=== PATIENT | male | born 1950 | race Caucasian/White ===

== ENCOUNTER 2016-06-10 15:24 | Inpatient (IN) ==
[2016-06-10] MEDS ORDERED: methylPREDNISolone 125 MG/2 ML VIAL IV ONE (15:36)
[2016-06-10] MEDS ORDERED: Ipratropium/Albuterol Neb 3 ML IH ONE (15:36)
--- NOTE | 2016-06-10 15:41 | Emergency Department Note ---
Disposition Clinical Impression: CHF exacerbation, COPD exacerbation Disposition: Admitted As Inpatient Condition: Good [facility]: [facility]Primary Care Provider[facility] - Forms: ED Satisfaction Letter Time of Disposition: 16:52 SOB HPI - General Chief Complaint: ED Shortness of Breath/Dyspnea Stated Complaint: DUSTIN, congestion Time Seen by Provider: 06/10/16 15:33 Source: patient Mode of arrival: ambulatory Limitations: no limitations Nursing Notes Reviewed: Yes Vital Signs Reviewed: Yes - History of Present Illness This is a 65-year-old male who states he has been having increased shortness of breath since yesterday morning. Patient states he has had a cough. Patient does have COPD but does not wear oxygen at home. Patient is a current cigarette smoker. Patient also has a history of CHF with a pacemaker/ defibrillator in place. Patient denies any active chest pain. Patient is not running any fevers. Patient has hypoxic on initial evaluation. Patient denies any abdominal pain, vomiting, diarrhea, or urinary symptoms. Pt Subjective Complaint: shortness of breath, cough Onset (ago): day(s) (1) - Related Data Home Medications Medication Instructions Recorded Confirmed Allopurinol [Zyloprim] 300 mg PO DAILY 03/24/15 06/10/16 Aspirin Enteric Coated [Aspirin EC] 81 mg PO DAILY 03/24/15 06/10/16 Cholecalciferol (Vitamin D3) 1,000 unit PO DAILY 03/24/15 06/10/16 [Vitamin D3] Digoxin [Lanoxin] 0.125 mg PO DAILY 03/24/15 06/10/16 Docusate [Colace] 200 mg PO BID 03/24/15 06/10/16 Furosemide [Lasix] 60 mg PO BID 03/24/15 06/10/16 Ipratropium/Albuterol Neb [Duoneb] 3 ml IH Q8H PRN 03/24/15 06/10/16 Morphine Sulfate SR (12 HR) [MS 15 mg PO Q4H PRN 03/24/15 06/10/16 Contin] Omeprazole [PriLOSEC] 20 mg PO DAILY 03/24/15 06/10/16 Rosuvastatin [Crestor] 10 mg PO HS 03/24/15 06/10/16 Budesonide/Formoterol 160/4.5 2 puff IH BIDR 09/25/15 06/10/16 [Symbicort 160/4.5] Lisinopril [Zestril] 2.5 mg PO DAILY 09/25/15 06/10/16 Metolazone [Zaroxolyn] 2.5 mg PO DAILY PRN 09/25/15 06/10/16 Gabapentin [Neurontin] 600 mg PO TID 06/10/16 06/10/16 Warfarin [Coumadin] 5 mg PO 3XW MDD 06/10/16 06/10/16Monday,monday,monday Warfarin [Coumadin] 10 mg PO 4XW MDD ,th,sat,sun 06/10/16 06/10/16 Previous Rx's Medication Instructions Recorded Metoprolol XL (24 HR) Succ [Toprol 25 mg PO DAILY #30 tab.er.24h 08/31/15 Xl] Spironolactone [Aldactone] 25 mg PO BID #60 tablet 08/31/15 Allergies Allergy/AdvReac Type Severity Reaction Status Date / Time No Known Allergies Allergy Verified 06/10/16 15:29 All systems ED: reviewed and negative except as stated. Constitutional: Denies: fever, chills, weakness, weight change Eyes: Denies: eye pain, eye discharge, vision change ENT ED: Denies: ear pain, throat pain, dental pain, hearing loss, epistaxis, congestion, dysphagia Cardiovascular: Denies: chest pain, palpitations, dyspnea on exertion, edema, syncope Respiratory: Reports: cough, dyspnea, wheezes. Denies: hemoptysis, stridor Gastrointestinal: Denies: abdominal pain, nausea, vomiting, diarrhea, constipation, hematemesis, melena, hematochezia Genitourinary: Denies: urgency, dysuria, frequency, hematuria Musculoskeletal: Denies: back pain, neck pain, arthralgia, myalgia Integumentary: Denies: rash, abrasion, lesions Neurological: Denies: headache, weakness, numbness, paresthesias, confusion, abnormal gait, vertigo Psychiatric: Denies: anxiety, depression, suicidal thoughts, homicidal thoughts , auditory hallucinations, visual hallucinations Endocrine: Denies: fatigue Hematological/Lymphatic: Denies: easy bleeding, easy bruising Allergic/Immunologic: Denies: facial swelling, urticaria Past Medical History - Past Medical History Attestation: Yes The following information was validated with the patient. Source: patient Medical history: Reports: arthritis, atrial fibrillation, COPD, coronary artery disease, diabetes, hyperlipidemia, hypertension, myocardial infarction, other Surgical history: Reports: coronary bypass (CABG), other Psychiatric history: Reports: no psych history - Social History Smoking Status: Current every day smoker Smokeless Tobacco Status: No Alcohol use: Reports: none Drug use: Reports: none Physical Exam - General Limitations: no limitations General appearance: alert, in no apparent distress - Head Head exam: atraumatic, normocephalic, normal inspection - Eye Eye exam: Present: normal appearance, PERRL, EOMI - ENT ENT exam: normal exam, normal oropharynx, mucous membranes moist - Expanded ENT Exam External ear exam: Present: normal external inspection Mouth exam: Present: normal external inspection Teeth exam: Present: normal inspection Throat exam: Present: normal inspection - Neck Neck exam: Present: normal inspection, full ROM, trachea midline - Chest Chest inspection: Present: normal inspection, symmetric chest wall rise - Respiratory Respiratory exam: Present: wheezes, other (rhonchi) - Cardiovascular Cardiovascular exam: Present: tachycardia, irregular rhythm, normal heart sounds - Abdominal Exam Abdominal exam: Present: soft, Non-Tender. Absent: tenderness, distention, guarding, rebound, rigidity - Extremities Exam Extremities exam: Present: normal inspection, full ROM. Absent: tenderness, pedal edema - Expanded Upper Extremity Exam Shoulder exam: Present: normal inspection, full ROM Arm exam: Present: normal inspection, full ROM Elbow exam: Present: normal inspection, full ROM Forearm/Wrist exam: Present: normal inspection, full ROM Hand exam: Present: normal inspection, full ROM Vascular exam: Normal: capillary refill, radial pulse - Expanded Lower Extremity Exam Hip/Pelvis exam: Present: normal inspection, full ROM Upper leg exam: Present: normal inspection, full ROM Knee exam: Present: normal inspection, full ROM Lower leg exam: Present: normal inspection, full ROM Ankle exam: Present: normal inspection, full ROM Foot/toe exam: Present: normal inspection, full ROM Neurovascular/Tendon exam: Absent: motor deficit, sensory deficit, tendon deficit - Back Exam Back exam: Present: normal inspection, full ROM. Absent: tenderness - Neurological Exam Neurological exam: Present: alert, oriented X3 - Expanded Neurological Exam Patient oriented to: Present: person, place, time Coma Scale Eye Opening: Spontaneous Coma Scale Motor Response: Obeys Commands Coma Scale Verbal Response: Oriented Coma Scale Total: 15 - Psychiatric Psychiatric exam: Present: normal affect, normal mood - Skin Skin exam: Present: warm, dry, intact, normal color Course - Consultations Consultation #1: I spoke with Dr. Tete segundo to admit. Time: 18:20 Vital Signs Temperature 99.7 F H 06/10/16 15:35 Pulse Rate 93 06/10/16 15:35 Respiratory Rate 24 06/10/16 15:35 Blood Pressure 78/54 06/10/16 15:35 O2 Sat by Pulse Oximetry 96 06/10/16 15:35 Temperature 99.7 F H 06/10/16 15:35 Pulse Rate 106 06/10/16 17:04 Respiratory Rate 24 06/10/16 17:04 Blood Pressure 119/82 06/10/16 17:04 O2 Sat by Pulse Oximetry 97 06/10/16 17:04 Oxygen Delivery Oxygen Delivery Nasal Cannula Shortness of Breath/Dyspnea - Medical Records Medical records reviewed: Yes I reviewed the patient's medical records. - Lab Data Lab results reviewed: Yes I reviewed the patient's lab results. Result diagrams: 06/10/16 16:11 06/10/16 16:11 Lab Results 06/10/16 06/10/16 06/10/16 Range/Units 16:11 16:11 16:11 WBC 6.2 (4.3-11.1) K/mcL RBC 4.61 (4.19-5.50) M/mcL Hgb 12.4 L (12.9-16.9) g/dL Hct 39.2 (37.5-50.1) % MCV 85.0 (83.0-100.0) fL MCH 26.9 L (28.0-33.3) pg MCHC 31.6 (31.6-35.5) g/dL RDW 15.7 H (11.5-14.5) % Plt Count 128 L (140-400) K/mcL MPV 10.4 (9.4-12.4) fL Immature Gran % 0.3 (0-4) % Seg Neutrophils % 68.5 % Lymphocytes % 16.7 % Monocytes % 13.8 % Eosinophils % 0.2 % Basophils % 0.5 % Neutrophils # 4.3 (1.6-8.9) K/mcL Lymphocytes # 1.0 (0.6-4.6) K/mcL Monocytes # 0.9 (0.0-1.3) K/mcL Eosinophils # 0.0 (0.0-0.6) K/mcL Basophils # 0.0 (0.0-0.2) K/mcL PT 32.3 H (9.4-12.1) Seconds INR 2.9 APTT 38.9 H (26.0-36.0) Seconds D-Dimer 626 H (0-500) ng/mLFEU ABG pH (7.32-7.45) pH Units ABG pCO2 (35-45) mmHg ABG pO2 (85-104) mmHg ABG HCO3 (21-27) mEQ/L ABG Total CO2 (20-26) mEq/L ABG O2 Saturation (95-98) % ABG Base Excess (-2.0 to 3.0) mEq/L Blood Gas Modality Inspired O2 % Sodium 137 (136-145) mEq/L Potassium 4.4 (3.5-4.5) mEq/L Chloride 99 (98-109) mEq/L Carbon Dioxide 31 H (19-29) mEq/L BUN 23 (8-26) mg/dL Creatinine 1.07 (0.72-1.25) mg/dL Est GFR ( Amer) > 60 (> 60) Est GFR (Non-Af Amer) > 60 (> 60) BUN/Creatinine Ratio 21 (6-26) Glucose 94 (70-99) mg/dL Calculated Osmolality 287 (280-300) Calcium 8.8 (8.6-10.8) mg/dL Troponin I (0-0.03) ng/mL B-Natriuretic Peptide (0-100) pg/mL 06/10/16 06/10/16 06/10/16 Range/Units 16:11 16:11 16:12 WBC (4.3-11.1) K/mcL RBC (4.19-5.50) M/mcL Hgb (12.9-16.9) g/dL Hct (37.5-50.1) % MCV (83.0-100.0) fL MCH (28.0-33.3) pg MCHC (31.6-35.5) g/dL RDW (11.5-14.5) % Plt Count (140-400) K/mcL MPV (9.4-12.4) fL Immature Gran % (0-4) % Seg Neutrophils % % Lymphocytes % % Monocytes % % Eosinophils % % Basophils % % Neutrophils # (1.6-8.9) K/mcL Lymphocytes # (0.6-4.6) K/mcL Monocytes # (0.0-1.3) K/mcL Eosinophils # (0.0-0.6) K/mcL Basophils # (0.0-0.2) K/mcL PT (9.4-12.1) Seconds INR APTT (26.0-36.0) Seconds D-Dimer (0-500) ng/mLFEU ABG pH 7.33 (7.32-7.45) pH Units ABG pCO2 65 H (35-45) mmHg ABG pO2 99 (85-104) mmHg ABG HCO3 34.3 H (21-27) mEQ/L ABG Total CO2 36.3 H (20-26) mEq/L ABG O2 Saturation 97 (95-98) % ABG Base Excess 6.2 H (-2.0 to 3.0) mEq/L Blood Gas Modality [place] Inspired O2 40 % Sodium (136-145) mEq/L Potassium (3.5-4.5) mEq/L Chloride (98-109) mEq/L Carbon Dioxide (19-29) mEq/L BUN (8-26) mg/dL Creatinine (0.72-1.25) mg/dL Est GFR ( Amer) (> 60) Est GFR (Non-Af Amer) (> 60) BUN/Creatinine Ratio (6-26) Glucose (70-99) mg/dL Calculated Osmolality (280-300) Calcium (8.6-10.8) mg/dL Troponin I 0.05 H* (0-0.03) ng/mL B-Natriuretic Peptide 534 H (0-100) pg/mL - Radiology Data Radiology results reviewed: Yes I reviewed the patient's radiology results. - EKG Data EKG attestation: Yes I reviewed and interpreted this EKG. Rate: Reports: normal Rhythm: Reports: A.Fib Arp/QRS: Reports: left axis deviation, IVCD When compared to previous EKG there are: no significant changes Interpretation: Reports: nonspecific ST-T wave changes
[2016-06-10 16:29] LABS: Basophils % 0.5 %; Eosinophils % 0.2 %; Hematocrit 39.2 % (37.5-50.1); Hemoglobin 12.4 g/dL (12.9-16.9); Immature Granulocytes % 0.3 % (0-4); Lymphocytes % 16.7 %; Mean Corpuscular HGB Conc 31.6 g/dL (31.6-35.5); Mean Corpuscular Hemoglobin 26.9 pg (28.0-33.3); Mean Platelet Volume 10.4 fL (9.4-12.4); Monocytes # 0.9 K/mcL (0.0-1.3); Monocytes % 13.8 %; Neutrophils # 4.3 K/mcL (1.6-8.9); Platelet Count 128 K/mcL (140-400); Red Blood Count 4.61 M/mcL (4.19-5.50); Red Cell Distribution Width 15.7 % (11.5-14.5); Segmented Neutrophils % 68.5 %
[2016-06-10 16:29] LABS: ABG Base Excess 6.2 mEq/L (-2.0 to 3.0); ABG HCO3 34.3 mEQ/L (21-27); ABG Oxygen Saturation 97 % (95-98); ABG PCO2 65 mmHg (35-45); ABG PH 7.33 pH Units (7.32-7.45); ABG PO2 99 mmHg (85-104); ABG TCO2 36.3 mEq/L (20-26)
[2016-06-10 16:30] LABS: Blood Gas FiO2 40 %
[2016-06-10 16:36] LABS: INR 2.9; Prothrombin Time 32.3 Seconds (9.4-12.1)
[2016-06-10 16:39] LABS: Activated Partial Thrombo Time 38.9 Seconds (26.0-36.0)
[2016-06-10 16:43] LABS: BUN/Creatinine Ratio 21 (6-26); Blood Urea Nitrogen 23 mg/dL (8-26); Calcium 8.8 mg/dL (8.6-10.8); Carbon Dioxide 31 mEq/L (19-29); Chloride 99 mEq/L (98-109); Glucose 94 mg/dL (70-99); Osmolality,Calculated 287 (280-300); Potassium 4.4 mEq/L (3.5-4.5); Sodium 137 mEq/L (136-145); eGFR For African Americans > 60 (> 60); eGFR For Non-African Americans > 60 (> 60)
[2016-06-10] MEDS ORDERED: Aspirin 325 MG TABLET PO ONE (16:50)
[2016-06-10] MEDS ORDERED: Levofloxacin 750 MG/150 ML 750 MG/150 ML BAG IVPB ONE (16:50)
[2016-06-10] MEDS ORDERED: Furosemide 20 MG/2 ML VIAL IVP ONE ×2 (16:50→22:50)
--- NOTE | 2016-06-10 20:13 | Internal Med History&Physical ---
Date of Encounter: 06/10/16 Time of Encounter: 07:45 Assessment and Plan (1) COPD exacerbation Current visit: Yes Status: Acute Acute on chronic respiratory failure secondary to COPD exacerbation with hypoxia and hypercapnea. In the emergency department the patient was given 125 mg Solu-Medrol, 20 mg Lasix IV, and to neb treatment with some improvement of symptoms. Will continue to scheduled [id number] Solu-Medrol 40 mg Q8hr Continue Levaquin x-ray demonstrates cardiomegaly with mild increased interstitial markings a small pleural effusions which may represent congestive heart failure. ABG demonstrated carbon dioxide retention, will place the patient on a BiPAP continuous pulse ox cardiac monitoring titrate oxygenation between 89 to 92% (2) CHF exacerbation Current visit: Yes Status: Acute Patient reports for pound weight can last week and demonstrates pitting edema in the lower extremities. X-ray was consistent with acute exacerbation of CHF as well. Patient was given 20 mg IV Lasix in the emergency department. Additional 20mg given now. Continue with Lasix 40 mg IV BID Qualifiers: Congestive heart failure type: systolic Qualified Code(s): I50.23 - Acute on chronic systolic (congestive) heart failure (3) Elevated troponin Current visit: No Status: Acute Chronically elevated. Likely secondary to demand ischemia from COPD exacerbation and CHF. Will trend troponins. Initial troponin was 0.05 and repeat is 0.05 as well. (4) Atrial fibrillation Current visit: No Status: Chronic Chronic will rate control below 100bpm. Cardizem PRN. Hold Metoprolol as the patient is actively wheezing. Continue Warfarin. Qualifiers: Atrial fibrillation type: chronic Qualified Code(s): I48.2 - Chronic atrial fibrillation (5) Coronary artery disease Current visit: Yes Status: Acute Continue crestor. Qualifiers: Coronary Disease-Associated Artery/Lesion type: [place] artery Teller vs. transplanted heart: red [place] heart Associated angina: without angina Qualified Code(s): I25.10 - Atherosclerotic heart disease of red [place] coronary artery without angina pectoris (6) DM2 (diabetes mellitus, type 2) Current visit: No Status: Acute The patient was previously treated with Metformin, but reports after he lost a lot of weight he was no longer needing treatment. Most recent A1c in [facility] is 5.9. No treatment needed at this time. Repeat A1c in the morning. Continue to monitor. Qualifiers: Diabetes mellitus complication status: without complication Diabetes mellitus mcfp insulin use: without mcfp use Qualified Code(s): E11.9 - Type 2 diabetes mellitus without complications (7) Essential hypertension Current visit: Yes Status: Acute Patient is currently hypotensive. Will hold metoprolol at this time as the patient is wheezing. (8) Tobacco abuse Current visit: No Status: Acute Nicotine patches ordered. Smoking cessation provided. (9) DVT prophylaxis Current visit: Yes Status: Acute Patient is therapeutic on coumadin GI prophylaxis omeprazole. Patient is at high risk for respiratory failure and future cardiac events. Internal Medicine - H&P: HPI Chief complaint: dyspnea Admitted From: Emergency Dept Plans for Post Hospital Care: Home History of present illness: Mr. Rudd is a 65 year old male with PMH significant for CHF, COPD, arthritis, A. fib, CAD, DM, HLD, HTN, and three previous MIs who presented to the emergency department with dyspnea. The patient states that his symptoms started yesterday morning and have been getting progressively worse since. He additionally complains of cough is productive for a yellow brownish sputum. He reports having a 4 pound weight gain in the past week and some lower extremity swelling. The patient denies chest pain, fever, nausea and vomiting, diarrhea and any urinary symptoms. He did have one episode of dizziness on his way to the emergency department. The patient is non-oxygen dependent. He continues to smoke daily. Past Med Surg Social Fam HX - Past Medical History Medical history: arthritis, atrial fibrillation, COPD, coronary artery disease, diabetes, hyperlipidemia, hypertension, myocardial infarction (In 1992, 1994, and 2001), other Psychiatric history: no psych history - Past Surgical History Surgical History: cholecystectomy, coronary bypass (CABG) (two vessel in 2006), other (cardiac ablation x4) - Social History Smoking Status: Current every day smoker Smokeless Tobacco Status: No Alcohol use: none Drug use: none - Family History Mother Living Status: Cause of : Cardiac Disorder Hx Family Cardiac Disorders: Yes Father Living Status: Cause of : Cardiac Disorders Hx Family Cardiac Disorders: Yes Internal Medicine - H&P: Meds Allopurinol [Zyloprim] 300 mg PO DAILY 03/24/15 [History] Aspirin Enteric Coated [Aspirin EC] 81 mg PO DAILY 03/24/15 [History] Cholecalciferol (Vitamin D3) [Vitamin D3] 1,000 unit PO DAILY 03/24/15 [History] Digoxin [Lanoxin] 0.125 mg PO DAILY 03/24/15 [History] Docusate [Colace] 200 mg PO BID 03/24/15 [History] Furosemide [Lasix] 40 mg PO BID 03/24/15 [History] Ipratropium/Albuterol Neb [Duoneb] 3 ml IH Q8H PRN 03/24/15 [History] Morphine Sulfate SR (12 HR) [MS Contin] 15 mg PO Q4H PRN 03/24/15 [History] Omeprazole [PriLOSEC] 20 mg PO DAILY 03/24/15 [History] Rosuvastatin [Crestor] 10 mg PO HS 03/24/15 [History] Metoprolol XL (24 HR) Succ [Toprol Xl] 25 mg PO DAILY #30 tab.er.24h 08/31/15 [ Rx] Budesonide/Formoterol 160/4.5 [Symbicort 160/4.5] 2 puff IH BIDR 09/25/15 [ History] Lisinopril [Zestril] 2.5 mg PO DAILY 09/25/15 [History] Metolazone [Zaroxolyn] 2.5 mg PO DAILY PRN 09/25/15 [History] Docusate Sodium [Stool Softener] 200 mg PO QAM 06/10/16 [History] Docusate Sodium [Stool Softener] 200 mg PO QPM 06/10/16 [History] Gabapentin [Neurontin] 600 mg PO TID 06/10/16 [History] Spironolactone [Aldactone] 12.5 mg PO BID 06/10/16 [History] Warfarin [Coumadin] 5 mg PO 3XW MDD monday,monday,monday06/10/16 [History] Warfarin [Coumadin] 10 mg PO 4XW MDD ,,sat,sun 06/10/16 [History] Allergies No Known Allergies Allergy (Verified 06/10/16 15:29) All Systems PM: A 10-system review of systems was performed and is negative for pertinent findings except as documented above in the HPI. - Constitutional Constitutional: no chills, no fever(s), no night sweats - EENT Eyes: no change in vision, no discharge, no pain, no photophobia Ears: no ear discharge, no ear pain, no tinnitus Nose, mouth and throat: no dysphagia, no nasal discharge, no neck pain, no sore throat - Cardiovascular Cardiovascular ROS IM: dyspnea, lightheadedness, no chest pain, no diaphoresis, no palpitations, no syncope - Respiratory Respiratory: cough, dyspnea, dyspnea on exertion, excessive phlegm production, change in phlegm color, no wheezing - Gastrointestinal Gastrointestinal: no abdominal pain, no diarrhea, no hematemesis, no hematochezia, no melena, no nausea, no vomiting - Musculoskeletal Musculoskeletal ROS IM: no numbness, no tingling - Integumentary Integumentary IM: no rash, no unusual bruising - Neurological Neurological ROS: no confusion, no convulsions, no focal weakness, no numbness, no tingling, no tremor(s) - Hematologic/Lymphatic Hematologic/Lymphatic: no easy bruising - Constitutional Vitals: Temp Pulse Resp BP Pulse Ox 99.7 F H 106 20 116/74 97 06/10/16 15:35 06/10/16 17:04 06/10/16 18:40 06/10/16 18:40 06/10/16 17:04 General appearance: Present: A&O X 3 - Head Head exam: Present: atraumatic, normocephalic - Eye Eye exam: Present: PERRL, conjuntiva pink, sclera anicteric Pupils: Present: PERRL - Neck Neck exam general surgery: Present: supple, trachea midline. Absent: lymphadenopathy - Respiratory Respiratory exam: Present: prolonged expiratory phase, rhonchi, wheezes. Absent : accessory muscle use, rales - Cardiovascular Cardiovascular exam: Present: irregular rhythm (irregularly irregular), +S1, +S2 , tachycardia. Absent: diastolic murmur, gallop, rubs, systolic murmur - GI/Abdominal GI/Abdominal exam: Present: normal bowel sounds, soft, no peritoneal signs. Absent: distended, tenderness - Extremities Exam Extremities exam: Present: pedal edema (+3 pitting edema bilaterally), warm, radial pulses palpable and symetrical. Absent: calf tenderness, cyanotic - Neurological Exam Neurological exam: Present: CN II-XII intact, oriented X3, no focal deficits. Absent: pronater drift, facial droop, speech deficit - Skin Skin exam: Present: dry Additional comments: stasis dermatitis present bilaterally on lower extremities Internal Med - H&P Results - Labs CBC & Chem 7: 06/10/16 16:11 06/10/16 16:11 - Attending Attestation I examined this patient and my medical decision-making was reviewed with the DOORPERSON OR LUGGAGE PORTER/PA/Advanced Practice Nurse/Resident Physician. I agree with the documented findings, disposition and treatment plan as described except to the extent set forth below.
[2016-06-10] MEDS ORDERED: Ondansetron ODT 4 MG TAB.RAPDIS SL PRN (20:37)
[2016-06-10] MEDS ORDERED: Naloxone 0.4 MG/ML INJ IVP PRN (20:37)
[2016-06-10] MEDS ORDERED: Nicotine 14 MG PATCH.TD24 TD PRN (22:56)
[2016-06-10] MEDS ORDERED: dilTIAZem HCl 60 MG TABLET PO PRN (23:06)
[2016-06-10] MEDS: MethylPREDNISolone 40 MG/ML VIAL IVP SCH (23:50)
[2016-06-10] MEDS: Ipratropium/Albuterol Neb 3 ML IH SCH (23:53)
[2016-06-11 03:15] LABS: Hematocrit 39.2 % (37.5-50.1); Hemoglobin 12.4 g/dL (12.9-16.9); Mean Corpuscular HGB Conc 31.6 g/dL (31.6-35.5); Mean Corpuscular Hemoglobin 26.9 pg (28.0-33.3); Mean Platelet Volume 10.8 fL (9.4-12.4); Platelet Count 132 K/mcL (140-400); Red Blood Count 4.61 M/mcL (4.19-5.50); Red Cell Distribution Width 15.6 % (11.5-14.5)
[2016-06-11 03:26] LABS: INR 3.3; Prothrombin Time 37.1 Seconds (9.4-12.1)
[2016-06-11 03:29] LABS: Activated Partial Thrombo Time 40.2 Seconds (26.0-36.0); BUN/Creatinine Ratio 24 (6-26); Blood Urea Nitrogen 29 mg/dL (8-26); Calcium 8.9 mg/dL (8.6-10.8); Carbon Dioxide 28 mEq/L (19-29); Chloride 99 mEq/L (98-109); Glucose 157 mg/dL (70-99); Osmolality,Calculated 293 (280-300); Potassium 4.6 mEq/L (3.5-4.5); Sodium 137 mEq/L (136-145); eGFR For African Americans > 60 (> 60); eGFR For Non-African Americans > 60 (> 60)
[2016-06-11 03:38] LABS: Hemoglobin A1C 6.3 %
[2016-06-11] MEDS: Ipratropium/Albuterol Neb 3 ML IH SCH ×6 (04:06→23:50)
[2016-06-11] MEDS: *HR* Morphine 2 MG/ML SYRINGE IVP PRN ×4 (06:19→23:07)
[2016-06-11] MEDS ORDERED: *HR* Warfarin 5 MG TABLET PO SCH ×2 (09:00→18:00)
[2016-06-11] MEDS ORDERED: Nicotine 14 MG PATCH.TD24 TD SCH (09:00)
[2016-06-11] MEDS ORDERED: Metoprolol XL (24 HR) Succ 25 MG TAB.ER.24H PO SCH (09:00)
[2016-06-11] MEDS: *HR* Digoxin 0.125 MG TABLET PO SCH (09:34)
[2016-06-11] MEDS: Aspirin Enteric Coated 81 MG Tablet PO SCH (09:34)
[2016-06-11] MEDS: Gabapentin 300 MG CAPSULE PO SCH ×3 (09:34→19:57)
[2016-06-11] MEDS: MethylPREDNISolone 40 MG/ML VIAL IVP SCH ×3 (09:35→23:07)
[2016-06-11] MEDS: Furosemide 40 MG/4 ML VIAL IVP SCH ×2 (09:35→19:58)
--- NOTE | 2016-06-11 10:27 | Internal Med Progress Note ---
Date of Encounter: 06/11/16 Time of Encounter: 10:25 - Assessment and plan (1) Acute on chronic respiratory failure with hypoxia and hypercapnia Current Visit: No Status: Acute Assessment and plan: Acute on chronic hypoxic and hypercapnic respiratory failure secondary to combination of acute COPD exacerbation from acute bronchitis viral versus bacterial with possible acute systolic CHF exacerbation Switch Levaquin to Rocephin Continue Solu-Medrol IV and Lasix IV Strict I's and O's, daily weight Oxygen therapy and BiPAP when necessary (2) Acute exacerbation of chronic obstructive airways disease Current Visit: No Status: Acute (3) Acute on chronic systolic (congestive) heart failure Current Visit: No Status: Acute (4) DM2 (diabetes mellitus, type 2) Current Visit: No Status: Acute Assessment and plan: Continue insulin sliding scale Qualifiers: Diabetes mellitus complication status: without complication Diabetes mellitus bed bug exterminator insulin use: without jail use Qualified Code(s): E11.9 - Type 2 diabetes mellitus without complications (5) Atrial fibrillation Current Visit: No Status: Chronic Assessment and plan: Continue digoxin and restart metoprolol at 50 mg daily Hold warfarin due to supratherapeutic INR of 3.3 Qualifiers: Atrial fibrillation type: chronic Qualified Code(s): I48.2 - Chronic atrial fibrillation (6) Essential hypertension Current Visit: Yes Status: Acute Assessment and plan: High risk due to respiratory failure - Time Spent With Patient Greater than 35 minutes - Subjective Interval history: The patient's feeling less short of breath, denies any chest pain, no abdominal pain, has been bringing up clear phlegm. No dysuria or diarrhea. No fevers - Constitutional Vitals: Temp Pulse Resp BP Pulse Ox 97.4 F L 109 16 102/77 93 L 06/11/16 06:49 06/11/16 06:49 06/11/16 08:06 06/11/16 06:49 06/11/16 08:06 General appearance: Present: A&O X 3 - Head Head exam: Present: atraumatic, normocephalic - Eye Eye exam: Present: PERRL, conjuntiva pink, sclera anicteric Pupils: Present: PERRL - Neck Neck exam general surgery: Present: supple, trachea midline. Absent: lymphadenopathy - Respiratory Respiratory exam: Present: CTAB, rales, wheezes (Diffuse crackles and wheezing throughout both lung farrell). Absent: accessory muscle use, rhonchi - Cardiovascular Cardiovascular exam: Present: RRR, +S1, +S2. Absent: diastolic murmur, gallop, rubs, systolic murmur - GI/Abdominal GI/Abdominal exam: Present: normal bowel sounds, soft, no peritoneal signs. Absent: distended, tenderness - Extremities Exam Extremities exam: Present: warm, radial pulses palpable and symetrical. Absent : calf tenderness, cyanotic, pedal edema Additional comments: +2 pitting edema both lower extremities - Neurological Exam Neurological exam: Present: CN II-XII intact, oriented X3, no focal deficits. Absent: pronater drift, facial droop, speech deficit - Skin Skin exam: Present: dry, intact Internal Medicine: Result - Labs CBC & Chem 7: 06/11/16 02:58 06/11/16 02:58 Labs: Short CBC 06/11/16 Range/Units 02:58 WBC 3.6 L (4.3-11.1) K/mcL Hgb 12.4 L (12.9-16.9) g/dL Hct 39.2 (37.5-50.1) % Plt Count 132 L (140-400) K/mcL BMP 06/11/16 02:58 Sodium 137 Potassium 4.6 H Chloride 99 Carbon Dioxide 28 BUN 29 H Creatinine 1.19 Glucose 157 H Calcium 8.9 Cardiac Enzymes 06/10/16 06/11/16 06/11/16 Range/Units 21:54 02:58 08:43 Troponin I 0.05 H* 0.03 0.02 (0-0.03) ng/mL - ABG Interpretation ABG results: ABG ABG pH 7.33 pH Units (7.32-7.45) 06/10/16 16:12 ABG pCO2 65 mmHg (35-45) H 06/10/16 16:12 ABG pO2 99 mmHg (85-104) 06/10/16 16:12 ABG O2 Saturation 97 % (95-98) 06/10/16 16:12 PT/INR, D-dimer PT 37.1 Seconds (9.4-12.1) H 06/11/16 02:58 D-Dimer 626 ng/mLFEU (0-500) H 06/10/16 16:11 Consult Discharge Plan - Plan [facility]errals: [facility] [Primary Care Provider[facility] -
[2016-06-11] MEDS: Metoprolol XL (24 HR) Succ 50 MG TAB.ER.24H PO SCH (11:34)
[2016-06-11 13:13] LABS: Adenovirus Not Detected (Not Detect); Bordetella Pertussis Not Detected (Not Detect); Chlamydophila pneumoniae Not Detected (Not Detect); Coronavirus 229E Not Detected (Not Detect); Coronavirus HKU1 Not Detected (Not Detect); Coronavirus NL63 Not Detected (Not Detect); Coronavirus OC43 Not Detected (Not Detect); Human Metapneumovirus Not Detected (Not Detect); Human Rhinovirus/Enterovirus Not Detected (Not Detect); Influenza A Subtype 2009 H1 Not Detected (Not Detect); Influenza A Untypeable Not Detected (Not Detect); Influenza B Not Detected (Not Detect); Mycoplasma pneumoniae Not Detected (Not Detect); Parainfluenza Virus 1 Not Detected (Not Detect); Parainfluenza Virus 2 Not Detected (Not Detect); Parainfluenza Virus 3 ***DETECTED*** (Not Detect); Parainfluenza Virus 4 Not Detected (Not Detect); Respiratory Syncytial Virus Not Detected (Not Detect)
[2016-06-11] MEDS ORDERED: Levofloxacin 500 MG/100 ML 500 MG/100 ML BAG IVPB SCH (14:00)
[2016-06-12] MEDS: Ipratropium/Albuterol Neb 3 ML IH SCH ×6 (04:09→23:16)
[2016-06-12] MEDS: *HR* Morphine 2 MG/ML SYRINGE IVP PRN ×3 (05:04→19:37)
[2016-06-12 05:31] LABS: Hemoglobin 12.6 g/dL (12.9-16.9); Mean Corpuscular HGB Conc 32.3 g/dL (31.6-35.5); Mean Corpuscular Hemoglobin 27.5 pg (28.0-33.3); Mean Platelet Volume 11.4 fL (9.4-12.4); Platelet Count 149 K/mcL (140-400); Red Blood Count 4.59 M/mcL (4.19-5.50); Red Cell Distribution Width 15.5 % (11.5-14.5)
[2016-06-12 05:36] LABS: INR 3.2; Prothrombin Time 35.7 Seconds (9.4-12.1)
[2016-06-12 05:41] LABS: BUN/Creatinine Ratio 35 (6-26); Blood Urea Nitrogen 38 mg/dL (8-26); Calcium 9.1 mg/dL (8.6-10.8); Carbon Dioxide 28 mEq/L (19-29); Chloride 99 mEq/L (98-109); Glucose 162 mg/dL (70-99); Osmolality,Calculated 297 (280-300); Potassium 4.7 mEq/L (3.5-4.5); Sodium 137 mEq/L (136-145); eGFR For African Americans > 60 (> 60); eGFR For Non-African Americans > 60 (> 60)
[2016-06-12] MEDS: Gabapentin 300 MG CAPSULE PO SCH ×3 (09:24→19:36)
[2016-06-12] MEDS: *HR* Digoxin 0.125 MG TABLET PO SCH (09:25)
[2016-06-12] MEDS: Aspirin Enteric Coated 81 MG Tablet PO SCH (09:25)
[2016-06-12] MEDS: Metoprolol XL (24 HR) Succ 50 MG TAB.ER.24H PO SCH (09:25)
[2016-06-12] MEDS: Furosemide 40 MG/4 ML VIAL IVP SCH ×2 (09:25→19:36)
[2016-06-12] MEDS: MethylPREDNISolone 40 MG/ML VIAL IVP SCH ×3 (09:26→19:37)
--- NOTE | 2016-06-12 15:17 | Internal Med Progress Note ---
Date of Encounter: 06/12/16 Time of Encounter: 15:15 - Assessment and plan (1) Acute on chronic respiratory failure with hypoxia and hypercapnia Current Visit: No Status: Acute Assessment and plan: Acute on chronic hypoxic and hypercapnic respiratory failure secondary to a combination of acute COPD exacerbation from acute viral bronchitis due to Parainfluenza 3 with possible acute systolic CHF exacerbation Switched Levaquin to Rocephin day 2 Continue Solu-Medrol IV and Lasix IV Strict I's and O's, daily weight Oxygen therapy and BiPAP when necessary (2) Acute exacerbation of chronic obstructive airways disease Current Visit: No Status: Acute (3) Acute on chronic systolic (congestive) heart failure Current Visit: No Status: Acute (4) DM2 (diabetes mellitus, type 2) Current Visit: No Status: Acute Assessment and plan: Continue insulin sliding scale Qualifiers: Diabetes mellitus complication status: without complication Diabetes mellitus terminal clerk insulin use: without skilled nursing use Qualified Code(s): E11.9 - Type 2 diabetes mellitus without complications (5) Atrial fibrillation Current Visit: No Status: Chronic Assessment and plan: Continue digoxin and increse metoprolol form 50 to 100 mg daily Hold warfarin due to supratherapeutic INR of 3.3 Qualifiers: Atrial fibrillation type: chronic Qualified Code(s): I48.2 - Chronic atrial fibrillation (6) Essential hypertension Current Visit: Yes Status: Acute Assessment and plan: High risk due to respiratory failure - Time Spent With Patient Greater than 35 minutes - Subjective Interval history: says that he does not require oxygen at home The patient's feeling still short of breath, denies any chest pain, no abdominal pain, has been bringing up clear phlegm. No dysuria or diarrhea. No fevers - Constitutional Vitals: Temp Pulse Resp BP Pulse Ox 97.8 F 97 16 102/69 95 06/12/16 11:57 06/12/16 11:57 06/12/16 11:57 06/12/16 11:57 06/12/16 11:57 General appearance: Present: A&O X 3 - Head Head exam: Present: atraumatic, normocephalic - Eye Eye exam: Present: PERRL, conjuntiva pink, sclera anicteric Pupils: Present: PERRL - Neck Neck exam general surgery: Present: supple, trachea midline. Absent: lymphadenopathy - Respiratory Respiratory exam: Present: CTAB, rales (Diffuse crackles and wheezing throughout both lung farrell), wheezes. Absent: accessory muscle use, rhonchi - Cardiovascular Cardiovascular exam: Present: RRR, +S1, +S2. Absent: diastolic murmur, gallop, rubs, systolic murmur - GI/Abdominal GI/Abdominal exam: Present: normal bowel sounds, soft, no peritoneal signs. Absent: distended, tenderness - Extremities Exam Extremities exam: Present: warm, radial pulses palpable and symetrical. Absent : calf tenderness, cyanotic, pedal edema - Neurological Exam Neurological exam: Present: CN II-XII intact, oriented X3, no focal deficits. Absent: pronater drift, facial droop, speech deficit - Skin Skin exam: Present: dry, intact Internal Medicine: Result - Labs CBC & Chem 7: 06/12/16 04:52 06/12/16 04:52 Labs: Short CBC 06/12/16 Range/Units 04:52 WBC 11.5 H D (4.3-11.1) K/mcL Hgb 12.6 L (12.9-16.9) g/dL Hct 39.0 (37.5-50.1) % Plt Count 149 (140-400) K/mcL BMP 06/12/16 04:52 Sodium 137 Potassium 4.7 H Chloride 99 Carbon Dioxide 28 BUN 38 H Creatinine 1.10 Glucose 162 H Calcium 9.1 - ABG Interpretation ABG results: ABG ABG pH 7.33 pH Units (7.32-7.45) 06/10/16 16:12 ABG pCO2 65 mmHg (35-45) H 06/10/16 16:12 ABG pO2 99 mmHg (85-104) 06/10/16 16:12 ABG O2 Saturation 97 % (95-98) 06/10/16 16:12 PT/INR, D-dimer PT 35.7 Seconds (9.4-12.1) H 06/12/16 04:52 D-Dimer 626 ng/mLFEU (0-500) H 06/10/16 16:11 Consult Discharge Plan - Plan [facility]: [facility] [Primary Care Provider[facility] -
[2016-06-12] MEDS ORDERED: Metoprolol XL (24 HR) Succ 50 MG TAB.ER.24H PO ONE (16:41)
[2016-06-13] MEDS: *HR* Morphine 2 MG/ML SYRINGE IVP PRN ×5 (01:36→20:06)
[2016-06-13] MEDS: MethylPREDNISolone 40 MG/ML VIAL IVP SCH ×4 (04:08→20:15)
[2016-06-13] MEDS: Ipratropium/Albuterol Neb 3 ML IH SCH ×6 (04:23→23:30)
[2016-06-13 05:14] LABS: Hematocrit 38.4 % (37.5-50.1); Hemoglobin 12.2 g/dL (12.9-16.9); Mean Corpuscular HGB Conc 31.8 g/dL (31.6-35.5); Mean Corpuscular Hemoglobin 27.1 pg (28.0-33.3); Mean Corpuscular Volume 85.3 fL (83.0-100.0); Mean Platelet Volume 11.2 fL (9.4-12.4); Platelet Count 142 K/mcL (140-400); Red Cell Distribution Width 15.8 % (11.5-14.5)
[2016-06-13 05:18] LABS: INR 2.4; Prothrombin Time 26.9 Seconds (9.4-12.1)
[2016-06-13 05:25] LABS: BUN/Creatinine Ratio 49 (6-26); Blood Urea Nitrogen 45 mg/dL (8-26); Calcium 8.7 mg/dL (8.6-10.8); Carbon Dioxide 31 mEq/L (19-29); Chloride 98 mEq/L (98-109); Glucose 145 mg/dL (70-99); Osmolality,Calculated 296 (280-300); Potassium 4.7 mEq/L (3.5-4.5); Sodium 136 mEq/L (136-145); eGFR For African Americans > 60 (> 60); eGFR For Non-African Americans > 60 (> 60)
[2016-06-13] MEDS: Gabapentin 300 MG CAPSULE PO SCH ×3 (08:52→20:06)
[2016-06-13] MEDS: *HR* Digoxin 0.125 MG TABLET PO SCH (08:52)
[2016-06-13] MEDS: Metoprolol XL (24 HR) Succ 50 MG TAB.ER.24H PO SCH (08:53)
[2016-06-13] MEDS: Furosemide 40 MG/4 ML VIAL IVP SCH ×2 (08:54→20:06)
[2016-06-13] MEDS: Aspirin Enteric Coated 81 MG Tablet PO SCH (08:54)
--- NOTE | 2016-06-13 12:08 | Electrocardiograph Report ---
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
[2016-06-13] MEDS ORDERED: *HR* Metoprolol 5 MG/5 ML VIAL IVP ONE (16:16)
[2016-06-13] MEDS ORDERED: *HR* Metoprolol 5 MG/5 ML VIAL IVP PRN (16:18)
--- NOTE | 2016-06-13 16:21 | Internal Med Progress Note ---
Date of Encounter: 06/13/16 Time of Encounter: 16:18 - Assessment and plan (1) Acute on chronic respiratory failure with hypoxia and hypercapnia Current Visit: No Status: Acute Assessment and plan: Acute on chronic hypoxic and hypercapnic respiratory failure secondary to a combination of acute COPD exacerbation from acute viral bronchitis due to Parainfluenza 3 with possible acute systolic CHF exacerbation Switched Levaquin to Rocephin day 3 ( may discontinue abxs) Continue Solu-Medrol IV and Lasix IV Strict I's and O's, daily weight Oxygen therapy and BiPAP when necessary (2) Acute exacerbation of chronic obstructive airways disease Current Visit: No Status: Acute (3) Acute on chronic systolic (congestive) heart failure Current Visit: No Status: Acute Assessment and plan: Continue Lasix IV 40 mg twice a day Strict I's and O's and daily weight (4) DM2 (diabetes mellitus, type 2) Current Visit: No Status: Acute Assessment and plan: Continue insulin sliding scale Qualifiers: Diabetes mellitus complication status: without complication Diabetes mellitus intermodal dispatcher insulin use: without penitentiary use Qualified Code(s): E11.9 - Type 2 diabetes mellitus without complications (5) Atrial fibrillation Current Visit: No Status: Chronic Assessment and plan: Continue digoxin and increse metoprolol form 50 to 100 mg daily Resume warfarin per pharmacy, level was supratherapeutic INR 3.3 on 06/12/16 Qualifiers: Atrial fibrillation type: chronic Qualified Code(s): I48.2 - Chronic atrial fibrillation (6) Essential hypertension Current Visit: Yes Status: Acute Assessment and plan: High risk due to respiratory failure - Time Spent With Patient Greater than 35 minutes - Subjective Interval history: Does not require oxygen at home The patient's feeling very short of breath, denies any chest pain, no abdominal pain, has been bringing up clear phlegm. No dysuria or diarrhea. No fevers - Constitutional Vitals: Temp Pulse Resp BP Pulse Ox 98.1 F 116 15 118/75 69 L 06/13/16 15:00 06/13/16 15:00 06/13/16 16:02 06/13/16 15:00 06/13/16 16:02 General appearance: Present: A&O X 3 - Head Head exam: Present: atraumatic, normocephalic - Eye Eye exam: Present: PERRL, conjuntiva pink, sclera anicteric Pupils: Present: PERRL - Neck Neck exam general surgery: Present: supple, trachea midline. Absent: lymphadenopathy - Respiratory Respiratory exam: Present: CTAB, wheezes (Diffuse wheezing). Absent: accessory muscle use, rales, rhonchi - Cardiovascular Cardiovascular exam: Present: irregular rhythm, RRR, +S1, +S2, tachycardia. Absent: diastolic murmur, gallop, rubs, systolic murmur - GI/Abdominal GI/Abdominal exam: Present: normal bowel sounds, soft, no peritoneal signs. Absent: distended, tenderness - Extremities Exam Extremities exam: Present: warm, radial pulses palpable and symetrical. Absent : calf tenderness, cyanotic, pedal edema - Neurological Exam Neurological exam: Present: CN II-XII intact, oriented X3, no focal deficits. Absent: pronater drift, facial droop, speech deficit - Skin Skin exam: Present: dry, intact Internal Medicine: Result - Labs CBC & Chem 7: 06/13/16 04:48 06/13/16 04:48 Labs: Short CBC 06/13/16 Range/Units 04:48 WBC 11.0 (4.3-11.1) K/mcL Hgb 12.2 L (12.9-16.9) g/dL Hct 38.4 (37.5-50.1) % Plt Count 142 (140-400) K/mcL BMP 06/13/16 04:48 Sodium 136 Potassium 4.7 H Chloride 98 Carbon Dioxide 31 H BUN 45 H Creatinine 0.91 Glucose 145 H Calcium 8.7 - ABG Interpretation ABG results: ABG ABG pH 7.33 pH Units (7.32-7.45) 06/10/16 16:12 ABG pCO2 65 mmHg (35-45) H 06/10/16 16:12 ABG pO2 99 mmHg (85-104) 06/10/16 16:12 ABG O2 Saturation 97 % (95-98) 06/10/16 16:12 PT/INR, D-dimer PT 26.9 Seconds (9.4-12.1) H 06/13/16 04:48 D-Dimer 626 ng/mLFEU (0-500) H 06/10/16 16:11 Consult Discharge Plan - Plan [facility]errals: [facility] [Primary Care Provider] - 06/30/16 3:30 pm
[2016-06-13] MEDS ORDERED: Metoprolol XL (24 HR) Succ 50 MG TAB.ER.24H PO ONE (16:41)
[2016-06-13] MEDS ORDERED: Warfarin perPT PO PRN (18:00)
[2016-06-13] MEDS ORDERED: *HR* Warfarin 5 MG TABLET PO SCH (18:00)
[2016-06-13] MEDS ORDERED: *HR* Warfarin 5 MG TABLET PO ONE (19:30)
[2016-06-13] MEDS: Silvasorb 44.4 ML TUBE TP SCH (21:29)
[2016-06-14] MEDS: *HR* Morphine 2 MG/ML SYRINGE IVP PRN ×6 (00:18→22:12)
[2016-06-14] MEDS: MethylPREDNISolone 40 MG/ML VIAL IVP SCH ×4 (03:46→22:03)
[2016-06-14] MEDS: Ipratropium/Albuterol Neb 3 ML IH SCH ×6 (04:24→23:22)
[2016-06-14 06:15] LABS: Hematocrit 40.7 % (37.5-50.1); Hemoglobin 12.8 g/dL (12.9-16.9); Mean Corpuscular HGB Conc 31.4 g/dL (31.6-35.5); Mean Corpuscular Hemoglobin 27.1 pg (28.0-33.3); Mean Platelet Volume 11.4 fL (9.4-12.4); Platelet Count 151 K/mcL (140-400); Red Blood Count 4.73 M/mcL (4.19-5.50); Red Cell Distribution Width 15.4 % (11.5-14.5)
[2016-06-14 06:19] LABS: INR 1.9; Prothrombin Time 20.5 Seconds (9.4-12.1)
[2016-06-14 06:24] LABS: BUN/Creatinine Ratio 51 (6-26); Blood Urea Nitrogen 46 mg/dL (8-26); Calcium 8.8 mg/dL (8.6-10.8); Carbon Dioxide 35 mEq/L (19-29); Chloride 96 mEq/L (98-109); Glucose 138 mg/dL (70-99); Osmolality,Calculated 298 (280-300); Potassium 4.6 mEq/L (3.5-4.5); Sodium 137 mEq/L (136-145); eGFR For African Americans > 60 (> 60); eGFR For Non-African Americans > 60 (> 60)
[2016-06-14] MEDS: Aspirin Enteric Coated 81 MG Tablet PO SCH (08:51)
[2016-06-14] MEDS: Furosemide 40 MG/4 ML VIAL IVP SCH (08:51)
[2016-06-14] MEDS: Gabapentin 300 MG CAPSULE PO SCH ×3 (08:51→22:02)
[2016-06-14] MEDS: *HR* Digoxin 0.125 MG TABLET PO SCH (08:51)
[2016-06-14] MEDS: Metoprolol XL (24 HR) Succ 50 MG TAB.ER.24H PO SCH (08:52)
--- NOTE | 2016-06-14 14:57 | Internal Med Progress Note ---
Date of Encounter: 06/14/16 Time of Encounter: 14:49 - Assessment and plan (1) Parainfluenza infection Current Visit: Yes Status: Acute (2) CHF exacerbation Current Visit: Yes Status: Acute Qualifiers: Congestive heart failure type: systolic Qualified Code(s): I50.23 - Acute on chronic systolic (congestive) heart failure (3) COPD exacerbation Current Visit: Yes Status: Acute (4) Essential hypertension Current Visit: Yes Status: Acute (5) DM2 (diabetes mellitus, type 2) Current Visit: No Status: Acute Assessment and plan: continue steroids, nebs and iv abx for copd exacerbation. continue lasix, switch to oral. inr below goal, will double todays scheduled coumadin dose. BP improved, continue toprol XL and digoxin. Qualifiers: Diabetes mellitus complication status: without complication Diabetes mellitus group home insulin use: without glucose and syrup weigher use Qualified Code(s): E11.9 - Type 2 diabetes mellitus without complications - Constitutional Vitals: Temp Pulse Resp BP Pulse Ox 97.8 F 93 16 119/93 95 06/14/16 11:06 06/14/16 11:06 06/14/16 11:08 06/14/16 11:06 06/14/16 11:08 General appearance: Present: A&O X 3 - Head Head exam: Present: atraumatic, normocephalic - Eye Eye exam: Present: PERRL, conjuntiva pink, sclera anicteric Pupils: Present: PERRL - Neck Neck exam general surgery: Present: supple, trachea midline. Absent: lymphadenopathy - Respiratory Respiratory exam: Present: CTAB. Absent: accessory muscle use, rales, rhonchi, wheezes - Cardiovascular Cardiovascular exam: Present: irregular rhythm, RRR, +S1, +S2. Absent: diastolic murmur, gallop, rubs, systolic murmur - GI/Abdominal GI/Abdominal exam: Present: normal bowel sounds, soft, no peritoneal signs. Absent: distended, tenderness - Extremities Exam Extremities exam: Present: warm, radial pulses palpable and symetrical. Absent : calf tenderness, cyanotic, pedal edema - Neurological Exam Neurological exam: Present: CN II-XII intact, oriented X3, no focal deficits. Absent: pronater drift, facial droop, speech deficit - Skin Skin exam: Present: dry, intact Internal Medicine: Result - Labs CBC & Chem 7: 06/14/16 05:16 06/14/16 05:16 Labs: Short CBC 06/14/16 Range/Units 05:16 WBC 10.8 (4.3-11.1) K/mcL Hgb 12.8 L (12.9-16.9) g/dL Hct 40.7 (37.5-50.1) % Plt Count 151 (140-400) K/mcL BMP 06/14/16 05:16 Sodium 137 Potassium 4.6 H Chloride 96 L Carbon Dioxide 35 H BUN 46 H Creatinine 0.91 Glucose 138 H Calcium 8.8 - ABG Interpretation ABG results: ABG ABG pH 7.33 pH Units (7.32-7.45) 06/10/16 16:12 ABG pCO2 65 mmHg (35-45) H 06/10/16 16:12 ABG pO2 99 mmHg (85-104) 06/10/16 16:12 ABG O2 Saturation 97 % (95-98) 06/10/16 16:12 PT/INR, D-dimer PT 20.5 Seconds (9.4-12.1) H 06/14/16 05:16 D-Dimer 626 ng/mLFEU (0-500) H 06/10/16 16:11 Consult Discharge Plan - Plan [facility]: [facility] [Primary Care Provider] - 06/30/16 3:30 pm
[2016-06-14] MEDS: Silvasorb 44.4 ML TUBE TP SCH (15:16)
[2016-06-14] MEDS: Furosemide 40 MG TABLET PO SCH (16:55)
[2016-06-14] MEDS ORDERED: *HR* Warfarin 10 MG TABLET PO SCH (18:00)
[2016-06-15] MEDS: *HR* Morphine 2 MG/ML SYRINGE IVP PRN ×3 (02:24→11:11)
[2016-06-15] MEDS: Ipratropium/Albuterol Neb 3 ML IH SCH ×3 (03:50→11:47)
[2016-06-15 05:36] LABS: INR 1.9; Prothrombin Time 21.1 Seconds (9.4-12.1)
[2016-06-15] MEDS: MethylPREDNISolone 40 MG/ML VIAL IVP SCH ×2 (06:31→08:57)
[2016-06-15 08:35] VITALS: BP 120/76
[2016-06-15] MEDS: *HR* Digoxin 0.125 MG TABLET PO SCH (08:54)
[2016-06-15] MEDS: Furosemide 40 MG TABLET PO SCH (08:54)
[2016-06-15] MEDS: Metoprolol XL (24 HR) Succ 50 MG TAB.ER.24H PO SCH (08:55)
[2016-06-15] MEDS: Gabapentin 300 MG CAPSULE PO SCH (08:55)
[2016-06-15] MEDS: Aspirin Enteric Coated 81 MG Tablet PO SCH (08:56)
--- NOTE | 2016-06-15 12:31 | Discharge Summary ---
Date of Encounter: 06/15/16 Time of Encounter: 12:18 - Discharge Diagnosis (1) COPD exacerbation Priority: Primary Status: Acute (2) Parainfluenza infection Priority: Primary Status: Acute (3) CHF exacerbation Priority: Secondary Status: Acute Qualifiers: Congestive heart failure type: systolic Qualified Code(s): I50.23 - Acute on chronic systolic (congestive) heart failure (4) Essential hypertension Priority: Secondary Status: Acute (5) DM2 (diabetes mellitus, type 2) Priority: Secondary Status: Acute Qualifiers: Diabetes mellitus complication status: without complication Diabetes mellitus predatory animal exterminator insulin use: without predatory animal exterminator use Qualified Code(s): E11.9 - Type 2 diabetes mellitus without complications - Discharge Medications Prescriptions: Nicotine Patch [Nicoderm] 14 mg TD DAILY PRN #20 patch.td24 PRN Reason: tobacco withdrawal Home Medications: Allopurinol [Zyloprim] 300 mg PO DAILY 03/24/15 [History] Aspirin Enteric Coated [Aspirin EC] 81 mg PO DAILY 03/24/15 [History] Cholecalciferol (Vitamin D3) [Vitamin D3] 1,000 unit PO DAILY 03/24/15 [History] Digoxin [Lanoxin] 0.125 mg PO DAILY 03/24/15 [History] Docusate [Colace] 200 mg PO BID 03/24/15 [History] Furosemide [Lasix] 40 mg PO BID 03/24/15 [History] Morphine Sulfate SR (12 HR) [MS Contin] 15 mg PO Q4H PRN 03/24/15 [History] Omeprazole [PriLOSEC] 20 mg PO DAILY 03/24/15 [History] Rosuvastatin [Crestor] 10 mg PO HS 03/24/15 [History] Metoprolol XL (24 HR) Succ [Toprol Xl] 25 mg PO DAILY #30 tab.er.24h 08/31/15 [ Rx] Budesonide/Formoterol 160/4.5 [Symbicort 160/4.5] 2 puff IH BIDR 09/25/15 [ History] Lisinopril [Zestril] 2.5 mg PO DAILY 09/25/15 [History] Metolazone [Zaroxolyn] 2.5 mg PO DAILY PRN 09/25/15 [History] Docusate Sodium [Stool Softener] 200 mg PO QAM 06/10/16 [History] Docusate Sodium [Stool Softener] 200 mg PO QPM 06/10/16 [History] Gabapentin [Neurontin] 600 mg PO TID 06/10/16 [History] Spironolactone [Aldactone] 12.5 mg PO BID 06/10/16 [History] Warfarin [Coumadin] 5 mg PO 3XW MDD monday,monday,monday06/10/16 [History] Warfarin [Coumadin] 10 mg PO 4XW MDD ,,sat,sun 06/10/16 [History] Ipratropium/Albuterol Neb [Duoneb] 3 ml IH Q6HR #30 vial.neb 06/15/16 [Rx] Nicotine Patch [Nicoderm] 14 mg TD DAILY PRN #20 patch.td24 06/15/16 [Rx] PredniSONE 10 mg PO DAILY #30 tablet 06/15/16 [Rx] Allergies/Adverse Reactions: Allergies No Known Allergies Allergy (Verified 06/10/16 15:29) Date of admission: 06/11/16 12:29 Primary care physician: PCP JAJA - Patient Status Disposition: Home, Self-Care Condition: Good Overall status at discharge: patient is progressing back to baseline - Discharge Instructions Follow Up With: JAJA,PCP [Primary Care Provider] - 06/30/16 3:30 pm - Diet and Activity Activity: increase activity as tolerated Diet: advance to your usual diet Hospital course: Mr. Rudd is a 65 year old male who presented with shortness of breath and found to have parainfluenza and acute copd, pt was treated with steroid and nebs with improvement. He continues to be oxygen dependent and will need 2lpm of portable continuous oxygen. His INR is slightly below goal and he has been asked to take 7.5mg of coumadin today instead of the usual 5mg. Pt will be discharged to home in stable condition. - Time Spent with Patient Total time spent providing and/or coordinating discharge services: - Constitutional Vitals: Temp Pulse Resp BP Pulse Ox 98.2 F 105 20 120/76 92 L 06/15/16 08:26 06/15/16 08:26 06/15/16 11:47 06/15/16 08:26 06/15/16 11:47 General appearance: Present: A&O X 3, no acute distress - Head Head exam: Present: atraumatic, normocephalic - Eye Eye exam: Present: PERRL, conjuntiva pink, sclera anicteric Pupils: Present: PERRL - Neck Neck exam general surgery: Present: supple, trachea midline. Absent: lymphadenopathy - Respiratory Respiratory exam: Present: decreased breath sounds, rhonchi ( ). Absent: accessory muscle use, rales - Cardiovascular Cardiovascular exam: Present: RRR, +S1, +S2. Absent: diastolic murmur, gallop, rubs, systolic murmur - GI/Abdominal GI/Abdominal exam: Present: normal bowel sounds, soft, no peritoneal signs. Absent: distended, tenderness - Extremities Exam Extremities exam: Present: warm, radial pulses palpable and symetrical. Absent : calf tenderness, cyanotic, pedal edema - Neurological Exam Neurological exam: Present: CN II-XII intact, oriented X3, no focal deficits. Absent: pronater drift, facial droop, speech deficit - Skin Skin exam: Present: dry, intact
[2016-06-15] MEDS ORDERED: FLU VACC QS2016-17 36MOS UP/PF 0.5 ML SYRINGE IM ONE (13:16)
[2016-06-15] MEDS ORDERED: *HR* Warfarin 5 MG TABLET PO SCH ×2 (18:00)
== END 2016-06-15 13:20 | disposition home or self-care (01) | DRG 190 ==
LOC: 2NENU 15:24 → EMEROO 15:24 → SUATTDRO 18:25 → 2NENU 18:40 → SUATTDRO 06-11 12:29
PROVIDERS: ADMIT Internal Medicine; ATTEND Family Medicine

== ENCOUNTER 2016-10-14 23:00 | Observation (INO) ==
[2016-10-15] MEDS: Ipratropium/Albuterol Neb 3 ML IH PRN ×2 (02:33→07:37)
[2016-10-15] MEDS ORDERED: Naloxone 0.4 MG/ML INJ IVP PRN (03:06)
[2016-10-15] MEDS ORDERED: *HR* Morphine 2 MG/ML SYRINGE IVP PRN (03:06)
[2016-10-15] MEDS ORDERED: Acetaminophen 325 MG TABLET PO PRN (03:06)
[2016-10-15] MEDS ORDERED: *HR* OxyCODONE/APAP 5/325 TABLET PO PRN (03:10)
--- NOTE | 2016-10-15 03:18 | Internal Med History&Physical ---
Date of Encounter: 10/15/16 Time of Encounter: 02:30 Assessment and Plan (1) AICD discharge Current visit: Yes Status: Acute 1. Will cycle troponins, EKG's, place on telemetry. 2. Will order ECHO to compare LVEF compared to old ECHO. 3. Consult cardiology. (2) Near syncope Current visit: Yes Status: Acute 1. Likely due to dysrhythmia (atrial Fib). 2. Monitor on telemetry. 3. Interrogate pacer per cardiology. 4. If not rhythm-induced, consider further work-up. However, suspect rhythm induced. (3) CAD (coronary artery disease) Current visit: Yes Status: Chronic 1. Continue home meds as appropriate. 2. Cycle troponins. 3. Smoking cessation well advised. Qualifiers: Coronary Disease-Associated Artery/Lesion type: [place] artery [place] vs. transplanted heart: [place] heart Associated angina: without angina Qualified Code(s): I25.10 - Atherosclerotic heart disease of [place] coronary artery without angina pectoris (4) DVT prophylaxis Current visit: Yes Status: Acute 1. On Coumadin. 2. Follow daily PT/INR. Internal Medicine - H&P: HPI Chief complaint: AICD discharge; near syncope Admitted From: Hospital to Hospital Transfer Plans for Post Hospital Care: Home History of present illness: Mr. Rudd is a 66 year old male who presents in transfer to [place] from [facility] ER in [place], [place]. He presented there after his defibrillator fired. He was in the grocery store with his when he noticed sudden onset of lightheadedness, dizziness, and near syncope. Because of the symptoms, he pushed his cart away and purposely slumped to the floor for fear of actual passing out. He did not pass out, however. As he was becoming lightheaded and dizzy and on the verge of syncope, his AICD discharged and shocked him. He states he felt it, and he remembers the whole event. Shortly thereafter, he felt better and the dizziness resolved. He was taken to [facility] ER where he was seen and evaluated. He was transferred to [place] for cardiology consultation and pacer interrogation. Presently, he feels well and has no complaints or concerns at this time. In particular, he denies any chest pain, palpitations, shortness of breath, nausea, or vomiting. Past Med Surg Social Fam HX - Past Medical History Attestation: Yes The following information was validated with the patient. Source: patient, old records reviewed Medical history: arthritis, atrial fibrillation, cardiomyopathy (ischemic), COPD , coronary artery disease, diabetes, hyperlipidemia, hypertension, myocardial infarction, venous stasis, other Psychiatric history: no psych history - Past Surgical History Surgical History: cataract, cholecystectomy, coronary bypass (CABG), pacemaker/ AICD - Social History Smoking Status: Current every day smoker Smokeless Tobacco Status: No Alcohol use: none Drug use: none Current living situation: Home, With Family Activity Level: Independent ambulation Recent Out of Country Travel Within the Last 8 Weeks: No - Family History Mother Living Status: Hx Family Cardiac Disorders: Yes Father Living Status: Hx Family Cardiac Disorders: Yes Internal Medicine - H&P: Meds Allopurinol [Zyloprim] 300 mg PO DAILY 03/24/15 [History] Aspirin Enteric Coated [Aspirin EC] 81 mg PO DAILY 03/24/15 [History] Cholecalciferol (Vitamin D3) [Vitamin D3] 1,000 unit PO DAILY 03/24/15 [History] Digoxin [Lanoxin] 0.125 mg PO DAILY 03/24/15 [History] Docusate [Colace] 200 mg PO BID 03/24/15 [History] Furosemide [Lasix] 40 mg PO BID 03/24/15 [History] Morphine Sulfate SR (12 HR) [MS Contin] 15 mg PO TID 03/24/15 [History] Omeprazole [PriLOSEC] 20 mg PO DAILY 03/24/15 [History] Rosuvastatin [Crestor] 10 mg PO HS 03/24/15 [History] Budesonide/Formoterol 160/4.5 [Symbicort 160/4.5] 2 puff IH BIDR 09/25/15 [ History] Spironolactone [Aldactone] 12.5 mg PO BID 06/10/16 [History] Warfarin [Coumadin] 5 mg PO MOWEFR 06/10/16 [History] Warfarin [Coumadin] 10 mg PO SUTUTHSA 06/10/16 [History] Ipratropium/Albuterol Neb [Duoneb] 3 ml IH BID PRN 10/05/16 [History] Metoprolol XL (24 HR) Succ [Toprol Xl] 100 mg PO DAILY 10/05/16 [History] OxyCODONE/APAP 5/325 [Percocet 5/325 MG] 1 each PO Q6HR PRN #30 tablet 10/05/16 [Rx] Potassium Chloride [K-Tab ER] 10 meq PO DAILY 10/05/16 [History] Allergies No Known Allergies Allergy (Verified 10/10/16 12:45) - Constitutional Constitutional: no chills, no fever(s) - EENT Eyes: no blurry vision, no change in vision Nose, mouth and throat: no nasal congestion, no sinus pressure, no sore throat - Cardiovascular Cardiovascular ROS IM: diaphoresis, lightheadedness, palpitations, other (+ near syncope), no chest pain, no dyspnea, no dyspnea on exertion - Respiratory Respiratory: no cough, no dyspnea, no hemoptysis, no dyspnea on exertion, no wheezing - Gastrointestinal Gastrointestinal: no abdominal pain, no heartburn, no hematemesis, no hematochezia, no melena, no nausea, no vomiting - Genitourinary Genitourinary ROS male: no dysuria, no flank pain - Musculoskeletal Musculoskeletal ROS IM: no arthralgias, no back pain - Integumentary Integumentary IM: no rash, no jaundice - Neurological Neurological ROS: dizziness, no focal weakness, no frequent falls, no headache(s ), no vertigo - Psychiatric Psychiatric: no anxiety, no depression - Endocrine Endocrine IM: no polydipsia, no polyuria - Hematologic/Lymphatic Hematologic/Lymphatic: easy bruising - Allergic/Immunologic Allergic/Immunologic: no wheezing, no GI upset with certain foods - Constitutional Vitals: Temp Pulse Resp BP Pulse Ox 97.6 F 70 17 94/50 91 10/15/16 03:12 10/15/16 03:12 10/15/16 03:12 10/15/16 03:12 10/15/16 03:12 General appearance: Present: cooperative, A&O X 3, pleasant, no acute distress, answers questions appropriately - Head Head exam: Present: atraumatic, normal inspection - Expanded Head Exam Head exam expanded: Absent: abrasion, contusion, general tenderness - Eye Eye exam: Present: EOMI, normal appearance, PERRL. Absent: scleral icterus Pupils: Present: normal accommodation - ENT ENT exam: Present: mucous membranes dry, normal exam - Neck Neck exam general surgery: Present: full ROM, supple. Absent: lymphadenopathy, tenderness, thyromegaly - Respiratory Respiratory exam: Present: prolonged expiratory phase, rhonchi. Absent: accessory muscle use, chest wall tenderness, rales, respiratory distress, wheezes - Cardiovascular Cardiovascular exam: Present: irregular rhythm, +S1, +S2, systolic murmur ( grade 1). Absent: diastolic murmur - GI/Abdominal GI/Abdominal exam: Present: normal bowel sounds, soft. Absent: hepatomegaly, mass, splenomegaly, tenderness - Extremities Exam Extremities exam: Present: full ROM, normal capillary refill, warm. Absent: calf tenderness, pedal edema, tenderness - Back Exam Back exam: Present: normal inspection. Absent: CVA tenderness (L), CVA tenderness (R) - Neurological Exam Neurological exam: Present: alert, oriented X3, no focal deficits - Psychiatric Psychiatric exam: Present: normal affect, normal mood - Skin Skin exam: Present: dry, warm. Absent: rash Internal Med - H&P Results - EKG Data -: EKG Interpreted by Myself - EKG Data EKG comments: 10/15/16 03:26 Ventricular paced rhythm - VTE Reasons for not Prescribing Prophylaxis: Not indicated-Anticoagulated or INR therapeutic
[2016-10-15 03:24] LABS: INR 2.2; Prothrombin Time 24.1 Seconds (9.4-12.1)
[2016-10-15 03:32] LABS: Basophils # 0.1 K/mcL (0.0-0.2); Basophils % 0.6 %; Eosinophils # 0.1 K/mcL (0.0-0.6); Eosinophils % 1.2 %; Hematocrit 41.4 % (37.5-50.1); Hemoglobin 13.8 g/dL (12.9-16.9); Immature Granulocytes % 1.2 % (0-4); Lymphocytes # 2.9 K/mcL (0.6-4.6); Lymphocytes % 28.6 %; Mean Corpuscular HGB Conc 33.3 g/dL (31.6-35.5); Mean Corpuscular Hemoglobin 29.1 pg (28.0-33.3); Mean Corpuscular Volume 87.3 fL (83.0-100.0); Mean Platelet Volume 10.9 fL (9.4-12.4); Monocytes # 0.9 K/mcL (0.0-1.3); Platelet Count 185 K/mcL (140-400); Red Blood Count 4.74 M/mcL (4.19-5.50); Red Cell Distribution Width 15.8 % (11.5-14.5); Segmented Neutrophils % 59.4 %
[2016-10-15 03:39] LABS: BUN/Creatinine Ratio 30 (6-26); Blood Urea Nitrogen 35 mg/dL (8-26); Carbon Dioxide 30 mEq/L (19-29); Chloride 99 mEq/L (98-109); Glucose 115 mg/dL (70-99); Magnesium 2.1 mg/dL (1.6-2.6); Osmolality,Calculated 297 (280-300); Potassium 3.9 mEq/L (3.5-4.5); Sodium 139 mEq/L (136-145); eGFR For African Americans > 60 (> 60); eGFR For Non-African Americans > 60 (> 60)
[2016-10-15 03:47] LABS: Digoxin 0.4 ng/mL (0.8-2.0)
[2016-10-15] MEDS ORDERED: Perflutren Lipid Microsphere 1.3 ML in 0.9 % Sodium Chloride 8.7 ML IVP ONE (08:13)
[2016-10-15] MEDS ORDERED: Perflutren Lipid Microsphere 2 ML VIAL ONE (08:15)
[2016-10-15] MEDS: *HR* Morphine Sulfate SR (12 HR) 15 MG TABLET.ER PO SCH ×2 (08:58→15:21)
[2016-10-15] MEDS ORDERED: Nicotine 21 MG PATCH.TD24 TD SCH (09:00)
[2016-10-15] MEDS ORDERED: Aspirin Enteric Coated 81 MG Tablet PO SCH (09:00)
[2016-10-15] MEDS ORDERED: Metoprolol XL (24 HR) Succ 50 MG TAB.ER.24H PO SCH (09:00)
[2016-10-15] MEDS ORDERED: *HR* Digoxin 0.125 MG TABLET PO SCH (09:00)
[2016-10-15] MEDS ORDERED: Furosemide 40 MG TABLET PO SCH (09:00)
[2016-10-15] MEDS ORDERED: Spironolactone 25 MG TABLET PO SCH (09:00)
[2016-10-15] MEDS ORDERED: Cholecalciferol (D-3) 1,000 UNIT TABLET PO SCH (09:00)
[2016-10-15] MEDS ORDERED: Budesonide/Formoterol 160/4.5 MDI IH SCH (10:00)
--- NOTE | 2016-10-15 10:44 | Event Note ---
Date of Encounter: 10/15/16 Time of Encounter: 10:41 stephen seen at the bedside, admitted for near syncope 2/2 AICD firing yesterday. seen at the bedside, denies any chest pain or sob. denies any other complaints reports that his AICD was interrogated in september. there is mild elevation in trop to 0.04, patient is asymptomatic will follow cardio recommendations, continue the tele monitoring.
--- NOTE | 2016-10-15 13:36 | ECHO - Doppler Report ---
Echo with Imaging Enhancement Agent Name: Junaid Rudd Date of Study: 10/15/2016 Date: 1950 Ht: 71.0 in Medical Record#: [id number] Age: 66 Wt: 213.0 lb Gender: Male BSA: 2.17 Order #: [id number] Location: [facility] Room #: 2A31 Reading Physician: Jalen Garcia DO, FACC, LINDEN General Dentist: Maritza Vera RVT, [facility] Ordering Physician: Zana Singh MD Primary Physician: None Indications: ischemic cardiomyopathy, ICD discharge Impressions: LVEF 35%. Normal LV chamber size. Mild asymmetric septal hypertrophy. Global and segmental left ventricular systolic dysfunction. Indeterminate diastolic function. Atypical septal motion consistent with paced rhythm/postoperative septum. Mildly dilated right ventricle with near normal sytolic function. Severely dilated left atrium. Mild aortic regurgitation. Mild mitral regurgitation. No evidence of pulmonary hypertension. Left Ventricular Wall Motion: Rest Echo Findings The apex, apical inferior, apical anterior, mid anterior, basal anterior, mid inferior septal, basal inferior septal, apical lateral, mid anterior lateral, basal anterior lateral and basal anterior septal everett were hypokinetic. The mid inferior, basal inferior, apical septal, mid anterior septal, mid inferior lateral and basal inferior lateral everett were akinetic. Findings: Study Quality * Technically sub-optimal due to poor echocardiographic windows. ECG Findings * Paced rhythm. Left Ventricle * LVEF 35%. * Normal LV chamber size. * Mild asymmetric septal hypertrophy. * Global and segmental left ventricular systolic dysfunction. * Indeterminate diastolic function. * Atypical septal motion consistent with paced rhythm/postoperative septum. Right Ventricle * Mildly dilated right ventricle with near normal sytolic function. Left Atrium * Severely dilated left atrium. Right Atrium * Moderately dilated right atrium. Interatrial Septum * Interatrial septum not well evaluated. Aortic Valve * Trileaflet aortic valve. * Mildly calcified aortic valve leaflets. * Mild aortic regurgitation. * No aortic stenosis. Mitral Valve * Mildly thickened mitral valve leaflets. * Mild mitral regurgitation. * No mitral stenosis. Tricuspid Valve * Normal tricuspid valve structure and function. * Trace tricuspid regurgitation. * No evidence of pulmonary hypertension. Pulmonic Valve * Normal pulmonic valve structure and function. * Trace pulmonic regurgitation. Aorta * Normally sized aortic root. Pericardium * The pericardium appears normal. IVC * Normal IVC dimensions and inspiratory collapse. Device lead * A device lead was visualized in the right atrium and right ventricle. Pulmonary Artery * Normal visualized portions of the main pulmonary artery. History Hypertension Diabetes Hypercholesteremia Family History of CAD History of CAD/PTCA Myocardial Infarction Coronary Artery Bypass Graft Congestive Heart Failure Pacer/ICD Implant 08-30-2015 a Previous Echo was performed. Contrast: Definity 1.3 ml in 8.7 ml of saline 3 ml. Measurements: BP: 94/ 50 2D Normal Values RVIDd: 4.10 cm <2.7 cm IVSd: 1.50 cm 0.6 - 1.0 cm LVIDd: 5.40 cm 3.7 - 5.6 cm LVPWd: 1.40 cm 0.6 - 1.1 cm LVIDs: 3.70 cm 1.5 - 3.6 cm AO: 3.30 cm < 4.0 cm LA: 6.70 cm 2.0 - 4.0cm %FS: 31.50 cm >25 % LA volume: 92 Mitral Valve Dec Time:197.00 msec Peak E:1.10 m/sec Peak A:.66 m/sec E/A Ratio:1.7 Peak E' Lat Moisés:10.2 cm/s Peak E' Med Moisés:8.68 cm/s E/E' Lat Ratio:10.8 E/E' Med Ratio:12.7 Aortic Valve AI pressure Half-time: 489.00 msec Tricuspid Valve TV Regurg Peak Grad: 28.00mmHg TV Regurg Peak Moisés: 2.63m/sec Updated by Jalen Garcia DO, FACLarry, CAIO CHEATHAM on 10/15/2016 1:30:18 PM electronically signed on 10/15/2016 1:30:39 PM with status of Final Wall Motion Arriola: 1=Normal, 2=Hypokinesis, 3=Akinesis, 4=Dyskinesis, 5=Aneurysmal, 6=Hyperkinetic, X=Not Visualized (Blank)=Missing
[2016-10-15 14:51] VITALS: BP 118/75
--- NOTE | 2016-10-15 16:25 | Cardiology Consult Note ---
Date of Encounter: 10/15/16 Time of Encounter: 15:15 Assessment and Plan (1) ICD (implantable cardioverter-defibrillator) in place Current Visit: Yes Status: Acute Hx of BiV-ICD. Presented to the ED after ICD shock on 10/14/16 PM. Completed device interrogation today--patient received ATP and x1 appropriate shock for VT. Recently started on digoxin a few months ago to improve rate control; given pro- arrhythmic effects, will stop today. Continue home CV medications including betablocker. Keep K>4.0, Mag >2.0. No further testing from Cardiology standpoint; will sign-off. Recommend close outpatient follow-up with [facility], as scheduled. (2) Atrial fibrillation Current Visit: Yes Status: Chronic Hx of afib on Coumadin therapy. Persistent afib noted per device report since March 2016. Continue betablocker for rate control, avg HR overnight=74. Qualifiers: Atrial fibrillation type: chronic Qualified Code(s): I48.2 - Chronic atrial fibrillation (3) CAD (coronary artery disease) Current Visit: Yes Status: Chronic Hx of CABG. Recent negative stress test in October 2015. Troponin 0.03, 0.04, 0.03. Patient denies chest pain or discomfort. Continue asa, statin, and betablocker. Qualifiers: Coronary Disease-Associated Artery/Lesion type: [place] artery [place] vs. transplanted heart: [place] heart Associated angina: without angina Qualified Code(s): I25.10 - Atherosclerotic heart disease of [place] coronary artery without angina pectoris (4) CHF (congestive heart failure) Current Visit: Yes Status: Acute Hx of systolic dysfunction s/p BiV-ICD. EF 35% per TTE with global and segmental LV systolic dysfunction, mild dilated RV with near normal function, severely dilated LA, mild AR/MR. Previous, 40%, mild reduction likely secondary to AICD shock. Euvolemic upon exam--continue home medications including betablocker and aldactone. Consider addition of ACEi in the outpatient setting. Qualifiers: Congestive heart failure type: systolic Congestive heart failure chronicity : chronic Qualified Code(s): I50.22 - Chronic systolic (congestive) heart failure Discussion w patient/family: The assessment and plan as outlined above was discussed with the patient and/or family members who expressed understanding and agreement. All questions were answered. Thank you for involving us in the care of your patient. Please call with any questions. The patient will be discussed and reviewed with Dr. June Marina; changes to be made accordingly. 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 Rudd is a 66 year old male with PMH significant for persistent atrial fibrillation (coumadin), HTN, HLD, CAD s/p CABG, and systolic CHF s/p BiV-ICD who presented to the ED after reported ICD shock yesterday evening. He reports he was standing in line at the grocery store when he suddenly became dizzy and lightheaded and then was shocked by his defibrillator. EMS was called and took patient [facility] ED--he was transferred to [facility] for further evaluation. He denies any recent medication changes; states he was in his normal state of health up until yesterday. Recent hernia surgery x10 days ago. He denies chest pain/discomfort, shortness of breath, leg edema, or syncopal episodes prior to event yesterday. Past Med Surg Social Fam HX - Past Medical History Attestation: Yes The following information was validated with the patient. Source: patient Medical history: arthritis, atrial fibrillation, cardiomyopathy (ischemic), COPD , coronary artery disease, diabetes, hyperlipidemia, hypertension, myocardial infarction, venous stasis Psychiatric history: no psych history - Past Surgical History Surgical History: cataract, cholecystectomy, coronary bypass (CABG), pacemaker/ AICD - Social History Smoking Status: Current every day smoker Smokeless Tobacco Status: No Alcohol use: none Drug use: none - Family History Mother Living Status: Hx Family Cardiac Disorders: Yes Father Living Status: Hx Family Cardiac Disorders: Yes Medications and Allergies Allopurinol [Zyloprim] 300 mg PO DAILY 03/24/15 [History] Aspirin Enteric Coated [Aspirin EC] 81 mg PO DAILY 03/24/15 [History] Cholecalciferol (Vitamin D3) [Vitamin D3] 1,000 unit PO DAILY 03/24/15 [History] Digoxin [Lanoxin] 0.125 mg PO DAILY 03/24/15 [History] Docusate [Colace] 200 mg PO BID 03/24/15 [History] Furosemide [Lasix] 40 mg PO BID 03/24/15 [History] Morphine Sulfate SR (12 HR) [MS Contin] 30 mg PO BID 03/24/15 [History] Omeprazole [PriLOSEC] 20 mg PO DAILY 03/24/15 [History] Rosuvastatin [Crestor] 10 mg PO HS 03/24/15 [History] Budesonide/Formoterol 160/4.5 [Symbicort 160/4.5] 2 puff IH BIDR 09/25/15 [ History] Spironolactone [Aldactone] 12.5 mg PO BID 06/10/16 [History] Warfarin [Coumadin] 5 mg PO MOWEFR 06/10/16 [History] Warfarin [Coumadin] 10 mg PO SUTUTHSA 06/10/16 [History] Ipratropium/Albuterol Neb [Duoneb] 3 ml IH BID PRN 10/05/16 [History] Metoprolol XL (24 HR) Succ [Toprol Xl] 100 mg PO DAILY 10/05/16 [History] OxyCODONE/APAP 5/325 [Percocet 5/325 MG] 1 each PO Q6HR PRN #30 tablet 10/05/16 [Rx] Potassium Chloride [K-Tab ER] 10 meq PO DAILY 10/05/16 [History] Morphine Sulfate [Arymo ER] 15 mg PO HS 10/15/16 [History] Allergies No Known Allergies Allergy (Verified 10/10/16 12:45) All Systems Review: A 10-system review of systems was performed and is negative for pertinent findings except as documented above in the HPI. - Cardiovascular Cardiovascular: as per HPI Physical Examination Vital Signs, Last 4 Hours Temp Pulse Resp BP Pulse Ox 10/15/16 14:50 98.0 F 73 16 118/75 95 General: Conversant, No Apparent Distress HEENT: Atraumatic, Normocephaly Cardiac: Other (irregularly irregular) Lungs: Normal Breath Sounds Neuro: Alert and responsive Abdomen: Soft Skin: No rashes noted on visualized skin Musculoskeletal: No Chest Wall Tenderness Extremities: No Edema, Normal Pulses Results 10/15/16 02:27 10/15/16 02:27 Lab Results 10/15/16 10/15/16 10/15/16 02:27 02:27 02:27 WBC 10.1 Hgb 13.8 Hct 41.4 Plt Count 185 INR Sodium 139 Potassium 3.9 Chloride 99 Carbon Dioxide 30 H BUN 35 H Creatinine 1.15 Glucose 115 H Calcium 9.0 Magnesium 2.1 Troponin I 0.03 10/15/16 10/15/16 10/15/16 03:15 07:31 13:36 WBC Hgb Hct Plt Count INR 2.2 Sodium Potassium Chloride Carbon Dioxide BUN Creatinine Glucose Calcium Magnesium Troponin I 0.04 H* 0.03 Active Medications Acetaminophen (Tylenol) 650 mg PO Q6HR PRN PRN Reason: Mild Pain (1-3) Stop: 04/16/17 03:07 Albuterol/Ipratropium (Duoneb) 3 ml IH [id number] PRN; Protocol PRN Reason: Shortness Of Breath/Wheezing Stop: 04/16/17 01:35 Last Admin: 10/15/16 07:37 Dose: 3 ml Allopurinol (Zyloprim) 300 mg PO DAILY [facility] Stop: 04/16/17 09:01 Last Admin: 10/15/16 08:58 Dose: 300 mg Aspirin (Aspirin Ec) 81 mg PO DAILY [facility] Stop: 04/16/17 09:01 Last Admin: 10/15/16 08:58 Dose: 81 mg Budesonide/Formoterol Fumarate (Symbicort) 2 puff IH BIDRESP [facility] PRN Reason: Protocol Stop: 04/16/17 10:01 Last Admin: 10/15/16 07:36 Dose: 2 puff Docusate Sodium (Colace) 100 mg PO BID PRN PRN Reason: Constipation Stop: 04/16/17 03:07 Docusate Sodium (Colace) 200 mg PO BID [facility] PRN Reason: Protocol Stop: 04/16/17 09:01 Last Admin: 10/15/16 08:58 Dose: 200 mg Furosemide (Lasix) 40 mg PO BID [facility] Stop: 04/16/17 09:01 Last Admin: 10/15/16 09:00 Dose: 40 mg Metoprolol Succinate (Toprol Xl) 100 mg PO DAILY [facility] Stop: 04/16/17 09:01 Last Admin: 10/15/16 09:00 Dose: 100 mg Morphine Sulfate (Morphine Sulfate) 2 mg IVP Q4HR PRN PRN Reason: Severe Pain (7-10) Stop: 04/16/17 03:07 Morphine Sulfate (Ms Contin) 15 mg PO TID [facility] Stop: 04/16/17 09:01 Last Admin: 10/15/16 15:21 Dose: 15 mg Naloxone HCl (Narcan) 0.4 mg IVP Q2MIN PRN PRN Reason: Opioid Reversal Stop: 04/16/17 03:07 Nicotine (Nicoderm) 21 mg TD DAILY [facility] PRN Reason: Protocol Stop: 04/16/17 09:01 Last Admin: 10/15/16 09:01 Dose: 21 mg Omeprazole (Prilosec) 20 mg PO DAILY [facility] PRN Reason: Protocol Stop: 04/16/17 09:01 Last Admin: 10/15/16 09:00 Dose: 20 mg Oxycodone/Acetaminophen (Percocet 5/325) 1 each PO Q6HR PRN PRN Reason: Pain (4-6) Stop: 04/16/17 03:11 Potassium Chloride (Potassium Chloride) 10 meq PO DAILY [facility] Stop: 04/16/17 09:01 Last Admin: 10/15/16 09:00 Dose: 10 meq Simvastatin (Zocor) 40 mg PO HS [facility] Stop: 04/16/17 21:01 Spironolactone (Aldactone) 12.5 mg PO BID [facility] Stop: 04/16/17 09:01 Last Admin: 10/15/16 08:59 Dose: 12.5 mg Vitamin D (Vitamin D) 1,000 unit PO DAILY [facility] Stop: 04/16/17 09:01 Last Admin: 10/15/16 08:59 Dose: 1,000 unit Warfarin Sodium (Coumadin) 5 mg PO MOWEFR [facility] Stop: 04/18/17 18:01 Warfarin Sodium (Coumadin) 10 mg PO SUTUTHSA [facility] Stop: 04/16/17 18:01 - Imaging and Cardiology Stress Test: report reviewed Echo: report reviewed - EKG Interpretation EKG results cardiology: personally reviewed Consult Discharge Plan - Plan Referrals: NO,PCP [Primary Care Provider] - Ted Marina MD [Partnered Physician] - 10/28/16 11:00 am
--- NOTE | 2016-10-15 17:24 | Discharge Summary ---
Date of Encounter: 10/16/16 Time of Encounter: 17:22 - Discharge Diagnosis (1) COPD (chronic obstructive pulmonary disease) with acute bronchitis Priority: Secondary Status: Acute (2) AICD discharge Priority: Primary Status: Acute (3) CAD (coronary artery disease) Priority: Secondary Status: Chronic Qualifiers: Coronary Disease-Associated Artery/Lesion type: [place] artery [place] vs. transplanted heart: [place] heart Associated angina: without angina Qualified Code(s): I25.10 - Atherosclerotic heart disease of [place] coronary artery without angina pectoris - Discharge Medications Home Medications: Allopurinol [Zyloprim] 300 mg PO DAILY 03/24/15 [History] Aspirin Enteric Coated [Aspirin EC] 81 mg PO DAILY 03/24/15 [History] Cholecalciferol (Vitamin D3) [Vitamin D3] 1,000 unit PO DAILY 03/24/15 [History] Docusate [Colace] 200 mg PO BID 03/24/15 [History] Furosemide [Lasix] 40 mg PO BID 03/24/15 [History] Morphine Sulfate SR (12 HR) [MS Contin] 30 mg PO BID 03/24/15 [History] Omeprazole [PriLOSEC] 20 mg PO DAILY 03/24/15 [History] Rosuvastatin [Crestor] 10 mg PO HS 03/24/15 [History] Budesonide/Formoterol 160/4.5 [Symbicort 160/4.5] 2 puff IH BIDR 09/25/15 [ History] Spironolactone [Aldactone] 12.5 mg PO BID 06/10/16 [History] Warfarin [Coumadin] 5 mg PO MOWEFR 06/10/16 [History] Warfarin [Coumadin] 10 mg PO SUTUTHSA 06/10/16 [History] Ipratropium/Albuterol Neb [Duoneb] 3 ml IH BID PRN 10/05/16 [History] Metoprolol XL (24 HR) Succ [Toprol Xl] 100 mg PO DAILY 10/05/16 [History] OxyCODONE/APAP 5/325 [Percocet 5/325 MG] 1 each PO Q6HR PRN #30 tablet 10/05/16 [Rx] Potassium Chloride [K-Tab ER] 10 meq PO DAILY 10/05/16 [History] Morphine Sulfate [Arymo ER] 15 mg PO HS 10/15/16 [History] Allergies/Adverse Reactions: Allergies No Known Allergies Allergy (Verified 10/10/16 12:45) Procedures/tests Complete & Pending: Procedures Performed prior 72 hours Category Date Time Status ECG 12 lead ECG [ECG] AM 0600 Y 10/15/16 06:00 Ordered EV echocardiogram w enhance Routine Y 10/15/16 03:06 Completed Date of admission: 10/15/16 00:35 Primary care physician: PCP NO Consults: 10/15/16 01:36 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 [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] Routine Reason for SW Consult: discharge planning, is [facility] 10/15/16 03:09 Consult to Physician [CONS] Routine Consulting Provider: Ted Marina Reason for Consult: AICD discharge; atrial fibrillaiton Call Completed: No Discharging clinician: Hakeem Martinez Anticipated date of discharge: 10/15/16 - Patient Status Disposition: Home, Self-Care Condition: Fair Functional capacity at discharge: independent ambulation Overall status at discharge: patient is back to baseline - Discharge Instructions Follow Up With: Ted Marina MD [Partnered Physician] - 10/28/16 11:00 am NO,PCP [Primary Care Provider] - (Please call your PCP on Monday morning to make a follow up appointment in 5-7 days) - Diet and Activity Activity: resume usual activities as tolerated Diet: advance to your usual diet Interval History: Mr. Rudd is a 66 year old male with PMH significant for persistent atrial fibrillation (coumadin), HTN, HLD, CAD s/p CABG, and systolic CHF s/p BiV-ICD who presented to the ED after reported ICD shock yesterday evening. He reports he was standing in line at the grocery store when he suddenly became dizzy and lightheaded and then was shocked by his defibrillator. EMS was called and took patient to [facility] ED--he was transferred to [facility] for further evaluation. He denies any recent medication changes; states he was in his normal state of health up until yesterday. Recent hernia surgery x10 days ago. He denies chest pain/discomfort, shortness of breath, leg edema, or syncopal episodes prior to event yesterday. HE was admitted and cardiology was consulted, Completed device interrogation today--patient received ATP and x1 appropriate shock for VT. Recently started on digoxin a few months ago to improve rate control; given pro- arrhythmic effects, was stopped by cardio today. will Continue home CV medications including betablocker. patient is being dc in stable condition today. Hospital course: Mr. Rudd is a 66 year old male Time spent discussing smoking cessation with patient: more than 10 minutes - Time Spent with Patient Total time spent providing and/or coordinating discharge services: Greater than 30 minutes - Constitutional Vitals: Temp Pulse Resp BP Pulse Ox 98.0 F 73 16 118/75 95 10/15/16 14:50 10/15/16 14:50 10/15/16 14:50 10/15/16 14:50 10/15/16 14:50 General appearance: Present: cooperative, A&O X 3, pleasant, no acute distress, answers questions appropriately Exam: General: Conversant, No Apparent Distress HEENT: Atraumatic, Normocephaly Cardiac: Other (irregularly irregular) Lungs: Normal Breath Sounds Neuro: Alert and responsive Abdomen: Soft Skin: No rashes noted on visualized skin Musculoskeletal: No Chest Wall Tenderness Extremities: No Edema, Normal Pulses - VTE Reasons for not Prescribing Prophylaxis: Not indicated-Anticoagulated or INR therapeutic
[2016-10-15] MEDS ORDERED: *HR* Warfarin 5 MG TABLET PO SCH (18:00)
[2016-10-15] MEDS ORDERED: *HR* Morphine Immed Rel 30 MG TABLET PO SCH (21:00)
[2016-10-16] MEDS ORDERED: *HR* Morphine Sulfate SR (12 HR) 30 MG TABLET.ER PO SCH (09:00)
[2016-10-17] MEDS ORDERED: *HR* Warfarin 5 MG TABLET PO SCH (18:00)
== END 2016-10-15 17:50 | disposition home or self-care (01) ==
LOC: 2ANU
PROVIDERS: ADMIT Pediatrics; ATTEND Internal Medicine

== ENCOUNTER 2017-10-24 11:09 | Inpatient (IN) ==
[2017-10-24 11:54] LABS: Basophils # 0.1 K/mcL (0.0-0.2); Basophils % 0.8 %; Eosinophils # 0.1 K/mcL (0.0-0.6); Eosinophils % 2.2 %; Hematocrit 33.8 % (37.5-50.1); Hemoglobin 10.7 g/dL (12.9-16.9); Immature Granulocytes % 0.5 % (0-4); Lymphocytes # 1.1 K/mcL (0.6-4.6); Lymphocytes % 17.7 %; Mean Corpuscular HGB Conc 31.7 g/dL (31.6-35.5); Mean Corpuscular Hemoglobin 27.4 pg (28.0-33.3); Mean Corpuscular Volume 86.7 fL (83.0-100.0); Mean Platelet Volume 10.4 fL (9.4-12.4); Monocytes # 0.5 K/mcL (0.0-1.3); Monocytes % 8.1 %; Neutrophils # 4.4 K/mcL (1.6-8.9); Nucleated Red Blood Cells 0.5 /100 WBC (0); Platelet Count 173 K/mcL (140-400); Red Cell Distribution Width 15.9 % (11.5-14.5); Segmented Neutrophils % 70.7 %
[2017-10-24 12:12] LABS: Troponin I 0.04 ng/mL (< 0.04)
[2017-10-24] MEDS ORDERED: Furosemide 40 MG/4 ML VIAL IVP ONE (12:14)
--- NOTE | 2017-10-24 12:17 | Emergency Department Note ---
Disposition Clinical Impression: Acute exacerbation of CHF (congestive heart failure) Qualifiers: Heart failure type: unspecified Qualified Code(s): I50.9 - Heart failure, unspecified Disposition: Admitted As Inpatient Condition: Fair [facility] Care Provider[facility] - Time of Disposition: 12:18 SOB HPI - General Chief Complaint: ED Shortness of Breath/Dyspnea Stated Complaint: sob Time Seen by Provider: 10/24/17 11:14 Source: patient, family Mode of arrival: ambulatory Limitations: no limitations Nursing Notes Reviewed: Yes Vital Signs Reviewed: Yes - History of Present Illness 67-year-old male presents emergency Department with concerns of increased shortness of breath. Patient has a history of congestive heart failure and has noticed increased swelling in his bilateral lower extremities. He is unable walk more than 20 feet without becoming short of breath. Patient states that this is a significant decline in his exertional capability. Patient denied chest pain. He does report mild associated lightheadedness with his shortness of breath. Patient has required admission to the hospital for his congestive heart failure past. Denies recent trauma. No changes in his diet and denies missing any of his medication. - Related Data Home Medications Medication Instructions Recorded Confirmed Allopurinol [Zyloprim] 300 mg PO DAILY 03/24/15 09/04/17 Aspirin Enteric Coated [Aspirin EC] 81 mg PO DAILY 03/24/15 09/04/17 Cholecalciferol (Vitamin D3) 1,000 unit PO DAILY 03/24/15 09/04/17 [Vitamin D3] Omeprazole [PriLOSEC] 20 mg PO DAILY 03/24/15 09/04/17 Rosuvastatin [Crestor] 10 mg PO HS 03/24/15 09/04/17 Budesonide/Formoterol 160/4.5 2 puff IH BIDR 09/25/15 09/04/17 [Symbicort 160/4.5] Warfarin [Coumadin] 5 mg PO SUMOTUWETHFR 06/10/16 09/04/17 Warfarin [Coumadin] 10 mg PO SA 06/10/16 09/04/17 Ipratropium/Albuterol Neb [Duoneb] 3 ml IH BID PRN 10/05/16 09/04/17 Metoprolol XL (24 HR) Succ [Toprol 150 mg PO DAILY 10/05/16 09/04/17 Xl] Morphine Sulfate [Arymo ER] 15 mg PO HS 10/15/16 09/04/17 Furosemide [Lasix] 40 mg PO BID 03/30/17 09/04/17 Morphine Sulfate [Arymo ER] 30 mg PO BID 09/02/17 09/04/17 Previous Rx's Medication Instructions Recorded Azithromycin [Zithromax] 500 mg PO Q24H #2 tablet 09/05/17 predniSONE [PredniSONE] 40 mg PO DAILY #4 tablet 09/05/17 Allergies Allergy/AdvReac Type Severity Reaction Status Date / Time No Known Allergies Allergy Verified 10/10/16 12:45 All systems ED: reviewed and negative except as stated. Review of Systems: As Per HPI Past Medical History - Past Medical History Attestation: Yes The following information was validated with the patient. Source: patient Medical history: Reports: arthritis, atrial fibrillation, cardiomyopathy, COPD, coronary artery disease, diabetes, hyperlipidemia, hypertension, myocardial infarction, venous stasis Surgical history: Reports: cataract, cholecystectomy, coronary bypass (CABG), pacemaker/AICD Psychiatric history: Reports: no psych history - Social History Smoking Status: Current some day smoker Smokeless Tobacco Status: No Alcohol use: Reports: none Drug use: Reports: none Physical Exam General: Alert and in no acute distress Skin: Warm, dry, intact Head: Normocephalic and atraumatic Neck: Supple, trachea midline and no tenderness Cardiovascular: RRR, no murmur, normal perfusion Respiratory: Rales in the bilateral posterior lung farrell in the inferior lung farrell. Musculoskeletal: Normal strength, no tenderness, +1 pitting edema bilateral lower extremities. GI: Soft, nontender, nondistended. Bowel sounds present Neuro: A&O to person, place, time and situation. No focal deficits noted on exam Psychiatric: cooperative and appropriate mood and affect. - General General appearance: alert Course Vital Signs Temperature 97.6 F 10/24/17 11:11 Pulse Rate 88 10/24/17 11:11 Respiratory Rate 24 10/24/17 11:11 Blood Pressure 113/71 10/24/17 11:11 O2 Sat by Pulse Oximetry 89 10/24/17 11:11 Temperature 97.6 F 10/24/17 11:16 Pulse Rate 82 10/24/17 11:49 Respiratory Rate 24 10/24/17 11:16 Blood Pressure 131/87 10/24/17 11:49 O2 Sat by Pulse Oximetry 97 10/24/17 11:49 Oxygen Delivery Oxygen Delivery Nasal Cannula Shortness of Breath/Dyspnea - Medical Records Medical records reviewed: Yes I reviewed the patient's medical records. - Lab Data Lab results reviewed: Yes I reviewed the patient's lab results. Result diagrams: 10/24/17 11:34 Lab Results 10/24/17 10/24/17 10/24/17 Range/Units 11:34 11:34 11:34 WBC 6.3 (4.3-11.1) K/mcL RBC 3.90 L (4.19-5.50) M/mcL Hgb 10.7 L (12.9-16.9) g/dL Hct 33.8 L (37.5-50.1) % MCV 86.7 (83.0-100.0) fL MCH 27.4 L (28.0-33.3) pg MCHC 31.7 (31.6-35.5) g/dL RDW 15.9 H (11.5-14.5) % Plt Count 173 (140-400) K/mcL MPV 10.4 (9.4-12.4) fL Immature Gran % 0.5 (0-4) % Seg Neutrophils % 70.7 % Lymphocytes % 17.7 % Monocytes % 8.1 % Eosinophils % 2.2 % Basophils % 0.8 % Neutrophils # 4.4 (1.6-8.9) K/mcL Lymphocytes # 1.1 (0.6-4.6) K/mcL Monocytes # 0.5 (0.0-1.3) K/mcL Eosinophils # 0.1 (0.0-0.6) K/mcL Basophils # 0.1 (0.0-0.2) K/mcL Nucleated RBCs/100 WBC 0.5 H (0) /100 WBC Lactic Acid 0.7 (0.5-2.2) mmol/L Troponin I 0.04 H* (< 0.04) ng/mL B-Natriuretic Peptide (Less than 100) pg/mL 10/24/17 Range/Units 11:34 WBC (4.3-11.1) K/mcL RBC (4.19-5.50) M/mcL Hgb (12.9-16.9) g/dL Hct (37.5-50.1) % MCV (83.0-100.0) fL MCH (28.0-33.3) pg MCHC (31.6-35.5) g/dL RDW (11.5-14.5) % Plt Count (140-400) K/mcL MPV (9.4-12.4) fL Immature Gran % (0-4) % Seg Neutrophils % % Lymphocytes % % Monocytes % % Eosinophils % % Basophils % % Neutrophils # (1.6-8.9) K/mcL Lymphocytes # (0.6-4.6) K/mcL Monocytes # (0.0-1.3) K/mcL Eosinophils # (0.0-0.6) K/mcL Basophils # (0.0-0.2) K/mcL Nucleated RBCs/100 WBC (0) /100 WBC Lactic Acid (0.5-2.2) mmol/L Troponin I (< 0.04) ng/mL B-Natriuretic Peptide 680 H (Less than 100) pg/mL - Radiology Data Radiology results reviewed: Yes I reviewed the patient's radiology results. - EKG Data EKG attestation: Yes I reviewed and interpreted this EKG. EKG results narrative: V paced rhythm at a rate of 84 without evidence of STEMI.
[2017-10-24 14:29] LABS: BUN/Creatinine Ratio 23 (6-26); Blood Urea Nitrogen 28 mg/dL (8-23); Calcium 8.7 mg/dL (8.6-10.3); Carbon Dioxide 29 mEq/L (23-29); Chloride 101 mEq/L (98-107); Glucose 127 mg/dL (70-105); Osmolality,Calculated 293 (280-300); Potassium 4.2 mEq/L (3.5-5.1); Sodium 138 mEq/L (136-145); eGFR For African Americans > 60 (> 60); eGFR For Non-African Americans > 60 (> 60)
--- NOTE | 2017-10-24 15:56 | Internal Med History&Physical ---
Date of Encounter: 10/24/17 Time of Encounter: 06:00 Internal Medicine - H&P: HPI Chief complaint: SOB History of present illness: Mr. Rudd is a 67 year old male presents was significant past medical history of congestive heart failure, who presented with increased shortness of breath associated was progressive worsening of lower extremity edema as well as dyspnea on exertion. the patient admitted to being compliant with fluid restriction or low sodium intake. Patient denied chest pain. EKG with no significant ST-T wave elevations, cardiac enzymes first set was in normal limit , the patient was admitted for further evaluation of congestive heart failure exacerbation. Past Med Surg Social Fam HX - Past Medical History Medical history: arthritis, atrial fibrillation, cardiomyopathy, COPD, coronary artery disease, diabetes, hyperlipidemia, hypertension, myocardial infarction, venous stasis Psychiatric history: no psych history - Past Surgical History Surgical History: cataract, cholecystectomy, coronary bypass (CABG), pacemaker/ AICD - Social History Smoking Status: Current some day smoker Smokeless Tobacco Status: No Alcohol use: none Drug use: none - Family History Mother Living Status: Hx Family Cardiac Disorders: Yes Father Living Status: Hx Family Cardiac Disorders: Yes Internal Medicine - H&P: Meds Allopurinol [Zyloprim] 300 mg PO DAILY 03/24/15 [History] Aspirin Enteric Coated [Aspirin EC] 81 mg PO DAILY 03/24/15 [History] Cholecalciferol (Vitamin D3) [Vitamin D3] 1,000 unit PO DAILY 03/24/15 [History] Omeprazole [PriLOSEC] 20 mg PO DAILY 03/24/15 [History] Rosuvastatin [Crestor] 10 mg PO HS 03/24/15 [History] Budesonide/Formoterol 160/4.5 [Symbicort 160/4.5] 2 puff IH BIDR 09/25/15 [ History] Warfarin [Coumadin] 5 mg PO SUMOTUWETHFR 06/10/16 [History] Ipratropium/Albuterol Neb [Duoneb] 3 ml IH BID PRN 10/05/16 [History] Metoprolol XL (24 HR) Succ [Toprol Xl] 150 mg PO DAILY 10/05/16 [History] Morphine Sulfate [Arymo ER] 15 mg PO HS 10/15/16 [History] Furosemide [Lasix] 40 mg PO BID 03/30/17 [History] Morphine Sulfate [Arymo ER] 30 mg PO BID 09/02/17 [History] 3 Allergy/AdvReac Type Severity Reaction Status Date / Time No Known Allergies Allergy Verified 10/24/17 15:33 All Systems PM: A 10-system review of systems was performed and is negative for pertinent findings except as documented above in the HPI. - Constitutional Constitutional: fatigue, weight gain, no chills, no fever(s), no night sweats - Cardiovascular Cardiovascular ROS IM: dyspnea, dyspnea on exertion, edema, paroxysmal nocturnal dyspnea, no chest pain, no diaphoresis, no lightheadedness, no palpitations, no syncope - Respiratory Respiratory: no cough, no dyspnea, no wheezing, no excessive phlegm production - Gastrointestinal Gastrointestinal: no abdominal pain, no diarrhea, no hematemesis, no hematochezia, no melena, no nausea, no vomiting - Neurological Neurological ROS: no confusion, no convulsions, no focal weakness, no numbness, no tingling, no tremor(s) - Constitutional Vitals: Temp Pulse Resp BP Pulse Ox 97.6 F 80 18 134/78 98 10/24/17 11:16 10/24/17 13:56 10/24/17 13:56 10/24/17 13:56 10/24/17 13:56 General appearance: Present: A&O X 3 - Head Head exam: Present: atraumatic, normocephalic - Respiratory Respiratory exam: Present: rales. Absent: accessory muscle use, rhonchi, wheezes - Cardiovascular Cardiovascular exam: Present: gallop, RRR, +S1, +S2, +S3, +S4. Absent: diastolic murmur, rubs, systolic murmur - GI/Abdominal GI/Abdominal exam: Present: normal bowel sounds, soft, no peritoneal signs. Absent: distended, tenderness - Extremities Exam Extremities exam: Present: warm, radial pulses palpable and symmetrical. Absent : calf tenderness, cyanotic, pedal edema Internal Med - H&P Results - Labs CBC & Chem 7: 10/27/17 03:36 10/27/17 03:36 - Assessment and plan (1) CHF exacerbation Status: Acute Assessment and plan: ASSESSMENT: - SOB associated with progressive worsening of lower extremity edema and dyspnea on exertion due to *CHF exacerbation due to Noncompliance fluid restriction and low sodium diet PLAN: - CPP x 1 more, 8 hr after the 1st one - EKG in AM - ASA - O2 to keep SpO2 > 92% - Lasix 40 mg IV BID - Aerosols UD q 4 hr - UA - 2D Echo - CBCD, BMP in AM - Fasting lipids - Tylenol 650 mg PO q 4-6 hr PRN pain - Home meds - Heparin 5000 U SQ BID Qualifiers: Heart failure type: unspecified Qualified Code(s): I50.9 - Heart failure, unspecified (2) Coronary artery disease Status: Chronic Assessment and plan: the patient denies any chest pain, will continue current home medication Qualifiers: Coronary Disease-Associated Artery/Lesion type: [place] artery [place] vs. transplanted heart: [place] heart Associated angina: without angina Qualified Code(s): I25.10 - Atherosclerotic heart disease of [place] coronary artery without angina pectoris (3) ICD (implantable cardioverter-defibrillator) in place Status: Chronic (4) COPD (chronic obstructive pulmonary disease) Status: Chronic Assessment and plan: we will continue home medications Qualifiers: COPD type: unspecified COPD Qualified Code(s): J44.9 - Chronic obstructive pulmonary disease, unspecified (5) DM2 (diabetes mellitus, type 2) Status: Chronic Assessment and plan: we will continue home medication and start the patient on insulin sliding scale with moderate coverage Qualifiers: Diabetes mellitus shelter insulin use: unspecified shelter insulin use status Diabetes mellitus complication status: with unspecified complications Qualified Code(s): E11.8 - Type 2 diabetes mellitus with unspecified complications (6) Essential hypertension Status: Chronic (7) DVT prophylaxis Status: Acute Assessment and plan: blood pressure is reasonably controlled we'll continue home medication was holding parameters (8) Anemia Status: Acute Qualifiers: Anemia type: unspecified type Qualified Code(s): D64.9 - Anemia, unspecified (9) DVT prophylaxis Status: Deleted Assessment and plan: the patient on chronic anticoagulation with warfarin - Time Spent With Patient Total time spent is greater than 50% in coordination of care (as documented) at patient's floor/unit and/or counseling patient:
[2017-10-24] MEDS ORDERED: Naloxone 0.4 MG/ML INJ IVP PRN (17:15)
[2017-10-24] MEDS ORDERED: *HR* Warfarin 5 MG TABLET PO SCH (18:00)
[2017-10-24] MEDS ORDERED: *HR* Heparin 5,000 UNIT/ML VIAL SQ SCH (18:00)
[2017-10-24] MEDS: Furosemide 40 MG/4 ML VIAL IVP SCH (19:42)
[2017-10-24] MEDS: *HR* Morphine Sulfate SR (12 HR) 15 MG TABLET.ER PO SCH (20:33)
[2017-10-24 21:40] LABS: Bilirubin,Urine Negative (Negative); Blood,Urine Negative (Negative); Clarity,Urine Clear (Clear); Color,Urine Yellow (Yellow); Glucose,Urine (UA) Normal (Normal); Ketones,Urine Negative (Negative); Leukocyte Esterase,Urine Negative (Negative); Nitrite,Urine Negative (Negative); Protein,Urine Negative (Neg-Trace); Specific Gravity,Urine 1.014 (1.010-1.025); Urobilinogen,Urine Normal (Normal)
[2017-10-24] MEDS ORDERED: Ipratropium/Albuterol Neb 3 ML IH SCH (22:00)
[2017-10-24] MEDS: Budesonide/Formoterol 160/4.5 MDI IH SCH (22:12)
[2017-10-24] MEDS: Ipratropium/Albuterol Neb 3 ML IH SCH (22:12)
[2017-10-25] MEDS: Ipratropium/Albuterol Neb 3 ML IH SCH ×4 (03:53→22:08)
[2017-10-25 05:28] LABS: Basophils % 0.5 %; Eosinophils # 0.2 K/mcL (0.0-0.6); Eosinophils % 3.1 %; Hematocrit 35.4 % (37.5-50.1); Hemoglobin 10.6 g/dL (12.9-16.9); Immature Granulocytes % 0.2 % (0-4); Lymphocytes # 1.3 K/mcL (0.6-4.6); Lymphocytes % 24.2 %; Mean Corpuscular HGB Conc 29.9 g/dL (31.6-35.5); Mean Corpuscular Volume 86.8 fL (83.0-100.0); Mean Platelet Volume 10.8 fL (9.4-12.4); Monocytes # 0.6 K/mcL (0.0-1.3); Monocytes % 10.3 %; Neutrophils # 3.4 K/mcL (1.6-8.9); Platelet Count 177 K/mcL (140-400); Red Blood Count 4.08 M/mcL (4.19-5.50); Red Cell Distribution Width 15.8 % (11.5-14.5); Segmented Neutrophils % 61.7 %
[2017-10-25 05:31] LABS: INR 3.4; Prothrombin Time 37.9 Seconds (9.4-12.1)
[2017-10-25 05:34] LABS: Activated Partial Thrombo Time 38.7 Seconds (26.0-36.0)
[2017-10-25 05:44] LABS: Alanine Aminotransferase 10 Units/L (7-52); Albumin 3.3 g/dL (3.5-5.7); Albumin/Globulin Ratio 0.9 (1.1-2.2); Alkaline Phosphatase 121 Units/L (34-104); Aspartate Amino Transferase 17 Units/L (13-39); BUN/Creatinine Ratio 25 (6-26); Bilirubin,Total 0.8 mg/dL (0.3-1.0); Blood Urea Nitrogen 25 mg/dL (8-23); Calcium 8.8 mg/dL (8.6-10.3); Carbon Dioxide 35 mEq/L (23-29); Chloride 100 mEq/L (98-107); Chol/HDL Ratio 3.9 (0-4.9); Cholesterol 67 mg/dL (< 200); Globulin 3.7 g/dL (2.4-3.5); Glucose 79 mg/dL (70-105); HDL Cholesterol 17 mg/dL (40-59); LDL Cholesterol,Calculated 40 mg/dL (0-99); Magnesium 1.9 mg/dL (1.6-2.6); Osmolality,Calculated 291 (280-300); Phosphorous 3.6 mg/dL (2.7-4.5); Potassium 4.3 mEq/L (3.5-5.1); Sodium 139 mEq/L (136-145); Triglycerides 51 mg/dL (< 150); eGFR For African Americans > 60 (> 60); eGFR For Non-African Americans > 60 (> 60)
[2017-10-25] MEDS: *HR* Morphine Sulfate SR (12 HR) 30 MG TABLET.ER PO SCH ×2 (06:19→16:27)
--- NOTE | 2017-10-25 07:17 | Electrocardiograph Report ---
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
[2017-10-25] MEDS: Aspirin Enteric Coated 81 MG Tablet PO SCH (09:34)
[2017-10-25] MEDS: Metoprolol XL (24 HR) Succ 50 MG TAB.ER.24H PO SCH (09:34)
[2017-10-25] MEDS: Cholecalciferol (D-3) 1,000 UNIT TABLET PO SCH (09:34)
[2017-10-25] MEDS: Furosemide 40 MG/4 ML VIAL IVP SCH ×2 (09:35→16:26)
[2017-10-25] MEDS: Budesonide/Formoterol 160/4.5 MDI IH SCH ×2 (11:32→22:08)
--- NOTE | 2017-10-25 11:37 | Cardiology Consult Note ---
Date of Encounter: 10/25/17 Time of Encounter: 11:31 Assessment and Plan (1) CHF exacerbation Current Visit: Yes Status: Acute Acute on chronic systolic CHF exacerbation. Known EF 35%, ICD in place, ICMP with hx CABG. Presented with worsening dyspnea and LE edema over the past week due to excess fluid intake. Reports constipation and increase PO fluids with Miralax. CXR with pulmonary vascular congestion and trace right effusion. BNP 680. Agree with IV diuresis--IV Lasix 40mg BID. Reports symptoms have already started improving. Recommend strict I/Os, Na and fluid restriction, daily weights. CHF teaching discussed. Recommend minimum of another 24 hours of IV diuresis and transition to PO Lasix prior to d/c. Anticipate sign off once seen and evaluated by Dr. Ellington. Qualifiers: Heart failure type: systolic Qualified Code(s): I50.23 - Acute on chronic systolic (congestive) heart failure (2) Coronary artery disease Current Visit: Yes Status: Chronic Hx of CABG in 2008. Denies chest pain. Continue ASA, Statin, BB. Qualifiers: Coronary Disease-Associated Artery/Lesion type: [place] artery [place] vs. transplanted heart: [place] heart Associated angina: without angina Qualified Code(s): I25.10 - Atherosclerotic heart disease of [place] coronary artery without angina pectoris (3) ICD (implantable cardioverter-defibrillator) in place Current Visit: Yes Status: Chronic BiV ICD in place for ICMP, EF 35%. Device check yesterday normal functioning device with no events. (4) Atrial fibrillation Current Visit: No Status: Chronic Hx of A-Fib, s/p AV node ablation, paced with BiV ICD. Continue BB. Anticoagulated on Coumadin. INR 3.4 today, supratherapeutic. Denies active bleeding. Follows with [place] coumadin clinic as outpt. Pharmacy to dose while inpt. Qualifiers: Atrial fibrillation type: unspecified Qualified Code(s): I48.91 - Unspecified atrial fibrillation (5) Elevated troponin Current Visit: No Status: Acute Initial troponin borderline, 0.04 then negative x 3. In setting of CHF exacerbation, do not suspect ACS. Pt denies chest pain. Discussion w patient/family: The assessment and plan as outlined above was discussed with the patient and/or family members who expressed understanding and agreement. All questions were answered. Thank you for involving us in the care of your patient. Please call with any questions. I will discuss all the above with Dr. Ellington and make changes as necessary. History of Present Illness Consult date: 10/25/17 Requesting physician: Marcia Bautista Consult reason: CHF Chief complaint: Dyspnea, LE edema History of present illness: Mr. Rudd is a 67 year old male with PMH significant for atrial fibrillation s/ p AV node ablation (coumadin), HTN, HLD, CAD s/p CABG, and systolic CHF s/p BiV- ICD with known EF 35%. He presented to ED with complaints of worsening dyspnea and LE edema over the past week. He states he has been constipated recently and started increasing his PO fluid intake and taking Miralax. BNP 680, CXR with pulmonary vascular congestion and trace right effusion. He is on IV Lasix 40 BID and reports he already notices improvement in his dyspnea and LE edema. He denies chest pain. Prior CV testing: TTE 10/15/16: LVEF 35%. Normal LV chamber size. Mild asymmetric septal hypertrophy. Global and segmental left ventricular systolic dysfunction. Indeterminate diastolic function. Atypical septal motion consistent with paced rhythm/postoperative septum. Mildly dilated right ventricle with near normal sytolic function. Severely dilated left atrium. Mild aortic regurgitation. Mild mitral regurgitation. No evidence of pulmonary hypertension. Stress test 09/04/15: Perfusion imaging negative for ischemia. Gated EF 33%. Visual TID. TID ration 1.29. Past Med Surg Social Fam HX - Past Medical History Medical history: arthritis, atrial fibrillation, cardiomyopathy, COPD, coronary artery disease, diabetes, hyperlipidemia, hypertension, myocardial infarction, venous stasis Psychiatric history: no psych history - Past Surgical History Surgical History: cataract, cholecystectomy, coronary bypass (CABG), pacemaker/ AICD - Social History Smoking Status: Current some day smoker Smokeless Tobacco Status: No Alcohol use: none Drug use: none - Family History Mother Living Status: Hx Family Cardiac Disorders: Yes Hx Family Endocrine Disorder: Yes (DM) Father Living Status: Hx Family Cardiac Disorders: Yes Medications and Allergies Allopurinol [Zyloprim] 300 mg PO DAILY 03/24/15 [History] Aspirin Enteric Coated [Aspirin EC] 81 mg PO DAILY 03/24/15 [History] Cholecalciferol (Vitamin D3) [Vitamin D3] 1,000 unit PO DAILY 03/24/15 [History] Omeprazole [PriLOSEC] 20 mg PO DAILY 03/24/15 [History] Rosuvastatin [Crestor] 10 mg PO HS 03/24/15 [History] Budesonide/Formoterol 160/4.5 [Symbicort 160/4.5] 2 puff IH BIDR 09/25/15 [ History] Warfarin [Coumadin] 5 mg PO SUMOTUWETHFR 06/10/16 [History] Warfarin [Coumadin] 10 mg PO SA 06/10/16 [History] Ipratropium/Albuterol Neb [Duoneb] 3 ml IH BID PRN 10/05/16 [History] Metoprolol XL (24 HR) Succ [Toprol Xl] 150 mg PO DAILY 10/05/16 [History] Morphine Sulfate [Arymo ER] 15 mg PO HS 10/15/16 [History] Furosemide [Lasix] 40 mg PO BID 03/30/17 [History] Morphine Sulfate [Arymo ER] 30 mg PO BID 09/02/17 [History] 3 Allergy/AdvReac Type Severity Reaction Status Date / Time No Known Allergies Allergy Verified 10/24/17 15:33 All Systems Review: The remainder of the systems were reviewed and are negative - Cardiovascular Cardiovascular: as per HPI, dyspnea at rest, dyspnea on exertion, leg edema - Respiratory Respiratory: dyspnea Physical Examination Vital Signs, Last 4 Hours Temp Pulse Resp BP Pulse Ox 10/25/17 10:18 97.9 F 80 18 122/77 94 Vital Signs Temp Pulse Resp BP Pulse Ox 10/25/17 11:34 18 94 10/25/17 10:18 97.9 F 80 18 122/77 94 10/25/17 06:52 97.5 F L 60 18 93/55 97 10/25/17 05:02 98.2 F 76 18 100/58 96 10/25/17 03:53 18 92 10/24/17 22:12 18 99 10/24/17 19:55 97.4 F L 82 17 134/78 98 10/24/17 16:08 97.8 F 81 19 144/76 95 10/24/17 13:56 80 18 134/78 98 10/24/17 12:45 85 20 129/72 95 10/24/17 11:49 82 131/87 97 Intake and Output 05/10/25/17 10/25/17 23:59 07:59 15:59 Intake Total 480 / 480 0 / 0 900 / 900 Output Total 800 / 800 350 / 350 200 / 200 Balance -320 / -320 -350 / -350 700 / 700 Intake: Oral 480 / 480 0 / 0 900 / 900 Output: Urine 800 / 800 350 / 350 200 / 200 Other: Meal Dinner Breakfast Percent of Meal Consumed 100% 100% Weight 116.294 kg Blood Glucose* 150 88 171 General: Conversant, No Apparent Distress HEENT: Atraumatic, Normocephaly, Mucus Membranes Moist Neck: No JVD, Normal carotid pulses Cardiac: Reg Rate and Rhythm, Normal S1 and S2, No Murmur Lungs: Other (diminished) Neuro: Alert and responsive, No focal deficits noted Abdomen: Soft, Non-Tender Skin: No rashes noted on visualized skin Musculoskeletal: No Chest Wall Tenderness Extremities: Other (2+ BLE edema) Results 10/25/17 04:04 10/25/17 04:04 Lab Results 10/24/17 10/24/17 10/25/17 17:31 23:08 04:04 WBC 5.5 Hgb 10.6 L Hct 35.4 L Plt Count 177 INR APTT Sodium Potassium Chloride Carbon Dioxide BUN Creatinine Glucose Calcium Magnesium Total Bilirubin AST ALT Alkaline Phosphatase Troponin I 0.03 0.03 B-Natriuretic Peptide 10/25/17 10/25/17 10/25/17 04:04 04:04 04:04 WBC Hgb Hct Plt Count INR 3.4 APTT 38.7 H Sodium 139 Potassium 4.3 Chloride 100 Carbon Dioxide 35 H BUN 25 H Creatinine 1.02 Glucose 79 Calcium 8.8 Magnesium 1.9 Total Bilirubin 0.8 AST 17 ALT 10 Alkaline Phosphatase 121 H Troponin I B-Natriuretic Peptide 502 H 10/25/17 04:04 WBC Hgb Hct Plt Count INR APTT Sodium Potassium Chloride Carbon Dioxide BUN Creatinine Glucose Calcium Magnesium Total Bilirubin AST ALT Alkaline Phosphatase Troponin I 0.03 B-Natriuretic Peptide Short CBC 10/25/17 10/24/17 Range/Units 04:04 11:34 WBC 5.5 6.3 (4.3-11.1) K/mcL Hgb 10.6 L 10.7 L (12.9-16.9) g/dL Hct 35.4 L 33.8 L (37.5-50.1) % Plt Count 177 173 (140-400) K/mcL Neutrophils # 3.4 4.4 (1.6-8.9) K/mcL BMP 10/25/17 10/24/17 Range/Units 04:04 11:34 Sodium 139 138 (136-145) mEq/L Potassium 4.3 4.2 (3.5-5.1) mEq/L Chloride 100 101 (98-107) mEq/L Carbon Dioxide 35 H 29 (23-29) mEq/L BUN 25 H 28 H (8-23) mg/dL Creatinine 1.02 1.20 (0.70-1.30) mg/dL Glucose 79 127 H (70-105) mg/dL Calcium 8.8 8.7 (8.6-10.3) mg/dL Cardiac Enzymes 10/25/17 10/24/17 10/24/17 Range/Units 04:04 23:08 17:31 Troponin I 0.03 0.03 0.03 (< 0.04) ng/mL 10/24/17 Range/Units 11:34 Troponin I 0.04 H* (< 0.04) ng/mL Liver Function 10/25/17 Range/Units 04:04 Total Bilirubin 0.8 (0.3-1.0) mg/dL AST 17 (13-39) Units/L ALT 10 (7-52) Units/L Alkaline Phosphatase 121 H (34-104) Units/L Albumin 3.3 L (3.5-5.7) g/dL Urine 10/24/17 Range/Units 21:30 Urine Color Yellow (Yellow) Urine Clarity Clear (Clear) Urine pH 6.0 (5.0-8.0) pH Units Ur Specific [place] 1.014 (1.010-1.025) Urine Protein Negative (Neg-Trace) mg/dL Urine Glucose (UA) Normal (Normal) mg/dL Impressions Chest X-Ray 10/24/17 11:16 IMPRESSION: Cardiomegaly with pulmonary vascular congestion and trace right effusion, stable from prior exam. D/ / Giancarlo Delacruz MD / Giancarlo Delacruz MD Interpreting Provider: Giancarlo Delacruz MD Active Medications Albuterol/Ipratropium (Duoneb) 3 ml IH [id number] [facility] Stop: 04/25/18 22:01 Last Admin: 10/25/17 11:32 Dose: 3 ml Allopurinol (Zyloprim) 300 mg PO DAILY [facility] Stop: 04/26/18 09:01 Last Admin: 10/25/17 09:34 Dose: 300 mg Aspirin (Aspirin Ec) 81 mg PO DAILY [facility] Stop: 04/26/18 09:01 Last Admin: 10/25/17 09:34 Dose: 81 mg Budesonide/Formoterol Fumarate (Symbicort) 2 puff IH BIDR [facility] PRN Reason: Protocol Stop: 04/25/18 22:01 Last Admin: 10/25/17 11:32 Dose: 2 puff Furosemide (Lasix) 40 mg IVP BIDDIURETIC [facility] Stop: 04/25/18 18:31 Last Admin: 10/25/17 09:35 Dose: 40 mg Metoprolol Succinate (Toprol Xl) 150 mg PO DAILY [facility] Stop: 04/26/18 09:01 Last Admin: 10/25/17 09:34 Dose: 150 mg Morphine Sulfate (Ms Contin) 30 mg PO 0700,1600 [facility] Stop: 04/26/18 07:01 Last Admin: 10/25/17 06:19 Dose: 30 mg Morphine Sulfate (Ms Contin) 15 mg PO HS [facility] Stop: 04/25/18 21:01 Last Admin: 10/24/17 20:33 Dose: 15 mg Naloxone HCl (Narcan) 0.4 mg IVP Q2MIN PRN PRN Reason: SEE COMMENTS Stop: 04/25/18 17:16 Omeprazole (Prilosec) 20 mg PO 0630 [facility] PRN Reason: Protocol Stop: 04/26/18 06:31 Last Admin: 10/25/17 06:19 Dose: 20 mg Polyethylene Glycol (Miralax) 17 gm PO BID [facility] Stop: 04/25/18 21:01 Last Admin: 10/25/17 09:35 Dose: 17 gm Rosuvastatin Calcium (Crestor) 10 mg PO HS [facility] Stop: 04/25/18 21:01 Last Admin: 10/24/17 20:33 Dose: 10 mg Vitamin D (Vitamin D) 1,000 unit PO DAILY [facility] Stop: 04/26/18 09:01 Last Admin: 10/25/17 09:34 Dose: 1,000 unit Warfarin Sodium (Coumadin Perpt) 1 each PO DAILY@1800 PRN PRN Reason: SEE COMMENTS Stop: 04/26/18 18:01 - Imaging and Cardiology Stress Test: report reviewed Echo: report reviewed - EKG Interpretation EKG results cardiology: personally reviewed (paced) Consult Discharge Plan - Plan Referrals: [facility] [Outside]
[2017-10-25] MEDS ORDERED: Sennosides/Docusate Sodium TABLET PO PRN (11:58)
[2017-10-25] MEDS ORDERED: Sennosides/Docusate Sodium TABLET PO ONE (11:59)
[2017-10-25] MEDS ORDERED: Milk and Molasses Enema 200 ML RC ONE (12:34)
[2017-10-25] MEDS ORDERED: Warfarin perPT PO PRN (18:00)
--- NOTE | 2017-10-25 20:34 | Electrocardiograph Report ---
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
[2017-10-25] MEDS: *HR* Morphine Sulfate SR (12 HR) 15 MG TABLET.ER PO SCH (23:19)
[2017-10-26] MEDS: Ipratropium/Albuterol Neb 3 ML IH SCH ×4 (03:19→22:29)
[2017-10-26 07:57] LABS: Basophils % 0.5 %; Eosinophils # 0.2 K/mcL (0.0-0.6); Hematocrit 32.5 % (37.5-50.1); Hemoglobin 10.3 g/dL (12.9-16.9); Immature Granulocytes % 0.3 % (0-4); Lymphocytes # 1.3 K/mcL (0.6-4.6); Mean Corpuscular HGB Conc 31.7 g/dL (31.6-35.5); Mean Corpuscular Hemoglobin 27.5 pg (28.0-33.3); Mean Corpuscular Volume 86.9 fL (83.0-100.0); Mean Platelet Volume 10.7 fL (9.4-12.4); Monocytes # 0.7 K/mcL (0.0-1.3); Monocytes % 10.7 %; Neutrophils # 3.9 K/mcL (1.6-8.9); Platelet Count 154 K/mcL (140-400); Red Blood Count 3.74 M/mcL (4.19-5.50); Red Cell Distribution Width 15.7 % (11.5-14.5); Segmented Neutrophils % 64.5 %
[2017-10-26 07:59] LABS: INR 3.2; Prothrombin Time 35.5 Seconds (9.4-12.1)
[2017-10-26] MEDS: *HR* Morphine Sulfate SR (12 HR) 30 MG TABLET.ER PO SCH ×2 (08:14→21:42)
[2017-10-26] MEDS: Furosemide 40 MG/4 ML VIAL IVP SCH ×2 (08:14→21:54)
[2017-10-26 10:02] LABS: BUN/Creatinine Ratio 25 (6-26); Blood Urea Nitrogen 28 mg/dL (8-23); Calcium 8.7 mg/dL (8.6-10.3); Carbon Dioxide 35 mEq/L (23-29); Chloride 99 mEq/L (98-107); Glucose 122 mg/dL (70-105); Osmolality,Calculated 295 (280-300); Potassium 4.1 mEq/L (3.5-5.1); Sodium 139 mEq/L (136-145); eGFR For African Americans > 60 (> 60); eGFR For Non-African Americans > 60 (> 60)
[2017-10-26] MEDS: Budesonide/Formoterol 160/4.5 MDI IH SCH ×2 (10:11→22:29)
[2017-10-26] MEDS: Miconazole 2% ointment 114 GM TUBE TP PRN (11:11)
[2017-10-26] MEDS: Cholecalciferol (D-3) 1,000 UNIT TABLET PO SCH (11:11)
[2017-10-26] MEDS: Metoprolol XL (24 HR) Succ 50 MG TAB.ER.24H PO SCH (11:11)
[2017-10-26] MEDS: Aspirin Enteric Coated 81 MG Tablet PO SCH (11:11)
--- NOTE | 2017-10-26 17:24 | Internal Med Progress Note ---
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 Qualifiers: Heart failure type: unspecified Qualified Code(s): I50.9 - Heart failure, unspecified (4) Coronary artery disease Status: Chronic Assessment and plan: Denies CP, continue home medications. Qualifiers: Coronary Disease-Associated Artery/Lesion type: [place] artery [place] vs. transplanted heart: [place] heart Associated angina: without angina Qualified Code(s): I25.10 - Atherosclerotic heart disease of [place] coronary artery without angina pectoris (5) Essential hypertension Status: Chronic Assessment and plan: Continue home medications. (6) DVT prophylaxis Status: Acute Assessment and plan: blood pressure is reasonably controlled we'll continue home medication was holding parameters (7) DVT prophylaxis Status: Deleted (8) ICD (implantable cardioverter-defibrillator) in place Status: Chronic (9) Anemia Status: Acute Qualifiers: Anemia type: unspecified type Qualified Code(s): D64.9 - Anemia, unspecified - Time Spent With Patient Total time spent is greater than 50% in coordination of care (as documented) at patient's floor/unit and/or counseling patient: - Subjective Interval history: NO complaints, no acute events, Feels SOB much better. - Constitutional Vitals: Temp Pulse Resp BP Pulse Ox 98.0 F 84 16 115/72 95 10/26/17 15:16 10/26/17 15:16 10/26/17 15:28 10/26/17 15:16 10/26/17 15:28 General appearance: Present: A&O X 3 Exam: CVS: RRR Lungs: Wheezing, decreased breath sounds Ext: no edema Internal Medicine: Result - Labs CBC & Chem 7: 10/27/17 03:36 10/27/17 03:36 Labs: Short CBC 10/26/17 Range/Units 06:51 WBC 6.1 (4.3-11.1) K/mcL Hgb 10.3 L (12.9-16.9) g/dL Hct 32.5 L (37.5-50.1) % Plt Count 154 (140-400) K/mcL Neutrophils # 3.9 (1.6-8.9) K/mcL BMP 10/26/17 06:51 Sodium 139 Potassium 4.1 Chloride 99 Carbon Dioxide 35 H BUN 28 H Creatinine 1.14 Glucose 122 H Calcium 8.7 - ABG Interpretation ABG results: PT/INR, D-dimer PT 35.5 Seconds (9.4-12.1) H 10/26/17 06:51 - VTE Documentation of Mechanical Device: Graduated compression elastic hosiery Consult Discharge Plan - Plan Instructions: Heart Failure (DC) Referrals: [facility] [Outside] - 10/31/17 10:15 am (Follow up with the discharge team at the [place])
--- NOTE | 2017-10-26 17:25 | Internal Med Progress Note ---
Date of Encounter: 10/26/17 Time of Encounter: 17:25 - Assessment and plan (1) CHF exacerbation Current Visit: Yes Status: Acute Assessment and plan: Continue IV Lasix 40 mg BID Strict I/Os, currently 1.8 L and Rales still significant on exam no acute respiratory distress If continues to improve, possibly home tomorrow. Qualifiers: Heart failure type: unspecified Qualified Code(s): I50.9 - Heart failure, unspecified (2) COPD (chronic obstructive pulmonary disease) Current Visit: No Status: Chronic Assessment and plan: Continue home medications Qualifiers: COPD type: unspecified COPD Qualified Code(s): J44.9 - Chronic obstructive pulmonary disease, unspecified (3) DM2 (diabetes mellitus, type 2) Current Visit: No Status: Chronic Assessment and plan: ISS and diabetic diet Qualifiers: Diabetes mellitus care home insulin use: unspecified care home insulin use status Diabetes mellitus complication status: with unspecified complications Qualified Code(s): E11.8 - Type 2 diabetes mellitus with unspecified complications (4) Coronary artery disease Current Visit: Yes Status: Chronic Assessment and plan: Denies CP, continue home medications. Qualifiers: Coronary Disease-Associated Artery/Lesion type: [place] artery [place] vs. transplanted heart: [place] heart Associated angina: without angina Qualified Code(s): I25.10 - Atherosclerotic heart disease of [place] coronary artery without angina pectoris (5) Essential hypertension Current Visit: No Status: Chronic Assessment and plan: Continue home medications. (6) DVT prophylaxis Current Visit: No Status: Acute Assessment and plan: blood pressure is reasonably controlled we'll continue home medication was holding parameters (7) ICD (implantable cardioverter-defibrillator) in place Current Visit: Yes Status: Chronic (8) Anemia Current Visit: Yes Status: Acute Qualifiers: Anemia type: unspecified type Qualified Code(s): D64.9 - Anemia, unspecified - Time Spent With Patient Total time spent is greater than 50% in coordination of care (as documented) at patient's floor/unit and/or counseling patient: - Subjective Interval history: No complaints, denies chest pain SOB improving. - Constitutional Vitals: Temp Pulse Resp BP Pulse Ox 98.0 F 84 16 115/72 95 10/26/17 15:16 10/26/17 15:16 10/26/17 15:28 10/26/17 15:16 10/26/17 15:28 General appearance: Present: A&O X 3 - Head Head exam: Present: atraumatic, normocephalic - Eye Eye exam: Present: PERRL, conjuntiva pink, sclera anicteric Pupils: Present: PERRL - Neck Neck exam general surgery: Present: supple, trachea midline. Absent: lymphadenopathy - Respiratory Respiratory exam: Present: CTAB, rales. Absent: accessory muscle use, rhonchi, wheezes - Cardiovascular Cardiovascular exam: Present: RRR, +S1, +S2. Absent: diastolic murmur, gallop, rubs, systolic murmur - GI/Abdominal GI/Abdominal exam: Present: normal bowel sounds, soft, no peritoneal signs. Absent: distended, tenderness - Extremities Exam Extremities exam: Present: pedal edema, warm, radial pulses palpable and symmetrical. Absent: calf tenderness, cyanotic - Neurological Exam Neurological exam: Present: CN II-XII intact, oriented X3, no focal deficits. Absent: pronater drift, facial droop, speech deficit - Skin Skin exam: Present: dry, intact Internal Medicine: Result - Labs CBC & Chem 7: 10/26/17 06:51 10/26/17 06:51 Labs: Short CBC 10/26/17 Range/Units 06:51 WBC 6.1 (4.3-11.1) K/mcL Hgb 10.3 L (12.9-16.9) g/dL Hct 32.5 L (37.5-50.1) % Plt Count 154 (140-400) K/mcL Neutrophils # 3.9 (1.6-8.9) K/mcL BMP 10/26/17 06:51 Sodium 139 Potassium 4.1 Chloride 99 Carbon Dioxide 35 H BUN 28 H Creatinine 1.14 Glucose 122 H Calcium 8.7 - ABG Interpretation ABG results: PT/INR, D-dimer PT 35.5 Seconds (9.4-12.1) H 10/26/17 06:51 - VTE Documentation of Mechanical Device: Graduated compression elastic hosiery Consult Discharge Plan - Plan Referrals: [facility] [Outside] - 11/06/17 9:15 am
[2017-10-26] MEDS: *HR* Morphine Sulfate SR (12 HR) 15 MG TABLET.ER PO SCH (21:54)
[2017-10-27] MEDS: Ipratropium/Albuterol Neb 3 ML IH SCH ×2 (04:15→10:35)
[2017-10-27 05:02] LABS: Basophils % 0.5 %; Eosinophils # 0.1 K/mcL (0.0-0.6); Eosinophils % 2.2 %; Hematocrit 31.7 % (37.5-50.1); Immature Granulocytes % 0.3 % (0-4); Lymphocytes # 1.2 K/mcL (0.6-4.6); Lymphocytes % 20.7 %; Mean Corpuscular HGB Conc 31.5 g/dL (31.6-35.5); Mean Corpuscular Hemoglobin 27.3 pg (28.0-33.3); Mean Corpuscular Volume 86.6 fL (83.0-100.0); Mean Platelet Volume 10.9 fL (9.4-12.4); Monocytes # 0.6 K/mcL (0.0-1.3); Monocytes % 9.6 %; Platelet Count 153 K/mcL (140-400); Red Blood Count 3.66 M/mcL (4.19-5.50); Red Cell Distribution Width 15.8 % (11.5-14.5); Segmented Neutrophils % 66.7 %
[2017-10-27 05:10] LABS: INR 2.3; Prothrombin Time 25.7 Seconds (9.4-12.1)
[2017-10-27 05:24] LABS: BUN/Creatinine Ratio 33 (6-26); Blood Urea Nitrogen 34 mg/dL (8-23); Calcium 8.8 mg/dL (8.6-10.3); Carbon Dioxide 35 mEq/L (23-29); Chloride 99 mEq/L (98-107); Glucose 116 mg/dL (70-105); Osmolality,Calculated 297 (280-300); Sodium 139 mEq/L (136-145); eGFR For African Americans > 60 (> 60); eGFR For Non-African Americans > 60 (> 60)
[2017-10-27] MEDS: Furosemide 40 MG/4 ML VIAL IVP SCH (08:24)
[2017-10-27] MEDS: Metoprolol XL (24 HR) Succ 50 MG TAB.ER.24H PO SCH (08:24)
[2017-10-27] MEDS: Cholecalciferol (D-3) 1,000 UNIT TABLET PO SCH (08:24)
[2017-10-27] MEDS: Aspirin Enteric Coated 81 MG Tablet PO SCH (08:24)
[2017-10-27] MEDS: *HR* Morphine Sulfate SR (12 HR) 30 MG TABLET.ER PO SCH (08:24)
[2017-10-27] MEDS: Miconazole 2% ointment 114 GM TUBE TP PRN (10:23)
[2017-10-27] MEDS: Budesonide/Formoterol 160/4.5 MDI IH SCH (10:35)
--- NOTE | 2017-10-27 11:15 | Discharge Summary ---
- NOTES TO OUTPATIENT PROVIDER Notes to Outpatient Provider: Follow-up arranged for 10/31. We had long discussion on improtance of keeping this appointment. He agrees to follow-up. Orders not resulted at time of discharge: Pending orders 10/28/17 04:00 BMP [Basic Metabolic Panel] AM 0400 Complete Blood Count [HEME] AM 0400 PT/INR [Prothrombin Time INR] [COAG] AM 0400 10/29/17 04:00 BMP [Basic Metabolic Panel] AM 0400 Complete Blood Count [HEME] AM 0400 PT/INR [Prothrombin Time INR] [COAG] AM 0400 10/30/17 04:00 PT/INR [Prothrombin Time INR] [COAG] AM 0400 Date of Encounter: 10/27/17 Time of Encounter: 11:13 - Discharge Diagnosis (1) CHF exacerbation Priority: Secondary Status: Acute Assessment and Plan: Continue IV Lasix 40 mg BID Strict I/Os, currently 1.8 L and Rales still significant on exam no acute respiratory distress If continues to improve, possibly home tomorrow. 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 transplanted heart: [place] heart Associated angina: without angina Qualified Code(s): I25.10 - Atherosclerotic heart disease of [place] coronary artery without angina pectoris (5) Essential hypertension Priority: Secondary Status: Chronic (6) DVT prophylaxis Priority: Secondary Status: Acute (7) ICD (implantable cardioverter-defibrillator) in place Priority: Secondary Status: Chronic (8) Anemia Priority: Secondary Status: Acute Qualifiers: Anemia type: unspecified type Qualified Code(s): D64.9 - Anemia, unspecified Hospital course: Mr. Rudd is a 67 year old male presents was significant past medical history of congestive heart failure, who presented with increased shortness of breath associated was progressive worsening of lower extremity edema as well as dyspnea on exertion. the patient admitted to being compliant with fluid restriction or low sodium intake. Patient denied chest pain. EKG with no significant ST-T wave elevations, cardiac enzymes first set was in normal limit , the patient was admitted for further evaluation of congestive heart failure exacerbation. He was started on IV Lasix and given strict I/Os. Cardiology was consulted as patient heart failure severe with EF 35%. They agreed to continue IV diuresis. Patient had O2 weaned to his baseline and stated he feels great. Edema was at baseline as well. He was discharged home in stable condition and he has a follow-up scheduled for him at the OR on 10/31. - Time Spent with Patient Total time spent providing and/or coordinating discharge services: - Discharge Medications Home Medications: Allopurinol [Zyloprim] 300 mg PO DAILY 03/24/15 [History] Aspirin Enteric Coated [Aspirin EC] 81 mg PO DAILY 03/24/15 [History] Cholecalciferol (Vitamin D3) [Vitamin D3] 1,000 unit PO DAILY 03/24/15 [History] Omeprazole [PriLOSEC] 20 mg PO DAILY 03/24/15 [History] Rosuvastatin [Crestor] 10 mg PO HS 03/24/15 [History] Budesonide/Formoterol 160/4.5 [Symbicort 160/4.5] 2 puff IH BIDR 09/25/15 [ History] Warfarin [Coumadin] 5 mg PO SUMOTUWETHFR 06/10/16 [History] Ipratropium/Albuterol Neb [Duoneb] 3 ml IH BID PRN 10/05/16 [History] Metoprolol XL (24 HR) Succ [Toprol Xl] 150 mg PO DAILY 10/05/16 [History] Morphine Sulfate [Arymo ER] 15 mg PO HS 10/15/16 [History] Furosemide [Lasix] 40 mg PO BID 03/30/17 [History] Morphine Sulfate [Arymo ER] 30 mg PO BID 09/02/17 [History] Allergies/Adverse Reactions: 3 Allergy/AdvReac Type Severity Reaction Status Date / Time No Known Allergies Allergy Verified 10/24/17 15:33 Date of admission: 10/24/17 17:15 [facility] care physician: [facility] Consults: 10/25/17 08:22 Consult to Nurse Navigator [CONS] Stat Comment: CHF education Discharging clinician: Uyen Mattson - Constitutional Vitals: Temp Pulse Resp BP Pulse Ox 98.3 F 83 17 133/74 92 10/27/17 10:32 10/27/17 10:32 10/27/17 10:37 10/27/17 10:32 10/27/17 10:37 General appearance: Present: A&O X 3 - Head Head exam: Present: atraumatic, normocephalic - Eye Eye exam: Present: PERRL, conjuntiva pink, sclera anicteric Pupils: Present: PERRL - Neck Neck exam general surgery: Present: supple, trachea midline. Absent: lymphadenopathy - Respiratory Respiratory exam: Present: CTAB. Absent: accessory muscle use, rales, rhonchi, wheezes - Cardiovascular Cardiovascular exam: Present: RRR, +S1, +S2. Absent: diastolic murmur, gallop, rubs, systolic murmur - GI/Abdominal GI/Abdominal exam: Present: normal bowel sounds, soft, no peritoneal signs. Absent: distended, tenderness - Extremities Exam Extremities exam: Present: pedal edema (significantly improved. Patient states this is better than baseline at home.), warm, radial pulses palpable and symmetrical. Absent: calf tenderness, cyanotic - Neurological Exam Neurological exam: Present: CN II-XII intact, oriented X3, no focal deficits. Absent: pronater drift, facial droop, speech deficit - Skin Skin exam: Present: dry, intact - Patient Status Disposition: Home, Self-Care Condition: Fair Functional capacity at discharge: independent ambulation Overall status at discharge: patient is back to baseline - Discharge Instructions Follow Up With: [facility] [Outside] - 11/06/17 9:15 am - Diet and Activity Activity: increase activity as tolerated Diet: low fat, low cholesterol, low salt diet - VTE Documentation of Mechanical Device: Graduated compression elastic hosiery
[2017-10-27 11:49] VITALS: BP 136/86
[2017-10-27] MEDS ORDERED: *HR* Warfarin 5 MG TABLET PO ONE (18:00)
[2017-10-28] MEDS ORDERED: *HR* Warfarin 5 MG TABLET PO SCH (18:00)
== END 2017-10-27 13:15 | disposition home or self-care (01) | DRG 293 ==
LOC: 3ANU 11:09 → EMEROO 11:09 → 3ANU 15:27
PROVIDERS: ADMIT Internal Medicine Nephrology; ATTEND Internal Medicine Nephrology

== ENCOUNTER 2018-02-13 18:01 | Inpatient (IN) ==
[2018-02-13] MEDS ORDERED: Aspirin 81 MG TAB.CHEW PO ONE (18:54)
[2018-02-13] MEDS ORDERED: Furosemide 40 MG/4 ML VIAL IVP ONE (18:55)
--- NOTE | 2018-02-13 18:58 | Emergency Department Note ---
Disposition Clinical Impression: Elevated troponin Congestive heart failure Qualifiers: Heart failure type: unspecified Heart failure chronicity: unspecified Qualified Code(s): I50.9 - Heart failure, unspecified Disposition: Admitted As Inpatient Condition: Fair [facility]errals: [facility] [Primary Care Provider[facility] - Forms: ED Satisfaction Letter Time of Disposition: 20:00 General Adult HPI - General Chief complaint: ED Urogenital-Male Stated complaint: Testicular swelling Time Seen by Provider: 02/13/18 18:23 Source: patient Mode of arrival: ambulatory Limitations: no limitations Nursing Notes Reviewed: Yes Vital Signs Reviewed: Yes - History of Present Illness HPI Narrative: 67-year-old male with history of COPD, CHF, A. fib status post AICD, on Coumadin presents for evaluation of "testicular swelling". Patient states he has had increasing fluid retention over the past 36 hours. Patient does note increasing oxygen requirement during that time. Baseline is 1 L but has been having to use 2 L of nasal cannula. Patient denies any fevers or cough. Patient has any chest pain. Patient states that he does feel short of breath. Patient's also had progressive worsening weight gain. Patient notes baseline lower extremity edema. Patient states he takes Lasix 40 mg twice a day. Has been slightly increasing the dose of Lasix at home. Patient's scrotum notes to be swollen. No history of trauma or tenderness. No dysuria or hematuria. Pain Scale: 0 - Related Data Home Medications Medication Instructions Recorded Confirmed Allopurinol [Zyloprim] 300 mg PO DAILY 03/24/15 02/09/18 Aspirin Enteric Coated [Aspirin EC] 81 mg PO DAILY 03/24/15 02/09/18 Cholecalciferol (Vitamin D3) 1,000 unit PO DAILY 03/24/15 02/09/18 [Vitamin D3] Omeprazole [PriLOSEC] 20 mg PO DAILY 03/24/15 02/09/18 Rosuvastatin [Crestor] 10 mg PO HS 03/24/15 02/09/18 Budesonide/Formoterol 160/4.5 2 puff IH BIDR 09/25/15 02/09/18 [Symbicort 160/4.5] Warfarin [Coumadin] 5 mg PO SUMOTUWETHFR 06/10/16 02/09/18 Ipratropium/Albuterol Neb [Duoneb] 3 ml IH BID PRN 10/05/16 02/09/18 Metoprolol XL (24 HR) Succ [Toprol 150 mg PO DAILY 10/05/16 10/24/17 Xl] Morphine Sulfate [Arymo ER] 15 mg PO HS 10/15/16 02/09/18 Furosemide [Lasix] 40 mg PO BID 03/30/17 02/09/18 Morphine Sulfate [Arymo ER] 30 mg PO BID 09/02/17 02/09/18 Allergies Allergy/AdvReac Type Severity Reaction Status Date / Time No Known Allergies Allergy Verified 02/13/18 18:10 All systems ED: reviewed and negative except as stated. Constitutional: Denies: fever Cardiovascular: Denies: chest pain Respiratory: Reports: dyspnea. Denies: cough, sputum production Gastrointestinal: Denies: abdominal pain, nausea, vomiting Past Medical History - Past Medical History Source: patient Medical history: Reports: arthritis, atrial fibrillation, cardiomyopathy, COPD, coronary artery disease, diabetes, hyperlipidemia, hypertension, myocardial infarction, venous stasis Surgical history: Reports: cataract, cholecystectomy, coronary bypass (CABG), pacemaker/AICD Psychiatric history: Reports: no psych history - Social History Smoking Status: Former smoker Smokeless Tobacco Status: No Alcohol use: Reports: none Drug use: Reports: none Physical Exam - General Limitations: no limitations General appearance: alert, in no apparent distress, obese - Head Head exam: atraumatic, normocephalic, normal inspection - Eye Eye exam: Present: normal appearance - ENT ENT exam: normal exam - Neck Neck exam: Present: normal inspection - Chest Chest inspection: Present: normal inspection, symmetric chest wall rise - Respiratory Respiratory exam: Present: other (Right basilar rails.). Absent: respiratory distress - Cardiovascular Cardiovascular exam: Present: regular rate, normal rhythm, systolic murmur ( Left sternal border systolic) - Abdominal Exam Abdominal exam: Present: soft, Non-Tender, distention - Male exam: Present: scrotal swelling. Absent: testicular tenderness - Extremities Exam Extremities exam: Present: other (Patient's bilateral lower extremities are wrapped in Joni bandages to help with the swelling. Patient does have 2+ bilateral pitting edema.) - Back Exam Back exam: Present: normal inspection - Neurological Exam Neurological exam: Present: alert, CN II-XII intact - Skin Skin exam: Present: warm, dry, intact, normal color Course Course Narrative: Patient seen and examined. Patient signs symptoms are concerning for CHF exacerbation. On exam the patient appears fluid overload. Increased nausea department. Patient will get a cardiopulmonary evaluation with EKG, chest x- ray troponin as well as a BNP. Patient will be given a dose of Lasix here in the ED. Disposition admission. - Reevaluation(s) Reevaluation #1: Patient seen and examined. Patient is responding to the diuretics. Plan of care discussed with the patient family at bedside. Patient will be admitted for continued diuresis and cardiopulmonary monitoring. Time: 20:02 Vital Signs Temperature 97.8 F 02/13/18 18:08 Pulse Rate 83 02/13/18 18:08 Respiratory Rate 16 02/13/18 18:08 Blood Pressure 114/66 02/13/18 18:08 O2 Sat by Pulse Oximetry 97 02/13/18 18:08 Temperature 97.8 F 02/13/18 18:56 Pulse Rate 81 02/13/18 20:06 Respiratory Rate 16 02/13/18 20:06 Blood Pressure 131/78 02/13/18 20:06 O2 Sat by Pulse Oximetry 95 02/13/18 20:06 Oxygen Delivery Oxygen Delivery Nasal Cannula Medical Decision Making - [facility] Narrative Medical decision making narrative: Patient presented for concerns of testicular swelling. During the course the patient's ED evaluation is noted the patient does appear fluid overloaded. Swelling likely secondary to volume overload. Patient also has been having increasing dyspnea with increasing oxygen requirement. Patient's ED evaluation included a chest x-ray shows cardiomegaly with pulmonary congestion. Elevated BNP. Elevated troponin in the setting of congestive heart failure. Patient was given aspirin. Patient denies any chest pain. Patient was given 40 Lasix. Patient's records reviewed show that he does have a echo obtained last year which had EF of 35%. Patient's currently being bridged to Coumadin with Lovenox as he did have a recent colonoscopy. - Medical Records Medical records reviewed: Yes I reviewed the patient's medical records. 2017 Impressions: LVEF 35%. Normal LV chamber size. Mild asymmetric septal hypertrophy. Global and segmental left ventricular systolic dysfunction. Indeterminate diastolic function. Atypical septal motion consistent with paced rhythm/postoperative septum. Mildly dilated right ventricle with near normal sytolic function. Severely dilated left atrium. Mild aortic regurgitation. Mild mitral regurgitation. No evidence of pulmonary hypertension. - Lab Data Lab results reviewed: Yes I reviewed the patient's lab results. Result diagrams: 02/13/18 19:05 02/13/18 19:05 Lab Results 02/13/18 02/13/18 02/13/18 Range/Units 18:55 18:55 19:05 WBC 5.9 (4.3-11.1) K/mcL RBC 4.41 (4.19-5.50) M/mcL Hgb 11.6 L (12.9-16.9) g/dL Hct 38.6 (37.5-50.1) % MCV 87.5 (83.0-100.0) fL MCH 26.3 L (28.0-33.3) pg MCHC 30.1 L (31.6-35.5) g/dL RDW 20.6 H (11.5-14.5) % Plt Count 147 (140-400) K/mcL MPV 10.3 (9.4-12.4) fL Immature Gran % 0.2 (0-4) % Seg Neutrophils % 70.1 % Lymphocytes % 17.2 % Monocytes % 9.9 % Eosinophils % 1.9 % Basophils % 0.7 % Neutrophils # 4.2 (1.6-8.9) K/mcL Lymphocytes # 1.0 (0.6-4.6) K/mcL Monocytes # 0.6 (0.0-1.3) K/mcL Eosinophils # 0.1 (0.0-0.6) K/mcL Basophils # 0.0 (0.0-0.2) K/mcL PT 16.6 H (9.4-12.1) Seconds INR 1.5 APTT 47.1 H (26.0-36.0) Seconds Sodium (136-145) mEq/L Potassium (3.5-5.1) mEq/L Chloride (98-107) mEq/L Carbon Dioxide (23-29) mEq/L BUN (8-23) mg/dL Creatinine (0.70-1.30) mg/dL Est GFR ( Amer) (> 60) Est GFR (Non-Af Amer) (> 60) BUN/Creatinine Ratio (6-26) Glucose (70-105) mg/dL Calculated Osmolality (280-300) Calcium (8.6-10.3) mg/dL Troponin I (< 0.04) ng/mL B-Natriuretic Peptide 1079 H (Less than 100) pg/mL 02/13/18 Range/Units 19:05 WBC (4.3-11.1) K/mcL RBC (4.19-5.50) M/mcL Hgb (12.9-16.9) g/dL Hct (37.5-50.1) % MCV (83.0-100.0) fL MCH (28.0-33.3) pg MCHC (31.6-35.5) g/dL RDW (11.5-14.5) % Plt Count (140-400) K/mcL MPV (9.4-12.4) fL Immature Gran % (0-4) % Seg Neutrophils % % Lymphocytes % % Monocytes % % Eosinophils % % Basophils % % Neutrophils # (1.6-8.9) K/mcL Lymphocytes # (0.6-4.6) K/mcL Monocytes # (0.0-1.3) K/mcL Eosinophils # (0.0-0.6) K/mcL Basophils # (0.0-0.2) K/mcL PT (9.4-12.1) Seconds INR APTT (26.0-36.0) Seconds Sodium 141 (136-145) mEq/L Potassium 3.8 (3.5-5.1) mEq/L Chloride 103 (98-107) mEq/L Carbon Dioxide 32 H (23-29) mEq/L BUN 22 (8-23) mg/dL Creatinine 1.16 (0.70-1.30) mg/dL Est GFR ( Amer) > 60 (> 60) Est GFR (Non-Af Amer) > 60 (> 60) BUN/Creatinine Ratio 19 (6-26) Glucose 126 H (70-105) mg/dL Calculated Osmolality 297 (280-300) Calcium 8.9 (8.6-10.3) mg/dL Troponin I 0.07 H* (< 0.04) ng/mL B-Natriuretic Peptide (Less than 100) pg/mL - Radiology Data Radiology results reviewed: Yes I reviewed the patient's radiology results. Chest X-Ray 02/13/18 18:55 IMPRESSION: Findings likely represent cardiomegaly and mild pulmonary edema. D/ / Bobo Carlton MD / Bobo Carlton MD Interpreting Provider: Bobo Carlton MD - EKG Data EKG #1 EKG attestation: Yes I reviewed and interpreted this EKG. EKG results narrative: Ventricular paced rhythm at a rate of 82. Left axis deviation. No signs of Sgarbossa criteria. No acute changes. S.B.A.Roscoe - Reggie.Graham Situation: Demographics Background: Presenting Complaint Assessment: Vital Signs, Course and respsone to treatment, Patient/Family Expectation Recommendation: Barrier(s) to disposition, Recommendation based on pending studies, treatments, or consults S.B.ARafael Report Given to: Dr. Arcenio Spring Repor Time: 20:34
[2018-02-13 19:29] LABS: Basophils % 0.7 %; Eosinophils # 0.1 K/mcL (0.0-0.6); Eosinophils % 1.9 %; Hematocrit 38.6 % (37.5-50.1); Hemoglobin 11.6 g/dL (12.9-16.9); Immature Granulocytes % 0.2 % (0-4); Lymphocytes % 17.2 %; Mean Corpuscular HGB Conc 30.1 g/dL (31.6-35.5); Mean Corpuscular Hemoglobin 26.3 pg (28.0-33.3); Mean Corpuscular Volume 87.5 fL (83.0-100.0); Mean Platelet Volume 10.3 fL (9.4-12.4); Monocytes # 0.6 K/mcL (0.0-1.3); Monocytes % 9.9 %; Neutrophils # 4.2 K/mcL (1.6-8.9); Platelet Count 147 K/mcL (140-400); Red Blood Count 4.41 M/mcL (4.19-5.50); Red Cell Distribution Width 20.6 % (11.5-14.5); Segmented Neutrophils % 70.1 %
[2018-02-13 19:34] LABS: INR 1.5; Prothrombin Time 16.6 Seconds (9.4-12.1)
[2018-02-13 19:37] LABS: Activated Partial Thrombo Time 47.1 Seconds (26.0-36.0)
[2018-02-13 19:50] LABS: BUN/Creatinine Ratio 19 (6-26); Blood Urea Nitrogen 22 mg/dL (8-23); Calcium 8.9 mg/dL (8.6-10.3); Carbon Dioxide 32 mEq/L (23-29); Chloride 103 mEq/L (98-107); Glucose 126 mg/dL (70-105); Osmolality,Calculated 297 (280-300); Potassium 3.8 mEq/L (3.5-5.1); Sodium 141 mEq/L (136-145); eGFR For Non-African Americans > 60 (> 60)
[2018-02-13 19:54] LABS: Troponin I 0.07 ng/mL (< 0.04)
[2018-02-13] MEDS ORDERED: Nitroglycerin 0.4 MG TAB.SUBL SL ONE (20:05)
--- NOTE | 2018-02-13 20:09 | Emergency Department Note ---
Disposition Clinical Impression: Elevated troponin Congestive heart failure Qualifiers: Heart failure type: unspecified Heart failure chronicity: unspecified Qualified Code(s): I50.9 - Heart failure, unspecified Disposition: Admitted As Inpatient Condition: Fair [facility]: [facility] [Primary Care Provider[facility] - Forms: ED Satisfaction Letter General Adult HPI - General Chief complaint: ED Urogenital-Male Stated complaint: Testicular swelling Time Seen by Provider: 02/13/18 18:23 Source: patient Mode of arrival: ambulatory Limitations: no limitations - History of Present Illness Pain Scale: 0 - Related Data Home Medications Medication Instructions Recorded Confirmed Allopurinol [Zyloprim] 300 mg PO DAILY 03/24/15 02/09/18 Aspirin Enteric Coated [Aspirin EC] 81 mg PO DAILY 03/24/15 02/09/18 Cholecalciferol (Vitamin D3) 1,000 unit PO DAILY 03/24/15 02/09/18 [Vitamin D3] Omeprazole [PriLOSEC] 20 mg PO DAILY 03/24/15 02/09/18 Rosuvastatin [Crestor] 10 mg PO HS 03/24/15 02/09/18 Budesonide/Formoterol 160/4.5 2 puff IH BIDR 09/25/15 02/09/18 [Symbicort 160/4.5] Warfarin [Coumadin] 5 mg PO SUMOTUWETHFR 06/10/16 02/09/18 Ipratropium/Albuterol Neb [Duoneb] 3 ml IH BID PRN 10/05/16 02/09/18 Metoprolol XL (24 HR) Succ [Toprol 150 mg PO DAILY 10/05/16 10/24/17 Xl] Morphine Sulfate [Arymo ER] 15 mg PO HS 10/15/16 02/09/18 Furosemide [Lasix] 40 mg PO BID 03/30/17 02/09/18 Morphine Sulfate [Arymo ER] 30 mg PO BID 09/02/17 02/09/18 Allergies Allergy/AdvReac Type Severity Reaction Status Date / Time No Known Allergies Allergy Verified 02/13/18 18:10 Constitutional: Denies: fever Cardiovascular: Denies: chest pain Respiratory: Reports: dyspnea. Denies: cough, sputum production Gastrointestinal: Denies: abdominal pain, nausea, vomiting Past Medical History - Past Medical History Medical history: Reports: arthritis, atrial fibrillation, cardiomyopathy, COPD, coronary artery disease, diabetes, hyperlipidemia, hypertension, myocardial infarction, venous stasis Surgical history: Reports: cataract, cholecystectomy, coronary bypass (CABG), pacemaker/AICD Psychiatric history: Reports: no psych history - Social History Smoking Status: Former smoker Smokeless Tobacco Status: No Alcohol use: Reports: none Drug use: Reports: none Physical Exam - General Limitations: no limitations General appearance: alert, in no apparent distress, obese Course Vital Signs Temperature 97.8 F 02/13/18 18:08 Pulse Rate 83 02/13/18 18:08 Respiratory Rate 16 02/13/18 18:08 Blood Pressure 114/66 02/13/18 18:08 O2 Sat by Pulse Oximetry 97 02/13/18 18:08 Temperature 97.8 F 02/13/18 18:56 Pulse Rate 83 02/13/18 18:56 Respiratory Rate 16 02/13/18 18:56 Blood Pressure 114/66 02/13/18 18:56 O2 Sat by Pulse Oximetry 97 02/13/18 19:15 Oxygen Delivery Oxygen Delivery Nasal Cannula Medical Decision Making - Lab Data Result diagrams: 02/13/18 19:05 02/13/18 19:05 Lab Results 02/13/18 02/13/18 02/13/18 Range/Units 18:55 18:55 19:05 WBC 5.9 (4.3-11.1) K/mcL RBC 4.41 (4.19-5.50) M/mcL Hgb 11.6 L (12.9-16.9) g/dL Hct 38.6 (37.5-50.1) % MCV 87.5 (83.0-100.0) fL MCH 26.3 L (28.0-33.3) pg MCHC 30.1 L (31.6-35.5) g/dL RDW 20.6 H (11.5-14.5) % Plt Count 147 (140-400) K/mcL MPV 10.3 (9.4-12.4) fL Immature Gran % 0.2 (0-4) % Seg Neutrophils % 70.1 % Lymphocytes % 17.2 % Monocytes % 9.9 % Eosinophils % 1.9 % Basophils % 0.7 % Neutrophils # 4.2 (1.6-8.9) K/mcL Lymphocytes # 1.0 (0.6-4.6) K/mcL Monocytes # 0.6 (0.0-1.3) K/mcL Eosinophils # 0.1 (0.0-0.6) K/mcL Basophils # 0.0 (0.0-0.2) K/mcL PT 16.6 H (9.4-12.1) Seconds INR 1.5 APTT 47.1 H (26.0-36.0) Seconds Sodium (136-145) mEq/L Potassium (3.5-5.1) mEq/L Chloride (98-107) mEq/L Carbon Dioxide (23-29) mEq/L BUN (8-23) mg/dL Creatinine (0.70-1.30) mg/dL Est GFR ( Amer) (> 60) Est GFR (Non-Af Amer) (> 60) BUN/Creatinine Ratio (6-26) Glucose (70-105) mg/dL Calculated Osmolality (280-300) Calcium (8.6-10.3) mg/dL Troponin I (< 0.04) ng/mL B-Natriuretic Peptide 1079 H (Less than 100) pg/mL 02/13/18 Range/Units 19:05 WBC (4.3-11.1) K/mcL RBC (4.19-5.50) M/mcL Hgb (12.9-16.9) g/dL Hct (37.5-50.1) % MCV (83.0-100.0) fL MCH (28.0-33.3) pg MCHC (31.6-35.5) g/dL RDW (11.5-14.5) % Plt Count (140-400) K/mcL MPV (9.4-12.4) fL Immature Gran % (0-4) % Seg Neutrophils % % Lymphocytes % % Monocytes % % Eosinophils % % Basophils % % Neutrophils # (1.6-8.9) K/mcL Lymphocytes # (0.6-4.6) K/mcL Monocytes # (0.0-1.3) K/mcL Eosinophils # (0.0-0.6) K/mcL Basophils # (0.0-0.2) K/mcL PT (9.4-12.1) Seconds INR APTT (26.0-36.0) Seconds Sodium 141 (136-145) mEq/L Potassium 3.8 (3.5-5.1) mEq/L Chloride 103 (98-107) mEq/L Carbon Dioxide 32 H (23-29) mEq/L BUN 22 (8-23) mg/dL Creatinine 1.16 (0.70-1.30) mg/dL Est GFR ( Amer) > 60 (> 60) Est GFR (Non-Af Amer) > 60 (> 60) BUN/Creatinine Ratio 19 (6-26) Glucose 126 H (70-105) mg/dL Calculated Osmolality 297 (280-300) Calcium 8.9 (8.6-10.3) mg/dL Troponin I 0.07 H* (< 0.04) ng/mL B-Natriuretic Peptide (Less than 100) pg/mL Attestation Statement - Attestation Attestation: I examined this patient and my medical decision-making was reviewed with the Resident Physician. I agree with the documented findings, disposition and treatment plan as described except to the extent set forth below. 67 year old male presents to the ED with complaints of testicular swelling and a history of CHF and it appears that he has mild pulmonary edema on an elevated BNP with elevated troponin. We will admit for CHF excerbation, lasix and nitro SL
--- NOTE | 2018-02-13 23:00 | Internal Med History&Physical ---
Date of Encounter: 02/13/18 Time of Encounter: 22:00 Internal Medicine - H&P: HPI Chief complaint: swelling Admitted From: Home Plans for Post Hospital Care: Home History of present illness: Junaid Rudd is a 67 year old man with a history of COPD, heart failure s/p AICD, A.fib on warfarin who presented to the ER with the complaint of testicular swelling, stating that he has noticed increased fluid buildup over the last 36 hours with weight gain. He has increased his dose of furosemide at home because of this. He also reported increasing oxygen requiring, baseline on 1L and now on 2L per nasal cannula. He denied any chest pain. In the ER there was concern for CHF exacerbation and was given 1 dose of 40mg furosemide IVP, AA 324mg and sublingual NTG. CXR reviewed independently by me shows AICD leads and peripheral pulmonary vascular congestion. BNP was 1079. Troponin mildly elevated at 0.07. Past Med Surg Social Fam HX - Past Medical History Medical history: arthritis, atrial fibrillation, cardiomyopathy, COPD, coronary artery disease, diabetes, hyperlipidemia, hypertension, myocardial infarction, venous stasis Additional medical history: AFIB, OBESITY, DDD, OA, GOUT, FX ANKLE, CAD, SLEEP APNEA Psychiatric history: no psych history - Past Surgical History Surgical History: cataract, cholecystectomy, coronary bypass (CABG), pacemaker/ AICD Additional surgical history: CARDIAC ABLATIONS, HEART CATH, LOOP RECORDER IMPLANT, pacer - Social History Smoking Status: Former smoker Smokeless Tobacco Status: No Alcohol use: none Drug use: none - Family History Mother Living Status: Hx Family Cardiac Disorders: Yes Hx Family Endocrine Disorder: Yes (DM) Father Living Status: Hx Family Cardiac Disorders: Yes Internal Medicine - H&P: Meds Aspirin Enteric Coated [Aspirin EC] 81 mg PO DAILY 03/24/15 [History] Budesonide/Formoterol 160/4.5 [Symbicort 160/4.5] 2 puff IH BID 09/25/15 [ History] Warfarin [Coumadin] 5 mg PO SUMOWETHSA 06/10/16 [History] Ipratropium/Albuterol Neb [Duoneb] 3 ml IH 0700,1400,2300 PRN 10/05/16 [History] Morphine Sulfate [Arymo ER] 15 mg PO HS 10/15/16 [History] Furosemide [Lasix] 40 mg PO BID 03/30/17 [History] Morphine Sulfate [Arymo ER] 30 mg PO BID 09/02/17 [History] Allopurinol [Zyloprim 300 MG] 300 mg PO HS 02/13/18 [History] Bipap HS 02/13/18 [History] Cholecalciferol (D-3) [Vitamin D] 1,000 unit PO DAILY 02/13/18 [History] Ferrous Sulfate [Iron] 325 mg PO DAILY 02/13/18 [History] Metoprolol Succinate [Toprol Xl] 150 mg PO DAILY 02/13/18 [History] Omeprazole [PriLOSEC] 20 mg PO DAILY 02/13/18 [History] Oxygen 1 - 2 l IH DAILY 02/13/18 [History] Rosuvastatin [Crestor] 10 mg PO HS 02/13/18 [History] Sennosides/Docusate Sodium [Colace 2-in-1 Tablet] 2 tab PO BID 02/13/18 [History ] Warfarin Sodium [Warfarin Sodium] 10 mg PO TUFR 02/13/18 [History] 3 Allergy/AdvReac Type Severity Reaction Status Date / Time No Known Allergies Allergy Verified 02/13/18 18:10 All Systems PM: A 10-system review of systems was performed and is negative for pertinent findings except as documented above in the HPI. - Constitutional Vitals: Temp Pulse Resp BP Pulse Ox 97.8 F 81 20 139/86 95 02/13/18 18:56 02/13/18 20:06 02/13/18 22:31 02/13/18 22:31 02/13/18 20:06 Exam: Vitals: Reviewed General: Obese, NAD Skin: Multiple bruises on forearms HEENT: Moist mucous membranes. No conjunctivae pallor. Neck: No lymphadenopathy. (+) JVD. Chest: Reduced thoracic expansion.Diminished breath sounds in both lung bases. Heart: Normal S1 & S2; rhythmic. systolic murmur III/ present at apex. Abdomen: distended with wall edema present. non-tender to palpation. Extremities: 3+ pitting edema bilaterally. Neurological: Awake, alert and oriented to person, place and time. No focal deficits. Psych: Affect appropriate. Internal Med - H&P Results - Labs CBC & Chem 7: 02/13/18 19:05 02/13/18 19:05 - Assessment and plan (1) CHF (congestive heart failure) Current Visit: Yes Status: Acute Assessment and plan: The patient has physical exam findings and a clinical history consistent with a fluid overload state secondary to congestive heart failure. BNP >1000. No signs of acute ischemic disease as the etiology for acute worsening. Troponin elevation likely secondary to demand and myocardial strain. Will place on IVP 40mg furosemide BID Resume metoprolol succinate daily. Unclear why he is not on ACEI; will start lisinopril 5mg daily. Strict I/O monitoring. 1L fluid restriction. Telemetry monitoring. Check TTE. Qualifiers: Heart failure type: systolic Heart failure chronicity: acute on chronic Qualified Code(s): I50.23 - Acute on chronic systolic (congestive) heart failure (2) Elevated troponin Current Visit: Yes Status: Acute Assessment and plan: No signs of acute ischemic disease. Likely due to myocardial strain and demand. Will recheck again in the morning to assess level but no intervention needed for now. (3) LOVE on CPAP Current Visit: Yes Status: Chronic Assessment and plan: Will continue CPAP/Bipap as needed. (4) Atrial fibrillation Current Visit: Yes Status: Chronic Assessment and plan: Rate controlled. On warfarin however currently subtherapeutic as it was held for a colonoscopy and has been receiving bridging LMWH last administered today. Will place on warfarin to be dosed per pharmacy and daily INR. Qualifiers: Atrial fibrillation type: chronic Qualified Code(s): I48.2 - Chronic atrial fibrillation (5) CAD (coronary artery disease) Current Visit: Yes Status: Chronic Assessment and plan: Stable. Continue high dose statin and ASA. Qualifiers: Coronary Disease-Associated Artery/Lesion type: bypass graft [place] vs. transplanted heart: [place] heart Associated angina: without angina Qualified Code(s): I25.810 - Atherosclerosis of coronary artery bypass graft(s) without angina pectoris (6) COPD (chronic obstructive pulmonary disease) Current Visit: Yes Status: Chronic Assessment and plan: No signs of acute exacerbation. Will continue LABA/ICS and GEE prn. Qualifiers: COPD type: unspecified COPD Qualified Code(s): J44.9 - Chronic obstructive pulmonary disease, unspecified (7) DM2 (diabetes mellitus, type 2) Current Visit: Yes Status: Chronic Assessment and plan: Will place on accuchecks and insulin sliding scale. 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 - Time Spent With Patient Total time spent is greater than 50% in coordination of care (as documented) at patient's floor/unit and/or counseling patient: Greater than 35 minutes
[2018-02-13] MEDS ORDERED: Dextrose Gel 15 GM/37.5 ML TUBE PO PRN ×2 (23:05)
[2018-02-14] MEDS ORDERED: *HR* Morphine Sulfate SR (12 HR) 15 MG TABLET.ER PO SCH (00:15)
[2018-02-14] MEDS ORDERED: *HR* Warfarin 5 MG TABLET PO ONE (00:30)
[2018-02-14 03:56] LABS: Basophils # 0.1 K/mcL (0.0-0.2); Eosinophils # 0.1 K/mcL (0.0-0.6); Eosinophils % 1.5 %; Hematocrit 39.7 % (37.5-50.1); Immature Granulocytes % 0.2 % (0-4); Lymphocytes # 1.3 K/mcL (0.6-4.6); Lymphocytes % 21.3 %; Mean Corpuscular HGB Conc 30.2 g/dL (31.6-35.5); Mean Corpuscular Hemoglobin 26.8 pg (28.0-33.3); Mean Corpuscular Volume 88.6 fL (83.0-100.0); Mean Platelet Volume 10.5 fL (9.4-12.4); Monocytes # 0.7 K/mcL (0.0-1.3); Monocytes % 11.9 %; Neutrophils # 3.8 K/mcL (1.6-8.9); Platelet Count 149 K/mcL (140-400); Red Blood Count 4.48 M/mcL (4.19-5.50); Red Cell Distribution Width 20.7 % (11.5-14.5); Segmented Neutrophils % 64.1 %
[2018-02-14 04:04] LABS: INR 1.4; Prothrombin Time 15.9 Seconds (9.4-12.1)
[2018-02-14 04:22] LABS: BUN/Creatinine Ratio 18 (6-26); Blood Urea Nitrogen 21 mg/dL (8-23); Calcium 8.8 mg/dL (8.6-10.3); Carbon Dioxide 30 mEq/L (23-29); Chloride 105 mEq/L (98-107); Glucose 107 mg/dL (70-105); Osmolality,Calculated 297 (280-300); Potassium 3.8 mEq/L (3.5-5.1); Sodium 142 mEq/L (136-145); eGFR For Non-African Americans > 60 (> 60)
[2018-02-14 04:39] LABS: Troponin I 0.04 ng/mL (< 0.04)
[2018-02-14] MEDS: Ipratropium/Albuterol Neb 3 ML IH PRN ×3 (06:45→21:47)
[2018-02-14] MEDS: Warfarin perPT PO SCH (07:12)
[2018-02-14] MEDS ORDERED: Perflutren Lipid Microsphere 1.3 ML in 0.9 % Sodium Chloride 8.7 ML IVP ONE (08:46)
[2018-02-14] MEDS ORDERED: Perflutren Lipid Microsphere 2 ML VIAL ONE (08:51)
[2018-02-14] MEDS: Cholecalciferol (D-3) 1,000 UNIT TABLET PO SCH (10:11)
[2018-02-14] MEDS: Sennosides/Docusate Sodium TABLET PO SCH ×2 (10:11→21:32)
[2018-02-14] MEDS: Metoprolol XL (24 HR) Succ 50 MG TAB.ER.24H PO SCH (10:11)
[2018-02-14] MEDS: Furosemide 40 MG/4 ML VIAL IVP SCH ×2 (10:11→17:02)
[2018-02-14] MEDS: Aspirin Enteric Coated 81 MG Tablet PO SCH (10:11)
[2018-02-14] MEDS ORDERED: *HR* Morphine Sulfate SR (12 HR) 30 MG TABLET.ER PO SCH (10:30)
[2018-02-14] MEDS: Budesonide/Formoterol 160/4.5 1 PUFF INH IH SCH ×2 (10:51→19:35)
[2018-02-14] MEDS: Insulin LISPRO 300 UNITS/3 ML VIAL SQ SCH ×3 (11:19→16:48)
[2018-02-14] MEDS: *HR* Morphine Sulfate SR (12 HR) 15 MG TABLET.ER PO SCH ×2 (11:38→17:02)
--- NOTE | 2018-02-14 13:21 | Internal Med Progress Note ---
Hospitalist Progress Note - Encounter Date of Encounter: 02/14/18 Time of Encounter: 09:00 - Subjective Interval History: Patient feels shortness of breath has improved. Still has scrotum swelling and bilateral leg swelling, which is less. Denies chest pain. - Exam Vitals: Temp Pulse Resp BP Pulse Ox 97.8 F 84 20 129/70 94 02/14/18 11:47 02/14/18 11:47 02/14/18 11:47 02/14/18 11:47 02/14/18 11:47 Exam: Patient is awake alert, oriented 3, in no acute distress HEENT: AC/NT, PERRL Neck: Supple, no JVD Lungs: CTA B/L Heart: S1S2, RRR Abd: Soft, NT Ext: Scrotal edema, b/l leg edema Neuro: No focal deficit. - Assessment and Plan (1) COPD (chronic obstructive pulmonary disease) Current Visit: Yes Status: Chronic Assessment and Plan: No signs of acute exacerbation. Will continue LABA/ICS and GEE prn. (2) Atrial fibrillation Current Visit: Yes Status: Chronic Assessment and Plan: Rate controlled. On warfarin however currently subtherapeutic as it was held for a colonoscopy and has been receiving bridging LMWH last administered today. Will place on warfarin to be dosed per pharmacy and daily INR. Cont lovenox bridging before therapeutic INR. (3) DM2 (diabetes mellitus, type 2) Current Visit: Yes Status: Chronic Assessment and Plan: Will place on accuchecks and insulin sliding scale. (4) Elevated troponin Current Visit: Yes Status: Acute Assessment and Plan: No signs of acute ischemic disease. Likely due to myocardial strain and demand. Adynamic troponin. Pt denies CP. (5) LOVE on CPAP Current Visit: Yes Status: Chronic Assessment and Plan: Will continue CPAP/Bipap as needed. (6) Essential hypertension Current Visit: Yes Status: Chronic Assessment and Plan: Well controlled. (7) CAD (coronary artery disease) Current Visit: Yes Status: Chronic Assessment and Plan: Stable. Continue high dose statin and ASA and BB. (8) CHF (congestive heart failure) Current Visit: Yes Status: Acute Assessment and Plan: Pt has signs of CHF exacerbation. Known systolic CHF with last echo one year ago shows LVEF 35%. - Cont cardiac monitoring - Lasix 40mg iv BID - Strict I/O - Fluid restriction diet - Weigh daily - Cont BB and ACEI - Repeat echo shows LVEF 35%. DVT Prophylaxis: On coumadin and lovenox - Time Spent with Patient Total time spent is greater than 50% in coordination of care (as documented) at patient's floor/unit and/or counseling patient: 30 min 25 - 35 minutes Plan of Care Discussed with: patient Internal Medicine: Result - Labs CBC & Chem 7: 02/14/18 03:42 02/14/18 03:42 - ABG Interpretation ABG results: PT/INR, D-dimer PT 15.9 Seconds (9.4-12.1) H 02/14/18 03:42 - Impressions Impressions Echocardiogram 02/14/18 22:44 Impressions: LVEF 35%. Mild concentric left ventricular hypertrophy. Segmental left ventricular systolic dysfunction. Indeterminate diastolic function. Atypical septal motion consistent with paced rhythm/postoperative status. Mildly dilated and hypokinetic right ventricle. Mild aortic regurgitation. Mild mitral regurgitation. Mild-moderate tricuspid regurgitation. No pulmonary hypertension. Moderate pulmonic regurgitation. A device lead was visualized in the right atrium and right ventricle. Left Ventricular Wall Motion: Rest Echo Findings The apex, mid inferior, basal inferior, apical septal, mid anterior septal, mid inferior lateral and basal inferior lateral [place] were akinetic. All other wall segments showed normal motion. Findings: Study Quality * Technically adequate exam. ECG Findings * Paced rhythm. Left Ventricle * LVEF 35%. * Mild concentric left ventricular hypertrophy. * Segmental left ventricular systolic dysfunction. * Indeterminate diastolic function. * Atypical septal motion consistent with paced rhythm/postoperative status. Right Ventricle * Mildly dilated and hypokinetic right ventricle. Left Atrium * Severely dilated left atrium. Right Atrium * Severely dilated right atrium. Aortic Valve * Trileaflet aortic valve. * Mildly sclerotic aortic valve leaflets. * Mild aortic regurgitation. * No aortic stenosis. Mitral Valve * Mildly thickened mitral valve leaflets. * Mild mitral annular calcification * Mild mitral regurgitation. * No mitral stenosis. Tricuspid Valve * Normal tricuspid valve structure. * Mild-moderate tricuspid regurgitation. * No pulmonary hypertension. Pulmonic Valve * Normal pulmonic valve structure. * Moderate pulmonic regurgitation. Aorta * Normally sized aortic root. Pericardium * The pericardium appears normal. IVC * The IVC is dilated. * > 50% respiratory change Pulmonary Artery * Normal visualized portions of the main pulmonary artery. Device lead * A device lead was visualized in the right atrium and right ventricle. Consult Discharge Plan - Plan [facility]errals: [facility] [Primary Care Provider] - (1) COPD (chronic obstructive pulmonary disease) Qualifiers: COPD type: unspecified COPD Qualified Code(s): J44.9 - Chronic obstructive pulmonary disease, unspecified (2) Atrial fibrillation Qualifiers: Atrial fibrillation type: chronic Qualified Code(s): I48.2 - Chronic atrial fibrillation (3) DM2 (diabetes mellitus, type 2) Qualifiers: Diabetes mellitus bed bug exterminator insulin use: unspecified bed bug exterminator insulin use status Diabetes mellitus complication status: without complication Qualified Code(s): E11.9 - Type 2 diabetes mellitus without complications (7) CAD (coronary artery disease) Qualifiers: Coronary Disease-Associated Artery/Lesion type: bypass graft [place] vs. transplanted heart: [place] heart Associated angina: without angina Qualified Code(s): I25.810 - Atherosclerosis of coronary artery bypass graft(s) without angina pectoris (8) CHF (congestive heart failure) Qualifiers: Heart failure type: systolic Heart failure chronicity: acute on chronic Qualified Code(s): I50.23 - Acute on chronic systolic (congestive) heart failure
[2018-02-14] MEDS: *HR* Enoxaparin 150 MG/ML SYRINGE SQ SCH (17:01)
--- NOTE | 2018-02-14 17:49 | Electrocardiograph Report ---
[place] [id number] Test Date: 2018-02-13 Pat Name: Junaid Rudd Department: [id number] Room: [facility] Gender: M [employer]: : 1950 Requested By: Amrit Campbell Order Number: [id number] Reading MD: Jalen Garcia Measurements Intervals [place] Rate: 82 P: 0 MI: 162 QRS: 176 QRSD: 155 T: -6 QT: 458 QTc: 535 Interpretive Statements Ventricular-paced complexes Electronically Signed On 02-14-2018 17:47:47 EDT by Jalen Garcia
[2018-02-14] MEDS ORDERED: *HR* Warfarin 10 MG TABLET PO SCH (18:00)
[2018-02-14] MEDS ORDERED: *HR* Warfarin 10 MG TABLET PO ONE (18:00)
[2018-02-14] MEDS ORDERED: *HR* Enoxaparin 150 MG/ML SYRINGE SQ SCH (18:00)
[2018-02-14] MEDS ORDERED: Insulin LISPRO 300 UNITS/3 ML VIAL SQ SCH (21:00)
[2018-02-15 04:29] LABS: Basophils % 0.5 %; Eosinophils # 0.1 K/mcL (0.0-0.6); Eosinophils % 1.8 %; Hematocrit 34.7 % (37.5-50.1); Hemoglobin 10.5 g/dL (12.9-16.9); Immature Granulocytes % 0.2 % (0-4); Lymphocytes # 1.1 K/mcL (0.6-4.6); Lymphocytes % 20.7 %; Mean Corpuscular HGB Conc 30.3 g/dL (31.6-35.5); Mean Corpuscular Hemoglobin 26.4 pg (28.0-33.3); Mean Corpuscular Volume 87.2 fL (83.0-100.0); Mean Platelet Volume 11.2 fL (9.4-12.4); Monocytes # 0.6 K/mcL (0.0-1.3); Monocytes % 10.7 %; Neutrophils # 3.6 K/mcL (1.6-8.9); Platelet Count 155 K/mcL (140-400); Red Blood Count 3.98 M/mcL (4.19-5.50); Red Cell Distribution Width 20.6 % (11.5-14.5); Segmented Neutrophils % 66.1 %
[2018-02-15 04:34] LABS: Prothrombin Time 22.8 Seconds (9.4-12.1)
[2018-02-15 04:47] LABS: BUN/Creatinine Ratio 19 (6-26); Blood Urea Nitrogen 20 mg/dL (8-23); Calcium 8.8 mg/dL (8.6-10.3); Carbon Dioxide 35 mEq/L (23-29); Chloride 103 mEq/L (98-107); Glucose 117 mg/dL (70-105); Osmolality,Calculated 298 (280-300); Potassium 3.8 mEq/L (3.5-5.1); Sodium 142 mEq/L (136-145); eGFR For Non-African Americans > 60 (> 60)
[2018-02-15] MEDS: Warfarin perPT PO SCH ×2 (05:55→17:51)
[2018-02-15] MEDS: *HR* Enoxaparin 150 MG/ML SYRINGE SQ SCH (06:00)
[2018-02-15] MEDS: *HR* Morphine Sulfate SR (12 HR) 15 MG TABLET.ER PO SCH ×2 (06:39→17:10)
[2018-02-15] MEDS: Budesonide/Formoterol 160/4.5 1 PUFF INH IH SCH ×2 (07:43→22:41)
[2018-02-15] MEDS: Ipratropium/Albuterol Neb 3 ML IH PRN ×2 (07:43→16:13)
[2018-02-15] MEDS: Metoprolol XL (24 HR) Succ 50 MG TAB.ER.24H PO SCH (09:37)
[2018-02-15] MEDS: Cholecalciferol (D-3) 1,000 UNIT TABLET PO SCH (09:38)
[2018-02-15] MEDS: Aspirin Enteric Coated 81 MG Tablet PO SCH (09:38)
[2018-02-15] MEDS: Furosemide 40 MG/4 ML VIAL IVP SCH ×2 (09:39→17:10)
[2018-02-15] MEDS: Sennosides/Docusate Sodium TABLET PO SCH ×2 (09:39→21:38)
[2018-02-15] MEDS: Insulin LISPRO 300 UNITS/3 ML VIAL SQ SCH (09:48)
--- NOTE | 2018-02-15 12:41 | Internal Med Progress Note ---
Hospitalist Progress Note - Encounter Date of Encounter: 02/15/18 Time of Encounter: 09:00 - Subjective Interval History: Patient feels better, less swelling, denies SOB. - Exam Vitals: Temp Pulse Resp BP Pulse Ox 97.9 F 82 18 142/81 96 02/15/18 11:01 02/15/18 11:01 02/15/18 11:01 02/15/18 11:01 02/15/18 11:01 Exam: Patient is awake alert, oriented 3, in no acute distress HEENT: AC/NT, PERRL Neck: Supple, no JVD Lungs: CTA B/L Heart: S1S2, RRR Abd: Soft, NT Ext: Scrotal edema, mild b/l leg edema Neuro: No focal deficit. - Assessment and Plan (1) COPD (chronic obstructive pulmonary disease) Current Visit: Yes Status: Chronic Assessment and Plan: No signs of acute exacerbation. Will continue LABA/ICS and GEE prn. (2) Atrial fibrillation Current Visit: Yes Status: Chronic Assessment and Plan: Rate controlled. On warfarin. INR 2.0 today. Lovenox bridging discontinued. (3) DM2 (diabetes mellitus, type 2) Current Visit: Yes Status: Chronic Assessment and Plan: Will cont DM diet. Pt is on diet control only at home. (4) Elevated troponin Current Visit: Yes Status: Acute Assessment and Plan: No signs of acute ischemic disease. Likely due to myocardial strain and demand. Adynamic troponin. Pt denies CP. (5) LOVE on CPAP Current Visit: Yes Status: Chronic Assessment and Plan: Will continue CPAP/Bipap as needed. (6) Essential hypertension Current Visit: Yes Status: Chronic Assessment and Plan: Well controlled. (7) CAD (coronary artery disease) Current Visit: Yes Status: Chronic Assessment and Plan: Stable. Continue high dose statin and ASA and BB. (8) CHF (congestive heart failure) Current Visit: Yes Status: Acute Assessment and Plan: Pt has signs of CHF exacerbation. Known systolic CHF with last echo one year ago shows LVEF 35%. - Cont cardiac monitoring - Lasix 40mg iv BID - Strict I/O - Fluid restriction diet - Weigh daily - Cont BB and ACEI, BP tolerate well on newly added lisinopril. - Repeat echo shows LVEF 35%. DVT Prophylaxis: On coumadin - Time Spent with Patient Total time spent is greater than 50% in coordination of care (as documented) at patient's floor/unit and/or counseling patient: 30 min 25 - 35 minutes Plan of Care Discussed with: patient Internal Medicine: Result - Labs CBC & Chem 7: 02/15/18 04:00 02/15/18 04:00 Labs: Short CBC 02/15/18 Range/Units 04:00 WBC 5.5 (4.3-11.1) K/mcL Hgb 10.5 L D (12.9-16.9) g/dL Hct 34.7 L (37.5-50.1) % Plt Count 155 (140-400) K/mcL Neutrophils # 3.6 (1.6-8.9) K/mcL BMP 02/15/18 04:00 Sodium 142 Potassium 3.8 Chloride 103 Carbon Dioxide 35 H BUN 20 Creatinine 1.04 Glucose 117 H Calcium 8.8 - ABG Interpretation ABG results: PT/INR, D-dimer PT 22.8 Seconds (9.4-12.1) H 02/15/18 04:00 Consult Discharge Plan - Plan [facility]errals: [facility] [Primary Care Provider] - (1) COPD (chronic obstructive pulmonary disease) Qualifiers: COPD type: unspecified COPD Qualified Code(s): J44.9 - Chronic obstructive pulmonary disease, unspecified (2) Atrial fibrillation Qualifiers: Atrial fibrillation type: chronic Qualified Code(s): I48.2 - Chronic atrial fibrillation (3) DM2 (diabetes mellitus, type 2) Qualifiers: Diabetes mellitus assisted insulin use: unspecified remote computer terminal operator insulin use status Diabetes mellitus complication status: without complication Qualified Code(s): E11.9 - Type 2 diabetes mellitus without complications (7) CAD (coronary artery disease) Qualifiers: Coronary Disease-Associated Artery/Lesion type: bypass graft [place] vs. transplanted heart: [place] heart Associated angina: without angina Qualified Code(s): I25.810 - Atherosclerosis of coronary artery bypass graft(s) without angina pectoris (8) CHF (congestive heart failure) Qualifiers: Heart failure type: systolic Heart failure chronicity: acute on chronic Qualified Code(s): I50.23 - Acute on chronic systolic (congestive) heart failure
[2018-02-15] MEDS ORDERED: *HR* Warfarin 5 MG TABLET PO ONE (18:00)
[2018-02-16 04:07] LABS: Basophils % 0.6 %; Eosinophils # 0.1 K/mcL (0.0-0.6); Eosinophils % 1.7 %; Hematocrit 33.5 % (37.5-50.1); Hemoglobin 10.1 g/dL (12.9-16.9); Immature Granulocytes % 0.2 % (0-4); Lymphocytes % 18.4 %; Mean Corpuscular HGB Conc 30.1 g/dL (31.6-35.5); Mean Corpuscular Volume 86.1 fL (83.0-100.0); Mean Platelet Volume 11.3 fL (9.4-12.4); Monocytes # 0.7 K/mcL (0.0-1.3); Monocytes % 12.8 %; Neutrophils # 3.6 K/mcL (1.6-8.9); Platelet Count 149 K/mcL (140-400); Red Blood Count 3.89 M/mcL (4.19-5.50); Segmented Neutrophils % 66.3 %
[2018-02-16 04:26] LABS: INR 2.4; Prothrombin Time 27.3 Seconds (9.4-12.1)
[2018-02-16 04:27] LABS: BUN/Creatinine Ratio 24 (6-26); Blood Urea Nitrogen 22 mg/dL (8-23); Calcium 8.5 mg/dL (8.6-10.3); Carbon Dioxide 34 mEq/L (23-29); Chloride 104 mEq/L (98-107); Glucose 110 mg/dL (70-105); Osmolality,Calculated 300 (280-300); Potassium 3.7 mEq/L (3.5-5.1); Sodium 143 mEq/L (136-145); eGFR For Non-African Americans > 60 (> 60)
[2018-02-16] MEDS: Metoprolol XL (24 HR) Succ 50 MG TAB.ER.24H PO SCH (08:14)
[2018-02-16] MEDS: Sennosides/Docusate Sodium TABLET PO SCH ×2 (08:15→20:01)
[2018-02-16] MEDS: *HR* Morphine Sulfate SR (12 HR) 15 MG TABLET.ER PO SCH ×2 (08:15→16:55)
[2018-02-16] MEDS: Cholecalciferol (D-3) 1,000 UNIT TABLET PO SCH (08:15)
[2018-02-16] MEDS: Aspirin Enteric Coated 81 MG Tablet PO SCH (08:15)
[2018-02-16] MEDS: Furosemide 40 MG/4 ML VIAL IVP SCH ×2 (08:15→16:55)
[2018-02-16] MEDS: Budesonide/Formoterol 160/4.5 1 PUFF INH IH SCH ×2 (09:52→20:20)
--- NOTE | 2018-02-16 12:02 | Internal Med Progress Note ---
Hospitalist Progress Note - Encounter Date of Encounter: 02/16/18 Time of Encounter: 09:00 - Subjective Interval History: Patient feels better, less swelling, denies SOB. Still need oxygen. - Exam Vitals: Temp Pulse Resp BP Pulse Ox 97.6 F 80 20 110/74 92 02/16/18 11:21 02/16/18 11:21 02/16/18 11:21 02/16/18 11:21 02/16/18 11:21 Exam: Patient is awake alert, oriented 3, in no acute distress HEENT: AC/NT, PERRL Neck: Supple, no JVD Lungs: CTA B/L Heart: S1S2, RRR Abd: Soft, NT Ext: Scrotal edema, mild b/l leg edema Neuro: No focal deficit. - Assessment and Plan (1) COPD (chronic obstructive pulmonary disease) Current Visit: Yes Status: Chronic Assessment and Plan: No signs of acute exacerbation. Will continue LABA/ICS and GEE prn. (2) Atrial fibrillation Current Visit: Yes Status: Chronic Assessment and Plan: Rate controlled. On warfarin. INR 2.4 today. Dosing by pharmacy. (3) DM2 (diabetes mellitus, type 2) Current Visit: Yes Status: Chronic Assessment and Plan: Will cont DM diet. Pt is on diet control only at home. (4) Elevated troponin Current Visit: Yes Status: Acute Assessment and Plan: No signs of acute ischemic disease. Likely due to myocardial strain and demand. Adynamic troponin. Pt denies CP. (5) LOVE on CPAP Current Visit: Yes Status: Chronic Assessment and Plan: Will continue CPAP/Bipap as needed. (6) Essential hypertension Current Visit: Yes Status: Chronic Assessment and Plan: Well controlled. (7) CAD (coronary artery disease) Current Visit: Yes Status: Chronic Assessment and Plan: Stable. Continue high dose statin and ASA and BB. (8) CHF (congestive heart failure) Current Visit: Yes Status: Acute Assessment and Plan: Pt has signs of CHF exacerbation. Known systolic CHF with last echo one year ago shows LVEF 35%. - Cont cardiac monitoring - Lasix 40mg iv BID - Strict I/O - Fluid restriction diet - Weigh daily - Cont BB and ACEI, BP tolerate well on newly added lisinopril. - Repeat echo shows LVEF 35%. - So far fluid balance is negative 4 Ls DVT Prophylaxis: On coumadin - Time Spent with Patient Total time spent is greater than 50% in coordination of care (as documented) at patient's floor/unit and/or counseling patient: 30 min 25 - 35 minutes Plan of Care Discussed with: patient Internal Medicine: Result - Labs CBC & Chem 7: 02/16/18 03:20 02/16/18 03:20 Labs: Short CBC 02/16/18 Range/Units 03:20 WBC 5.4 (4.3-11.1) K/mcL Hgb 10.1 L (12.9-16.9) g/dL Hct 33.5 L (37.5-50.1) % Plt Count 149 (140-400) K/mcL Neutrophils # 3.6 (1.6-8.9) K/mcL BMP 02/16/18 03:20 Sodium 143 Potassium 3.7 Chloride 104 Carbon Dioxide 34 H BUN 22 Creatinine 0.93 Glucose 110 H Calcium 8.5 L - ABG Interpretation ABG results: PT/INR, D-dimer PT 27.3 Seconds (9.4-12.1) H 02/16/18 03:20 Consult Discharge Plan - Plan [facility]: [facility] [[facility] Care Provider[facility] - 02/23/18 9:45 am (1) COPD (chronic obstructive pulmonary disease) Qualifiers: COPD type: unspecified COPD Qualified Code(s): J44.9 - Chronic obstructive pulmonary disease, unspecified (2) Atrial fibrillation Qualifiers: Atrial fibrillation type: chronic Qualified Code(s): I48.2 - Chronic atrial fibrillation (3) DM2 (diabetes mellitus, type 2) Qualifiers: Diabetes mellitus intermediate insulin use: unspecified intermediate insulin use status Diabetes mellitus complication status: without complication Qualified Code(s): E11.9 - Type 2 diabetes mellitus without complications (7) CAD (coronary artery disease) Qualifiers: Coronary Disease-Associated Artery/Lesion type: bypass graft [place] vs. transplanted heart: [place] heart Associated angina: without angina Qualified Code(s): I25.810 - Atherosclerosis of coronary artery bypass graft(s) without angina pectoris (8) CHF (congestive heart failure) Qualifiers: Heart failure type: systolic Heart failure chronicity: acute on chronic Qualified Code(s): I50.23 - Acute on chronic systolic (congestive) heart failure
[2018-02-16] MEDS ORDERED: *HR* Warfarin 7.5 MG TABLET PO ONE (18:00)
[2018-02-16] MEDS: Warfarin perPT PO SCH (18:32)
[2018-02-16] MEDS: Ipratropium/Albuterol Neb 3 ML IH PRN (20:22)
[2018-02-17 04:30] LABS: INR 2.5; Prothrombin Time 28.2 Seconds (9.4-12.1)
[2018-02-17] MEDS: *HR* Morphine Sulfate SR (12 HR) 15 MG TABLET.ER PO SCH ×2 (06:54→18:00)
[2018-02-17] MEDS: Aspirin Enteric Coated 81 MG Tablet PO SCH (07:52)
[2018-02-17] MEDS: Sennosides/Docusate Sodium TABLET PO SCH ×2 (07:52→20:33)
[2018-02-17] MEDS: Metoprolol XL (24 HR) Succ 50 MG TAB.ER.24H PO SCH (07:52)
[2018-02-17] MEDS: Furosemide 40 MG/4 ML VIAL IVP SCH ×2 (07:52→18:00)
[2018-02-17] MEDS: Cholecalciferol (D-3) 1,000 UNIT TABLET PO SCH (07:52)
[2018-02-17] MEDS: Ipratropium/Albuterol Neb 3 ML IH PRN ×2 (08:25→19:42)
[2018-02-17] MEDS: Budesonide/Formoterol 160/4.5 1 PUFF INH IH SCH ×2 (08:25→19:42)
--- NOTE | 2018-02-17 09:49 | Internal Med Progress Note ---
Hospitalist Progress Note - Encounter Date of Encounter: 02/17/18 Time of Encounter: 08:00 - Subjective Interval History: Patient feels better, less swelling on legs and scrotum, mild SOB on exertion. - Exam Vitals: Temp Pulse Resp BP Pulse Ox 97.8 F 92 20 145/79 93 02/17/18 08:00 02/17/18 08:00 02/17/18 08:31 02/17/18 08:00 02/17/18 08:31 Exam: Patient is awake alert, oriented 3, in no acute distress HEENT: AC/NT, PERRL Neck: Supple, no JVD Lungs: CTA B/L Heart: S1S2, RRR Abd: Soft, NT Ext: Scrotal edema improved, mild b/l leg edema Neuro: No focal deficit. - Assessment and Plan (1) COPD (chronic obstructive pulmonary disease) Current Visit: Yes Status: Chronic Assessment and Plan: No signs of acute exacerbation. Will continue LABA/ICS and GEE prn. Cont O2 (2) Atrial fibrillation Current Visit: Yes Status: Chronic Assessment and Plan: Rate controlled. On warfarin. INR 2.5 today. Dosing by pharmacy. (3) DM2 (diabetes mellitus, type 2) Current Visit: Yes Status: Chronic Assessment and Plan: Will cont DM diet. Pt is on diet control only at home. (4) Elevated troponin Current Visit: Yes Status: Acute Assessment and Plan: No signs of acute ischemic disease. Likely due to myocardial strain and demand. Adynamic troponin. Pt denies CP. (5) LOVE on CPAP Current Visit: Yes Status: Chronic Assessment and Plan: Will continue CPAP/Bipap as needed. (6) Essential hypertension Current Visit: Yes Status: Chronic Assessment and Plan: Well controlled. (7) CAD (coronary artery disease) Current Visit: Yes Status: Chronic Assessment and Plan: Stable. Continue high dose statin and ASA and BB. (8) CHF (congestive heart failure) Current Visit: Yes Status: Acute Assessment and Plan: Pt has signs of CHF exacerbation. Known systolic CHF with last echo one year ago shows LVEF 35%. - Cont cardiac monitoring - Lasix 40mg iv BID - Strict I/O - Fluid restriction diet - Weigh daily - Cont BB and ACEI, BP tolerate well on newly added lisinopril. - Repeat echo shows LVEF 35%. - So far fluid balance is negative 4.7 Ls DVT Prophylaxis: On coumadin - Time Spent with Patient Total time spent is greater than 50% in coordination of care (as documented) at patient's floor/unit and/or counseling patient: 25 - 35 minutes Plan of Care Discussed with: patient Internal Medicine: Result - Labs CBC & Chem 7: 02/16/18 03:20 02/16/18 03:20 - ABG Interpretation ABG results: PT/INR, D-dimer PT 28.2 Seconds (9.4-12.1) H 02/17/18 03:39 Consult Discharge Plan - Plan Referrals: [facility],PCP [Primary Care Provider] - 02/23/18 9:45 am (1) COPD (chronic obstructive pulmonary disease) Qualifiers: COPD type: unspecified COPD Qualified Code(s): J44.9 - Chronic obstructive pulmonary disease, unspecified (2) Atrial fibrillation Qualifiers: Atrial fibrillation type: chronic Qualified Code(s): I48.2 - Chronic atrial fibrillation (3) DM2 (diabetes mellitus, type 2) Qualifiers: Diabetes mellitus 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 transplanted heart: [place] heart Associated angina: without angina Qualified Code(s): I25.810 - Atherosclerosis of coronary artery bypass graft(s) without angina pectoris (8) CHF (congestive heart failure) Qualifiers: Heart failure type: systolic Heart failure chronicity: acute on chronic Qualified Code(s): I50.23 - Acute on chronic systolic (congestive) heart failure
[2018-02-17] MEDS ORDERED: *HR* Warfarin 5 MG TABLET PO ONE (18:00)
[2018-02-17] MEDS: Warfarin perPT PO SCH (18:01)
[2018-02-17] MEDS ORDERED: *HR* Morphine Immed Rel 30 MG TABLET PO SCH (21:15)
[2018-02-18 03:53] LABS: INR 2.7; Prothrombin Time 30.7 Seconds (9.4-12.1)
[2018-02-18 04:11] LABS: BUN/Creatinine Ratio 32 (6-26); Blood Urea Nitrogen 26 mg/dL (8-23); Calcium 8.6 mg/dL (8.6-10.3); Carbon Dioxide 31 mEq/L (23-29); Chloride 103 mEq/L (98-107); Glucose 93 mg/dL (70-105); Osmolality,Calculated 300 (280-300); Potassium 3.9 mEq/L (3.5-5.1); Sodium 143 mEq/L (136-145); eGFR For Non-African Americans > 60 (> 60)
[2018-02-18] MEDS: Ipratropium/Albuterol Neb 3 ML IH PRN (05:33)
[2018-02-18] MEDS ORDERED: *HR* Morphine Sulfate SR (12 HR) 15 MG TABLET.ER PO SCH ×2 (06:00→07:00)
[2018-02-18 07:48] VITALS: BP 105/60
[2018-02-18] MEDS: Budesonide/Formoterol 160/4.5 1 PUFF INH IH SCH (07:52)
[2018-02-18] MEDS: Cholecalciferol (D-3) 1,000 UNIT TABLET PO SCH (08:10)
[2018-02-18] MEDS: Metoprolol XL (24 HR) Succ 50 MG TAB.ER.24H PO SCH (08:10)
[2018-02-18] MEDS: Furosemide 40 MG/4 ML VIAL IVP SCH (08:10)
[2018-02-18] MEDS: Aspirin Enteric Coated 81 MG Tablet PO SCH (08:10)
[2018-02-18] MEDS: Sennosides/Docusate Sodium TABLET PO SCH (08:11)
--- NOTE | 2018-02-18 09:17 | Discharge Summary ---
- NOTES TO OUTPATIENT PROVIDER Notes to Outpatient Provider: 1. Add lisinopril 5 mg po daily for systolic CHF. Pt said he took lisinopril previously but stopped b/o hyperkalemia. Pt takes lisinopril in hospital for 5 days and potassium level kept 3.7-3.9. However he is on iv lasix here. Please f/u potassium level as outpatient. 2. Will in crease po lasix to 60mg bid, plz f/u fluid status and vitals and adjust if necessary. Orders not resulted at time of discharge: Pending orders 02/19/18 04:00 PT/INR [Prothrombin Time INR] [COAG] AM 0400 Date of Encounter: 02/18/18 Time of Encounter: 08:00 - Discharge Diagnosis (1) COPD (chronic obstructive pulmonary disease) Priority: Secondary Status: Chronic Qualifiers: COPD type: unspecified COPD Qualified Code(s): J44.9 - Chronic obstructive pulmonary disease, unspecified (2) Atrial fibrillation Priority: Secondary Status: Chronic Qualifiers: Atrial fibrillation type: chronic Qualified Code(s): I48.2 - Chronic atrial fibrillation (3) DM2 (diabetes mellitus, type 2) Priority: Secondary Status: Chronic Qualifiers: Diabetes mellitus 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 transplanted heart: [place] heart Associated angina: without angina Qualified Code(s): I25.810 - Atherosclerosis of coronary artery bypass graft(s) without angina pectoris (8) CHF (congestive heart failure) Priority: Primary Status: Acute Qualifiers: Heart failure type: systolic Heart failure chronicity: acute on chronic Qualified Code(s): I50.23 - Acute on chronic systolic (congestive) heart failure Hospital course: Mr. Rudd is a 67 year old male present to ER for shortness of breath and increased scrotum swelling. Patient has history of systolic CHF with EF of 35% S/P AICD. Patient was treated with IV Lasix, fluid restriction. After treatment, his symptoms has improved. Fluid balance is -5 L. Scrotum swelling has significantly decreased. Will switch patient to by mouth Lasix but increase to 60 mg by mouth twice a day and discharge patient home. Follow-up with PCP in one week. I saw and examined the patient today. Still mild shortness of breath but it is his baseline. Patient has COPD and is on home oxygen. Vitals are stable. Still mild leg swelling. Scrotum swelling significantly decreased to normal level. Patient was educated to strict fluid restriction and follow-up with PCP in one week. Discharge discussed with: patient - Time Spent with Patient Total time spent providing and/or coordinating discharge services: 25 minutes Less than 30 minutes - Discharge Medications Prescriptions: Furosemide [Lasix] 60 mg PO BID #60 tablet Lisinopril [Zestril] 5 mg PO DAILY 30 Days #30 tablet Home Medications: Aspirin Enteric Coated [Aspirin EC] 81 mg PO DAILY 03/24/15 [History] Budesonide/Formoterol 160/4.5 [Symbicort 160/4.5] 2 puff IH BID 09/25/15 [ History] Warfarin [Coumadin] 5 mg PO SUMOWETHSA 06/10/16 [History] Ipratropium/Albuterol Neb [Duoneb] 3 ml IH 0700,1400,2300 PRN 10/05/16 [History] Morphine Sulfate [Arymo ER] 15 mg PO HS 10/15/16 [History] Morphine Sulfate [Arymo ER] 30 mg PO BID 09/02/17 [History] Allopurinol [Zyloprim 300 MG] 300 mg PO HS 02/13/18 [History] Bipap HS 02/13/18 [History] Cholecalciferol (D-3) [Vitamin D] 1,000 unit PO DAILY 02/13/18 [History] Ferrous Sulfate [Iron] 325 mg PO DAILY 02/13/18 [History] Metoprolol Succinate [Toprol Xl] 150 mg PO DAILY 02/13/18 [History] Omeprazole [PriLOSEC] 20 mg PO DAILY 02/13/18 [History] Oxygen 1 - 2 l IH DAILY 02/13/18 [History] Rosuvastatin [Crestor] 10 mg PO HS 02/13/18 [History] Sennosides/Docusate Sodium [Colace 2-in-1 Tablet] 2 tab PO BID 02/13/18 [History ] Warfarin Sodium 10 mg PO TUFR 02/13/18 [History] Furosemide [Lasix] 60 mg PO BID #60 tablet 02/18/18 [Rx] Lisinopril [Zestril] 5 mg PO DAILY 30 Days #30 tablet 02/18/18 [Rx] Allergies/Adverse Reactions: 3 Allergy/AdvReac Type Severity Reaction Status Date / Time No Known Allergies Allergy Verified 02/13/18 18:10 Date of admission: 02/14/18 09:24 [facility] care [facility] Discharging clinician: Aurelio Carbajal Anticipated date of discharge: 02/18/18 - Constitutional Vitals: Temp Pulse Resp BP Pulse Ox 97.9 F 79 18 105/60 94 02/18/18 07:46 02/18/18 07:46 02/18/18 07:52 02/18/18 07:46 02/18/18 07:52 General appearance: Present: A&O X 3, no acute distress, answers questions appropriately Exam: In NAD - Head Head exam: Present: atraumatic, normocephalic - Eye Eye exam: Present: PERRL, conjuntiva pink, sclera anicteric Pupils: Present: PERRL - Neck Neck exam general surgery: Present: supple, trachea midline. Absent: lymphadenopathy - Respiratory Respiratory exam: Present: CTAB. Absent: accessory muscle use, rales, rhonchi, wheezes - Cardiovascular Cardiovascular exam: Present: RRR, +S1, +S2. Absent: diastolic murmur, gallop, rubs, systolic murmur - GI/Abdominal GI/Abdominal exam: Present: normal bowel sounds, soft, no peritoneal signs. Absent: distended, tenderness - Extremities Exam Extremities exam: Present: pedal edema (Mild pedal edema bilaterally), warm, radial pulses palpable and symmetrical. Absent: calf tenderness, cyanotic - Neurological Exam Neurological exam: Present: CN II-XII intact, oriented X3, no focal deficits. Absent: pronater drift, facial droop, speech deficit - Skin Skin exam: Present: dry, intact - Patient Status Disposition: Home, Self-Care Condition: Fair Functional capacity at discharge: uses cane/walker Overall status at discharge: patient is back to baseline - Discharge Instructions Follow Up With: JAJA,PCP [Primary Care Provider] - 02/23/18 9:45 am - Diet and Activity Activity: increase activity as tolerated Diet: diabetic diet, low fat, low cholesterol, low salt diet, other (Fluid restriction 1.5 L per day)
== END 2018-02-18 12:00 | disposition home or self-care (01) | DRG 293 ==
LOC: 2NENU 18:01 → EMEROOARM 18:01 → 2NENU 23:01
PROVIDERS: ADMIT Family Medicine; ATTEND Family Medicine

== ENCOUNTER 2018-05-03 10:42 | Inpatient (IN) ==
--- NOTE | 2018-05-03 10:55 | Emergency Department Note ---
Disposition Clinical Impression: Ascites, CHF exacerbation, SOB (shortness of breath), Anemia Disposition: Admitted As Inpatient Condition: Fair General Adult HPI - General Chief complaint: ED Shortness of Breath/Dyspnea Stated complaint: SOB/Lower abd. edema Time Seen by Provider: 05/03/18 10:48 - Related Data Home Medications Medication Instructions Recorded Confirmed RX: Budesonide/Formoterol 160/4.5 2 puff IH BID 09/25/15 05/03/18 [Symbicort 160/4.5] RX: Warfarin [Coumadin] 5 mg PO SUMOWETHSA 06/10/16 05/03/18 RX: Ipratropium/Albuterol Neb 3 ml IH Q6H PRN 10/05/16 05/03/18 [Duoneb] RX: Morphine Sulfate [Arymo ER] 15 mg PO HS 10/15/16 05/03/18 RX: Morphine Sulfate [Arymo ER] 30 mg PO BID 09/02/17 05/03/18 RX: Allopurinol [Zyloprim 300 MG] 300 mg PO HS 02/13/18 05/03/18 RX: Ferrous Sulfate [Iron] 325 mg PO DAILY 02/13/18 05/03/18 RX: Metoprolol Succinate [Toprol 150 mg PO DAILY 02/13/18 05/03/18 Xl] RX: Omeprazole [PriLOSEC] 20 mg PO DAILY 02/13/18 05/03/18 RX: Oxygen 1 - 2 l IH DAILY 02/13/18 05/03/18 RX: Rosuvastatin [Crestor] 10 mg PO HS 02/13/18 05/03/18 RX: Sennosides/Docusate Sodium 1 tab PO BID 02/13/18 05/03/18 [Colace 2-in-1 Tablet] RX: Warfarin Sodium 2.5 mg PO TUFR 02/13/18 05/03/18 Cyanocobalamin (Vitamin B-12) 100 mcg PO QID 05/03/18 05/03/18 [Vitamin B-12] Multivitamin [One Daily Essential] 1 tab PO DAILY 05/03/18 05/03/18 Propylene Glycol/Peg 400 [Kro 10 ml BOTH EYES QID 05/03/18 05/03/18 Lubricating Rlf 0.3-0.4%] RX: Polyethylene Glycol 3350 17 g PO DAILY PRN 05/03/18 05/03/18 [MiraLax bowel prep] Roflumilast [Daliresp] 500 mg PO DAILY 05/03/18 05/03/18 Previous Rx's Medication Instructions Recorded RX: Furosemide [Lasix] 60 mg PO BID #60 tablet 02/18/18 Allergies Allergy/AdvReac Type Severity Reaction Status Date / Time No Known Allergies Allergy Verified 02/13/18 18:10 Past Medical History - Past Medical History Medical history: Reports: arthritis, atrial fibrillation, cardiomyopathy, COPD, coronary artery disease, diabetes, hyperlipidemia, hypertension, myocardial infarction, venous stasis Surgical history: Reports: cataract, cholecystectomy, coronary bypass (CABG), pacemaker/AICD Psychiatric history: Reports: no psych history - Social History Smoking Status: Former smoker Smokeless Tobacco Status: No Alcohol use: Reports: none Drug use: Reports: none Course Vital Signs Temperature 97.5 F L 05/03/18 10:44 Pulse Rate 85 05/03/18 10:44 Respiratory Rate 24 05/03/18 10:44 Blood Pressure 127/71 05/03/18 10:44 O2 Sat by Pulse Oximetry 89 05/03/18 10:44 Temperature 98.6 F 05/04/18 12:25 Pulse Rate 81 05/04/18 12:25 Respiratory Rate 12 05/04/18 12:25 Blood Pressure 144/80 05/04/18 12:25 O2 Sat by Pulse Oximetry 98 05/04/18 12:25 Oxygen Delivery Oxygen Delivery Nasal Cannula Medical Decision Making - Lab Data Result diagrams: 05/04/18 04:17 05/04/18 04:17 Lab Results 05/03/18 05/03/18 05/03/18 Range/Units 11:29 11:29 11:29 WBC 6.3 (4.3-11.1) K/mcL RBC 3.46 L (4.19-5.50) M/mcL Hgb 8.4 L (12.9-16.9) g/dL Hct 28.2 L (37.5-50.1) % MCV 81.5 L (83.0-100.0) fL MCH 24.3 L (28.0-33.3) pg MCHC 29.8 L (31.6-35.5) g/dL RDW 18.1 H (11.5-14.5) % Plt Count 206 (140-400) K/mcL MPV 9.8 (9.4-12.4) fL Immature Gran % 0.3 (0-4) % Seg Neutrophils % 74.7 % Lymphocytes % 12.6 % Monocytes % 10.4 % Eosinophils % 1.4 % Basophils % 0.6 % Neutrophils # 4.7 (1.6-8.9) K/mcL Lymphocytes # 0.8 (0.6-4.6) K/mcL Monocytes # 0.7 (0.0-1.3) K/mcL Eosinophils # 0.1 (0.0-0.6) K/mcL Basophils # 0.0 (0.0-0.2) K/mcL PT (9.4-12.1) Seconds INR APTT (26.0-36.0) Seconds Sodium 140 (136-145) mEq/L Potassium 3.8 (3.5-5.1) mEq/L Chloride 102 (98-107) mEq/L Carbon Dioxide 31 H (23-29) mEq/L BUN 19 (8-23) mg/dL Creatinine 0.97 (0.70-1.30) mg/dL Est GFR ( Amer) > 60 (> 60) Est GFR (Non-Af Amer) > 60 (> 60) BUN/Creatinine Ratio 20 (6-26) Glucose 113 H (70-105) mg/dL POC Glucose (70-99) mg/dL Calculated Osmolality 293 (280-300) Calcium 8.7 (8.6-10.3) mg/dL Total Bilirubin 1.0 (0.3-1.0) mg/dL AST 21 (13-39) Units/L ALT 9 (7-52) Units/L Alkaline Phosphatase 175 H (34-104) Units/L Troponin I 0.03 (< 0.04) ng/mL B-Natriuretic Peptide 763 H (Less than 100) pg/mL Serum Total Protein 7.4 (6.4-8.9) g/dL Albumin 3.3 L (3.5-5.7) g/dL Globulin 4.1 H (2.4-3.5) g/dL Albumin/Globulin Ratio 0.8 L (1.1-2.2) Lipase 3 L (11-82) Units/L Urine Color (Yellow) Urine Clarity (Clear) Urine pH (5.0-8.0) pH Units Ur Specific Staley (1.010-1.025) Urine Protein (Neg-Trace) mg/dL Urine Glucose (UA) (Normal) mg/dL Urine Ketones (Negative) mg/dL Urine Blood (Negative) Urine Nitrite (Negative) Urine Bilirubin (Negative) Urine Urobilinogen (Normal) mg/dL Ur Leukocyte Esterase (Negative) Ur Culture Indicated? (NO) 05/03/18 05/03/18 05/03/18 Range/Units 11: 11:46 16:05 WBC (4.3-11.1) K/mcL RBC (4.19-5.50) M/mcL Hgb (12.9-16.9) g/dL Hct (37.5-50.1) % MCV (83.0-100.0) fL MCH (28.0-33.3) pg MCHC (31.6-35.5) g/dL RDW (11.5-14.5) % Plt Count (140-400) K/mcL MPV (9.4-12.4) fL Immature Gran % (0-4) % Seg Neutrophils % % Lymphocytes % % Monocytes % % Eosinophils % % Basophils % % Neutrophils # (1.6-8.9) K/mcL Lymphocytes # (0.6-4.6) K/mcL Monocytes # (0.0-1.3) K/mcL Eosinophils # (0.0-0.6) K/mcL Basophils # (0.0-0.2) K/mcL PT 37.9 H (9.4-12.1) Seconds INR 3.4 APTT 43.9 H (26.0-36.0) Seconds Sodium (136-145) mEq/L Potassium (3.5-5.1) mEq/L Chloride (98-107) mEq/L Carbon Dioxide (23-29) mEq/L BUN (8-23) mg/dL Creatinine (0.70-1.30) mg/dL Est GFR ( Amer) (> 60) Est GFR (Non-Af Amer) (> 60) BUN/Creatinine Ratio (6-26) Glucose (70-105) mg/dL POC Glucose 88 (70-99) mg/dL Calculated Osmolality (280-300) Calcium (8.6-10.3) mg/dL Total Bilirubin (0.3-1.0) mg/dL AST (13-39) Units/L ALT (7-52) Units/L Alkaline Phosphatase (34-104) Units/L Troponin I (< 0.04) ng/mL B-Natriuretic Peptide (Less than 100) pg/mL Serum Total Protein (6.4-8.9) g/dL Albumin (3.5-5.7) g/dL Globulin (2.4-3.5) g/dL Albumin/Globulin Ratio (1.1-2.2) Lipase (11-82) Units/L Urine Color Yellow (Yellow) Urine Clarity Clear (Clear) Urine pH 6.0 (5.0-8.0) pH Units Ur Specific Staley 1.013 (1.010-1.025) Urine Protein Negative (Neg-Trace) mg/dL Urine Glucose (UA) Normal (Normal) mg/dL Urine Ketones Negative (Negative) mg/dL Urine Blood Negative (Negative) Urine Nitrite Negative (Negative) Urine Bilirubin Negative (Negative) Urine Urobilinogen Normal (Normal) mg/dL Ur Leukocyte Esterase Negative (Negative) Ur Culture Indicated? NO (NO) Attestation Statement - Attestation Attestation: I examined this patient and my medical decision-making was reviewed with the Resident Physician. I agree with the documented findings, disposition and treatment plan as described except to the extent set forth below. [id number] time provided Patient arrives after having an abnormal outpatient ultrasound showing hepatocellular disease, possible cirrhosis, and ascites. He appears older than stated age on exam. Mildly dyspneic. Abdomen distended
--- NOTE | 2018-05-03 11:00 | Emergency Department Note ---
Disposition Clinical Impression: SOB (shortness of breath) Ascites Qualifiers: Ascites type: other type Qualified Code(s): R18.8 - Other ascites CHF exacerbation Qualifiers: Heart failure type: unspecified Qualified Code(s): I50.9 - Heart failure, unspecified Anemia Qualifiers: Anemia type: unspecified type Qualified Code(s): D64.9 - Anemia, unspecified Disposition: Admitted As Inpatient Condition: Fair General Adult HPI - General Chief complaint: ED Shortness of Breath/Dyspnea Stated complaint: SOB/Lower abd. edema Time Seen by Provider: 05/03/18 10:48 Nursing Notes Reviewed: Yes Vital Signs Reviewed: Yes - History of Present Illness HPI Narrative: 67-year-old male presents to the emergency department with concern for increasing abdominal distention. Patient reports that he had an ultrasound at the [facility] performed recently that revealed concern for hepatocellular disease or early cirrhosis per radiology. Also detected moderate diffuse ascites. Dilation of common bile duct up to 12 mm. Request for ERCP to exclude distal stone, stricture, tumor. Patient does report history of excessive alcohol consumption partially 25 years ago he was in the [employer]. Denies any yellowing of the skin, eyes. Patient denies any abdominal pain. He does report some shortness of breath. No fevers, chills, nausea, vomiting. - Related Data Home Medications Medication Instructions Recorded Confirmed Aspirin Enteric Coated [Aspirin EC] 81 mg PO DAILY 03/24/15 05/03/18 Budesonide/Formoterol 160/4.5 2 puff IH BID 09/25/15 05/03/18 [Symbicort 160/4.5] Warfarin [Coumadin] 5 mg PO SUMOWETHSA 06/10/16 05/03/18 Ipratropium/Albuterol Neb [Duoneb] 3 ml IH 0700,1400,2300 PRN 10/05/16 05/03/18 Morphine Sulfate [Arymo ER] 15 mg PO HS 10/15/16 05/03/18 Morphine Sulfate [Arymo ER] 30 mg PO BID 09/02/17 05/03/18 Allopurinol [Zyloprim 300 MG] 300 mg PO HS 02/13/18 05/03/18 Cholecalciferol (D-3) [Vitamin D] 1,000 unit PO DAILY 02/13/18 05/03/18 Ferrous Sulfate [Iron] 325 mg PO DAILY 02/13/18 05/03/18 Metoprolol Succinate [Toprol Xl] 150 mg PO DAILY 02/13/18 05/03/18 Omeprazole [PriLOSEC] 20 mg PO DAILY 02/13/18 05/03/18 Oxygen 1 - 2 l IH DAILY 02/13/18 05/03/18 Rosuvastatin [Crestor] 10 mg PO HS 02/13/18 05/03/18 Sennosides/Docusate Sodium [Colace 2 tab PO BID 02/13/18 05/03/18 2-in-1 Tablet] Warfarin Sodium 2.5 mg PO TUFR 02/13/18 05/03/18 Previous Rx's Medication Instructions Recorded Furosemide [Lasix] 60 mg PO BID #60 tablet 02/18/18 Lisinopril [Zestril] 5 mg PO DAILY 30 Days #30 tablet 02/18/18 Allergies Allergy/AdvReac Type Severity Reaction Status Date / Time No Known Allergies Allergy Verified 02/13/18 18:10 All systems ED: reviewed and negative except as stated. Review of Systems: As Per HPI Constitutional: Denies: fever, chills Cardiovascular: Denies: chest pain Respiratory: Reports: dyspnea. Denies: cough, wheezes, sputum production Gastrointestinal: Denies: abdominal pain, nausea, vomiting Past Medical History - Past Medical History Medical history: Reports: arthritis, atrial fibrillation, cardiomyopathy, COPD, coronary artery disease, diabetes, hyperlipidemia, hypertension, myocardial infarction, venous stasis Surgical history: Reports: cataract, cholecystectomy, coronary bypass (CABG), pacemaker/AICD Psychiatric history: Reports: no psych history - Social History Smoking Status: Former smoker Smokeless Tobacco Status: No Alcohol use: Reports: none Drug use: Reports: none Course Vital Signs Temperature 97.5 F L 05/03/18 10:44 Pulse Rate 85 05/03/18 10:44 Respiratory Rate 24 05/03/18 10:44 Blood Pressure 127/71 05/03/18 10:44 O2 Sat by Pulse Oximetry 89 05/03/18 10:44 Temperature 97.9 F 05/03/18 19:53 Pulse Rate 80 05/03/18 19:53 Respiratory Rate 14 05/03/18 19:53 Blood Pressure 128/70 05/03/18 19:53 O2 Sat by Pulse Oximetry 97 05/03/18 19:53 Oxygen Delivery Oxygen Delivery Nasal Cannula Medical Decision Making - [facility] Narrative Medical decision making narrative: 67-year-old male presents emergency department with concern for sure so breath, increasing abdominal distention without pain. Patient hemodynamically stable not in acute distress initially. On physical exam, patient had distended abdomen that was nontender to palpation concerning for ascites. I spoke with Dr. Parks who recommended that I obtain MRCP due to a recent right upper quadrant ultrasound that is reported in the history of present illness revealing a dilated common bile duct of 13 mm. The order was placed. Patient does not have a pacemaker that is compatible with MRI. Patient has an elevated BNP of 763. This is not as high as his been in the past, but it is more elevated than recently. He obtain a chest x-ray which revealed cardiomegaly and vascular congestion per radiology. Patient also has hemoglobin 8.4. This is substantially lower than his previous hemoglobin in the past. Patient not reporting any bleeding at this time. Patient was given 40 mg of Lasix for concern for CHF exacerbation. He was admitted to Dr. Roblero for further management of the patient with his abdominal ascites and fluid overload. Chest X-Ray 05/03/18 10:57 IMPRESSION: 1. Cardiomegaly with vascular congestion and interstitial infiltrates likely representing edema and congestive failure. 2. Small bilateral pleural effusions right greater than left. D/ / Jaret Avila MD / Jaret Avila MD Interpreting Provider: Jaret Avila MD - Lab Data Result diagrams: 05/03/18 11:29 05/03/18 11:29 Lab Results 05/03/18 05/03/18 05/03/18 Range/Units 11:29 11:29 11:29 WBC 6.3 (4.3-11.1) K/mcL RBC 3.46 L (4.19-5.50) M/mcL Hgb 8.4 L (12.9-16.9) g/dL Hct 28.2 L (37.5-50.1) % MCV 81.5 L (83.0-100.0) fL MCH 24.3 L (28.0-33.3) pg MCHC 29.8 L (31.6-35.5) g/dL RDW 18.1 H (11.5-14.5) % Plt Count 206 (140-400) K/mcL MPV 9.8 (9.4-12.4) fL Immature Gran % 0.3 (0-4) % Seg Neutrophils % 74.7 % Lymphocytes % 12.6 % Monocytes % 10.4 % Eosinophils % 1.4 % Basophils % 0.6 % Neutrophils # 4.7 (1.6-8.9) K/mcL Lymphocytes # 0.8 (0.6-4.6) K/mcL Monocytes # 0.7 (0.0-1.3) K/mcL Eosinophils # 0.1 (0.0-0.6) K/mcL Basophils # 0.0 (0.0-0.2) K/mcL PT (9.4-12.1) Seconds INR APTT (26.0-36.0) Seconds Sodium 140 (136-145) mEq/L Potassium 3.8 (3.5-5.1) mEq/L Chloride 102 (98-107) mEq/L Carbon Dioxide 31 H (23-29) mEq/L BUN 19 (8-23) mg/dL Creatinine 0.97 (0.70-1.30) mg/dL Est GFR ( Amer) > 60 (> 60) Est GFR (Non-Af Amer) > 60 (> 60) BUN/Creatinine Ratio 20 (6-26) Glucose 113 H (70-105) mg/dL Calculated Osmolality 293 (280-300) Calcium 8.7 (8.6-10.3) mg/dL Total Bilirubin 1.0 (0.3-1.0) mg/dL AST 21 (13-39) Units/L ALT 9 (7-52) Units/L Alkaline Phosphatase 175 H (34-104) Units/L Troponin I 0.03 (< 0.04) ng/mL B-Natriuretic Peptide 763 H (Less than 100) pg/mL Serum Total Protein 7.4 (6.4-8.9) g/dL Albumin 3.3 L (3.5-5.7) g/dL Globulin 4.1 H (2.4-3.5) g/dL Albumin/Globulin Ratio 0.8 L (1.1-2.2) Lipase 3 L (11-82) Units/L Urine Color (Yellow) Urine Clarity (Clear) Urine pH (5.0-8.0) pH Units Ur Specific [place] (1.010-1.025) Urine Protein (Neg-Trace) mg/dL Urine Glucose (UA) (Normal) mg/dL Urine Ketones (Negative) mg/dL Urine Blood (Negative) Urine Nitrite (Negative) Urine Bilirubin (Negative) Urine Urobilinogen (Normal) mg/dL Ur Leukocyte Esterase (Negative) Ur Culture Indicated? (NO) 05/03/18 05/03/18 Range/Units 11: 11:46 WBC (4.3-11.1) K/mcL RBC (4.19-5.50) M/mcL Hgb (12.9-16.9) g/dL Hct (37.5-50.1) % MCV (83.0-100.0) fL MCH (28.0-33.3) pg MCHC (31.6-35.5) g/dL RDW (11.5-14.5) % Plt Count (140-400) K/mcL MPV (9.4-12.4) fL Immature Gran % (0-4) % Seg Neutrophils % % Lymphocytes % % Monocytes % % Eosinophils % % Basophils % % Neutrophils # (1.6-8.9) K/mcL Lymphocytes # (0.6-4.6) K/mcL Monocytes # (0.0-1.3) K/mcL Eosinophils # (0.0-0.6) K/mcL Basophils # (0.0-0.2) K/mcL PT 37.9 H (9.4-12.1) Seconds INR 3.4 APTT 43.9 H (26.0-36.0) Seconds Sodium (136-145) mEq/L Potassium (3.5-5.1) mEq/L Chloride (98-107) mEq/L Carbon Dioxide (23-29) mEq/L BUN (8-23) mg/dL Creatinine (0.70-1.30) mg/dL Est GFR ( Amer) (> 60) Est GFR (Non-Af Amer) (> 60) BUN/Creatinine Ratio (6-26) Glucose (70-105) mg/dL Calculated Osmolality (280-300) Calcium (8.6-10.3) mg/dL Total Bilirubin (0.3-1.0) mg/dL AST (13-39) Units/L ALT (7-52) Units/L Alkaline Phosphatase (34-104) Units/L Troponin I (< 0.04) ng/mL B-Natriuretic Peptide (Less than 100) pg/mL Serum Total Protein (6.4-8.9) g/dL Albumin (3.5-5.7) g/dL Globulin (2.4-3.5) g/dL Albumin/Globulin Ratio (1.1-2.2) Lipase (11-82) Units/L Urine Color Yellow (Yellow) Urine Clarity Clear (Clear) Urine pH 6.0 (5.0-8.0) pH Units Ur Specific [place] 1.013 (1.010-1.025) Urine Protein Negative (Neg-Trace) mg/dL Urine Glucose (UA) Normal (Normal) mg/dL Urine Ketones Negative (Negative) mg/dL Urine Blood Negative (Negative) Urine Nitrite Negative (Negative) Urine Bilirubin Negative (Negative) Urine Urobilinogen Normal (Normal) mg/dL Ur Leukocyte Esterase Negative (Negative) Ur Culture Indicated? NO (NO) - EKG Data EKG #1 EKG attestation: Yes I reviewed and interpreted this EKG. EKG results narrative: 10:58 Heart rate 82 bpm, UT interval 139 ms, QRS duration 145 ms, QT 442 ms, ventricular paced rhythm.
[2018-05-03 11:48] LABS: Basophils % 0.6 %; Eosinophils # 0.1 K/mcL (0.0-0.6); Eosinophils % 1.4 %; Hematocrit 28.2 % (37.5-50.1); Hemoglobin 8.4 g/dL (12.9-16.9); Immature Granulocytes % 0.3 % (0-4); Lymphocytes # 0.8 K/mcL (0.6-4.6); Lymphocytes % 12.6 %; Mean Corpuscular HGB Conc 29.8 g/dL (31.6-35.5); Mean Corpuscular Hemoglobin 24.3 pg (28.0-33.3); Mean Corpuscular Volume 81.5 fL (83.0-100.0); Mean Platelet Volume 9.8 fL (9.4-12.4); Monocytes # 0.7 K/mcL (0.0-1.3); Monocytes % 10.4 %; Neutrophils # 4.7 K/mcL (1.6-8.9); Platelet Count 206 K/mcL (140-400); Red Blood Count 3.46 M/mcL (4.19-5.50); Red Cell Distribution Width 18.1 % (11.5-14.5); Segmented Neutrophils % 74.7 %
[2018-05-03 11:56] LABS: INR 3.4; Prothrombin Time 37.9 Seconds (9.4-12.1)
[2018-05-03 11:58] LABS: Activated Partial Thrombo Time 43.9 Seconds (26.0-36.0)
[2018-05-03 11:59] LABS: Bilirubin,Urine Negative (Negative); Blood,Urine Negative (Negative); Clarity,Urine Clear (Clear); Color,Urine Yellow (Yellow); Glucose,Urine (UA) Normal (Normal); Ketones,Urine Negative (Negative); Leukocyte Esterase,Urine Negative (Negative); Nitrite,Urine Negative (Negative); Protein,Urine Negative (Neg-Trace); Specific Gravity,Urine 1.013 (1.010-1.025); Urobilinogen,Urine Normal (Normal)
[2018-05-03 12:08] LABS: Troponin I 0.03 ng/mL (< 0.04)
[2018-05-03 12:28] LABS: Alanine Aminotransferase 9 Units/L (7-52); Albumin 3.3 g/dL (3.5-5.7); Albumin/Globulin Ratio 0.8 (1.1-2.2); Alkaline Phosphatase 175 Units/L (34-104); Aspartate Amino Transferase 21 Units/L (13-39); BUN/Creatinine Ratio 20 (6-26); Blood Urea Nitrogen 19 mg/dL (8-23); Calcium 8.7 mg/dL (8.6-10.3); Carbon Dioxide 31 mEq/L (23-29); Chloride 102 mEq/L (98-107); Globulin 4.1 g/dL (2.4-3.5); Glucose 113 mg/dL (70-105); Lipase 3 Units/L (11-82); Osmolality,Calculated 293 (280-300); Potassium 3.8 mEq/L (3.5-5.1); Sodium 140 mEq/L (136-145); Total Protein 7.4 g/dL (6.4-8.9); eGFR For Non-African Americans > 60 (> 60)
[2018-05-03] MEDS ORDERED: Furosemide 40 MG/4 ML VIAL IVP ONE (13:05)
--- NOTE | 2018-05-03 14:55 | Internal Med History&Physical ---
Date of Encounter: 05/03/18 Time of Encounter: 14:00 Internal Medicine - H&P: HPI Chief complaint: Increased shortness of breath and swelling of the abdomen Admitted From: Home Plans for Post Hospital Care: Home History of present illness: Mr. Rudd is a 67 year old male admitted from his home with chief complaint of increased dyspnea and shortness of breath. States that he is unable to walk across the room without stopping to catch his breath while he is on oxygen at 2 L he is a new diagnosis of cirrhosis with ascites and he is concerned with increasing abdominal girth. States that it is pushing up on his lungs and making him more and more short of breath. He is past history of COPD with oxygen dependency, LOVE and wears BiPAP at night, [place] artery disease with that H in 2017 with 2 artery bypass, atrial flutter he does have pacemaker placement, anemia, congestive heart failure with acute on chronic episodes frequently, type 2 diabetes. He does state that he was in the [employer] and in his younger days he had significant alcohol use and abuse on a daily basis. [facility] and he did have a most recent, ultrasound of the abdomen. His does present results in impression is nodular hepatic contour suspicious for hepatocellular disease early cirrhosis. #2 moderate uptake diag nosis ascites. #3. Is dilatation of the common bile duct up to 12 mm. Some degree of biliary distention can be seen following cholecystectomy however E RC he would be of help to exclude a distal stone, stricture or, tumor . Recent ultrasound of the kidneys renal and bladder completed on 04/07/2018 impression shows no evidence of hydronephrosis #2 incidental note is made of pelvic ascites. Medication list is presented and reconciled copies are available patient takes Advil or aspirin multi-complex metallic met Ermias he is on warfarin DuoNeb Symbicort Lasix does take some morphine tablet Crestor omeprazole 81 mg aspirin allopurinol and metoprolol, and he is most recently been put onRoflumilast 500 mg once daily. Emergency room department did consult with gastroenterology and they are requesting to have ERCP completed, however due to pacemaker placement it is incompatible with the current MRI R standards have placed a call and further consult with gastroenterology is pending. Will go ahead with admission and evaluation and treatment of this patient. He does qualify for an inpatient status Past Med Surg Social Fam HX - Past Medical History Medical history: arthritis, atrial fibrillation, cardiomyopathy, COPD, coronary artery disease, diabetes, hyperlipidemia, hypertension, myocardial infarction, venous stasis Additional medical history: AFIB, OBESITY, DDD, OA, GOUT, FX ANKLE, CAD, SLEEP APNEA Psychiatric history: no psych history - Past Surgical History Surgical History: cataract, cholecystectomy, coronary bypass (CABG), pacemaker/AICD Additional surgical history: CARDIAC ABLATIONS, HEART CATH, LOOP RECORDER IMPLANT, pacer - Social History Smoking Status: Former smoker Smokeless Tobacco Status: No Alcohol use: none Drug use: none - Family History Father Living Status: Hx Family Cardiac Disorders: Yes (heart disease) Mother Living Status: Hx Family Cardiac Disorders: Yes (heart disease) Hx Family Endocrine Disorder: Yes (DM) Sister Hx Family Cancer: Yes (stomach cancer) Internal Medicine - H&P: Meds RX: Aspirin Enteric Coated [Aspirin EC] 81 mg PO DAILY 03/24/15 [History] RX: Budesonide/Formoterol 160/4.5 [Symbicort 160/4.5] 2 puff IH BID 09/25/15 [History] RX: Warfarin [Coumadin] 5 mg PO SUMOWETHSA 06/10/16 [History] RX: Ipratropium/Albuterol Neb [Duoneb] 3 ml IH 0700,1400,2300 PRN 10/05/16 [History] RX: Morphine Sulfate [Arymo ER] 15 mg PO HS 10/15/16 [History] RX: Morphine Sulfate [Arymo ER] 30 mg PO BID 09/02/17 [History] RX: Allopurinol [Zyloprim 300 MG] 300 mg PO HS 02/13/18 [History] RX: Cholecalciferol (D-3) [Vitamin D] 1,000 unit PO DAILY 02/13/18 [History] RX: Ferrous Sulfate [Iron] 325 mg PO DAILY 02/13/18 [History] RX: Metoprolol Succinate [Toprol Xl] 150 mg PO DAILY 02/13/18 [History] RX: Omeprazole [PriLOSEC] 20 mg PO DAILY 02/13/18 [History] RX: Oxygen 1 - 2 l IH DAILY 02/13/18 [History] RX: Rosuvastatin [Crestor] 10 mg PO HS 02/13/18 [History] RX: Sennosides/Docusate Sodium [Colace 2-in-1 Tablet] 2 tab PO BID 02/13/18 [History] RX: Warfarin Sodium 2.5 mg PO TUFR 02/13/18 [History] RX: Furosemide [Lasix] 60 mg PO BID #60 tablet 02/18/18 [Rx] RX: Lisinopril [Zestril] 5 mg PO DAILY 30 Days #30 tablet 02/18/18 [Rx] Allergy/AdvReac Type Severity Reaction Status Date / Time No Known Allergies Allergy Verified 02/13/18 18:10 All Systems PM: A 10-system review of systems was performed and is negative for pertinent findings except as documented above in the HPI. - Constitutional Constitutional: fatigue, weight gain - EENT Additional comments: wears glasses Nose, mouth and throat: dry mouth, nasal discharge Additional comments: oxygen dependent per nasal canal - Cardiovascular Cardiovascular ROS IM: dyspnea, dyspnea on exertion, edema, irregular heart rhythm, orthopnea, paroxysmal nocturnal dyspnea Additional comments: swelling of lower extremties, wears tanna wraps, d/t peripheral lymph edema . - Respiratory Respiratory: dyspnea, dyspnea on exertion, wheezing, chest congestion Additional comments: increased dyspnea with oxygen on , can't get deep breath. only can walk a few steps - Gastrointestinal Gastrointestinal: bloating Additional comments: rapidly increased swelling and abdominal increasing girth - Musculoskeletal Musculoskeletal ROS IM: arthralgias, back pain, joint swelling, limited range of motion, myalgias, neck pain, stiffness - Integumentary Integumentary IM: pruritus, rash, sores Additional comments: scaling rash , lower extremity , clear lymph leaking from lower extremity d/t swelling, - Neurological Neurological ROS: weakness - Endocrine Endocrine IM: as per HPI - Hematologic/Lymphatic Hematologic/Lymphatic: as per HPI Additional comments: lymphedema lower ext - Allergic/Immunologic Allergic/Immunologic: as per HPI - Constitutional Vitals: Temp Pulse Resp BP Pulse Ox 97.3 F L 80 98 134/76 99 05/03/18 14:25 05/03/18 12:07 05/03/18 14:25 05/03/18 14:25 05/03/18 12:07 General appearance: Present: cooperative, mild distress, A&O X 3, pleasant, answers questions appropriately Exam: Mildly dyspnic patient seated on mixed animal veterinarian of ed bed with family at bedside. Oxygen in place per nasal canula , with mild bleeding noted d/t prongs of oxygen tubing proximal nares. Concerned regarding his increasing swelling of the abdomen from Acites fluid. and increasing shortness of breath today. Worried about his next dosage of medications - Head Head exam: Present: normal inspection - Eye Eye exam: Present: PERRL, scleral icterus Pupils: Present: normal accommodation, PERRL - ENT ENT exam: Present: mucous membranes dry Additional comments: dried blood proximal right nare, d/t dryness and oxygen prongs - Neck Neck exam general surgery: Present: supple, trachea midline. Absent: lymphadenopathy - Respiratory Respiratory exam: Present: accessory muscle use, decreased breath sounds, pro longed expiratory phase, rhonchi, wheezes Additional comments: dyspnic at rest with oxygen on @ 2LPM - Expanded Respiratory Exam Location: rhonchi: Right, Upper, Lower, Left, wheezes: Left, Right, Upper, Lower - Cardiovascular Cardiovascular exam: Present: RRR Additional comments: pacer left upper chest wall - GI/Abdominal GI/Abdominal exam: Present: distended, firm, normal bowel sounds Additional comments: positive fluid shift, and wave, denies abdominal pain, mild discomfort only - Expanded GI/Abdominal Exam GI/Abdominal exam expanded: Present: ascites, heel tap sign - Extremities Exam Extremities exam: Present: pedal edema, tenderness Additional comments: excessive swelling noted with tanna wraps applied to bilateral lower legs, moist farm lymph edema - Back Exam Back exam: Present: normal inspection - Neurological Exam Neurological exam: Present: CN II-XII intact, oriented X3, reflexes normal, no focal deficits - Psychiatric Psychiatric exam: Present: normal affect, normal mood - Skin Skin exam: Present: dry Additional comments: mild jaundice noted Internal Med - H&P Results - Labs CBC & Chem 7: 05/03/18 11:29 05/03/18 11:29 Labs: Short CBC 05/03/18 Range/Units 11:29 WBC 6.3 (4.3-11.1) K/mcL Hgb 8.4 L (12.9-16.9) g/dL Hct 28.2 L (37.5-50.1) % Plt Count 206 (140-400) K/mcL Neutrophils # 4.7 (1.6-8.9) K/mcL BMP 05/03/18 11:29 Sodium 140 Potassium 3.8 Chloride 102 Carbon Dioxide 31 H BUN 19 Creatinine 0.97 Glucose 113 H Calcium 8.7 Cardiac Enzymes 05/03/18 Range/Units 11:29 Troponin I 0.03 (< 0.04) ng/mL Liver Function 05/03/18 Range/Units 11:29 Total Bilirubin 1.0 (0.3-1.0) mg/dL AST 21 (13-39) Units/L ALT 9 (7-52) Units/L Alkaline Phosphatase 175 H (34-104) Units/L Albumin 3.3 L (3.5-5.7) g/dL Urine 05/03/18 Range/Units 11:46 Urine Color Yellow (Yellow) Urine Clarity Clear (Clear) Urine pH 6.0 (5.0-8.0) pH Units Ur Specific [place] 1.013 (1.010-1.025) Urine Protein Negative (Neg-Trace) mg/dL Urine Glucose (UA) Normal (Normal) mg/dL - Pulse Oximetry Interpretation Digit-Finger O2 Sat by Pulse Oximetry: 96 (with o2 on @ 3lpm) Actions taken: none - Impressions ITS Impressions Chest X-Ray 05/03/18 10:57 IMPRESSION: 1. Cardiomegaly with vascular congestion and interstitial infiltrates likely representing edema and congestive failure. 2. Small bilateral pleural effusions right greater than left. D/ / Jaret Avila MD / Jaret Avila MD Interpreting Provider: Jaret Avila MD - Time Spent With Patient Total time spent is greater than 50% in coordination of care (as documented) at patient's floor/unit and/or counseling patient:
[2018-05-03] MEDS ORDERED: Ipratropium/Albuterol Neb 3 ML IH PRN (16:43)
[2018-05-03] MEDS: Furosemide 40 MG/4 ML VIAL IVP SCH (17:41)
[2018-05-03] MEDS: 0.9 % Sodium Chloride 1,000 ML IVC SCH (17:41)
[2018-05-03] MEDS: *HR* Heparin 5,000 UNIT/ML VIAL SQ SCH (17:45)
[2018-05-03] MEDS: Ipratropium/Albuterol Neb 3 ML IH PRN (18:12)
[2018-05-03] MEDS: Metoprolol XL (24 HR) Succ 50 MG TAB.ER.24H PO SCH (18:35)
[2018-05-03] MEDS ORDERED: Budesonide/Formoterol 160/4.5 1 PUFF INH IH SCH (21:00)
[2018-05-03] MEDS: Sennosides/Docusate Sodium TABLET PO SCH (21:16)
[2018-05-03] MEDS: *HR* Morphine Sulfate SR (12 HR) 15 MG TABLET.ER PO SCH (21:17)
[2018-05-03] MEDS: Budesonide/Formoterol 160/4.5 1 PUFF INH IH SCH (21:21)
[2018-05-04 04:58] LABS: Basophils % 0.8 %; Eosinophils # 0.1 K/mcL (0.0-0.6); Eosinophils % 1.9 %; Hematocrit 26.6 % (37.5-50.1); Hemoglobin 7.9 g/dL (12.9-16.9); Immature Granulocytes % 0.4 % (0-4); Lymphocytes # 0.8 K/mcL (0.6-4.6); Lymphocytes % 14.9 %; Mean Corpuscular HGB Conc 29.7 g/dL (31.6-35.5); Mean Corpuscular Hemoglobin 23.9 pg (28.0-33.3); Mean Corpuscular Volume 80.6 fL (83.0-100.0); Mean Platelet Volume 10.3 fL (9.4-12.4); Monocytes # 0.5 K/mcL (0.0-1.3); Monocytes % 9.6 %; Neutrophils # 3.8 K/mcL (1.6-8.9); Platelet Count 196 K/mcL (140-400); Red Cell Distribution Width 18.1 % (11.5-14.5); Segmented Neutrophils % 72.4 %
[2018-05-04 05:01] LABS: INR 3.2; Prothrombin Time 36.1 Seconds (9.4-12.1)
[2018-05-04 05:04] LABS: Activated Partial Thrombo Time 42.3 Seconds (26.0-36.0)
[2018-05-04 05:15] LABS: eGFR For Non-African Americans > 60 (> 60)
[2018-05-04] MEDS: Ipratropium/Albuterol Neb 3 ML IH PRN ×2 (05:40→11:37)
--- NOTE | 2018-05-04 05:58 | Electrocardiograph Report ---
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
[2018-05-04] MEDS: *HR* Morphine Sulfate SR (12 HR) 30 MG TABLET.ER PO SCH ×2 (06:36→18:06)
[2018-05-04] MEDS: 0.9 % Sodium Chloride 1,000 ML IVC SCH (06:36)
[2018-05-04] MEDS: *HR* Heparin 5,000 UNIT/ML VIAL SQ SCH ×2 (06:36→18:06)
[2018-05-04] MEDS: Budesonide/Formoterol 160/4.5 1 PUFF INH IH SCH ×2 (08:36→20:20)
[2018-05-04] MEDS ORDERED: Metoprolol XL (24 HR) Succ 50 MG TAB.ER.24H PO SCH (09:00)
[2018-05-04 09:15] LABS: Albumin 2.9 g/dL (3.5-5.7)
[2018-05-04] MEDS: Furosemide 40 MG/4 ML VIAL IVP SCH ×2 (09:26→18:06)
[2018-05-04] MEDS: Sennosides/Docusate Sodium TABLET PO SCH ×2 (09:27→21:11)
[2018-05-04] MEDS: Metoprolol XL (24 HR) Succ 50 MG TAB.ER.24H PO SCH (09:29)
[2018-05-04] MEDS: Cholecalciferol (D-3) 1,000 UNIT TABLET PO SCH (09:29)
--- NOTE | 2018-05-04 11:23 | Gastroenterology Consult Note ---
<Casey Edouard Larry - Last Filed: 05/04/18 11:34> Date of Encounter: 05/04/18 Time of Encounter: 09:55 - Assessment and plan (1) Dilated cbd, acquired Current Visit: Yes Status: Acute Assessment and plan: Likely secondary to history of cholecystectomy. CBD has been stable form previous CT on 10/10/2016. LFTs normal. No indication for ERCP at this time. Continue to monitor hepatic panel. (2) Ascites Current Visit: Yes Status: Acute Assessment and plan: Complete liver workup. Agree with paracentesis once INR improved. Qualifiers: Ascites type: other type Qualified Code(s): R18.8 - Other ascites - Time Spent With Patient Total time spent is greater than 50% in coordination of care (as documented) at patient's floor/unit and/or counseling patient: GI History of Present Illness - Data of Consult Patient: new to practice Consult date: 05/04/18 Requesting Physician: Mey Roblero MD - Consult Narrative Reason for consult: Concern for stricture or mass History of present illness: Mr. Rudd is a 67 year old male with PMHx of arthritis, Afib on Coumadin, cardiomyopathy, COPD oxygen dependent, CAD, DM, HLD, HTN, ND who present with complaint of dyspnea and shortness of breath. We were consulted to evaluate possible dilated CBD. [facility] and he did have a most recent, ultrasound of the abdomen. His presented results in impression is 1. nodular hepatic contour suspicious for hepatocellular disease early cirrhosis, #2. Moderate uptake diagnosis ascites, #3. dilatation of the common bile duct up to 12 mm, some degree of biliary distention can be seen following cholecystectomy however ERCP would be of help to exclude a distal stone, stricture or, tumor. On admission LFTs normal. He denies abdominal pain, nausea, vomiting, melena, or hematochezia. Procedures: Colonoscopy 02/09/2018 Dr. Terry: Enlarged prostates on EDGARDO, two tubular adenoma, mild diverticulosis, rectal varices, melanosis in colon. NSAIDs: None Anticoagulation: None Past Med Surg Social Fam HX - Past Medical History Medical history: arthritis, atrial fibrillation, cardiomyopathy, COPD, coronary artery disease, diabetes, hyperlipidemia, hypertension, myocardial infarction, venous stasis Additional medical history: AFIB, OBESITY, DDD, OA, GOUT, FX ANKLE, CAD, SLEEP APNEA Psychiatric history: no psych history - Past Surgical History Surgical History: cataract, cholecystectomy, coronary bypass (CABG), pacemaker/AICD Additional surgical history: CARDIAC ABLATIONS, HEART CATH, LOOP RECORDER IMPLANT, pacer - Social History Smoking Status: Former smoker Smokeless Tobacco Status: No Alcohol use: none Drug use: none - Family History Mother Living Status: Hx Family Cardiac Disorders: Yes (heart disease) Hx Family Endocrine Disorder: Yes (DM) Father Living Status: Hx Family Cardiac Disorders: Yes (heart disease) Sister Hx Family Cancer: Yes (stomach cancer) - Gastrointestinal Gastrointestinal: Present: as per HPI - Constitutional Constitutional: as per HPI - EENT Eyes: as per HPI Ears: Present: as per HPI Nose, mouth and throat: Present: as per HPI - Cardiovascular Cardiovascular ROS: Present: as per HPI - Respiratory Respiratory IM: Present: as per HPI - Genitourinary Genitourinary: Absent: change in color, Urinary frequency - Neurological ROS Neurological GI: Present: as per HPI - Hematologic/Lymphatic Hematologic/Lymphatic pediatric: Present: as per HPI - Musculoskeletal Musculoskeletal ROS GI: Present: as per HPI - Integumentary Integumentary GI: Present: as per HPI - Psychiatric ROS Psychiatric GI: Present: as per HPI - Endocrine Endocrine IM: Present: as per HPI - Constitutional Vitals: Temp Pulse Resp BP Pulse Ox 98.3 F 81 20 119/66 96 05/04/18 10:29 05/04/18 10:29 05/04/18 10:29 05/04/18 10:29 05/04/18 10:29 General appearance: Present: cooperative, A&O X 3, no acute distress, answers questions appropriately - Head Head exam: Present: atraumatic, normocephalic - Eye Eye exam: Present: normal appearance, sclera anicteric - ENT ENT exam: Present: mucous membranes moist - Neck Neck exam general surgery: Present: normal inspection, trachea midline - Respiratory Respiratory exam: Present: CTAB. Absent: rales, rhonchi - Cardiovascular Cardiovascular exam: Present: RRR, +S1, +S2 - GI/Abdominal GI/Abdominal exam: Present: distended, firm, soft, no peritoneal signs. Absent: guarding, tenderness - Expanded GI/Abdominal Exam GI/Abdominal exam expanded: Present: ascites - Rectal Rectal exam: Present: deferred - Extremities Exam Extremities exam: Present: warm - Neurological Exam Neurological exam: Present: no focal deficits - Psychiatric Psychiatric exam: Present: normal affect, normal mood - Skin Skin exam: Present: dry, intact, normal color, warm Results - Labs CBC & Chem 7: 05/04/18 04:17 05/04/18 04:17 Labs: Last Result Calcium 8.7 mg/dL (8.6-10.3) 05/03/18 11:29 Troponin I 0.03 ng/mL (< 0.04) 05/03/18 11:29 Entire Visit Hgb 7.9 g/dL (12.9-16.9) L 05/04/18 04:17 Hct 26.6 % (37.5-50.1) L 05/04/18 04:17 PT 36.1 Seconds (9.4-12.1) H 05/04/18 04:17 Total Bilirubin 1.0 mg/dL (0.3-1.0) 05/03/18 11:29 AST 21 Units/L (13-39) 05/03/18 11:29 ALT 9 Units/L (7-52) 05/03/18 11:29 Lipase 3 Units/L (11-82) L 05/03/18 11:29 - ABG ABG results: PT/INR, D-dimer PT 36.1 Seconds (9.4-12.1) H 05/04/18 04:17 - Impressions Impressions Chest X-Ray 05/03/18 10:57 IMPRESSION: 1. Cardiomegaly with vascular congestion and interstitial infiltrates likely representing edema and congestive failure. 2. Small bilateral pleural effusions right greater than left. D/ / Jaret Avila MD / Jaret Avila MD Interpreting Provider: Jaret Avila MD Consult Discharge Plan - Plan Referrals: [facility] [Outside] <Disha Parks - Last Filed: 05/04/18 12:40> Date of Encounter: 05/04/18 - Time Spent With Patient Total time spent is greater than 50% in coordination of care (as documented) at patient's floor/unit and/or counseling patient: GI History of Present Illness - Data of Consult Requesting Physician: Mey Roblero MD - Consult Narrative History of present illness: Mr. Rudd is a 67 year old male - Constitutional Vitals: Temp Pulse Resp BP Pulse Ox 97.6 F 82 17 148/76 100 05/04/18 12:20 05/04/18 12:20 05/04/18 12:20 05/04/18 12:20 05/04/18 12:20 Results - Labs CBC & Chem 7: 05/04/18 04:17 05/04/18 04:17 Labs: Last Result Calcium 8.7 mg/dL (8.6-10.3) 05/03/18 11: Troponin I 0.03 ng/mL (< 0.04) 05/03/18 11:29 Entire Visit Hgb 7.9 g/dL (12.9-16.9) L 05/04/18 04:17 Hct 26.6 % (37.5-50.1) L 05/04/18 04:17 PT 36.1 Seconds (9.4-12.1) H 05/04/18 04:17 Total Bilirubin 1.0 mg/dL (0.3-1.0) 05/03/18 11:29 AST 21 Units/L (13-39) 05/03/18 11:29 ALT 9 Units/L (7-52) 05/03/18 11:29 Lipase 3 Units/L (11-82) L 05/03/18 11:29 - ABG ABG results: PT/INR, D-dimer PT 36.1 Seconds (9.4-12.1) H 05/04/18 04:17 - Attending Attestation I have personally performed a face to face evaluation on this patient. I have reviewed and agree with the care plan. History and Exam by me shows: Patient seen patient with the multiple comorbidities including CHF and now with ascites and ultrasound suspicious for cirrhosis and dilated CBD of 12 mm. Imp; #1: Patient cirrhosis most probably due to combination of [place] and cardiac in etiology. #2: Allergies CBD which is stable and LFTs are normal patient is status post gallbladder surgery which does cause a physiologic bile duct dilatio n. Rec: No ERCP indicated. Ascitic tap and please send the ascitic fluid for total protein and albumin
[2018-05-04] MEDS ORDERED: 0.9 % Sodium Chloride 250 ML ONE (12:09)
[2018-05-04 13:37] LABS: Hepatitis A Antibody IgM Nonreactive (Nonreactive); Hepatitis B Core IgM Nonreactive (Nonreactive); Hepatitis B Surface Antigen Nonreactive (Nonreactive); Hepatitis C Virus Antibody Nonreactive (Nonreactive)
--- NOTE | 2018-05-04 14:06 | Internal Med Progress Note ---
Hospitalist Progress Note - Encounter Date of Encounter: 05/04/18 Time of Encounter: 14:04 - Subjective Interval History: Pt states abdomen feels firm and is distended. He denies fever, chills, N/V. He denies CP and SOB slowly improving. - Exam Vitals: Temp Pulse Resp BP Pulse Ox 98.6 F 81 12 144/80 98 05/04/18 12:25 05/04/18 12:25 05/04/18 12:25 05/04/18 12:25 05/04/18 12:25 Exam: General appearance: Present: cooperative, mild distress, A&O X 3, pleasant, an swers questions appropriately Exam: Obese - Head Head exam: Present: normal inspection - Eye Eye exam: Present: PERRL, scleral icterus Pupils: Present: normal accommodation, PERRL - ENT ENT exam: Present: mucous membranes dry Additional comments: dried blood proximal right nare, d/t dryness and oxygen prongs - Neck Neck exam general surgery: Present: supple, trachea midline. Absent: lymphadenopathy - Respiratory Respiratory exam: Present: accessory muscle use, decreased breath sounds, prolonged expiratory phase, rhonchi, wheezes Additional comments: dyspnic at rest with oxygen on @ 2LPM - Expanded Respiratory Exam Location: rhonchi: Right, Upper, Lower, Left, wheezes: Left, Right, Upper, Lower - Cardiovascular Cardiovascular exam: Present: RRR Additional comments: pacer left upper chest wall - GI/Abdominal GI/Abdominal exam: Present: distended, firm, normal bowel sounds Additional comments: positive fluid shift, and wave, denies abdominal pain, mild discomfort only - Expanded GI/Abdominal Exam GI/Abdominal exam expanded: Present: ascites, heel tap sign - Extremities Exam Extremities exam: Present: pedal edema, tenderness Additional comments: bilateral lower extremity edema, moist farm lymph edema - Assessment and Plan (1) Acute exacerbation of CHF (congestive heart failure) Current Visit: Yes Status: Acute Assessment and Plan: Acute systolic CHF. Will continue on Lasix 40 mg IV BID. Stopping IVF ordered yesterday. Will add strict I and O's and dialy weights. Echo 02/14/2018 EV/EV echocardiogram w enhance Impressions: LVEF 35%. Mild concentric left ventricular hypertrophy. Segmental left ventricular systolic dysfunction. Indeterminate diastolic function. Atypical septal motion consistent with paced rhythm/postoperative status. Mildly dilated and hypokinetic right ventricle. Mild aortic regurgitation. Mild mitral regurgitation. Mild-moderate tricuspid regurgitation. No pulmonary hypertension. Moderate pulmonic regurgitation. A device lead was visualized in the right atrium and right ventricle. (2) Ascites Current Visit: Yes Status: Acute Assessment and Plan: IR states INR 3.2 too elevated for tap. WIll give 2 units FFP and consider call IR in am if pt symptoms worsen, otherwise IR states plan for paracenthesis on Monday, May 07 2018. Continue on Lasix0 mg IV BID, Will consider add Spironolactone. (3) Atrial fibrillation Current Visit: No Status: Chronic Assessment and Plan: On Metoprolol and Coumadin. Coumadin on hold due to co-agulopathy and possible paracenthesis. Daily PT/INR being monitored. (4) CAD (coronary artery disease) Current Visit: No Status: Chronic Assessment and Plan: On Rosuvastatin. (5) COPD exacerbation Current Visit: No Status: Acute Assessment and Plan: Will add duoneb scheduled and prn. Will start on PO prednisone as well. (6) DM2 (diabetes mellitus, type 2) Current Visit: No Status: Chronic Assessment and Plan: Will add basal and SSI (7) Essential hypertension Current Visit: No Status: Chronic Assessment and Plan: Lisinopril and Metoprolol. (8) LOVE on CPAP Current Visit: No Status: Chronic Assessment and Plan: Will place on CPAP QHS (9) ICD (implantable cardioverter-defibrillator) in place Current Visit: No Status: Chronic (10) Anemia Current Visit: Yes Status: Acute Assessment and Plan: Will check iron studies, ferritin, folate and vitamin B12. ? Hx of ETOH dpendence. EGD/colonoscopy Feb 2018 showed tubular adenomas. Will continue to monitor. DVT Prophylaxis: Heparin - Summary of Assessment and Plan Summary of Assessment and Plan: History of present illness: Destiny Rebolledo CNP Mr. Rudd is a 67 year old male admitted from his home with chief complaint of increased dyspnea and shortness of breath. States that he is unable to walk across the room without stopping to catch his breath while he is on oxygen at 2 L he is a new diagnosis of cirrhosis with ascites and he is concerned with increasing abdominal girth. States that it is pushing up on his lungs and making him more and more short of breath. He is past history of COPD with oxygen dependency, LOVE and wears BiPAP at night, [place] artery disease with that H in 2017 with 2 artery bypass, atrial flutter he does have pacemaker placement, anemia, congestive heart failure with acute on chronic episodes frequently, type 2 diabetes. He does state that he was in the [employer] and in his younger days he had significant alcohol use and abuse on a daily basis. [facility] and he did have a most recent, ultrasound of the abdomen. His does present results in impression is nodular hepatic contour suspicious for hepatocellular disease early cirrhosis. #2 moderate uptake diagnosis ascites. #3. Is dilatation of the common bile duct up to 12 mm. Some degree of biliary distention can be seen following cholecystectomy however E RC he would be of help to exclude a distal stone, stricture or, tumor . Recent ultrasound of the kidneys renal and bladder completed on 04/07/2018 impression shows no evidence of hydronephrosis #2 incidental note is made of pelvic ascites. Medication list is presented and reconciled copies are available patient takes Advil or aspirin multi-complex metallic met Ermias he is on warfarin DuoNeb Symbicort Lasix does take some morphine tablet Crestor omeprazole 81 mg aspirin allopurinol and metoprolol, and he is most recently been put onRoflumilast 500 mg once daily. Emergency room department did consult with gastroenterology and they are requesting to have ERCP completed, however due to pacemaker placement it is incompatible with the current MRI R standards have placed a call and further consult with gastroenterology is pending. Will go ahead with admission and evaluation and treatment of this patient. He does qualify for an inpatient status - Time Spent with Patient Total time spent is greater than 50% in coordination of care (as documented) at patient's floor/unit and/or counseling patient: less than 15 minutes Plan of Care Discussed with: patient Internal Medicine: Result - Labs CBC & Chem 7: 05/04/18 04:17 05/04/18 04:17 Labs: Short CBC 05/04/18 Range/Units 04:17 WBC 5.3 (4.3-11.1) K/mcL Hgb 7.9 L (12.9-16.9) g/dL Hct 26.6 L (37.5-50.1) % Plt Count 196 (140-400) K/mcL Neutrophils # 3.8 (1.6-8.9) K/mcL BMP 05/04/18 04:17 Creatinine 0.84 Liver Function 05/04/18 Range/Units 04:17 Albumin 2.9 L (3.5-5.7) g/dL - ABG Interpretation ABG results: PT/INR, D-dimer PT 36.1 Seconds (9.4-12.1) H 05/04/18 04:17 Consult Discharge Plan - Plan Referrals: [facility] [Outside] (2) Ascites Qualifiers: Ascites type: other type Qualified Code(s): R18.8 - Other ascites (3) Atrial fibrillation Qualifiers: Atrial fibrillation type: chronic Qualified Code(s): I48.2 - Chronic atrial fibrillation (4) CAD (coronary artery disease) Qualifiers: Coronary Disease-Associated Artery/Lesion type: bypass graft [place] vs. transplanted heart: [place] heart Associated angina: without angina Qualified Code(s): I25.810 - Atherosclerosis of coronary artery bypass graft(s) without angina pectoris (6) DM2 (diabetes mellitus, type 2) Qualifiers: Diabetes mellitus snf insulin use: unspecified terminal block assembler insulin use status Diabetes mellitus complication status: without complication Qualified Code(s): E11.9 - Type 2 diabetes mellitus without complications (10) Anemia Qualifiers: Anemia type: unspecified type Qualified Code(s): D64.9 - Anemia, unspecified
[2018-05-04] MEDS ORDERED: Dextrose Gel 15 GM/37.5 ML TUBE PO PRN ×2 (14:28)
[2018-05-04] MEDS ORDERED: D5% in Water 1,000 ML IVC PRN (14:28)
[2018-05-04] MEDS ORDERED: *HR* Dextrose 50 % in Water (Syg) 50 ML SYRINGE IVP PRN (14:28)
[2018-05-04] MEDS: Ipratropium/Albuterol Neb 3 ML IH SCH ×3 (16:46→23:20)
[2018-05-04 16:52] LABS: INR 2.7; Prothrombin Time 30.3 Seconds (9.4-12.1)
[2018-05-04] MEDS: Insulin LISPRO 300 UNITS/3 ML VIAL SQ SCH (18:07)
[2018-05-04] MEDS: predniSONE 20 MG TABLET PO SCH (18:07)
[2018-05-04] MEDS: *HR* Morphine Sulfate SR (12 HR) 15 MG TABLET.ER PO SCH (21:09)
[2018-05-04] MEDS: Insulin DETEMIR 100 UNIT/ML X5UNITS SQ SCH (21:24)
[2018-05-05] MEDS: Ipratropium/Albuterol Neb 3 ML IH SCH ×6 (04:06→23:30)
[2018-05-05 04:28] LABS: Hematocrit 26.7 % (37.5-50.1); Immature Granulocytes % 0.5 % (0-4); Lymphocytes # 0.4 K/mcL (0.6-4.6); Lymphocytes % 9.4 %; Mean Corpuscular Volume 79.9 fL (83.0-100.0); Mean Platelet Volume 10.5 fL (9.4-12.4); Monocytes # 0.1 K/mcL (0.0-1.3); Monocytes % 2.3 %; Neutrophils # 3.4 K/mcL (1.6-8.9); Platelet Count 175 K/mcL (140-400); Red Blood Count 3.34 M/mcL (4.19-5.50); Segmented Neutrophils % 87.8 %
[2018-05-05 04:49] LABS: % Iron Saturation 4 % (20-55); BUN/Creatinine Ratio 18 (6-26); Blood Urea Nitrogen 19 mg/dL (8-23); Calcium 8.4 mg/dL (8.6-10.3); Carbon Dioxide 32 mEq/L (23-29); Chloride 100 mEq/L (98-107); Glucose 179 mg/dL (70-105); Iron 12 mcg/dL (65-175); Osmolality,Calculated 293 (280-300); Potassium 3.9 mEq/L (3.5-5.1); Sodium 138 mEq/L (136-145); Transferrin 225 mg/dL (203-362); eGFR For Non-African Americans > 60 (> 60)
[2018-05-05 05:05] LABS: Ferritin 114 ng/mL (20-250)
[2018-05-05] MEDS: *HR* Morphine Sulfate SR (12 HR) 30 MG TABLET.ER PO SCH ×2 (06:43→16:03)
[2018-05-05] MEDS: *HR* Heparin 5,000 UNIT/ML VIAL SQ SCH ×2 (06:43→18:18)
[2018-05-05] MEDS: Budesonide/Formoterol 160/4.5 1 PUFF INH IH SCH ×2 (07:42→20:05)
[2018-05-05] MEDS: Metoprolol XL (24 HR) Succ 50 MG TAB.ER.24H PO SCH (08:18)
[2018-05-05] MEDS: Sennosides/Docusate Sodium TABLET PO SCH ×2 (08:18→21:01)
[2018-05-05] MEDS: predniSONE 20 MG TABLET PO SCH (08:19)
[2018-05-05] MEDS: Cholecalciferol (D-3) 1,000 UNIT TABLET PO SCH (08:19)
[2018-05-05] MEDS: Insulin LISPRO 300 UNITS/3 ML VIAL SQ SCH ×3 (08:20→17:14)
[2018-05-05] MEDS: Furosemide 40 MG/4 ML VIAL IVP SCH ×2 (08:20→16:02)
[2018-05-05] MEDS: Cyanocobalamin (B-12) 1,000 MCG TABLET PO SCH (11:27)
[2018-05-05] MEDS: Multivit/Ca/Min/Fe/FA 1 TAB TABLET PO SCH (11:28)
[2018-05-05] MEDS: Artificial Tears SOLN 15 ML BOTTLE BOTH EYES SCH ×4 (11:34→21:00)
[2018-05-05] MEDS: (Roflumilast [Daliresp] 500 MG) PO SCH (11:34)
--- NOTE | 2018-05-05 16:38 | Internal Med Progress Note ---
Hospitalist Progress Note - Encounter Date of Encounter: 05/05/18 Time of Encounter: 16:36 - Subjective Interval History: Pt seen and examined in the room. He still having mild dyspnea on exertion. - Exam Vitals: Temp Pulse Resp BP Pulse Ox 97.6 F 79 18 127/71 97 05/05/18 14:41 05/05/18 14:41 05/05/18 15:50 05/05/18 14:41 05/05/18 15:50 Exam: General appearance: Present: cooperative, mild distress, A&O X 3, pleasant, answers questions appropriately Exam: Obese - Head Head exam: Present: normal inspection - Eye Eye exam: Present: PERRL, scleral icterus Pupils: Present: normal accommodation, PERRL - ENT ENT exam: Present: mucous membranes dry Additional comments: dried blood proximal right nare, d/t dryness and oxygen prongs - Neck Neck exam general surgery: Present: supple, trachea midline. Absent: lymphadenopathy - Respiratory Respiratory exam: Present: accessory muscle use, decreased breath sounds, prolonged expiratory phase, rhonchi, wheezes Additional comments: dyspnic at rest with oxygen on @ 2LPM - Expanded Respiratory Exam Location: rhonchi: Right, Upper, Lower, Left, wheezes: Left, Right, Upper, Lower - Cardiovascular Cardiovascular exam: Present: RRR Additional comments: pacer left upper chest wall - GI/Abdominal GI/Abdominal exam: Present: distended, firm, normal bowel sounds Additional comments: positive fluid shift, and wave, denies abdominal pain, mild discomfort only - Expanded GI/Abdominal Exam GI/Abdominal exam expanded: Present: ascites, heel tap sign - Extremities Exam Extremities exam: Present: pedal edema, tenderness Additional comments: bilateral lower extremity edema, moist farm lymph edema - Assessment and Plan (1) Acute exacerbation of CHF (congestive heart failure) Current Visit: Yes Status: Acute Assessment and Plan: Acute systolic CHF. Continue Lasix IV 40 mg twice a day, add Aldactone 50 mg daily, continue lisinopril and metoprolol. Strict I's and O's, low salt diet. Echo 02/14/2018 EV/EV echocardiogram w enhance Impressions: LVEF 35%. Mild concentric left ventricular hypertrophy. Segmental left ventricular systolic dysfunction. Indeterminate diastolic function. Atypical septal motion consistent with paced rhythm/postoperative status. Mildly dilated and hypokinetic right ventricle. Mild aortic regurgitation. Mild mitral regurgitation. Mild-moderate tricuspid regurgitation. No pulmonary hypertension. Moderate pulmonic regurgitation. A device lead was visualized in the right atrium and right ventricle. (2) Ascites Current Visit: Yes Status: Acute Assessment and Plan: Patient recently was diagnosis with cirrhosis, no history of alcohol abuse, GI consulted, further workup for cirrhosis is ongoing. IR states INR 3.2 too elevated for tap on 05/04. Coumadin on hold, patient received 2 unit of FFP, repeat INR 2.7. IR states plan for paracenthesis on Monday, May 07 2018. (3) Atrial fibrillation Current Visit: No Status: Chronic Assessment and Plan: On Metoprolol and Coumadin. rate controlled. Coumadin on hold due to co-agulopathy and possible paracenthesis. Daily PT/INR being monitored. (4) DM2 (diabetes mellitus, type 2) Current Visit: No Status: Chronic Assessment and Plan: basal and SSI (5) LOVE on CPAP Current Visit: No Status: Chronic Assessment and Plan: Will place on CPAP QHS (6) Essential hypertension Current Visit: No Status: Chronic Assessment and Plan: Lisinopril and Metoprolol. (7) CAD (coronary artery disease) Current Visit: No Status: Chronic Assessment and Plan: On Rosuvastatin. (8) ICD (implantable cardioverter-defibrillator) in place Current Visit: No Status: Chronic (9) COPD exacerbation Current Visit: No Status: Acute Assessment and Plan: improved, continue current treatment. (10) Anemia Current Visit: Yes Status: Acute Assessment and Plan: Labs showed iron deficiency, recent EGD/colonoscopy showed polyps. Iron supplement started. DVT Prophylaxis: SCDs - Time Spent with Patient Total time spent is greater than 50% in coordination of care (as documented) at patient's floor/unit and/or counseling patient: Greater than 35 minutes Plan of Care Discussed with: patient Internal Medicine: Result - Labs CBC & Chem 7: 05/05/18 03:52 05/05/18 03:52 Labs: Short CBC 05/05/18 Range/Units 03:52 WBC 3.8 L (4.3-11.1) K/mcL Hgb 8.0 L (12.9-16.9) g/dL Hct 26.7 L (37.5-50.1) % Plt Count 175 (140-400) K/mcL Neutrophils # 3.4 (1.6-8.9) K/mcL BMP 05/05/18 03:52 Sodium 138 Potassium 3.9 Chloride 100 Carbon Dioxide 32 H BUN 19 Creatinine 1.08 Glucose 179 H Calcium 8.4 L - ABG Interpretation ABG results: PT/INR, D-dimer PT 30.3 Seconds (9.4-12.1) H 05/04/18 16:11 Consult Discharge Plan - Plan Referrals: [facility] [Outside] (1) Acute exacerbation of CHF (congestive heart failure) Qualifiers: Heart failure type: systolic Qualified Code(s): I50.23 - Acute on chronic systolic (congestive) heart failure (2) Ascites Qualifiers: Ascites type: other type Qualified Code(s): R18.8 - Other ascites (3) Atrial fibrillation Qualifiers: Atrial fibrillation type: chronic Qualified Code(s): I48.2 - Chronic atrial fibrillation (4) DM2 (diabetes mellitus, type 2) Qualifiers: Diabetes mellitus longterm insulin use: unspecified 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 transplanted heart: [place] heart Associated angina: without angina Qualified Code(s): I25.810 - Atherosclerosis of coronary artery bypass graft(s) without angina pectoris (10) Anemia Qualifiers: Anemia type: unspecified type Qualified Code(s): D64.9 - Anemia, unspecified
[2018-05-05] MEDS: Eucerin Cream 57 GM TUBE TP SCH (20:37)
[2018-05-05] MEDS: *HR* Morphine Sulfate SR (12 HR) 15 MG TABLET.ER PO SCH (21:00)
[2018-05-05] MEDS: Insulin DETEMIR 100 UNIT/ML X5UNITS SQ SCH (21:05)
[2018-05-06] MEDS: Ipratropium/Albuterol Neb 3 ML IH SCH ×5 (03:51→19:28)
[2018-05-06] MEDS: *HR* Heparin 5,000 UNIT/ML VIAL SQ SCH ×2 (06:48→18:17)
[2018-05-06] MEDS: *HR* Morphine Sulfate SR (12 HR) 30 MG TABLET.ER PO SCH ×2 (06:48→16:41)
[2018-05-06 07:26] LABS: Basophils % 0.1 %; Hematocrit 28.1 % (37.5-50.1); Hemoglobin 8.3 g/dL (12.9-16.9); Immature Granulocytes % 0.4 % (0-4); Lymphocytes # 0.7 K/mcL (0.6-4.6); Lymphocytes % 9.5 %; Mean Corpuscular HGB Conc 29.5 g/dL (31.6-35.5); Mean Corpuscular Hemoglobin 23.6 pg (28.0-33.3); Mean Corpuscular Volume 80.1 fL (83.0-100.0); Mean Platelet Volume 10.1 fL (9.4-12.4); Monocytes # 0.5 K/mcL (0.0-1.3); Monocytes % 7.2 %; Platelet Count 184 K/mcL (140-400); Red Blood Count 3.51 M/mcL (4.19-5.50); Red Cell Distribution Width 17.9 % (11.5-14.5); Segmented Neutrophils % 82.8 %
[2018-05-06 07:29] LABS: Neutrophils # 5.6 K/mcL (1.6-8.9)
[2018-05-06] MEDS: Budesonide/Formoterol 160/4.5 1 PUFF INH IH SCH ×2 (07:29→19:28)
[2018-05-06 07:40] LABS: Prothrombin Time 22.6 Seconds (9.4-12.1)
[2018-05-06 07:54] LABS: Alanine Aminotransferase 10 Units/L (7-52); Albumin 3.2 g/dL (3.5-5.7); Albumin/Globulin Ratio 0.8 (1.1-2.2); Alkaline Phosphatase 149 Units/L (34-104); Aspartate Amino Transferase 19 Units/L (13-39); BUN/Creatinine Ratio 27 (6-26); Bilirubin,Total 0.8 mg/dL (0.3-1.0); Blood Urea Nitrogen 26 mg/dL (8-23); Calcium 8.7 mg/dL (8.6-10.3); Carbon Dioxide 33 mEq/L (23-29); Chloride 99 mEq/L (98-107); Glucose 128 mg/dL (70-105); Osmolality,Calculated 290 (280-300); Sodium 137 mEq/L (136-145); Total Protein 7.2 g/dL (6.4-8.9); eGFR For Non-African Americans > 60 (> 60)
[2018-05-06] MEDS: Multivit/Ca/Min/Fe/FA 1 TAB TABLET PO SCH (10:27)
[2018-05-06] MEDS: Sennosides/Docusate Sodium TABLET PO SCH ×2 (10:27→20:59)
[2018-05-06] MEDS: Cholecalciferol (D-3) 1,000 UNIT TABLET PO SCH (10:27)
[2018-05-06] MEDS: Metoprolol XL (24 HR) Succ 50 MG TAB.ER.24H PO SCH (10:28)
[2018-05-06] MEDS: Cyanocobalamin (B-12) 1,000 MCG TABLET PO SCH (10:28)
[2018-05-06] MEDS: Insulin LISPRO 300 UNITS/3 ML VIAL SQ SCH ×3 (10:28→16:46)
[2018-05-06] MEDS: Eucerin Cream 57 GM TUBE TP SCH (10:29)
[2018-05-06] MEDS: Artificial Tears SOLN 15 ML BOTTLE BOTH EYES SCH ×4 (10:29→21:02)
[2018-05-06] MEDS: Furosemide 40 MG/4 ML VIAL IVP SCH (10:29)
[2018-05-06] MEDS: (Roflumilast [Daliresp] 500 MG) PO SCH (10:29)
[2018-05-06] MEDS ORDERED: *HR* Phytonadione 10 MG/ML AMPUL SQ ONE (11:30)
--- NOTE | 2018-05-06 11:46 | Internal Med Progress Note ---
Hospitalist Progress Note - Encounter Date of Encounter: 05/06/18 Time of Encounter: 11:43 - Subjective Interval History: Pt seen and examined in the room. He still having mild dyspnea on exertion. - Exam Vitals: Temp Pulse Resp BP Pulse Ox 97.5 F L 75 18 129/76 99 05/06/18 10:41 05/06/18 10:41 05/06/18 11:21 05/06/18 10:41 05/06/18 11:21 Exam: General appearance: Present: cooperative, mild distress, A&O X 3, pleasant, answers questions appropriately Exam: Obese - Head Head exam: Present: normal inspection - Eye Eye exam: Present: PERRL, scleral icterus Pupils: Present: normal accommodation, PERRL - ENT ENT exam: Present: mucous membranes dry Additional comments: dried blood proximal right nare, d/t dryness and oxygen prongs - Neck Neck exam general surgery: Present: supple, trachea midline. Absent: lymphadenopathy - Respiratory Respiratory exam: Present: accessory muscle use, decreased breath sounds, prolonged expiratory phase, rhonchi, wheezes Additional comments: dyspnic at rest with oxygen on @ 2LPM - Expanded Respiratory Exam Location: rhonchi: Right, Upper, Lower, Left, wheezes: Left, Right, Upper, Lower - Cardiovascular Cardiovascular exam: Present: RRR Additional comments: pacer left upper chest wall - GI/Abdominal GI/Abdominal exam: Present: distended, firm, normal bowel sounds Additional comments: positive fluid shift, and wave, denies abdominal pain, mild discomfort only - Expanded GI/Abdominal Exam GI/Abdominal exam expanded: Present: ascites, heel tap sign - Extremities Exam Extremities exam: Present: pedal edema, tenderness Additional comments: bilateral lower extremity edema, moist farm lymph edema - Assessment and Plan (1) Acute exacerbation of CHF (congestive heart failure) Current Visit: Yes Status: Acute Assessment and Plan: 67-year-old L with past medical history of systolic heart failure, CAD, and atrial fibrillation/ aflutter presented with shortness of breath, increased size of abdominal girth, and bilateral leg swelling. Patient recently was seen at the [place], CT abdomen revealed hepatic nodularity, mod size of ascites and dilated CBD and intrahepatic billiary ducts. His dose of Lasix has been increased. However, his abdomen progressively gets larger, which he thinks has pushed up his diaphragm and make his breathing more difficult. Patient does endorsed remote history of alcohol abuse, but denied recent alcohol consumption. - Patient clearly has volume overload at this point. Whether it is resulted from decompensated CHF or new onset of ascites secondary to liver cirrhosis, is undetermined. - Given the fdc history of systolic CHF, poorly controlled volume overload, and systemic venous congestion, those call can cause chronic liver congestion and ultimately leads to cirrhosis. - GI was consulted and workup for cirrhosis is ongoing, appreciate help. Paracentesis was scheduled on Monday. - His Is/Os in the last 24 hours is only <-500cc , which is not optimal. Goal is to achieve neg 1-2 liter/day. change IV lasix to Bumex, give one time dose of Metolazone, metolazone dose can be adjusted on daily basis. Aldactone already started. - Fluid restriction 1500cc/day, daily weight. - Treatment regimen for CHF can be optimized to further decrease after-load by increase the dose of ACEI, but this can be discussed with cardiology. (2) Ascites Current Visit: Yes Status: Acute Assessment and Plan: Patient recently was diagnosis with cirrhosis, no history of alcohol abuse, GI consulted, further workup for cirrhosis is ongoing. IR states INR 3.2 too elevated for tap on 05/04. Coumadin on hold, patient received 2 unit of FFP, repeat INR 2.0 05/06. 5 mg Vit K sq given, will repeat PT/INR in am. IR states plan for paracenthesis on Monday, May 07 2018. (3) Atrial fibrillation Current Visit: No Status: Chronic Assessment and Plan: On Metoprolol and Coumadin. rate controlled. Coumadin on hold due to coagulopathy and possible paracenthesis. Daily PT/INR being monitored. (4) DM2 (diabetes mellitus, type 2) Current Visit: No Status: Chronic Assessment and Plan: basal, bolus, and SSI (5) LOVE on CPAP Current Visit: No Status: Chronic Assessment and Plan: Will place on CPAP QHS (6) Essential hypertension Current Visit: No Status: Chronic Assessment and Plan: BP well-controlled, continue Lisinopril and Metoprolol. (7) CAD (coronary artery disease) Current Visit: No Status: Chronic Assessment and Plan: On Rosuvastatin. (8) ICD (implantable cardioverter-defibrillator) in place Current Visit: No Status: Chronic (9) COPD exacerbation Current Visit: No Status: Acute Assessment and Plan: improved, continue current treatment. (10) Anemia Current Visit: Yes Status: Acute Assessment and Plan: Labs showed iron deficiency, recent EGD/colonoscopy showed polyps. Iron supplement started. DVT Prophylaxis: SCDs - Time Spent with Patient Total time spent is greater than 50% in coordination of care (as documented) at patient's floor/unit and/or counseling patient: Greater than 35 minutes Plan of Care Discussed with: patient Internal Medicine: Result - Labs CBC & Chem 7: 05/06/18 06:58 05/06/18 06:58 Labs: Short CBC 05/06/18 Range/Units 06:58 WBC 6.8 D (4.3-11.1) K/mcL Hgb 8.3 L (12.9-16.9) g/dL Hct 28.1 L (37.5-50.1) % Plt Count 184 (140-400) K/mcL Neutrophils # 5.6 (1.6-8.9) K/mcL BMP 05/06/18 06:58 Sodium 137 Potassium 4.0 Chloride 99 Carbon Dioxide 33 H BUN 26 H Creatinine 0.98 Glucose 128 H Calcium 8.7 Liver Function 05/06/18 Range/Units 06:58 Total Bilirubin 0.8 (0.3-1.0) mg/dL AST 19 (13-39) Units/L ALT 10 (7-52) Units/L Alkaline Phosphatase 149 H (34-104) Units/L Albumin 3.2 L (3.5-5.7) g/dL - ABG Interpretation ABG results: PT/INR, D-dimer PT 22.6 Seconds (9.4-12.1) H 05/06/18 06:58 Consult Discharge Plan - Plan Referrals: [facility] [Outside] (1) Acute exacerbation of CHF (congestive heart failure) Qualifiers: Heart failure type: systolic Qualified Code(s): I50.23 - Acute on chronic systolic (congestive) heart failure (2) Ascites Qualifiers: Ascites type: other type Qualified Code(s): R18.8 - Other ascites (3) Atrial fibrillation Qualifiers: Atrial fibrillation type: chronic Qualified Code(s): I48.2 - Chronic atrial fibrillation (4) DM2 (diabetes mellitus, type 2) Qualifiers: Diabetes mellitus fdc 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 transplanted heart: [place] heart Associated angina: without angina Qualified Code(s): I25.810 - Atherosclerosis of coronary artery bypass graft(s) without angina pectoris (10) Anemia Qualifiers: Anemia type: unspecified type Qualified Code(s): D64.9 - Anemia, unspecified
[2018-05-06] MEDS ORDERED: metOLazone 5 MG TABLET PO ONE (12:00)
[2018-05-06] MEDS: Bumetanide 1 MG/4 ML VIAL IVP SCH ×2 (12:49→18:17)
[2018-05-06] MEDS: *HR* Morphine Sulfate SR (12 HR) 15 MG TABLET.ER PO SCH (20:59)
[2018-05-06] MEDS: Insulin DETEMIR 100 UNIT/ML X5UNITS SQ SCH (21:03)
[2018-05-07] MEDS: Ipratropium/Albuterol Neb 3 ML IH SCH ×7 (00:15→23:35)
[2018-05-07 04:19] LABS: Basophils % 0.4 %; Eosinophils # 0.1 K/mcL (0.0-0.6); Eosinophils % 1.4 %; Hematocrit 27.9 % (37.5-50.1); Hemoglobin 8.3 g/dL (12.9-16.9); Immature Granulocytes % 0.3 % (0-4); Lymphocytes # 0.9 K/mcL (0.6-4.6); Lymphocytes % 12.1 %; Mean Corpuscular HGB Conc 29.7 g/dL (31.6-35.5); Mean Corpuscular Hemoglobin 24.1 pg (28.0-33.3); Mean Corpuscular Volume 81.1 fL (83.0-100.0); Mean Platelet Volume 10.4 fL (9.4-12.4); Monocytes # 0.9 K/mcL (0.0-1.3); Monocytes % 12.1 %; Neutrophils # 5.2 K/mcL (1.6-8.9); Platelet Count 179 K/mcL (140-400); Red Blood Count 3.44 M/mcL (4.19-5.50); Red Cell Distribution Width 18.1 % (11.5-14.5); Segmented Neutrophils % 73.7 %
[2018-05-07 04:40] LABS: BUN/Creatinine Ratio 27 (6-26); Blood Urea Nitrogen 31 mg/dL (8-23); Calcium 8.7 mg/dL (8.6-10.3); Carbon Dioxide 35 mEq/L (23-29); Chloride 97 mEq/L (98-107); Glucose 105 mg/dL (70-105); Osmolality,Calculated 291 (280-300); Potassium 4.2 mEq/L (3.5-5.1); Sodium 137 mEq/L (136-145); eGFR For Non-African Americans > 60 (> 60)
[2018-05-07] MEDS: *HR* Heparin 5,000 UNIT/ML VIAL SQ SCH ×2 (06:19→17:46)
[2018-05-07] MEDS: Bumetanide 1 MG/4 ML VIAL IVP SCH ×2 (07:13→16:18)
[2018-05-07] MEDS: *HR* Morphine Sulfate SR (12 HR) 30 MG TABLET.ER PO SCH ×2 (07:13→16:18)
[2018-05-07] MEDS: Insulin LISPRO 300 UNITS/3 ML VIAL SQ SCH ×3 (07:14→17:06)
[2018-05-07] MEDS: Artificial Tears SOLN 15 ML BOTTLE BOTH EYES SCH ×4 (07:15→20:53)
[2018-05-07] MEDS: (Roflumilast [Daliresp] 500 MG) PO SCH (07:16)
[2018-05-07] MEDS: Sennosides/Docusate Sodium TABLET PO SCH ×2 (07:16→20:52)
[2018-05-07] MEDS: Cholecalciferol (D-3) 1,000 UNIT TABLET PO SCH (07:17)
[2018-05-07] MEDS: Multivit/Ca/Min/Fe/FA 1 TAB TABLET PO SCH (07:17)
[2018-05-07] MEDS: Cyanocobalamin (B-12) 1,000 MCG TABLET PO SCH (07:17)
[2018-05-07] MEDS: Metoprolol XL (24 HR) Succ 50 MG TAB.ER.24H PO SCH (07:17)
[2018-05-07] MEDS: Budesonide/Formoterol 160/4.5 1 PUFF INH IH SCH ×2 (07:31→20:28)
[2018-05-07] MEDS: Eucerin Cream 57 GM TUBE TP SCH (09:30)
[2018-05-07 11:01] LABS: AFP Tumor Marker Non-Pregnant 1 ng/mL (0-9); ANA IgG by ELISA NONE DETECTED (None Detected); F-Actin (sm muscle) Ab IgG 11 Units (0-19); Myeloperoxidase Ab 0 AU/mL (0-19); Serine Protease-3 Antibody 0 AU/mL (0-19)
--- NOTE | 2018-05-07 15:00 | IR Procedure Note ---
Date of procedure: 05/07/18 Consent Obtained: Verbal consent, Written consent Timeout: Correct patient and procedure verified, Correct site verified, Time out performed, Skin prep completed Local anesthetic: Lidocaine 1% Indications: Ascites Procedure Performed: Paracentesis Was there an resident assistant cna present: No Site/Technique: Ultrasound guided paracentesis Results/Findings: Small volume ascites Estimated blood loss (cc): 0 Complications: None; Tolerated procedure well Post Procedure Treatment Plan: Continue inpatient care Specimen: serosanguinous ascites
--- NOTE | 2018-05-07 15:20 | Internal Med Progress Note ---
Hospitalist Progress Note - Encounter Date of Encounter: 05/07/18 Time of Encounter: 15:18 - Subjective Interval History: Patient sitting on bed and get out of breath when completing a sentence. at bedside. Review the lab. Denies fever chills nausea vomiting headache dizziness chest pain urinary or bowel complaint. Complained of generalized weakness fatigue tiredness - Exam Vitals: Temp Pulse Resp BP Pulse Ox 97.8 F 78 16 102/60 93 05/07/18 14:19 05/07/18 14:19 05/07/18 14:19 05/07/18 14:19 05/07/18 14:19 Exam: General appearance: No acute distress, A&O X 3. 2 L oxygen by nasal cannula as he take at home Head exam: Atraumatic Eye exam: EOMI, PERRLA ENT exam: Moist oral mucosa Neck nontender, supple Respiratory exam: Crepitation bibasilar. Cardiovascular exam: Regular rate and rhythm, no systolic murmur Abdominal exam: Soft, nontender, ascites, positive bowel sounds Extremities exam: No calf tenderness, +2/ 3 pedal edema bilateral Present: Skin-no rash, warm, dry, intact Neurological exam: CN II-XII intact, no focal deficits. No facial droop. Normal speech. - Assessment and Plan (1) Acute exacerbation of CHF (congestive heart failure) Current Visit: Yes Status: Acute Assessment and Plan: Decompensated CHF. Echo done in February 2018 with EF 35% mild concentric LVH noted pulmonary and tricuspid regurgitation. 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 Ellington. At present IV Bumex 2 mg twice a day started and Lasix was not working. Continue strict I&O's, fluid restriction 1500 per day and daily weight. Negative balance. Consulted rand butting machine operator for further medical management. Increased dose of Aldactone 100 mg by mouth daily. Patient has been noncompliant also. (2) Atrial fibrillation Current Visit: No Status: Chronic Assessment and Plan: On Metoprolol and Coumadin. rate controlled. Coumadin on hold due to coagulopathy and possible paracenthesis today. Daily PT/INR being monitored. (3) DM2 (diabetes mellitus, type 2) Current Visit: No Status: Chronic Assessment and Plan: Accu-Chek, SSI, diabetic diet. (4) LOVE on CPAP Current Visit: No Status: Chronic Assessment and Plan: Continue CPAP QHS (5) Essential hypertension Current Visit: No Status: Chronic Assessment and Plan: Low normal blood pressure. Lisinopril on hold. Continue beta luis (6) CAD (coronary artery disease) Current Visit: No Status: Chronic Assessment and Plan: Stable. Continue home medicine (7) ICD (implantable cardioverter-defibrillator) in place Current Visit: No Status: Chronic (8) COPD exacerbation Current Visit: No Status: Acute Assessment and Plan: improved, continue current treatment. (9) Anemia Current Visit: Yes Status: Acute Assessment and Plan: Labs showed iron deficiency, recent EGD/colonoscopy showed polyps. Iron supplement continue (10) Ascites Current Visit: Yes Status: Acute Assessment and Plan: Newly diagnosed liver cirrhosis therefore GI consulted for further workup and underlying etiology. No history of alcohol abuse. GI on board. INR 2.0 after giving FFP and putting Coumadin on hold. Plan for diagnostic paracentesis today. Talk to GI specialist on phone to discuss further plan. DVT Prophylaxis: SCDs. Warfarin if okay with GI and no further procedure is planned - Time Spent with Patient Total time spent is greater than 50% in coordination of care (as documented) at patient's floor/unit and/or counseling patient: Greater than 35 minutes (Spent more than 35 minutes in patient care and Discussed the plan of care with patient, family, nursing staff, and case management consultants.) Internal Medicine: Result - Labs CBC & Chem 7: 05/07/18 03:31 05/07/18 03:31 Labs: Short CBC 05/07/18 Range/Units 03:31 WBC 7.0 (4.3-11.1) K/mcL Hgb 8.3 L (12.9-16.9) g/dL Hct 27.9 L (37.5-50.1) % Plt Count 179 (140-400) K/mcL Neutrophils # 5.2 (1.6-8.9) K/mcL BMP 05/07/18 03:31 Sodium 137 Potassium 4.2 Chloride 97 L Carbon Dioxide 35 H BUN 31 H Creatinine 1.13 Glucose 105 Calcium 8.7 - ABG Interpretation ABG results: PT/INR, D-dimer PT 22.0 Seconds (9.4-12.1) H 05/07/18 03:31 Consult Discharge Plan - Plan Referrals: [facility] [Outside] (1) Acute exacerbation of CHF (congestive heart failure) Qualifiers: Heart failure type: systolic Qualified Code(s): I50.23 - Acute on chronic systolic (congestive) heart failure (2) Atrial fibrillation Qualifiers: Atrial fibrillation type: chronic Qualified Code(s): I48.2 - Chronic atrial fibrillation (3) DM2 (diabetes mellitus, type 2) 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 transplanted heart: [place] heart Associated angina: without angina Qualified Code(s): I25.810 - Atherosclerosis of coronary artery bypass graft(s) without angina pectoris (9) Anemia Qualifiers: Anemia type: unspecified type Qualified Code(s): D64.9 - Anemia, unspecified (10) Ascites Qualifiers: Ascites type: other type Qualified Code(s): R18.8 - Other ascites
[2018-05-07 16:48] LABS: RBC,Peritoneal Fluid 0.013 M/mcL
[2018-05-07 16:49] LABS: Appearance of Peritoneal Fl CLOUDY (Clear)
[2018-05-07 17:22] LABS: Amylase,Peritoneal Fluid < 10 Units/L (No Ref Range); Glucose,Peritoneal Fluid 103 mg/dL (No Ref Range); LDH,Peritoneal Fluid 134 Units/L (No Ref Range); Total Protein,Peritoneal Fluid 3.5 g/dL (No Ref Range)
[2018-05-07] MEDS: *HR* Morphine Sulfate SR (12 HR) 15 MG TABLET.ER PO SCH (20:52)
[2018-05-07] MEDS: Insulin DETEMIR 100 UNIT/ML X5UNITS SQ SCH (20:53)
[2018-05-08] MEDS: Eucerin Cream 57 GM TUBE TP SCH (04:00)
[2018-05-08] MEDS: Ipratropium/Albuterol Neb 3 ML IH SCH ×6 (04:08→23:00)
[2018-05-08] MEDS: *HR* Heparin 5,000 UNIT/ML VIAL SQ SCH ×2 (05:41→17:20)
[2018-05-08] MEDS: *HR* Morphine Sulfate SR (12 HR) 30 MG TABLET.ER PO SCH ×2 (07:12→15:52)
[2018-05-08] MEDS: Bumetanide 1 MG/4 ML VIAL IVP SCH ×2 (07:12→16:10)
[2018-05-08] MEDS: Artificial Tears SOLN 15 ML BOTTLE BOTH EYES SCH ×4 (07:13→20:10)
[2018-05-08] MEDS: Insulin LISPRO 300 UNITS/3 ML VIAL SQ SCH ×3 (07:13→16:30)
[2018-05-08] MEDS: Sennosides/Docusate Sodium TABLET PO SCH ×2 (07:15→20:08)
[2018-05-08] MEDS: Multivit/Ca/Min/Fe/FA 1 TAB TABLET PO SCH (07:16)
[2018-05-08] MEDS: Cyanocobalamin (B-12) 1,000 MCG TABLET PO SCH (07:16)
[2018-05-08] MEDS: Metoprolol XL (24 HR) Succ 50 MG TAB.ER.24H PO SCH (07:16)
[2018-05-08] MEDS: Cholecalciferol (D-3) 1,000 UNIT TABLET PO SCH (07:17)
[2018-05-08 08:43] LABS: BUN/Creatinine Ratio 32 (6-26); Blood Urea Nitrogen 34 mg/dL (8-23); Calcium 9.3 mg/dL (8.6-10.3); Carbon Dioxide 38 mEq/L (23-29); Chloride 93 mEq/L (98-107); Glucose 114 mg/dL (70-105); Osmolality,Calculated 290 (280-300); Potassium 3.8 mEq/L (3.5-5.1); Sodium 136 mEq/L (136-145); eGFR For Non-African Americans > 60 (> 60)
--- NOTE | 2018-05-08 09:03 | Cardiology Consult Note ---
<Yaya Ba - Last Filed: 05/08/18 09:33> Date of Encounter: 05/08/18 Time of Encounter: 08:56 Assessment and Plan (1) Acute exacerbation of CHF (congestive heart failure) Current Visit: Yes Status: Acute 67 y/o presents with cc of worsening edmea patient has hx of systolic chf last echo: 02/14/2018 LVEF of 35% with left ventricular hypertrophy, segmental left ventricular systolic dysfunction, mildly dilated and hypokinetic right ventricle, no pulmonary hypertension. This is also in the setting of newly diagnosed cirrhosis and patient is status post paracentesis with removal of 2 L. Patient's cumulative I's and O's is -[id number] Current medications are Aldactone 100 mg by mouth daily and Bumex 2 mg IVP BID. Plan: patients fluid overload is combination of systolic heart failure, newly diagnosed cirrhosis and poor adherence to salt restriction, fluid restriction. Recommend continuing diuresis, fluid restrict to 1500cc, cadiac ada diet. Qualifiers: Heart failure type: systolic Qualified Code(s): I50.23 - Acute on chronic systolic (congestive) heart failure (2) Anemia Current Visit: Yes Status: Acute diagnosed with iron def anemia colonoscopy on found polyps, rectal varices, melanosis in colon. negative for active bleeding. At that time Hgb was 11 patient has not had EGD. currently hgb is 8.3 patient will benefit from EGD due to worsening anemia which can also contribute to his volume overload Qualifiers: Anemia type: iron deficiency Iron deficiency anemia type: unspecified iron deficiency Qualified Code(s): D50.9 - Iron deficiency anemia, unspecified (3) Cirrhosis Current Visit: Yes Status: Acute unclear etiology GI on board left and right heart failure can contribute to development of cirrhosis patient on bumex and spironolactone Qualifiers: Hepatic cirrhosis type: unspecified hepatic cirrhosis Ascites presence: with ascites Qualified Code(s): K74.60 - Unspecified cirrhosis of liver; R18.8 - Other ascites (4) LOVE treated with BiPAP Current Visit: Yes Status: Acute continue BiPAP wile inpatient (5) Atrial fibrillation Current Visit: Yes Status: Chronic rate controlled with metoprolol patient is anticoagulated on warfarin but this is on hold due to anemia as well as undergoing paracentesis yesterday Qualifiers: Atrial fibrillation type: chronic Qualified Code(s): I48.2 - Chronic atrial fibrillation (6) CAD (coronary artery disease) Current Visit: Yes Status: Chronic hx of CAD denies chest pain hx of CABG in 2008 continue statin, bb. aspirin on hold due to anemia Qualifiers: Coronary Disease-Associated Artery/Lesion type: bypass graft [place] vs. transplanted heart: [place] heart Associated angina: without angina Qualified Code(s): I25.810 - Atherosclerosis of coronary artery bypass graft(s) without angina pectoris Discussion w patient/family: The assessment and plan as outlined above was discussed with the patient and/or family members who expressed understanding and agreement. All questions were answered. Thank you for involving us in the care of your patient. Please call with any questions. History of Present Illness Consult date: 05/08/18 Requesting physician: Marge Merchant Consult reason: worsening edema Chief complaint: sob History of present illness: Mr. Rudd is a 67 year old male with history of atrial fibrillation, ischemic cardiomyopathy, coronary artery disease status post CABG (2008), pacemaker/AICD, sleep apnea on BiPAP, COPD on 2 L presents with chief complaint of shortness of breath and abdominal swelling which started around September. Patient noticed gradual abdominal swelling. Reports his dry weight is 250 pounds and it has increased to 265 pounds. Patient reports dyspnea with exertion. He denies chest pain, palpitations, blurry vision, syncope, melena, hematochezia, diarrhea, changes in urine color, frequency, dysuria. He [facility] which showed nodular hepatic contour and was newly diagnosed with cirrhosis plus had ascites. He underwent paracentesis yesterday with removal of 2 L. Patient has been in the hospital for 5 days and was being diuresed with IV Lasix and started on Aldactone. Cardiology was consulted as it is difficult to diurese patient. Last echocardiogram was 02/14/2018 with LVEF of 35% and mild concentric left ventricular hypertrophy, segmental left ventricular systolic dysfunction, mildly dilated and hypokinetic right ventricle, no pulmonary hypertension. Patient drink around 3L of fluids per day and reports following low sat diet. Past Med Surg Social Fam HX - Past Medical History Medical history: arthritis, atrial fibrillation, cardiomyopathy, COPD, coronary artery disease, diabetes, hyperlipidemia, hypertension, myocardial infarction, venous stasis Additional medical history: AFIB, OBESITY, DDD, OA, GOUT, FX ANKLE, CAD, SLEEP APNEA Psychiatric history: no psych history - Past Surgical History Surgical History: cataract, cholecystectomy, coronary bypass (CABG), pacemaker/AICD Additional surgical history: CARDIAC ABLATIONS, HEART CATH, LOOP RECORDER IMPLANT, pacer - Social History Smoking Status: Former smoker Smokeless Tobacco Status: No Alcohol use: none Drug use: none - Family History Mother Living Status: Hx Family Cardiac Disorders: Yes (heart disease) Hx Family Endocrine Disorder: Yes (DM) Father Living Status: Hx Family Cardiac Disorders: Yes (heart disease) Sister Hx Family Cancer: Yes (stomach cancer) Medications and Allergies Budesonide/Formoterol 160/4.5 [Symbicort 160/4.5] 2 puff IH BID 09/25/15 [Hi story] Warfarin [Coumadin] 5 mg PO SUMOWETHSA 06/10/16 [History] Ipratropium/Albuterol Neb [Duoneb] 3 ml IH Q6H PRN 10/05/16 [History] Morphine Sulfate [Arymo ER] 15 mg PO HS 10/15/16 [History] Morphine Sulfate [Arymo ER] 30 mg PO BID 09/02/17 [History] Allopurinol [Zyloprim 300 MG] 300 mg PO HS 02/13/18 [History] Ferrous Sulfate [Iron] 325 mg PO DAILY 02/13/18 [History] Metoprolol Succinate [Toprol Xl] 150 mg PO DAILY 02/13/18 [History] Omeprazole [PriLOSEC] 20 mg PO DAILY 02/13/18 [History] Oxygen 1 - 2 l IH DAILY 02/13/18 [History] Rosuvastatin [Crestor] 10 mg PO HS 02/13/18 [History] Sennosides/Docusate Sodium [Colace 2-in-1 Tablet] 1 tab PO BID 02/13/18 [History] Warfarin Sodium 2.5 mg PO TUFR 02/13/18 [History] Furosemide [Lasix] 60 mg PO BID #60 tablet 02/18/18 [Rx] Cyanocobalamin (Vitamin B-12) [Vitamin B-12] 100 mcg PO QID 05/03/18 [History] Multivitamin [One Daily Essential] 1 tab PO DAILY 05/03/18 [History] Polyethylene Glycol 3350 [MiraLax bowel prep] 17 g PO DAILY PRN 05/03/18 [History] Propylene Glycol/Peg 400 [Kro Lubricating Rlf 0.3-0.4%] 10 ml BOTH EYES QID 05/03/18 [History] Roflumilast [Daliresp] 500 mg PO DAILY 05/03/18 [History] Allergy/AdvReac Type Severity Reaction Status Date / Time No Known Allergies Allergy Verified 02/13/18 18:10 All Systems Review: The remainder of the systems were reviewed and are negative Review of Systems: Constitutional: Denies fever, chills HEENT: Denies headache, trauma, blurry vision, eye discharge, ear pain, ear discharge neck pain, sore throat, rhinorrhea Heart: Denies chest pain palpitations, reports LE edema Lungs: Reports shortness of breath cough Abdomen: Denies abdominal pain nausea vomiting diarrhea MSK: Denies back pain, falls, joint pain Kidney: Denies dysuria, hematuria Skin: Denies rash, ulcers Neuro: Denies numbness and tingling Psych: denies anxiety, depression Physical Examination Vital Signs, Last 4 Hours Temp Pulse Resp BP Pulse Ox 05/08/18 08:20 94 05/08/18 07:04 98.1 F 81 13 119/67 94 General: Conversant, No Apparent Distress HEENT: Atraumatic, Normocephaly, Mucus Membranes Moist Neck: No JVD, Normal carotid pulses Cardiac: Reg Rate and Rhythm, Normal S1 and S2, No Murmur, Other (AICD/pacemaker) Lungs: Normal Breath Sounds, No Wheeze, Rales, Rhonchi Neuro: Alert and responsive, No focal deficits noted Abdomen: Soft, Non-Tender Skin: No rashes noted on visualized skin Musculoskeletal: No Chest Wall Tenderness Extremities: No Clubbing, No Cyanosis, Normal Pulses, Other (3+ pitting edema. Edema but bilateral thighs.) Results 05/07/18 03:31 05/08/18 08:12 Lab Results 05/08/18 08:12 Sodium 136 Potassium 3.8 Chloride 93 L Carbon Dioxide 38 H BUN 34 H Creatinine 1.06 Glucose 114 H Calcium 9.3 Consult Discharge Plan - Plan Referrals: [facility] [Outside] <Nan Pichardo - Last Filed: 05/08/18 16:23> Date of Encounter: 05/08/18 - Attending Attestation I examined this patient and my medical decision-making was reviewed with the Resident Physician. I agree with the documented findings, disposition and treatment plan as described. Mr. Rudd presented on 05/03 with SOB and abdominal swelling. Newly diagnosed with cirrhosis. Dry weight reportedly around 250 lbs, now imprvoed to 255 lbs. Patient states that he was walking the halls today and feels much better. On home dose of supplemental oxygen. Known ischemic cardiomyopathy being followed by [facility] as outpatient. Impression: 1. Volume overload: Multifactorial and in part due to newly diagnosed cirrhosis. Known ICM. He is near his dry weight and feeling much better. Will defer fluid management to primary team with help of GI input. 2. PAF: Known PAF on coumadin on hold. Notably, Hgb has dropped (10 in February now 7.9) and he has cirrhosis, ? bleeding. Recommend complete GI workup to help guide management with coumadin. For now would hold until workup is complete. Can consider baby aspirin. Will sign off. Please follow up as outpatient. Assessment and Plan Discussion w patient/family: The assessment and plan as outlined above was discussed with the patient and/or family members who expressed understanding and agreement. All questions were answered. Thank you for involving us in the care of your patient. Please call with any questions. History of Present Illness History of present illness: Mr. Rudd is a 67 year old male All Systems Review: The remainder of the systems were reviewed and are negative Physical Examination Vital Signs, Last 4 Hours Temp Pulse Resp BP Pulse Ox 05/08/18 15:57 16 97 05/08/18 14:13 97.9 F 80 13 115/60 97 Results 05/07/18 03:31 05/08/18 08:12 Lab Results 05/08/18 08:12 Sodium 136 Potassium 3.8 Chloride 93 L Carbon Dioxide 38 H BUN 34 H Creatinine 1.06 Glucose 114 H Calcium 9.3
[2018-05-08] MEDS: Budesonide/Formoterol 160/4.5 1 PUFF INH IH SCH ×2 (10:26→19:54)
--- NOTE | 2018-05-08 13:27 | Internal Med Progress Note ---
Hospitalist Progress Note - Encounter Date of Encounter: 05/08/18 Time of Encounter: 13:22 - Subjective Interval History: Patient sitting on bed . Better shortness of breath after 2 L paracentesis yesterday. Is still on 2 L oxygen by nasal cannula. Reviewed the lab. Denies fever chills nausea vomiting headache dizziness chest pain urinary or bowel complaint. Reviewed cardiology note - Exam Vitals: Temp Pulse Resp BP Pulse Ox 97.6 F 80 14 127/73 96 05/08/18 11:38 05/08/18 11:38 05/08/18 11:38 05/08/18 11:38 05/08/18 11:38 Exam: General appearance: No acute distress, A&O X 3. 2 L oxygen by nasal cannula as he take at home Head exam: Atraumatic Eye exam: EOMI, PERRLA ENT exam: Moist oral mucosa Neck nontender, supple Respiratory exam: Crepitation bibasilar-slight better Cardiovascular exam: Regular rate and rhythm, no systolic murmur Abdominal exam: Soft, nontender, ascites-better, positive bowel sounds Extremities exam: No calf tenderness, +2 pedal edema bilateral Present: Skin-no rash, warm, dry, intact Neurological exam: CN II-XII intact, no focal deficits. No facial droop. Normal speech. - Assessment and Plan (1) Acute exacerbation of CHF (congestive heart failure) Current Visit: Yes Status: Acute Assessment and Plan: Decompensated CHF-systolic heart failure. Echo done in 02/14/2018 EF 35%, LVH, segmental left ventricular systolic dysfunction, mildly dilated and hypokinetic right ventricle with no pulmonary hypertension. Consulted animal care taker who advise to continue diuresis with a strict I&O's, fluid restriction to 1500 mL per day, cardiac diet. Patient has been under care of animal care taker Dr. Ellington. At present IV Bumex 2 mg twice a day started as Lasix was ineffective . Will change to oral Bumex after adequate diuresis as per cardiology advice. Continue strict I&O's, fluid restriction 1500 per day and daily weight. Negative balance more than 1.5 L. Increased dose of Aldactone 100 mg by mouth daily. Patient has been noncompliant also. (2) Ascites Current Visit: Yes Status: Acute Assessment and Plan: Newly diagnosed liver cirrhosis therefore GI consulted for further workup and underlying etiology. No history of alcohol abuse. Last INR 2.0 after giving FFP and putting Coumadin on hold. Paracentesis diagnostic and therapeutic was done on 05/07/2018-2 L drained. Still awaiting further reports. GI specialist following. Will discuss discharge plan with GI specialist. Plan to discharge patient in 102 days if continued to improve and no further inpatient procedure is planned . (3) Atrial fibrillation Current Visit: Yes Status: Chronic Assessment and Plan: On Metoprolol and Coumadin. rate controlled. Coumadin on hold due to coagulopathy and paracentesis. Will resume after getting clearance from GI specialist if no further procedure is planned. Will also consult pharmacy to dose Coumadin. Daily PT/INR being monitored. (4) DM2 (diabetes mellitus, type 2) Current Visit: No Status: Chronic Assessment and Plan: Well controlled. Level Mr. dose was decreased 6 unit yesterday as blood glucose was running low. Continue Accu-Chek, SSI, diabetic diet. (5) LOVE on CPAP Current Visit: No Status: Chronic Assessment and Plan: Continue CPAP QHS (6) Essential hypertension Current Visit: No Status: Chronic Assessment and Plan: Better blood pressure therefore will resume lisinopril. Continue beta luis (7) CAD (coronary artery disease) Current Visit: Yes Status: Chronic Assessment and Plan: Stable. Continue home medicine (8) ICD (implantable cardioverter-defibrillator) in place Current Visit: No Status: Chronic (9) COPD exacerbation Current Visit: No Status: Acute Assessment and Plan: improved, continue current treatment. (10) Anemia Current Visit: Yes Status: Acute Assessment and Plan: Labs showed iron deficiency, recent EGD/colonoscopy showed polyps. Iron supplement continue DVT Prophylaxis: SCDs - Time Spent with Patient Total time spent is greater than 50% in coordination of care (as documented) at patient's floor/unit and/or counseling patient: 25 - 35 minutes Plan of Care Discussed with: patient Internal Medicine: Result - Labs CBC & Chem 7: 05/07/18 03:31 05/08/18 08:12 Labs: BMP 05/08/18 08:12 Sodium 136 Potassium 3.8 Chloride 93 L Carbon Dioxide 38 H BUN 34 H Creatinine 1.06 Glucose 114 H Calcium 9.3 - ABG Interpretation ABG results: PT/INR, D-dimer PT 22.0 Seconds (9.4-12.1) H 05/07/18 03:31 - Impressions Impressions Paracentesis Ultrasound 05/07/18 08:48 IMPRESSION: Successful ultrasound guided paracentesis. D/ / Emil Shea MD / Emil Shea MD Interpreting Provider: Emil Shea MD Consult Discharge Plan - Plan Referrals: [facility] [Outside] (1) Acute exacerbation of CHF (congestive heart failure) Qualifiers: Heart failure type: systolic Qualified Code(s): I50.23 - Acute on chronic systolic (congestive) heart failure (2) Ascites Qualifiers: Ascites type: other type Qualified Code(s): R18.8 - Other ascites (3) Atrial fibrillation Qualifiers: Atrial fibrillation type: chronic Qualified Code(s): I48.2 - Chronic atrial fibrillation (4) DM2 (diabetes mellitus, type 2) Qualifiers: Diabetes mellitus [facility] insulin use: unspecified [facility] insulin use status Diabetes mellitus complication status: without complication Qualified Code(s): E11.9 - Type 2 diabetes mellitus without complications (7) CAD (coronary artery disease) Qualifiers: Coronary Disease-Associated Artery/Lesion type: bypass graft [place] vs. transplanted heart: [place] heart Associated angina: without angina Qualified Code(s): I25.810 - Atherosclerosis of coronary artery bypass graft(s) without angina pectoris (10) Anemia Qualifiers: Anemia type: iron deficiency Iron deficiency anemia type: unspecified iron deficiency Qualified Code(s): D50.9 - Iron deficiency anemia, unspecified
[2018-05-08] MEDS: *HR* Morphine Sulfate SR (12 HR) 15 MG TABLET.ER PO SCH (20:09)
[2018-05-08] MEDS: Insulin DETEMIR 100 UNIT/ML X5UNITS SQ SCH (20:11)
[2018-05-09] MEDS: Ipratropium/Albuterol Neb 3 ML IH SCH ×4 (04:13→16:03)
[2018-05-09 04:44] LABS: Basophils % 0.3 %; Eosinophils # 0.2 K/mcL (0.0-0.6); Eosinophils % 2.7 %; Hematocrit 27.7 % (37.5-50.1); Hemoglobin 8.5 g/dL (12.9-16.9); Immature Granulocytes % 0.3 % (0-4); Lymphocytes % 15.3 %; Mean Corpuscular HGB Conc 30.7 g/dL (31.6-35.5); Mean Corpuscular Hemoglobin 24.2 pg (28.0-33.3); Mean Corpuscular Volume 78.9 fL (83.0-100.0); Monocytes # 0.7 K/mcL (0.0-1.3); Monocytes % 10.5 %; Neutrophils # 4.5 K/mcL (1.6-8.9); Platelet Count 165 K/mcL (140-400); Red Blood Count 3.51 M/mcL (4.19-5.50); Red Cell Distribution Width 18.4 % (11.5-14.5); Segmented Neutrophils % 70.9 %
[2018-05-09 04:45] LABS: INR 1.8
[2018-05-09 05:01] LABS: BUN/Creatinine Ratio 36 (6-26); Blood Urea Nitrogen 35 mg/dL (8-23); Calcium 9.2 mg/dL (8.6-10.3); Carbon Dioxide 38 mEq/L (23-29); Chloride 93 mEq/L (98-107); Glucose 127 mg/dL (70-105); Osmolality,Calculated 294 (280-300); Potassium 3.9 mEq/L (3.5-5.1); Sodium 137 mEq/L (136-145); eGFR For Non-African Americans > 60 (> 60)
[2018-05-09] MEDS: *HR* Heparin 5,000 UNIT/ML VIAL SQ SCH (05:44)
[2018-05-09] MEDS: Budesonide/Formoterol 160/4.5 1 PUFF INH IH SCH (07:54)
[2018-05-09] MEDS: Insulin LISPRO 300 UNITS/3 ML VIAL SQ SCH ×2 (08:51→13:20)
[2018-05-09] MEDS: Sennosides/Docusate Sodium TABLET PO SCH (08:53)
[2018-05-09] MEDS: Metoprolol XL (24 HR) Succ 50 MG TAB.ER.24H PO SCH (08:53)
[2018-05-09] MEDS: Cholecalciferol (D-3) 1,000 UNIT TABLET PO SCH (08:54)
[2018-05-09] MEDS: *HR* Morphine Sulfate SR (12 HR) 30 MG TABLET.ER PO SCH (08:54)
[2018-05-09 08:55] LABS: Basophils % 0.3 %; Eosinophils # 0.2 K/mcL (0.0-0.6); Eosinophils % 2.3 %; Hematocrit 28.2 % (37.5-50.1); Hemoglobin 8.6 g/dL (12.9-16.9); Immature Granulocytes % 0.3 % (0-4); Lymphocytes # 1.2 K/mcL (0.6-4.6); Lymphocytes % 18.2 %; Mean Corpuscular HGB Conc 30.5 g/dL (31.6-35.5); Mean Corpuscular Volume 78.8 fL (83.0-100.0); Mean Platelet Volume 10.7 fL (9.4-12.4); Monocytes # 0.6 K/mcL (0.0-1.3); Monocytes % 8.7 %; Neutrophils # 4.5 K/mcL (1.6-8.9); Platelet Count 197 K/mcL (140-400); Red Blood Count 3.58 M/mcL (4.19-5.50); Red Cell Distribution Width 18.6 % (11.5-14.5); Segmented Neutrophils % 70.2 %
[2018-05-09] MEDS: Multivit/Ca/Min/Fe/FA 1 TAB TABLET PO SCH (08:55)
[2018-05-09] MEDS: Bumetanide 1 MG/4 ML VIAL IVP SCH (08:55)
[2018-05-09] MEDS: Artificial Tears SOLN 15 ML BOTTLE BOTH EYES SCH ×2 (08:55→13:14)
--- NOTE | 2018-05-09 09:48 | Gastroenterology Progress Note ---
Date of Encounter: 05/09/18 Time of Encounter: 09:30 - Assessment and plan (1) Ascites Current Visit: Yes Status: Acute Assessment and plan: Pt presented with significant fluid in abdomen Paracentesis 05/07 demonstrates SAAG -0.3 Etiology of liver cirrhosis seen on imaging is likely cardiac cirrhosis, as a result of pt longstanding cardiac hx LFTs WNL Plan: From a GI standpoint pt is doing well and requires no further GI workup Diuretic can be increased as tolerated by pt kidney function Qualifiers: Ascites type: other type Qualified Code(s): R18.8 - Other ascites - Time Spent With Patient Total time spent is greater than 50% in coordination of care (as documented) at patient's floor/unit and/or counseling patient: less than 15 minutes - Subjective Interval history: Pleasant 67 y/o male seen and evaluated at bedside. Pt appears to be doing well and has no acute complaints. He denies fever, chills, N/V, chest pain, abdominal pain. He states that the fluid in his LE has been improving with the use of diuretics. - Constitutional Vitals: Temp Pulse Resp BP Pulse Ox 98.5 F 86 13 126/75 93 05/09/18 07:10 05/09/18 07:10 05/09/18 07:56 05/09/18 07:10 05/09/18 07:56 General appearance: Present: cooperative, A&O X 3, no acute distress, answers questions appropriately - Head Head exam: Present: normal inspection - Eye Eye exam: Present: normal appearance. Absent: scleral icterus - Neck Neck exam general surgery: Present: normal inspection - Respiratory Respiratory exam: Present: CTAB. Absent: rales, rhonchi, wheezes - Cardiovascular Cardiovascular exam: Present: RRR. Absent: diastolic murmur, gallop, rubs, systolic murmur - GI/Abdominal GI/Abdominal exam: Present: distended, firm, normal bowel sounds. Absent: mass, tenderness - Extremities Exam Extremities exam: Present: pedal edema - Neurological Exam Neurological exam: Present: alert, oriented X3 - Psychiatric Psychiatric exam: Present: normal mood - Skin Skin exam: Present: dry, intact Results - Labs CBC & Chem 7: 05/09/18 08:15 05/09/18 04:22 Labs: Last Result Calcium 9.2 mg/dL (8.6-10.3) 05/09/18 04:22 Iron 12 mcg/dL (65-175) L 05/05/18 03:52 % Saturation 4 % (20-55) L 05/05/18 03:52 Transferrin 225 mg/dL (203-362) 05/05/18 03:52 Ferritin 114 ng/mL (20-250) 05/05/18 03:52 Troponin I 0.03 ng/mL (< 0.04) 05/03/18 11:29 Vitamin B12 568 pg/mL (250-1100) 05/05/18 03:52 Peritoneal Appearance CLOUDY (Clear) 05/07/18 14:50 Peritoneal Volume 60.0 mL 05/07/18 14:50 Peritoneal RBC 0.013 M/mcL (0.000-0.002) H 05/07/18 14:50 Periton Tot Nuc Cells 351 TNC/mcL (0-300) H 05/07/18 14:50 Periton Band Neuts Test Not Performed 05/07/18 14:50 Periton Lymphocytes % 56.0 % 05/07/18 14:50 Periton Monocytes % 2.0 % 05/07/18 14:50 Periton Other Cells % 14.0 % 05/07/18 14:50 Peritoneal Tot Protein 3.5 g/dL (No Ref Range) 05/07/18 14:50 Peritoneal LDH 134 Units/L (No Ref Range) 05/07/18 14:50 Peritoneal Glucose 103 mg/dL (No Ref Range) 05/07/18 14:50 Peritoneal Amylase < 10 Units/L (No Ref Range) 05/07/18 14:50 Entire Visit Hgb 8.6 g/dL (12.9-16.9) L 05/09/18 08:15 Hct 28.2 % (37.5-50.1) L 05/09/18 08:15 PT 20.0 Seconds (9.4-12.1) H 05/09/18 04:22 Ferritin 114 ng/mL (20-250) 05/05/18 03:52 Total Bilirubin 0.8 mg/dL (0.3-1.0) 05/06/18 06:58 AST 19 Units/L (13-39) 05/06/18 06:58 ALT 10 Units/L (7-52) 05/06/18 06:58 Ceruloplasmin 35 mg/dL (17-54) 05/04/18 11:50 Lipase 3 Units/L (11-82) L 05/03/18 11:29 F-Actin IgG Antibody 11 Units (0-19) 05/04/18 11:50 - ABG ABG results: PT/INR, D-dimer PT 20.0 Seconds (9.4-12.1) H 05/09/18 04:22 Consult Discharge Plan - Plan Referrals: [facility] [Outside]
--- NOTE | 2018-05-09 10:53 | Discharge Summary ---
- NOTES TO OUTPATIENT PROVIDER Notes to Outpatient Provider: Follow-up with PCP at OR within 3-5 days- adjustment of diuretic dose, blood pressure and further cirrhosis management, follow INR. Follow with cardiology in 7-10 days. Follow with GI specialists in 2 weeks. Daily weight, strict I&O's Orders not resulted at time of discharge: Pending orders 05/04/18 10:06 PLASMA [BBK] Stat Type and Screen [BBK] Routine 05/04/18 11:51 [id number] Routine Date of Encounter: 05/09/18 Time of Encounter: 15:02 - Discharge Diagnosis (1) Acute exacerbation of CHF (congestive heart failure) Priority: Primary Status: Acute Assessment and Plan: Decompensated CHF-systolic heart failure. Echo done in 02/14/2018 EF 35%, LVH, segmental left ventricular systolic dysfunction, mildly dilated and hypokinetic right ventricle with no pulmonary hypertension. Consulted rubber tubing backer who advise to continue diuresis with a strict I&O's, fluid restriction to 1500 mL per day, cardiac diet. Patient has been under care of rubber tubing backer Dr. Ellington. Patient is improving significantly therefore will discharge patient on oral diuretic Lasix 80 mg by mouth twice a day as advised by cardiology. Discussed discharge plan with rubber tubing backer who is okay to discharge from cardiac standpoint with follow-up appointment with Dr. Ford in 1-2 week. . Increased dose of Aldactone 100 mg by mouth daily and continue beta luis, CORETTA inhibitor. Qualifiers: Heart failure type: systolic Qualified Code(s): I50.23 - Acute on chronic systolic (congestive) heart failure (2) Ascites Priority: Primary Status: Acute Assessment and Plan: Newly diagnosed liver cirrhosis therefore GI consulted for further workup and underlying etiology. No history of alcohol abuse. INR trended down after giving FFP and putting Coumadin on hold for the procedure. Paracentesis diagnostic and therapeutic was done on 05/07/2018-2 L drained. No further procedure is planned by GI specialist therefore Coumadin started as per pharmacy advice. Follow INR with PCP .Patient will follow GI specialist on OPD basis in 2-4 weeks . Qualifiers: Ascites type: other type Qualified Code(s): R18.8 - Other ascites (3) Atrial fibrillation Priority: Secondary Status: Chronic Assessment and Plan: Continue home dose of metoprolol and Coumadin. INR monitoring as per PCP Qualifiers: Atrial fibrillation type: chronic Qualified Code(s): I48.2 - Chronic atrial fibrillation (4) DM2 (diabetes mellitus, type 2) Priority: Secondary Status: Chronic Assessment and Plan: Well controlled. Will discharge patient on Levemir 6 units and further diabetes management as per PCP. 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 Continue home medicine (7) CAD (coronary artery disease) Priority: Secondary Status: Chronic Assessment and Plan: Stable. Continue home medicine Qualifiers: Coronary Disease-Associated Artery/Lesion type: bypass graft [place] vs. transplanted heart: [place] heart Associated angina: without angina Qualified Code(s): I25.810 - Atherosclerosis of coronary artery bypass graft(s) without angina pectoris (8) ICD (implantable cardioverter-defibrillator) in place Priority: Secondary Status: Chronic (9) COPD exacerbation Priority: Primary Status: Acute Assessment and Plan: Stable. Continue home medicine (10) Anemia Priority: Secondary Status: Acute Assessment and Plan: Labs showed iron deficiency, recent EGD/colonoscopy showed polyps. Iron supplement continue. Follow with PCP Qualifiers: Anemia type: iron deficiency Iron deficiency anemia type: unspecified iron deficiency Qualified Code(s): D50.9 - Iron deficiency anemia, unspecified Hospital course: Mr. Rudd is a 67 year old male patient got admitted for worsening shortness of breath and volume overload. Got treated for CHF exacerbation, COPD exacerbation and newly diagnosed liver cirrhosis with ascites. Cardiology and GI specialist was consulted. Please see details in diagnosis section of discharge summary. His shortness of breath has improved significantly after therapeutic paracentesis and IV diuretics. Increase dose of Aldactone 100 mg daily and will discharge patient on Lasix 80 mg by mouth twice a day as advised by cardiology. Discussed the discharge plan with cardiology and GI specialist-okay to discharge home with follow-up in the office. At the time of discharge patient is hemodynamically stable back to home oxygen requirement, ambulating well, tolerating oral diet. Discharge discussed with: patient, family, nurse, case management, oracle distribution consultant - Time Spent with Patient Total time spent providing and/or coordinating discharge services: Greater than 30 minutes - Discharge Medications Home Medications: Budesonide/Formoterol 160/4.5 [Symbicort 160/4.5] 2 puff IH BID 09/25/15 [Hi story] Warfarin [Coumadin] 5 mg PO SUMOWETHSA 06/10/16 [History] Ipratropium/Albuterol Neb [Duoneb] 3 ml IH Q6H PRN 10/05/16 [History] Morphine Sulfate [Arymo ER] 15 mg PO HS 10/15/16 [History] Morphine Sulfate [Arymo ER] 30 mg PO BID 09/02/17 [History] Allopurinol [Zyloprim 300 MG] 300 mg PO HS 02/13/18 [History] Ferrous Sulfate [Iron] 325 mg PO DAILY 02/13/18 [History] Metoprolol Succinate [Toprol Xl] 150 mg PO DAILY 02/13/18 [History] Omeprazole [PriLOSEC] 20 mg PO DAILY 02/13/18 [History] Oxygen 1 - 2 l IH DAILY 02/13/18 [History] Rosuvastatin [Crestor] 10 mg PO HS 02/13/18 [History] Sennosides/Docusate Sodium [Colace 2-in-1 Tablet] 1 tab PO BID 02/13/18 [History] Warfarin Sodium 2.5 mg PO TUFR 02/13/18 [History] Cyanocobalamin (Vitamin B-12) [Vitamin B-12] 100 mcg PO QID 05/03/18 [History] Multivitamin [One Daily Essential] 1 tab PO DAILY 05/03/18 [History] Polyethylene Glycol 3350 [MiraLax bowel prep] 17 g PO DAILY PRN 05/03/18 [History] Propylene Glycol/Peg 400 [Kro Lubricating Rlf 0.3-0.4%] 10 ml BOTH EYES QID 05/03/18 [History] Roflumilast [Daliresp] 500 mg PO DAILY 05/03/18 [History] Furosemide [Lasix] 80 mg PO BIDDIURETIC #120 tablet 05/09/18 [Rx] Insulin DETEMIR [Levemir] 6 unit SQ HS #1 g5ovmog 05/09/18 [Rx] Lisinopril [Zestril] 5 mg PO DAILY #30 tablet 05/09/18 [Rx] Spironolactone [Aldactone] 100 mg PO DAILY #30 tablet 05/09/18 [Rx] Allergies/Adverse Reactions: Allergy/AdvReac Type Severity Reaction Status Date / Time No Known Allergies Allergy Verified 02/13/18 18:10 Date of admission: 05/03/18 17:50 Primary care physician: [facility] Consults: 05/03/18 12:58 Consult to Gastroenterology [CONS] Stat Consulting Provider: Gastroenterology Heather Reason for Consult: liver cirrhosis, concern for stricture or mass Time Notified: 12:59 Call Completed: Yes 05/03/18 16:16 Consult to Interventional Radiology [CONS] Stat Consulting Provider: Radiology Interventional Cols Reason for Consult: Ascities possible tap Time Notified: 16:16 Call Completed: No 05/07/18 15:25 Consult to Cardiology [CONS] Routine Comment: Consulting Provider: Cardiology Heather Reason for Consult: CHF exacerbation with liver cirrhosis, status post ICD Call Completed: Yes - Constitutional Vitals: Temp Pulse Resp BP Pulse Ox 98.2 F 82 14 134/76 96 05/09/18 10:44 05/09/18 10:44 05/09/18 10:44 05/09/18 10:44 05/09/18 10:44 General appearance: Present: cooperative, A&O X 3, pleasant, answers questions appropriately Exam: General appearance: No acute distress, A&O X 3. 2 L oxygen by nasal cannula as he take at home Eye exam: EOMI, PERRLA ENT exam: Moist oral mucosa Neck nontender, supple Respiratory exam: Bibasilar crepitation -improving significantly Cardiovascular exam: Regular rate and rhythm, no systolic murmur Abdominal exam: Soft, nontender, ascites-a lot better, positive bowel sounds Extremities exam: No calf tenderness, +2 pedal edema bilateral Present-patient also has chronic pedal edema Skin- warm, dry, intact Neurological exam: CN II-XII intact, no focal deficits. No facial droop. Normal speech. Motor 5 x 5 in all 4 extremities and normal gait - Patient Status Disposition: Home, Self-Care Condition: Fair Overall status at discharge: patient is progressing back to baseline - Discharge Instructions Follow Up With: [facility] [Outside] - Diet and Activity Activity: increase activity as tolerated Diet: diabetic diet, low fat, low cholesterol, low salt diet
[2018-05-09 14:41] VITALS: BP 127/74
[2018-05-09] MEDS ORDERED: Furosemide 40 MG TABLET PO SCH (17:00)
[2018-05-09] MEDS ORDERED: *HR* Warfarin 5 MG TABLET PO SCH (18:00)
[2018-05-11] MEDS ORDERED: *HR* Warfarin 5 MG TABLET PO SCH (18:00)
== END 2018-05-09 16:50 | disposition home or self-care (01) | DRG 432 ==
LOC: 3ANU 10:42 → EMEROOARM 10:42 → 3ANU 14:41
PROVIDERS: ADMIT Internal Medicine Cardiovascular Disease; ATTEND Internal Medicine Cardiovascular Disease

== ENCOUNTER 2018-10-07 10:21 | Observation (INO) ==
[2018-10-07] MEDS ORDERED: Ipratropium/Albuterol Neb 3 ML IH ONE ×2 (10:54→14:47)
[2018-10-07 11:44] LABS: Basophils % 0.3 %; Eosinophils % 0.2 %; Hematocrit 35.8 % (37.5-50.1); Hemoglobin 11.5 g/dL (12.9-16.9); Immature Granulocytes % 0.2 % (0-4); Lymphocytes # 0.8 K/mcL (0.6-4.6); Lymphocytes % 8.5 %; Mean Corpuscular HGB Conc 32.1 g/dL (31.6-35.5); Mean Corpuscular Hemoglobin 29.8 pg (28.0-33.3); Mean Corpuscular Volume 92.7 fL (83.0-100.0); Monocytes # 1.1 K/mcL (0.0-1.3); Monocytes % 11.3 %; Neutrophils # 7.7 K/mcL (1.6-8.9); Platelet Count 192 K/mcL (140-400); Red Blood Count 3.86 M/mcL (4.19-5.50); Red Cell Distribution Width 15.9 % (11.5-14.5); Segmented Neutrophils % 79.5 %
--- NOTE | 2018-10-07 12:02 | Emergency Department Note ---
Disposition Clinical Impression: Acute exacerbation of CHF (congestive heart failure) Qualifiers: Heart failure type: unspecified Qualified Code(s): I50.9 - Heart failure, unspecified Disposition: Admitted As Inpatient Condition: Fair [facility]: [facility]Primary Care Provider[facility] - Forms: ED Satisfaction Letter Time of Disposition: 15:02 SOB HPI - General Chief Complaint: ED Shortness of Breath/Dyspnea Stated Complaint: DUSTIN,cough Time Seen by Provider: 10/07/18 10:32 Source: patient Mode of arrival: private vehicle Limitations: no limitations Nursing Notes Reviewed: Yes Vital Signs Reviewed: Yes - History of Present Illness Patient is a 68-year-old male with a past medical history of CHF and COPD he quit smoking several decades ago who is coming to the department today with increased shortness of breath that started this morning. Patient states that he exercises every day and considers that he is in generally good health, however he notes that he has had increased sputum production as well as increased swelling in his legs. Patient is denying fevers or chills. But states that he never really has sputum production and so when he has some is always an increased. Patient states that he has when necessary oxygen at home that he only uses when he feels that he really needs it. However patient has been requiring the oxygen whenever he gets up and walks around as he states that he is exertionally dyspneic. Patient also has multiple different inhalers that he uses at home, he has not been using them more frequently, however he states that he subjectively feels more short of breath. Patient does maintain a record of his saturation while at home and he states that while the saturation itself has not changed he re-iterates that he subjectively feels more short of breath. - Related Data Home Medications Medication Instructions Recorded Confirmed Budesonide/Formoterol 160/4.5 2 puff IH BID 09/25/15 05/03/18 [Symbicort 160/4.5] Warfarin [Coumadin] 5 mg PO SUMOWETHSA 06/10/16 05/03/18 Ipratropium/Albuterol Neb [Duoneb] 3 ml IH Q6H PRN 10/05/16 05/03/18 Morphine Sulfate [Arymo ER] 15 mg PO HS 10/15/16 05/03/18 Morphine Sulfate [Arymo ER] 30 mg PO BID 09/02/17 05/03/18 Allopurinol [Zyloprim 300 MG] 300 mg PO HS 02/13/18 05/03/18 Ferrous Sulfate [Iron] 325 mg PO DAILY 02/13/18 05/03/18 Metoprolol Succinate [Toprol Xl] 150 mg PO DAILY 02/13/18 05/03/18 Omeprazole [PriLOSEC] 20 mg PO DAILY 02/13/18 05/03/18 Oxygen 1 - 2 l IH DAILY 02/13/18 05/03/18 Rosuvastatin [Crestor] 10 mg PO HS 02/13/18 05/03/18 Sennosides/Docusate Sodium [Colace 1 tab PO BID 02/13/18 05/03/18 2-in-1 Tablet] Warfarin Sodium 2.5 mg PO TUFR 02/13/18 05/03/18 Cyanocobalamin (Vitamin B-12) 100 mcg PO QID 05/03/18 05/03/18 [Vitamin B-12] Multivitamin [One Daily Essential] 1 tab PO DAILY 05/03/18 05/03/18 Polyethylene Glycol 3350 [MiraLax 17 g PO DAILY PRN 05/03/18 05/03/18 bowel prep] Propylene Glycol/Peg 400 [Kro 10 ml BOTH EYES QID 05/03/18 05/03/18 Lubricating Rlf 0.3-0.4%] Roflumilast [Daliresp] 500 mg PO DAILY 05/03/18 05/03/18 Previous Rx's Medication Instructions Recorded Furosemide [Lasix] 80 mg PO BIDDIURETIC #120 tablet 05/09/18 Insulin DETEMIR [Levemir] 6 unit SQ HS #1 [id number] 05/09/18 Lisinopril [Zestril] 5 mg PO DAILY #30 tablet 05/09/18 Spironolactone [Aldactone] 100 mg PO DAILY #30 tablet 05/09/18 Allergies Allergy/AdvReac Type Severity Reaction Status Date / Time No Known Allergies Allergy Verified 02/13/18 18:10 Review of Systems: All systems ED: reviewed and negative except as stated. Constitutional: Denies: fever, chills ENT ED: Denies: ear pain, throat pain Cardiovascular: Denies: chest pain, palpitations Reports: Increased leg swelling Respiratory: Reports: cough, dyspnea, increased sputum production Gastrointestinal: Denies: abdominal pain, nausea, vomiting, diarrhea, constipation Genitourinary: Denies: urgency, dysuria, frequency Musculoskeletal: Denies: back pain, neck pain Integumentary: Denies: rash, abrasion Neurological: Denies: headache, weakness, numbness, paresthesias Psychiatric: Denies: anxiety, depression Endocrine: Denies: fatigue, heat or cold intolerance Hematological/Lymphatic: Denies: easy bleeding, easy bruising Allergic/Immunologic: Denies: facial swelling, urticaria Past Medical History - Past Medical History Attestation: Yes The following information was validated with the patient. Medical history: Reports: arthritis, atrial fibrillation, cardiomyopathy, COPD, coronary artery disease, diabetes, hyperlipidemia, hypertension, myocardial infarction, venous stasis Surgical history: Reports: cataract, cholecystectomy, coronary bypass (CABG), pacemaker/AICD Psychiatric history: Reports: no psych history - Social History Smoking Status: Former smoker Smokeless Tobacco Status: No Alcohol use: Reports: none Drug use: Reports: none Physical Exam General: A&O x 3. No acute distress. Well developed, well nourished. Head: atraumatic, normocephalic. ENT: No conjunctival injection, no scleral icterus. PERRLA. EOMI. Oropharynx non- erythematous. mucous membranes moist. Neuro: No focal deficits, no speech deficit, no facial droop, mentating well. BUE/BLE Str 5/5. Pulm: Mild diffuse wheezes present. Cardio: RRR no m/r/g. Chest not tender to palpation. Abd: Soft, non-distended. Normoactive bowel sounds. Non-tender to palpation. No guarding. Non rigid. Extremities: Radial pulses 2+ dread. Dread LE with severe venous stasis ulcers, multiple areas of flaking skin, multiple areas of skin erythema, 2+ pitting edema bilateral lower extremities. Skin: WIth the exception of legs, skin is warm, dry, intact. Psych: Appropriate mood and affect. Answers questions appropriately. Cooperative with exam. - General Limitations: no limitations General appearance: alert, in no apparent distress Course Course Narrative: Ddx includes but is not limited to: COPD exacerbation, CHF exacerbation, PNA Workup will include: CBC, BMP, BNP, CXR, ekg, 3 Duonebs, steroids, IV Abx. Vital Signs Temperature 98.3 F 05/05/19 10:35 Pulse Rate 81 10/07/18 10:35 Respiratory Rate 18 10/07/18 10:35 Blood Pressure 129/65 10/07/18 10:35 O2 Sat by Pulse Oximetry 92 10/07/18 10:35 Temperature 98.3 F 10/07/18 10:35 Pulse Rate 83 10/07/18 14:26 Respiratory Rate 20 10/07/18 14:26 Blood Pressure 126/72 10/07/18 14:26 O2 Sat by Pulse Oximetry 98 10/07/18 14:26 Oxygen Delivery Oxygen Delivery Nasal Cannula Shortness of Breath/Dyspnea - MDM Narrative Medical decision making narrative: Patient's chest x-ray was concerning for right lower lobe pneumonitis or pneumonia as well as mild congestive heart failure exacerbation. Additionally patient's symptoms are concerning for COPD exacerbation so patient was covered with appropriate antibiotics while in the emergency department, treated with 3 D uoNeb's, 125 of Solu-Medrol. Patient was admitted to the hospitalist, Dr. Fields who agreed to accept the patient to her service. Patient was given an opportunity to ask questions at bedside and all of their concerns were addressed. Patient verbalized understanding and agreement with plan of care. Pt remained stable while in the department. - Medical Records Medical records reviewed: Yes I reviewed the patient's medical records. - Lab Data Lab results reviewed: Yes I reviewed the patient's lab results. Result diagrams: 10/07/18 11:23 10/07/18 11:23 Lab Results 10/07/18 10/07/18 10/07/18 Range/Units 11:23 11:23 11:23 WBC 9.7 (4.3-11.1) K/mcL RBC 3.86 L (4.19-5.50) M/mcL Hgb 11.5 L (12.9-16.9) g/dL Hct 35.8 L (37.5-50.1) % MCV 92.7 (83.0-100.0) fL MCH 29.8 (28.0-33.3) pg MCHC 32.1 (31.6-35.5) g/dL RDW 15.9 H (11.5-14.5) % Plt Count 192 (140-400) K/mcL MPV 10.0 (9.4-12.4) fL Immature Gran % 0.2 (0-4) % Seg Neutrophils % 79.5 % Lymphocytes % 8.5 % Monocytes % 11.3 % Eosinophils % 0.2 % Basophils % 0.3 % Neutrophils # 7.7 (1.6-8.9) K/mcL Lymphocytes # 0.8 (0.6-4.6) K/mcL Monocytes # 1.1 (0.0-1.3) K/mcL Eosinophils # 0.0 (0.0-0.6) K/mcL Basophils # 0.0 (0.0-0.2) K/mcL Sodium 135 L (136-145) mEq/L Potassium 4.3 (3.5-5.1) mEq/L Chloride 98 (98-107) mEq/L Carbon Dioxide 30 H (23-29) mEq/L BUN 22 (8-23) mg/dL Creatinine 0.96 (0.70-1.30) mg/dL Est GFR ( Amer) > 60 (> 60) Est GFR (Non-Af Amer) > 60 (> 60) BUN/Creatinine Ratio 23 (6-26) Glucose 114 H (70-105) mg/dL Calculated Osmolality 284 (280-300) Lactic Acid 0.9 (0.5-2.2) mmol/L Calcium 9.0 (8.6-10.3) mg/dL Troponin I 0.05 H* (< 0.04) ng/mL B-Natriuretic Peptide (Less than 100) pg/mL 10/07/18 10/07/18 Range/Units 11:23 14:05 WBC (4.3-11.1) K/mcL RBC (4.19-5.50) M/mcL Hgb (12.9-16.9) g/dL Hct (37.5-50.1) % MCV (83.0-100.0) fL MCH (28.0-33.3) pg MCHC (31.6-35.5) g/dL RDW (11.5-14.5) % Plt Count (140-400) K/mcL MPV (9.4-12.4) fL Immature Gran % (0-4) % Seg Neutrophils % % Lymphocytes % % Monocytes % % Eosinophils % % Basophils % % Neutrophils # (1.6-8.9) K/mcL Lymphocytes # (0.6-4.6) K/mcL Monocytes # (0.0-1.3) K/mcL Eosinophils # (0.0-0.6) K/mcL Basophils # (0.0-0.2) K/mcL Sodium (136-145) mEq/L Potassium (3.5-5.1) mEq/L Chloride (98-107) mEq/L Carbon Dioxide (23-29) mEq/L BUN (8-23) mg/dL Creatinine (0.70-1.30) mg/dL Est GFR ( Amer) (> 60) Est GFR (Non-Af Amer) (> 60) BUN/Creatinine Ratio (6-26) Glucose (70-105) mg/dL Calculated Osmolality (280-300) Lactic Acid 1.0 (0.5-2.2) mmol/L Calcium (8.6-10.3) mg/dL Troponin I (< 0.04) ng/mL B-Natriuretic Peptide 501 H (Less than 100) pg/mL - Radiology Data Radiology results reviewed: Yes I reviewed the patient's radiology results. Chest X-Ray 10/07/18 10:54 IMPRESSION: 1. Findings typical of mild congestive heart failure. Pneumonitis right lung base is a consideration as well. 2. Calcific atherosclerosis aorta. 3. Cardiomegaly. D/ / Rian Kee / Rian Kee Interpreting Provider: Rian Kee - EKG Data EKG attestation: Yes I reviewed and interpreted this EKG. EKG results narrative: HR 81, rhythm paced, axis extreme right. QRS 171 and prolonged. QTC 540 and prolonged. No Sgarbossa criteria met for clinically significant ST elevation or depression in concordance or discordance with paced rhythm. EKG largely unchanged from previous study on 05/03/18. Critical Care Time Critical Care Time: Yes Total Critical Care Time: 35 Attestation: Critical care time 35 minutes managing patient's CHF with IV Lasix. Attestation Statement - Attestation Attestation: Patient was seen with resident physician. I reviewed the history, physical, assessment and plan, and agree with the findings. I also personally evaluated this patient and had [id number] time with this patient. 68-year-old male presents emergency Department chief complaint of short of breath. Patient notes that he said increasing shortness of breath for last couple days. He also says he has had increased cough with sputum production. He brought in a sample to share with us. Patient notes that he is not had any fevers or chills. Denies chest pain. No nausea vomiting or diarrhea. Patient does have some confusion about his medications. He says the computer system says he is on a much higher dose than is taking at home. He is not sure with correlation with that is in his potential symptoms. He is of his history of CHF and COPD. Review of systems as above remainder negative. Physical exam vital signs are stable. ENT is unremarkable. Heart regular rhythm and rate. Lungs mostly clear possibly some mild crackles heard. No wheezing or substantial increased work of breathing. Abdomen is soft and nontender. Extremities unremarkable. Neurologically intact. Skin no rashes. Psych normal. ED course. Chest x-ray revealed what appeared to be worsening CHF with possible pneumonitis as well. Patient will be started on IV antibiotics, and IV Lasix. We will be admitting to the hospitalist service for further evaluation treatment. Hemodynamically he was stable while in the emergency department. Critical care time 35 minutes. I agree with the resident physician assessment and plan.
[2018-10-07 12:05] LABS: BUN/Creatinine Ratio 23 (6-26); Blood Urea Nitrogen 22 mg/dL (8-23); Carbon Dioxide 30 mEq/L (23-29); Chloride 98 mEq/L (98-107); Glucose 114 mg/dL (70-105); Osmolality,Calculated 284 (280-300); Potassium 4.3 mEq/L (3.5-5.1); Sodium 135 mEq/L (136-145); eGFR For Non-African Americans > 60 (> 60)
[2018-10-07 12:10] LABS: Troponin I 0.05 ng/mL (< 0.04)
[2018-10-07] MEDS ORDERED: cefTRIAXone 2,000 MG in Water for inj. (sterile) 20 ML 20 ML IVP ONE (14:00)
[2018-10-07] MEDS ORDERED: Azithromycin 500 MG in D5% in Water 250 ML IVPB ONE (14:00)
[2018-10-07] MEDS ORDERED: methylPREDNISolone 125 MG/2 ML VIAL IVP ONE (14:47)
[2018-10-07] MEDS ORDERED: Ondansetron 4 MG/2 ML VIAL IVP PRN (15:04)
[2018-10-07] MEDS ORDERED: Naloxone 0.4 MG/ML INJ IVP PRN (15:04)
--- NOTE | 2018-10-07 15:28 | Internal Med History&Physical ---
Date of Encounter: 10/07/18 Time of Encounter: 15:00 Internal Medicine - H&P: HPI Chief complaint: Shortness of breath Admitted From: Home History of present illness: Mr. Rudd is a 68 year old male with history of HFrEF status post AICD, COPD on PRN O2, atrial fibrillation on Coumadin, CAD status post CABG, hypertension, ?cardiac cirrhosis, presented to the ED with 2 day history of shortness of breath. Associated with cough and sputum production. Denies any fever/chills, chest pain, palpitation, orthopnea, PND, or worsening leg swelling. No sick contacts. Claims compliance to Lasix and dietary restriction. States that, although his O2 saturation did not drop below 92%, he had to put the oxygen on for his own comfort. No GI/ symptoms. In the ED, he was afebrile and hemodynamically stable. Labwork showed normal white blood cell count, Cr 0.96. normal lactic acid, troponin 0.05, BNP 501 (lower than the last 2 values). EKG shows atrial paced rhythm without concordant STT changes. He was given IV Rocephin/azithromycin, Solu-Medrol, bronchodilators, and admitted for further management. States that he feels much better after being given DuoNeb. Past Med Surg Social Fam HX - Past Medical History Medical history: arthritis, atrial fibrillation, cardiomyopathy, COPD, coronary artery disease, hyperlipidemia, hypertension, myocardial infarction, venous s tasis Additional medical history: OBESITY, DDD, OA, GOUT, FX ANKLE, SLEEP APNEA Psychiatric history: no psych history - Past Surgical History Surgical History: cataract, cholecystectomy, coronary bypass (CABG), pacemaker/AICD Additional surgical history: CARDIAC ABLATIONS, HEART CATH, LOOP RECORDER IMPLANT - Social History Smoking Status: Former smoker Smokeless Tobacco Status: No Alcohol use: none Drug use: none - Family History Mother Living Status: Hx Family Cardiac Disorders: Yes (heart disease) Hx Family Endocrine Disorder: Yes (DM) Father Living Status: Hx Family Cardiac Disorders: Yes (heart disease) Sister Hx Family Cancer: Yes (stomach cancer) Internal Medicine - H&P: Meds Budesonide/Formoterol 160/4.5 [Symbicort 160/4.5] 2 puff IH BID 09/25/15 [History] Warfarin [Coumadin] 5 mg PO SUMOWETHSA 06/10/16 [History] Ipratropium/Albuterol Neb [Duoneb] 3 ml IH Q6H PRN 10/05/16 [History] Morphine Sulfate [Arymo ER] 15 mg PO HS 10/15/16 [History] Morphine Sulfate [Arymo ER] 30 mg PO BID 09/02/17 [History] Allopurinol [Zyloprim 300 MG] 300 mg PO HS 02/13/18 [History] Ferrous Sulfate [Iron] 325 mg PO DAILY 02/13/18 [History] Metoprolol Succinate [Toprol Xl] 150 mg PO DAILY 02/13/18 [History] Omeprazole [PriLOSEC] 20 mg PO DAILY 02/13/18 [History] Oxygen 1 - 2 l IH DAILY 02/13/18 [History] Rosuvastatin [Crestor] 10 mg PO HS 02/13/18 [History] Sennosides/Docusate Sodium [Colace 2-in-1 Tablet] 1 tab PO BID 02/13/18 [History] Warfarin Sodium 2.5 mg PO TUFR 02/13/18 [History] Cyanocobalamin (Vitamin B-12) [Vitamin B-12] 100 mcg PO QID 05/03/18 [History] Multivitamin [One Daily Essential] 1 tab PO DAILY 05/03/18 [History] Polyethylene Glycol 3350 [MiraLax bowel prep] 17 g PO DAILY PRN 05/03/18 [His tory] Propylene Glycol/Peg 400 [Kro Lubricating Rlf 0.3-0.4%] 10 ml BOTH EYES QID 05/03/18 [History] Roflumilast [Daliresp] 500 mg PO DAILY 05/03/18 [History] Furosemide [Lasix] 80 mg PO BIDDIURETIC #120 tablet 05/09/18 [Rx] Insulin DETEMIR [Levemir] 6 unit SQ HS #1 [id number] 05/09/18 [Rx] Lisinopril [Zestril] 5 mg PO DAILY #30 tablet 05/09/18 [Rx] Spironolactone [Aldactone] 100 mg PO DAILY #30 tablet 05/09/18 [Rx] Allergy/AdvReac Type Severity Reaction Status Date / Time No Known Allergies Allergy Verified 02/13/18 18:10 All Systems PM: A 10-system review of systems was performed and is negative for pertinent findings except as documented above in the HPI. - Constitutional Vitals: Temp Pulse Resp BP Pulse Ox 98.3 F 83 20 126/72 98 10/07/18 10:35 10/07/18 14:26 10/07/18 14:26 10/07/18 14:26 10/07/18 14:26 Exam: General: Alert and oriented, mild respiratory distress. HEENT:EOMI, pupils equal, round and reactive. Cardiovascular:Normal S1 & S2, No JVD. Pulse regular. Lungs: Scattered bilateral end-expiratory wheezes Abdomen:Soft, non-tender, no rigidity. Extremities: Changes on the LEs consistent with chronic venous stasis Neurological:Normal cognition and motor skills. Non-focal Skin: No other lesions noted Pulses:Carotid and radial pulses normal +2. Rest of the physical exam is non contributory Internal Med - H&P Results - Labs CBC & Chem 7: 10/07/18 11:23 10/07/18 11:23 Labs: Short CBC 10/07/18 Range/Units 11:23 WBC 9.7 (4.3-11.1) K/mcL Hgb 11.5 L (12.9-16.9) g/dL Hct 35.8 L (37.5-50.1) % Plt Count 192 (140-400) K/mcL Neutrophils # 7.7 (1.6-8.9) K/mcL BMP 10/07/18 11:23 Sodium 135 L Potassium 4.3 Chloride 98 Carbon Dioxide 30 H BUN 22 Creatinine 0.96 Glucose 114 H Calcium 9.0 Cardiac Enzymes 10/07/18 Range/Units 11:23 Troponin I 0.05 H* (< 0.04) ng/mL - Impressions ITS Impressions Chest X-Ray 10/07/18 10:54 IMPRESSION: 1. Findings typical of mild congestive heart failure. Pneumonitis right lung base is a consideration as well. 2. Calcific atherosclerosis aorta. 3. Cardiomegaly. D/ / Rian Kee / Rian Kee Interpreting Provider: Rian Kee - Assessment and Plan (1) Acute exacerbation of chronic obstructive airways disease Current Visit: Yes Status: Acute Assessment and plan: Presented with 2 day history of shortness of breath associated with productive cough CXR did not show arpita consolidation. No fever or leukocytosis. Although XR is reported to show vascular engorgement and cephalization, BNP is lower than his usual values and his presentation is more consistent with COPD exacerbation than decompensated heart failure reports symptomatic improvement after being started on IV Rocephin/azithromycin, steroid, and bronchodilators will continue azithromycin, solumedrol, and scheduled duoneb check respiratory viral panel (2) CHF (congestive heart failure) Current Visit: Yes Status: Chronic Assessment and plan: Known history of heart failure with reduced EF status post AICD Last echocardiogram done in 02/2018 showed EF of 35% Although chest x-ray is reported to show vascular engorgement and cephalization, his presentation is more consistent with AECOPD will resume home dose of lasix for now and monitor Qualifiers: Heart failure type: systolic Heart failure chronicity: chronic Qualified Code(s): I50.22 - Chronic systolic (congestive) heart failure (3) Elevated troponin Current Visit: Yes Status: Acute Assessment and plan: 0.05 in the setting of COPD exacerbation. No anginal symptoms nor concerning findings on EKG trend troponin, telemetry (4) Atrial fibrillation Current Visit: Yes Status: Chronic Assessment and plan: On Coumadin at home, last INR check was 2.8 on Monday reportedly check PT/INR and resume Coumadin, pharmacy to dose Qualifiers: Atrial fibrillation type: chronic Qualified Code(s): I48.2 - Chronic atrial fibrillation (5) CAD (coronary artery disease) Current Visit: No Status: Chronic Assessment and plan: Resume home meds once reconciled Qualifiers: Coronary Disease-Associated Artery/Lesion type: bypass graft [place] vs. transplanted heart: eek heart Associated angina: without angina Qualified Code(s): I25.810 - Atherosclerosis of coronary artery bypass graft(s) without angina pectoris (6) Essential hypertension Current Visit: No Status: Chronic Assessment and plan: Resume home meds once reconciled (7) DVT prophylaxis Current Visit: No Status: Acute Assessment and plan: on Coumadin - Time Spent With Patient Total time spent is greater than 50% in coordination of care (as documented) at patient's floor/unit and/or counseling patient: Greater than 35 minutes
[2018-10-07 16:17] LABS: INR 3.3; Prothrombin Time 37.5 Seconds (9.4-12.1)
[2018-10-07] MEDS: Ipratropium/Albuterol Neb 3 ML IH SCH ×2 (17:35→19:43)
[2018-10-07] MEDS ORDERED: *HR* Warfarin 2.5 MG TABLET PO ONE (18:00)
[2018-10-07] MEDS ORDERED: Warfarin perPT PO PRN (18:00)
[2018-10-07] MEDS: Furosemide 40 MG TABLET PO SCH (18:14)
[2018-10-07] MEDS: *HR* Morphine Sulfate SR (12 HR) 30 MG TABLET.ER PO SCH (18:18)
[2018-10-07 19:40] LABS: Adenovirus Not Detected (Not Detect); Bordetella Pertussis Not Detected (Not Detect); Chlamydophila pneumoniae Not Detected (Not Detect); Coronavirus 229E Not Detected (Not Detect); Coronavirus HKU1 Not Detected (Not Detect); Coronavirus NL63 Not Detected (Not Detect); Coronavirus OC43 Not Detected (Not Detect); Human Metapneumovirus Not Detected (Not Detect); Human Rhinovirus/Enterovirus Not Detected (Not Detect); Influenza A Subtype 2009 H1 Not Detected (Not Detect); Influenza A Untypeable Not Detected (Not Detect); Influenza B Not Detected (Not Detect); Mycoplasma pneumoniae Not Detected (Not Detect); Parainfluenza Virus 1 Not Detected (Not Detect); Parainfluenza Virus 2 Not Detected (Not Detect); Parainfluenza Virus 3 Not Detected (Not Detect); Parainfluenza Virus 4 Not Detected (Not Detect); Respiratory Syncytial Virus Not Detected (Not Detect)
[2018-10-07] MEDS ORDERED: *HR* Morphine Sulfate SR (12 HR) 15 MG TABLET.ER PO SCH (21:00)
[2018-10-08] MEDS: Ipratropium/Albuterol Neb 3 ML IH SCH ×4 (00:12→11:32)
[2018-10-08 05:29] LABS: Hematocrit 36.9 % (37.5-50.1); Hemoglobin 11.5 g/dL (12.9-16.9); Mean Corpuscular HGB Conc 31.2 g/dL (31.6-35.5); Mean Corpuscular Hemoglobin 29.4 pg (28.0-33.3); Mean Corpuscular Volume 94.4 fL (83.0-100.0); Mean Platelet Volume 10.4 fL (9.4-12.4); Platelet Count 171 K/mcL (140-400); Red Blood Count 3.91 M/mcL (4.19-5.50); Red Cell Distribution Width 15.9 % (11.5-14.5)
[2018-10-08 05:49] LABS: BUN/Creatinine Ratio 24 (6-26); Blood Urea Nitrogen 27 mg/dL (8-23); Calcium 9.3 mg/dL (8.6-10.3); Carbon Dioxide 33 mEq/L (23-29); Chloride 96 mEq/L (98-107); Glucose 169 mg/dL (70-105); Osmolality,Calculated 293 (280-300); Potassium 4.1 mEq/L (3.5-5.1); Sodium 137 mEq/L (136-145); eGFR For Non-African Americans > 60 (> 60)
[2018-10-08] MEDS: *HR* Morphine Sulfate SR (12 HR) 30 MG TABLET.ER PO SCH (06:17)
[2018-10-08] MEDS ORDERED: MethylPREDNISolone 40 MG/ML VIAL IVP SCH (08:00)
[2018-10-08] MEDS: Furosemide 40 MG TABLET PO SCH (08:24)
[2018-10-08] MEDS ORDERED: Azithromycin 500 MG in D5% in Water 250 ML IVPB SCH (09:00)
--- NOTE | 2018-10-08 09:55 | Electrocardiograph Report ---
[place] [id number] Test Date: 2018-10-07 Pat Name: Junaid Rudd Department: [id number] Room: 3B Gender: M Clinical Applications Specialist: : [id number] Requested By: Adolfo Kitchen Order Number: [id number] Reading MD: Nan Pichardo Measurements Intervals [place] Rate: 81 P: 138 CO: 160 QRS: 230 QRSD: 171 T: 43 QT: 465 QTc: 540 Interpretive Statements Ventricular-paced complexes No further analysis attempted due to paced rhythm Electronically Signed On 10-08-2018 9:53:42 EDT by Nan Pichardo
[2018-10-08 11:56] VITALS: BP 120/61
--- NOTE | 2018-10-08 12:31 | Discharge Summary ---
- NOTES TO OUTPATIENT PROVIDER Notes to Outpatient Provider: f/u with PCP in one week. please stop taking Coumadin today and tomorrow. Please go for PT / INR in 2 days at [facility] and f/u with PCP ofr further Coumadin dosing Orders not resulted at time of discharge: Pending orders 10/07/18 14:05 Culture,Blood [BC] Stat 10/09/18 04:00 INR/PT [Prothrombin Time INR] [COAG] AM 0400 10/10/18 04:00 INR/PT [Prothrombin Time INR] [COAG] AM 0400 10/11/18 04:00 INR/PT [Prothrombin Time INR] [COAG] AM 0400 10/12/18 04:00 INR/PT [Prothrombin Time INR] [COAG] AM 0400 Date of Encounter: 10/08/18 Time of Encounter: 12:29 - Discharge Diagnosis (1) Acute exacerbation of chronic obstructive airways disease Priority: Primary Status: Acute (2) Acute bronchitis Priority: Primary Status: Acute Qualifiers: Bronchitis organism: unspecified organism Qualified Code(s): J20.9 - Acute bronchitis, unspecified (3) Atrial fibrillation Priority: Secondary Status: Chronic Qualifiers: Atrial fibrillation type: chronic Qualified Code(s): I48.2 - Chronic atrial fibrillation (4) Elevated troponin Priority: Secondary Status: Acute (5) Essential hypertension Priority: Secondary Status: Chronic (6) DVT prophylaxis Priority: Secondary Status: Acute (7) CAD (coronary artery disease) Priority: Secondary Status: Chronic Qualifiers: Coronary Disease-Associated Artery/Lesion type: bypass graft [place] vs. transplanted heart: [place] heart Associated angina: without angina Qualified Code(s): I25.810 - Atherosclerosis of coronary artery bypass graft(s) without angina pectoris (8) CHF (congestive heart failure) Priority: Secondary Status: Chronic Qualifiers: Heart failure type: systolic Heart failure chronicity: chronic Qualified Code(s): I50.22 - Chronic systolic (congestive) heart failure Hospital course: Mr. Rudd is a 68 year old male with history of HFrEF status post AICD, COPD on PRN O2, atrial fibrillation on Coumadin, CAD status post CABG, hypertension, cardiac cirrhosis, presented to the ED with 2 day history of shortness of breath and cough with expectoration. He denied any fever/chills, chest pain, palpitation, orthopnea, PND, or worsening leg swelling. He was admitted in the hospital and placed him on powder mixer. He was started on empirical abx Rocephin, azithromycin and systemic steroids. Pt stated he is feeling better today and wanted to go home. His INR was elevated at 4.0, so recommend to holding Coumadin for today and tomorrow. Requested to [facility] for [facility] and f/u with PCP for further dosing. He also have chronic b/l venous stasis and eczematous rash, recommend to f/u with Dermatology and wound care. - Time Spent with Patient Total time spent providing and/or coordinating discharge services: - Discharge Medications Prescriptions: New Azithromycin 250 mg PO DAILY #3 tablet Cephalexin [Keflex] 500 mg PO TID #9 capsule predniSONE [PredniSONE] 40 mg PO DAILY #10 tablet Continued Budesonide/Formoterol 160/4.5 [Symbicort 160/4.5] 2 puff IH BID Warfarin [Coumadin] 5 mg PO SUMOWETHSA Ipratropium/Albuterol Neb [Duoneb] 3 ml IH Q6H PRN PRN Reason: Wheezing Morphine Sulfate [Arymo ER] 15 mg PO HS Morphine Sulfate [Arymo ER] 30 mg PO BID Warfarin Sodium 2.5 mg PO TUFR Oxygen 1 - 2 l IH DAILY Omeprazole [PriLOSEC] 20 mg PO DAILY Sennosides/Docusate Sodium [Colace 2-in-1 Tablet] 1 tab PO BID Metoprolol Succinate [Toprol Xl] 150 mg PO DAILY Allopurinol [Zyloprim 300 MG] 300 mg PO HS Rosuvastatin [Crestor] 10 mg PO HS Ferrous Sulfate [Iron] 325 mg PO DAILY Cyanocobalamin (Vitamin B-12) [Vitamin B-12] 100 mcg PO QID Multivitamin [One Daily Essential] 1 tab PO DAILY Polyethylene Glycol 3350 [MiraLax bowel prep] 17 g PO DAILY PRN PRN Reason: Constipation Propylene Glycol/Peg 400 [Kro Lubricating Rlf 0.3-0.4%] 10 ml BOTH EYES QID Roflumilast [Daliresp] 500 mg PO DAILY Furosemide [Lasix] 80 mg PO BIDDIURETIC #120 tablet Insulin DETEMIR [Levemir] 6 unit SQ HS #1 [id number] Lisinopril [Zestril] 5 mg PO DAILY #30 tablet Spironolactone [Aldactone] 50 mg PO DAILY Home Medications: Budesonide/Formoterol 160/4.5 [Symbicort 160/4.5] 2 puff IH BID 09/25/15 [History] Warfarin [Coumadin] 5 mg PO SUMOWETHSA 06/10/16 [History] Ipratropium/Albuterol Neb [Duoneb] 3 ml IH Q6H PRN 10/05/16 [History] Morphine Sulfate [Arymo ER] 15 mg PO HS 10/15/16 [History] Morphine Sulfate [Arymo ER] 30 mg PO BID 09/02/17 [History] Allopurinol [Zyloprim 300 MG] 300 mg PO HS 02/13/18 [History] Ferrous Sulfate [Iron] 325 mg PO DAILY 02/13/18 [History] Metoprolol Succinate [Toprol Xl] 150 mg PO DAILY 02/13/18 [History] Omeprazole [PriLOSEC] 20 mg PO DAILY 02/13/18 [History] Oxygen 1 - 2 l IH DAILY 02/13/18 [History] Rosuvastatin [Crestor] 10 mg PO HS 02/13/18 [History] Sennosides/Docusate Sodium [Colace 2-in-1 Tablet] 1 tab PO BID 02/13/18 [History] Warfarin Sodium 2.5 mg PO TUFR 02/13/18 [History] Cyanocobalamin (Vitamin B-12) [Vitamin B-12] 100 mcg PO QID 05/03/18 [History] Multivitamin [One Daily Essential] 1 tab PO DAILY 05/03/18 [History] Polyethylene Glycol 3350 [MiraLax bowel prep] 17 g PO DAILY PRN 05/03/18 [History] Propylene Glycol/Peg 400 [Kro Lubricating Rlf 0.3-0.4%] 10 ml BOTH EYES QID 05/03/18 [History] Roflumilast [Daliresp] 500 mg PO DAILY 05/03/18 [History] Furosemide [Lasix] 80 mg PO BIDDIURETIC #120 tablet 05/09/18 [Rx] Insulin DETEMIR [Levemir] 6 unit SQ HS #1 [id number] 05/09/18 [Rx] Lisinopril [Zestril] 5 mg PO DAILY #30 tablet 05/09/18 [Rx] Azithromycin 250 mg PO DAILY #3 tablet 10/08/18 [Rx] Cephalexin [Keflex] 500 mg PO TID #9 capsule 10/08/18 [Rx] Spironolactone [Aldactone] 50 mg PO DAILY 10/08/18 [History] predniSONE [PredniSONE] 40 mg PO DAILY #10 tablet 10/08/18 [Rx] Allergies/Adverse Reactions: Allergy/AdvReac Type Severity Reaction Status Date / Time No Known Allergies Allergy Verified 02/13/18 18:10 Date of admission: 10/07/18 15:15 Primary care physician: [facility] Consults: 10/08/18 08:21 Consult to Nurse Navigator [CONS] Routine Comment: COPD - Constitutional Vitals: Temp Pulse Resp BP Pulse Ox 97.9 F 80 20 120/61 96 10/08/18 11:55 10/08/18 11:55 10/08/18 11:55 10/08/18 11:55 10/08/18 11:55 General appearance: Present: cooperative, A&O X 3, no acute distress, answers questions appropriately Exam: a - Head Head exam: Present: atraumatic, normal inspection - Neck Neck exam general surgery: Present: supple - Respiratory Respiratory exam: Present: decreased breath sounds, wheezes (moderate). Absent: rales, respiratory distress, rhonchi - Cardiovascular Cardiovascular exam: Present: RRR, +S1, +S2. Absent: tachycardia - GI/Abdominal GI/Abdominal exam: Present: normal bowel sounds, soft. Absent: rebound, rigid, tenderness - Extremities Exam Extremities exam: Present: pedal edema (chronic). Absent: tenderness Additional comments: chronic venous stasis changes - Back Exam Additional comments: eczematous rash over left gluteal region and sacral area - Neurological Exam Neurological exam: Present: alert, oriented X3 - Psychiatric Psychiatric exam: Present: normal affect, normal mood - Patient Status Disposition: Home, Self-Care Condition: Good - Discharge Instructions Follow Up With: JAJA,PCP [Primary Care Provider] - 10/16/18 10:45 am - Diet and Activity Activity: increase activity as tolerated, wear oxygen at all times Diet: low salt diet
== END 2018-10-08 14:33 | disposition home or self-care (01) ==
LOC: 3BNU 10:21 → EMEROOARM 10:21 → SUATTDRO 15:15 → 3BNU 17:00
PROVIDERS: ADMIT Internal Medicine; ATTEND Family Medicine

== ENCOUNTER 2019-04-04 14:26 | Inpatient (IN) ==
[2019-04-04] MEDS ORDERED: 0.9 % Sodium Chloride 500 ML IVC ONE (15:00)
[2019-04-04 15:48] LABS: Basophils # 0.1 K/mcL (0.0-0.2); Basophils % 0.9 %; Eosinophils # 0.1 K/mcL (0.0-0.6); Eosinophils % 0.9 %; Hematocrit 36.3 % (37.5-50.1); Hemoglobin 11.7 g/dL (12.9-16.9); Immature Granulocytes % 0.4 % (0-4); Lymphocytes # 0.5 K/mcL (0.6-4.6); Lymphocytes % 8.4 %; Mean Corpuscular HGB Conc 32.2 g/dL (31.6-35.5); Mean Corpuscular Hemoglobin 30.5 pg (28.0-33.3); Mean Corpuscular Volume 94.8 fL (83.0-100.0); Mean Platelet Volume 10.5 fL (9.4-12.4); Monocytes # 0.6 K/mcL (0.0-1.3); Monocytes % 9.8 %; Neutrophils # 4.5 K/mcL (1.6-8.9); Platelet Count 131 K/mcL (140-400); Red Blood Count 3.83 M/mcL (4.19-5.50); Red Cell Distribution Width 18.1 % (11.5-14.5); Segmented Neutrophils % 79.6 %; White Blood Count 5.6 K/mcL (4.3-11.1)
[2019-04-04 15:54] LABS: Prothrombin Time 22.7 Seconds (9.4-12.1)
[2019-04-04 16:18] LABS: Alanine Aminotransferase 14 Units/L (7-52); Albumin 3.6 g/dL (3.5-5.7); Alkaline Phosphatase 156 Units/L (34-104); Aspartate Amino Transferase 27 Units/L (13-39); BUN/Creatinine Ratio 36 (6-26); Bilirubin,Direct 0.8 mg/dL (0.0-0.2); Bilirubin,Indirect 1.1 mg/dL (0.0-1.0); Bilirubin,Total 1.9 mg/dL (0.3-1.0); Blood Urea Nitrogen 48 mg/dL (8-23); Calcium 8.7 mg/dL (8.6-10.3); Carbon Dioxide 24 mEq/L (23-29); Chloride 107 mEq/L (98-107); Globulin 3.6 g/dL (2.4-3.5); Glucose 94 mg/dL (70-105); Lipase 11 Units/L (11-82); Osmolality,Calculated 292 (280-300); Potassium 5.8 mEq/L (3.5-5.1); Sodium 135 mEq/L (136-145); Total Protein 7.2 g/dL (6.4-8.9); Troponin I 0.05 ng/mL (< 0.04); eGFR For African Americans > 60 (> 60); eGFR For Non-African Americans 53 (> 60)
[2019-04-04 16:25] LABS: Bilirubin,Urine Negative (Negative); Blood,Urine Large (Negative); Clarity,Urine Cloudy (Clear); Color,Urine Dark Yellow (Yellow); Glucose,Urine (UA) Normal (Normal); Ketones,Urine Negative (Negative); Leukocyte Esterase,Urine Small (Negative); Nitrite,Urine Negative (Negative); PH,Urine 5.5 pH Units (5.0-8.0); Protein,Urine 100 mg/dL (Neg-Trace); Specific Gravity,Urine 1.018 (1.010-1.025); Urobilinogen,Urine Normal (Normal)
[2019-04-04 16:31] LABS: Bacteria,Urine None Seen per hpf (None-Few); Hyaline Casts,Urine Few per lpf (None-Few); RBC,Urine TNTC per hpf (0-3); Squamous Epithelial Cell,Urine Many per lpf (None-Few); WBC,Urine 30-50 per hpf (0-3)
[2019-04-04] MEDS ORDERED: cefTRIAXone 1,000 MG in Water for inj. (sterile) 10 ML IVP SCH (16:47)
[2019-04-04] MEDS ORDERED: Ondansetron 4 MG/2 ML VIAL IVP PRN (16:48)
[2019-04-04] MEDS ORDERED: Naloxone 0.4 MG/ML INJ IVP PRN (16:48)
[2019-04-04] MEDS ORDERED: cefTRIAXone 1,000 MG in 0.9 % Sodium Chloride Mini Bag 100 ML IVPB ONE (16:59)
[2019-04-04] MEDS: Ringers Solution, Lactated 1,000 ML IVC SCH (20:42)
[2019-04-04] MEDS: Budesonide/Formoterol 160/4.5 1 PUFF INH IH SCH (21:40)
[2019-04-04] MEDS ORDERED: Morphine Sulfate ER (12 HR) 15 MG TABLET.ER PO ONE (21:49)
[2019-04-05] MEDS: Ipratropium/Albuterol Neb 3 ML IH PRN ×2 (04:57→15:43)
[2019-04-05 05:26] LABS: Basophils % 0.7 %; Eosinophils # 0.1 K/mcL (0.0-0.6); Eosinophils % 1.3 %; Hematocrit 35.9 % (37.5-50.1); Hemoglobin 11.5 g/dL (12.9-16.9); Immature Granulocytes % 0.5 % (0-4); Lymphocytes # 0.7 K/mcL (0.6-4.6); Mean Corpuscular Hemoglobin 30.4 pg (28.0-33.3); Mean Platelet Volume 11.1 fL (9.4-12.4); Monocytes # 0.5 K/mcL (0.0-1.3); Neutrophils # 4.7 K/mcL (1.6-8.9); Platelet Count 136 K/mcL (140-400); Red Blood Count 3.78 M/mcL (4.19-5.50); Red Cell Distribution Width 17.8 % (11.5-14.5); Segmented Neutrophils % 77.5 %
[2019-04-05 05:27] LABS: INR 1.8; Prothrombin Time 20.3 Seconds (9.4-12.1)
[2019-04-05 05:49] LABS: Alanine Aminotransferase 14 Units/L (7-52); Albumin 3.5 g/dL (3.5-5.7); Albumin/Globulin Ratio 0.9 (1.1-2.2); Alkaline Phosphatase 154 Units/L (34-104); Aspartate Amino Transferase 26 Units/L (13-39); BUN/Creatinine Ratio 39 (6-26); Bilirubin,Total 1.6 mg/dL (0.3-1.0); Blood Urea Nitrogen 50 mg/dL (8-23); Calcium 8.7 mg/dL (8.6-10.3); Carbon Dioxide 22 mEq/L (23-29); Chloride 106 mEq/L (98-107); Globulin 3.7 g/dL (2.4-3.5); Glucose 118 mg/dL (70-105); Osmolality,Calculated 292 (280-300); Potassium 5.8 mEq/L (3.5-5.1); Sodium 134 mEq/L (136-145); Total Protein 7.2 g/dL (6.4-8.9); eGFR For African Americans > 60 (> 60); eGFR For Non-African Americans 56 (> 60)
[2019-04-05] MEDS: Budesonide/Formoterol 160/4.5 1 PUFF INH IH SCH ×2 (07:43→21:51)
[2019-04-05] MEDS: 0.9 % Sodium Chloride 1,000 ML IVC SCH (08:47)
[2019-04-05] MEDS: Aspirin Enteric Coated 81 MG Tablet PO SCH (08:48)
[2019-04-05] MEDS: Lactulose Oral Soln 20 GM/30 ML UDC PO SCH (08:50)
[2019-04-05] MEDS: cefTRIAXone 1,000 MG in 0.9 % Sodium Chloride Mini Bag 100 ML IVPB SCH (08:51)
[2019-04-05] MEDS: Metoprolol XL (24 HR) Succ 50 MG TAB.ER.24H PO SCH (08:52)
[2019-04-05] MEDS: Sennosides/Docusate Sodium TABLET PO SCH ×2 (08:52→20:27)
[2019-04-05] MEDS ORDERED: (Roflumilast [Daliresp] 500 MCG) PO SCH (09:00)
[2019-04-05] MEDS: Morphine Sulfate ER (12 HR) 30 MG TABLET.ER PO SCH (11:34)
[2019-04-05] MEDS ORDERED: Warfarin perPT PO PRN (18:00)
[2019-04-05] MEDS ORDERED: *HR* Warfarin 5 MG TABLET PO ONE (18:00)
[2019-04-05] MEDS ORDERED: Morphine Sulfate ER (12 HR) 15 MG TABLET.ER PO SCH (21:00)
[2019-04-05] MEDS ORDERED: Morphine Sulfate ER (12 HR) 15 MG TABLET.ER PO ONE (21:18)
[2019-04-06] MEDS: 0.9 % Sodium Chloride 1,000 ML IVC SCH (00:11)
[2019-04-06 03:43] LABS: Hematocrit 36.3 % (37.5-50.1); Hemoglobin 11.2 g/dL (12.9-16.9); Mean Corpuscular HGB Conc 30.9 g/dL (31.6-35.5); Mean Corpuscular Hemoglobin 30.1 pg (28.0-33.3); Mean Corpuscular Volume 97.6 fL (83.0-100.0); Mean Platelet Volume 10.5 fL (9.4-12.4); Platelet Count 121 K/mcL (140-400); Red Blood Count 3.72 M/mcL (4.19-5.50); Red Cell Distribution Width 17.7 % (11.5-14.5); White Blood Count 6.3 K/mcL (4.3-11.1)
[2019-04-06 03:44] LABS: INR 1.7; Prothrombin Time 19.8 Seconds (9.4-12.1)
[2019-04-06 04:02] LABS: Alanine Aminotransferase 14 Units/L (7-52); Albumin 3.5 g/dL (3.5-5.7); Albumin/Globulin Ratio 0.9 (1.1-2.2); Alkaline Phosphatase 156 Units/L (34-104); Aspartate Amino Transferase 24 Units/L (13-39); BUN/Creatinine Ratio 40 (6-26); Bilirubin,Total 1.3 mg/dL (0.3-1.0); Blood Urea Nitrogen 50 mg/dL (8-23); Calcium 8.6 mg/dL (8.6-10.3); Carbon Dioxide 22 mEq/L (23-29); Chloride 108 mEq/L (98-107); Globulin 3.7 g/dL (2.4-3.5); Glucose 100 mg/dL (70-105); Osmolality,Calculated 293 (280-300); Potassium 5.5 mEq/L (3.5-5.1); Sodium 135 mEq/L (136-145); Total Protein 7.2 g/dL (6.4-8.9); eGFR For African Americans > 60 (> 60); eGFR For Non-African Americans 57 (> 60)
[2019-04-06] MEDS: Morphine Sulfate ER (12 HR) 30 MG TABLET.ER PO SCH ×2 (06:53→12:48)
[2019-04-06] MEDS: Ringers Solution, Lactated 1,000 ML IVC SCH (07:16)
[2019-04-06] MEDS: Budesonide/Formoterol 160/4.5 1 PUFF INH IH SCH (07:43)
[2019-04-06] MEDS: Aspirin Enteric Coated 81 MG Tablet PO SCH (09:13)
[2019-04-06] MEDS: cefTRIAXone 1,000 MG in 0.9 % Sodium Chloride Mini Bag 100 ML IVPB SCH (09:13)
[2019-04-06] MEDS: Sennosides/Docusate Sodium TABLET PO SCH (09:13)
[2019-04-06] MEDS: Metoprolol XL (24 HR) Succ 50 MG TAB.ER.24H PO SCH (09:13)
[2019-04-06] MEDS: Lactulose Oral Soln 20 GM/30 ML UDC PO SCH (09:14)
[2019-04-06 10:52] VITALS: BP 141/78
[2019-04-06] MEDS: Ipratropium/Albuterol Neb 3 ML IH PRN (13:52)
[2019-04-06 15:51] LABS: BUN/Creatinine Ratio 39 (6-26); Blood Urea Nitrogen 47 mg/dL (8-23); Calcium 8.6 mg/dL (8.6-10.3); Carbon Dioxide 19 mEq/L (23-29); Chloride 109 mEq/L (98-107); Glucose 110 mg/dL (70-105); Osmolality,Calculated 297 (280-300); Potassium 4.8 mEq/L (3.5-5.1); Sodium 137 mEq/L (136-145); eGFR For African Americans > 60 (> 60); eGFR For Non-African Americans > 60 (> 60)
[2019-04-06] MEDS ORDERED: *HR* Warfarin 3 MG TABLET PO ONE (18:00)
== END 2019-04-06 16:33 | disposition home or self-care (01) | DRG 690 ==
LOC: 2ANU 14:26 → EMEROOARM 14:26 → SUATTDRO 17:04 → 2ANU 17:26 → SUATTDRO 04-05 13:59
PROVIDERS: ADMIT Internal Medicine; ATTEND Internal Medicine

== ENCOUNTER 2019-06-27 21:54 | Inpatient (IN) ==
[2019-06-27] MEDS ORDERED: 0.9 % Sodium Chloride 2,000 ML ONE (22:07)
[2019-06-27] MEDS ORDERED: 0.9 % Sodium Chloride 1,000 ML IVC ONE (22:08)
[2019-06-27 22:26] LABS: Hematocrit 31.6 % (37.5-50.1); Mean Corpuscular HGB Conc 31.6 g/dL (31.6-35.5); Mean Corpuscular Hemoglobin 29.9 pg (28.0-33.3); Mean Corpuscular Volume 94.6 fL (83.0-100.0); Mean Platelet Volume 10.7 fL (9.4-12.4); Nucleated Red Blood Cells 0.2 /100 WBC (0); Platelet Count 144 K/mcL (140-400); Red Blood Count 3.34 M/mcL (4.19-5.50); Red Cell Distribution Width 16.4 % (11.5-14.5); White Blood Count 8.3 K/mcL (4.3-11.1)
[2019-06-27 22:34] LABS: INR 3.4; Prothrombin Time 38.9 Seconds (9.4-12.1)
[2019-06-27 22:37] LABS: Activated Partial Thrombo Time 43.1 Seconds (26.0-36.0)
[2019-06-27 22:42] LABS: ABG Base Excess -2 mEq/L (-2 to 3); ABG HCO3 25 mEq/L (21-27); ABG Oxygen Saturation 97 % (95-98); ABG PCO2 52 mmHg (35-45); ABG PH 7.29 pH Units (7.32-7.45); ABG PO2 106 mmHg (85-104); ABG TCO2 26 mEq/L (20-26); Blood Gas Modality NIV
[2019-06-27 22:45] LABS: Monocytes # 0.8 K/mcL (0.0-1.3); Neutrophils # 5.3 K/mcL (1.6-8.9); Reactive Lymphocytes Present (Not Present); Toxic Granulation Present (Not Present)
[2019-06-27 22:46] LABS: Hypochromasia Present (Not Present); Macrocytosis Present (Not Present); Ovalocytes 1+ (Not Present); Platelet Estimate Normal (Normal)
[2019-06-27 22:57] LABS: Bilirubin,Urine Large (Negative); Blood,Urine Large (Negative); Clarity,Urine Turbid (Clear); Color,Urine Red (Yellow); Glucose,Urine (UA) Normal (Normal); Ketones,Urine 15 mg/dL (Negative); Leukocyte Esterase,Urine Moderate (Negative); Nitrite,Urine Positive (Negative); Protein,Urine 100 mg/dL (Neg-Trace); Specific Gravity,Urine 1.027 (1.010-1.025); Urobilinogen,Urine Normal (Normal)
[2019-06-27 23:01] LABS: Albumin 3.4 g/dL (3.5-5.7); Calcium 8.8 mg/dL (8.6-10.3); Globulin 3.4 g/dL (2.4-3.5); Potassium 4.7 mEq/L (3.5-5.1); Total Protein 6.8 g/dL (6.4-8.9); Troponin I 0.07 ng/mL (< 0.04)
[2019-06-27 23:13] LABS: Squamous Epithelial Cell,Urine Moderate per lpf (None-Few)
[2019-06-27 23:14] LABS: Renal Epithelial Cells,Urine Few per hpf (None-Few)
[2019-06-27 23:16] LABS: RBC,Urine 15-30 per hpf (0-3)
[2019-06-27 23:17] LABS: Amorphous Sediment,Urine Many per hpf (Few); Bacteria,Urine Many per hpf (None-Few); WBC,Urine 0-3 per hpf (0-3)
[2019-06-27] MEDS ORDERED: *HR* Dextrose 50 % in Water (Syg) 50 ML SYRINGE ONE (23:23)
[2019-06-27] MEDS ORDERED: 0.9 % Sodium Chloride 1,000 ML ONE (23:23)
[2019-06-27] MEDS: 0.9 % Sodium Chloride 1,000 ML IVC SCH (23:25)
[2019-06-27] MEDS ORDERED: cefTRIAXone 2,000 MG in 0.9 % Sodium Chloride Mini Bag 100 ML IVPB ONE (23:29)
[2019-06-28] MEDS ORDERED: *HR* Dextrose 50 % in Water (Syg) 50 ML SYRINGE IVP ONE ×3 (00:42→03:02)
[2019-06-28] MEDS ORDERED: *HR* Dextrose 50 % in Water (Syg) 50 ML SYRINGE ONE (01:21)
[2019-06-28] MEDS ORDERED: Isovue-370 500 ML BOTTLE IVP ONE ×2 (02:54→11:37)
[2019-06-28 03:09] LABS: ABG Base Excess -4 mEq/L (-2 to 3); ABG HCO3 25 mEq/L (21-27); ABG Oxygen Saturation 95 % (95-98); ABG PCO2 57 mmHg (35-45); ABG PH 7.24 pH Units (7.32-7.45); ABG PO2 89 mmHg (85-104); ABG TCO2 26 mEq/L (20-26)
[2019-06-28] MEDS: 0.9 % Sodium Chloride 1,000 ML IVC SCH ×3 (03:24→05:10)
[2019-06-28] MEDS: Dexmedetomidine HCl 400 MCG/100 ML MLS IVC SCH ×3 (05:09→19:05)
[2019-06-28] MEDS ORDERED: Naloxone 0.4 MG/ML INJ IVP PRN (05:35)
[2019-06-28] MEDS: Norepinephrine 4 MG in 0.9 % Sodium Chloride 250 ML IVC SCH ×4 (05:43→12:54)
[2019-06-28] MEDS: FentaNYL (PF) 1,000 MCG in 0.9 % Sodium Chloride 80 ML IVC SCH ×2 (05:43→15:49)
[2019-06-28] MEDS: D10% in Water 500 ML IVC SCH ×2 (05:49→15:49)
[2019-06-28] MEDS ORDERED: Artificial Tears SOLN 15 ML BOTTLE BOTH EYES PRN (05:54)
[2019-06-28] MEDS ORDERED: Aspirin 325 MG TABLET PO ONE (06:07)
[2019-06-28 06:12] LABS: ABG Base Excess -4 mEq/L (-2 to 3); ABG HCO3 23 mEq/L (21-27); ABG Oxygen Saturation 95 % (95-98); ABG PCO2 52 mmHg (35-45); ABG PH 7.26 pH Units (7.32-7.45); ABG PO2 87 mmHg (85-104); ABG TCO2 25 mEq/L (20-26); Blood Gas VT 500 cc
[2019-06-28] MEDS: Pantoprazole 40 MG VIAL IVP SCH (06:29)
[2019-06-28] MEDS ORDERED: D5% in Water 1,000 ML IVC PRN (06:54)
[2019-06-28] MEDS ORDERED: Dextrose Gel 15 GM/37.5 ML TUBE PO PRN ×2 (06:54)
[2019-06-28] MEDS ORDERED: *HR* Dextrose 50 % in Water (Syg) 50 ML SYRINGE IVP PRN (06:54)
[2019-06-28] MEDS ORDERED: Azithromycin 500 MG in 0.9 % Sodium Chloride 250 ML IVPB SCH (07:00)
[2019-06-28] MEDS ORDERED: Vancomycin 1 EACH in 0.9 % Sodium Chloride 250 ML IVPB PRN (07:00)
[2019-06-28] MEDS ORDERED: Amiodarone Premix 150 MG/100 ML BAG IVPB ONE ×2 (07:42→07:43)
[2019-06-28] MEDS ORDERED: Amiodarone Premix 360 MG/200 ML BAG IVC ONE (07:43)
[2019-06-28] MEDS ORDERED: Piperacillin/Tazobactam 3.375 GM in 0.9 % Sodium Chloride Mini Bag 100 ML IVPB SCH (08:00)
[2019-06-28] MEDS: Vasopressin 40 UNIT in D5% in Water 100 ML IVC SCH ×2 (08:03→23:29)
[2019-06-28] MEDS: Amiodarone Premix 360 MG/200 ML BAG IVC ONE ×2 (08:10→12:46)
[2019-06-28] MEDS: Piperacillin/Tazobactam 3.375 GM in 0.9 % Sodium Chloride Mini Bag 100 ML IVPB SCH ×2 (08:22→18:01)
[2019-06-28] MEDS: Artificial Tears SOLN 15 ML BOTTLE BOTH EYES SCH ×4 (08:29→20:08)
[2019-06-28] MEDS: Insulin LISPRO 300 UNITS/3 ML VIAL SQ SCH ×4 (08:30→20:08)
[2019-06-28 08:31] LABS: Hematocrit 33.5 % (37.5-50.1); Hemoglobin 10.6 g/dL (12.9-16.9); Mean Corpuscular HGB Conc 31.6 g/dL (31.6-35.5); Mean Corpuscular Hemoglobin 29.9 pg (28.0-33.3); Mean Corpuscular Volume 94.6 fL (83.0-100.0); Mean Platelet Volume 10.9 fL (9.4-12.4); Nucleated Red Blood Cells 0.1 /100 WBC (0); Platelet Count 149 K/mcL (140-400); Red Blood Count 3.54 M/mcL (4.19-5.50); Red Cell Distribution Width 16.5 % (11.5-14.5)
[2019-06-28 08:35] LABS: White Blood Count 14.6 K/mcL (4.3-11.1)
[2019-06-28] MEDS: Albumin 25% 25gram/100mL 25 GM/100 ML IV.SOLN IVC SCH ×2 (08:36→09:35)
[2019-06-28 08:50] LABS: Lymphocytes # 3.2 K/mcL (0.6-4.6); Monocytes # 1.2 K/mcL (0.0-1.3); Neutrophils # 10.2 K/mcL (1.6-8.9); Platelet Estimate Normal (Normal)
[2019-06-28] MEDS: Calcium Gluconate 1gm/50mL 1 GM/50 ML BAG IVPB SCH ×2 (09:15→10:02)
[2019-06-28 09:16] LABS: Acinetobacter baumannii by PCR Not Detected (Not Detect); Candida albicans by PCR Not Detected (Not Detect); Candida glabrata by PCR Not Detected (Not Detect); Candida krusei by PCR Not Detected (Not Detect); Candida parapsilosis by PCR Not Detected (Not Detect); Candida tropicalis by PCR Not Detected (Not Detect); Enterobacter cloacae Cmplx PCR Not Detected (Not Detect); Enterococcus by PCR Not Detected (Not Detect); Escherichia coli by PCR DETECTED (Not Detect); Klebsiella oxytoca by PCR Not Detected (Not Detect); Klebsiella pneumoniae by PCR Not Detected (Not Detect); Proteus by PCR Not Detected (Not Detect); Pseudomonas aeruginosa by PCR Not Detected (Not Detect); Serratia marcescens by PCR Not Detected (Not Detect); Staphylococcus aureus by PCR Not Detected (Not Detect); Staphylococcus by PCR Not Detected (Not Detect); Streptococcus agalactiae(B)PCR Not Detected (Not Detect); Streptococcus by PCR Not Detected (Not Detect); Streptococcus pneumoniae PCR Not Detected (Not Detect); Streptococcus pyogenes (A) PCR Not Detected (Not Detect); blaKPC Carbapenem-Resist Gene Not Detected (Not Detect); mecA Methicillin-Resist Gene Not Detected (Not Detect); vanA/B Vancomycin-Resist Genes Not Detected (Not Detect)
[2019-06-28] MEDS: Chlorhexidine Rinse 15 ML MOUTHWASH MM SCH ×2 (09:17→20:07)
[2019-06-28 09:20] LABS: Thyroid Stimulating Hormone 0.561 mcIU/mL (0.340-5.600)
[2019-06-28 09:20] LABS: Calcium 8.3 mg/dL (8.6-10.3); Potassium 4.4 mEq/L (3.5-5.1)
[2019-06-28] MEDS: Ipratropium/Albuterol Neb 3 ML IH SCH ×3 (09:46→21:03)
[2019-06-28] MEDS: Budesonide/Formoterol 160/4.5 1 PUFF INH IH SCH ×2 (09:46→21:03)
[2019-06-28 10:57] LABS: ABG Base Excess -6 mEq/L (-2 to 3); ABG HCO3 22 mEq/L (21-27); ABG Oxygen Saturation 97 % (95-98); ABG PCO2 49 mmHg (35-45); ABG PH 7.25 pH Units (7.32-7.45); ABG PO2 100 mmHg (85-104); ABG TCO2 23 mEq/L (20-26); Blood Gas Modality AF; Blood Gas VT 500 cc
[2019-06-28] MEDS: Lactulose Oral Soln 20 GM/30 ML UDC GTUBE SCH ×2 (12:36→20:07)
[2019-06-28] MEDS: EPINEPHrine 5 MG in D5% in Water 250 ML IVC SCH (12:53)
[2019-06-28] MEDS: Hydrocortisone Sodium Succ 100 MG/2 ML VIAL IVP SCH ×3 (13:09→23:51)
[2019-06-28] MEDS ORDERED: Ipratropium/Albuterol Neb 3 ML IH ONE (13:10)
[2019-06-28 13:14] LABS: ABG Base Excess -7 mEq/L (-2 to 3); ABG HCO3 21 mEq/L (21-27); ABG Oxygen Saturation 96 % (95-98); ABG PCO2 51 mmHg (35-45); ABG PH 7.22 pH Units (7.32-7.45); ABG PO2 98 mmHg (85-104); ABG TCO2 22 mEq/L (20-26); Blood Gas Modality AF; Blood Gas VT 500 cc
[2019-06-28] MEDS: Thiamine (B-1) 100 MG in 0.9 % Sodium Chloride 50 ML IVPB SCH (13:15)
[2019-06-28] MEDS ORDERED: Perflutren Lipid Microsphere 1.3 ML in 0.9 % Sodium Chloride 8.7 ML IVP ONE (13:36)
[2019-06-28 13:41] LABS: Hematocrit 35.4 % (37.5-50.1); Hemoglobin 10.8 g/dL (12.9-16.9); Mean Corpuscular HGB Conc 30.5 g/dL (31.6-35.5); Mean Corpuscular Hemoglobin 30.2 pg (28.0-33.3); Mean Corpuscular Volume 98.9 fL (83.0-100.0); Mean Platelet Volume 11.3 fL (9.4-12.4); Nucleated Red Blood Cells 0.2 /100 WBC (0); Platelet Count 176 K/mcL (140-400); Red Blood Count 3.58 M/mcL (4.19-5.50); Red Cell Distribution Width 16.6 % (11.5-14.5); White Blood Count 19.6 K/mcL (4.3-11.1)
[2019-06-28 13:52] LABS: INR 3.8; Prothrombin Time 42.8 Seconds (9.4-12.1)
[2019-06-28] MEDS ORDERED: *HR* Etomidate 20 MG/10 ML AMPUL IVP ONE (14:03)
[2019-06-28] MEDS ORDERED: *HR* Midazolam HCl 5 MG/5 ML VIAL IVP ONE (14:03)
[2019-06-28 14:13] LABS: Lymphocytes # 0.8 K/mcL (0.6-4.6); Monocytes # 1.6 K/mcL (0.0-1.3); Neutrophils # 17.3 K/mcL (1.6-8.9); Platelet Estimate Normal (Normal)
[2019-06-28] MEDS: Amiodarone Premix 360 MG/200 ML BAG IVC SCH ×2 (14:40→22:40)
[2019-06-28] MEDS: Norepinephrine 8 MG in 0.9 % Sodium Chloride 250 ML IVC SCH ×2 (14:57→19:44)
[2019-06-28 16:20] LABS: Magnesium 2.2 mg/dL (1.6-2.6)
[2019-06-28] MEDS: Sodium Bicarbonate 150 MEQ in D5% in Water 1,000 ML IVC SCH (16:31)
[2019-06-28 18:00] LABS: Troponin I 0.18 ng/mL (< 0.04)
[2019-06-28] MEDS ORDERED: Doxycycline 200 MG in 0.9 % Sodium Chloride 250 ML IVPB SCH (18:00)
[2019-06-28] MEDS ORDERED: Sodium Bicarbonate 50 MEQ/50 ML VIAL IVP ONE (18:27)
[2019-06-28] MEDS: Phenylephrine 10 MG in 0.9 % Sodium Chloride 250 ML IVC SCH (21:05)
[2019-06-29] MEDS: Insulin LISPRO 300 UNITS/3 ML VIAL SQ SCH ×6 (00:16→20:11)
[2019-06-29] MEDS: Dexmedetomidine HCl 400 MCG/100 ML MLS IVC SCH ×6 (00:38→18:55)
[2019-06-29] MEDS: Norepinephrine 8 MG in 0.9 % Sodium Chloride 250 ML IVC SCH ×2 (01:04→10:32)
[2019-06-29] MEDS ORDERED: *HR* LORazepam 2 MG/ML VIAL IVP ONE (02:11)
[2019-06-29] MEDS: Ipratropium/Albuterol Neb 3 ML IH SCH ×4 (03:35→21:25)
[2019-06-29] MEDS: Artificial Tears SOLN 15 ML BOTTLE BOTH EYES SCH ×6 (04:19→20:11)
[2019-06-29 04:23] LABS: Hematocrit 33.5 % (37.5-50.1); Hemoglobin 10.7 g/dL (12.9-16.9); Mean Corpuscular HGB Conc 31.9 g/dL (31.6-35.5); Mean Corpuscular Hemoglobin 29.9 pg (28.0-33.3); Mean Corpuscular Volume 93.6 fL (83.0-100.0); Mean Platelet Volume 10.9 fL (9.4-12.4); Nucleated Red Blood Cells 0.1 /100 WBC (0); Platelet Count 161 K/mcL (140-400); Red Blood Count 3.58 M/mcL (4.19-5.50); Red Cell Distribution Width 16.5 % (11.5-14.5); White Blood Count 16.3 K/mcL (4.3-11.1)
[2019-06-29 04:32] LABS: Prothrombin Time 45.3 Seconds (9.4-12.1)
[2019-06-29 04:37] LABS: Albumin 3.4 g/dL (3.5-5.7); Bilirubin,Total 1.6 mg/dL (0.3-1.0); Calcium 8.4 mg/dL (8.6-10.3); Globulin 3.4 g/dL (2.4-3.5); Potassium 5.1 mEq/L (3.5-5.1); Total Protein 6.8 g/dL (6.4-8.9)
[2019-06-29 04:49] LABS: ABG Base Excess -4 mEq/L (-2 to 3); ABG HCO3 22 mEq/L (21-27); ABG Oxygen Saturation 96 % (95-98); ABG PCO2 46 mmHg (35-45); ABG PO2 89 mmHg (85-104); ABG TCO2 24 mEq/L (20-26); Blood Gas Modality ASSIST CONTROL; Blood Gas Pressure Support 7 cm H2O; Blood Gas VT 500 cc
[2019-06-29] MEDS: Piperacillin/Tazobactam 3.375 GM in 0.9 % Sodium Chloride Mini Bag 100 ML IVPB SCH ×2 (05:10→18:07)
[2019-06-29] MEDS: Pantoprazole 40 MG VIAL IVP SCH (05:12)
[2019-06-29 05:15] LABS: Lymphocytes # 1.3 K/mcL (0.6-4.6); Neutrophils # 14.7 K/mcL (1.6-8.9); Platelet Estimate Normal (Normal)
[2019-06-29 05:16] LABS: Anisocytosis 1+ (Not Present)
[2019-06-29] MEDS: D10% in Water 500 ML IVC SCH ×3 (08:12→19:48)
[2019-06-29] MEDS: EPINEPHrine 5 MG in D5% in Water 250 ML IVC SCH (08:13)
[2019-06-29] MEDS: 0.9 % Sodium Chloride 1,000 ML IVC SCH ×4 (08:13→08:22)
[2019-06-29] MEDS: Chlorhexidine Rinse 15 ML MOUTHWASH MM SCH ×2 (08:29→20:11)
[2019-06-29] MEDS: Thiamine (B-1) 100 MG in 0.9 % Sodium Chloride 50 ML IVPB SCH (08:29)
[2019-06-29] MEDS: Hydrocortisone Sodium Succ 100 MG/2 ML VIAL IVP SCH ×2 (08:29→16:11)
[2019-06-29] MEDS ORDERED: Pantoprazole 40 MG VIAL IVP SCH (09:00)
[2019-06-29] MEDS ORDERED: Calcium Gluconate 1gm/50mL 1 GM/50 ML BAG IVPB PRN ×2 (09:19)
[2019-06-29] MEDS ORDERED: 0.9 % Sodium Chloride 1,000 ML PRIME SCH (09:30)
[2019-06-29] MEDS: Budesonide/Formoterol 160/4.5 1 PUFF INH IH SCH ×2 (09:41→21:25)
[2019-06-29 10:08] LABS: VBG Ionized Calcium 1.02 mmol/L (1.15-1.35); VBG PH 7.28 pH Units (7.32-7.42)
[2019-06-29 10:12] LABS: INR 3.2
[2019-06-29 10:20] LABS: Albumin 3.2 g/dL (3.5-5.7); Bilirubin,Total 1.7 mg/dL (0.3-1.0); Calcium 8.3 mg/dL (8.6-10.3); Globulin 3.3 g/dL (2.4-3.5); Potassium 5.2 mEq/L (3.5-5.1); Total Protein 6.5 g/dL (6.4-8.9)
[2019-06-29] MEDS: PrismaSATE BGK 4/2.5 5,000 ML CRRT SCH ×8 (10:33→21:01)
[2019-06-29] MEDS: Calcium Chloride 4,000 MG in 0.9 % Sodium Chloride 1,000 ML CRRT SCH (10:33)
[2019-06-29] MEDS: Amiodarone Premix 360 MG/200 ML BAG IVC SCH (11:02)
[2019-06-29 14:33] LABS: VBG Ionized Calcium 1.07 mmol/L (1.15-1.35)
[2019-06-29] MEDS: Sodium Bicarbonate 150 MEQ in D5% in Water 1,000 ML IVC SCH (16:04)
[2019-06-29 16:25] LABS: VBG Ionized Calcium 1.06 mmol/L (1.15-1.35)
[2019-06-29] MEDS: Phenylephrine 10 MG in 0.9 % Sodium Chloride 250 ML IVC SCH (18:10)
[2019-06-29 18:16] LABS: VBG Ionized Calcium 1.08 mmol/L (1.15-1.35)
[2019-06-29 18:25] LABS: Albumin 3.2 g/dL (3.5-5.7); Bilirubin,Direct 1.2 mg/dL (0.0-0.2); Bilirubin,Indirect 0.7 mg/dL (0.0-1.0); Bilirubin,Total 1.9 mg/dL (0.3-1.0); Calcium 8.7 mg/dL (8.6-10.3); Globulin 3.3 g/dL (2.4-3.5); Magnesium 2.1 mg/dL (1.6-2.6); Phosphorous 5.4 mg/dL (2.7-4.5); Potassium 4.5 mEq/L (3.5-5.1); Total Protein 6.5 g/dL (6.4-8.9)
[2019-06-29] MEDS: Lactulose Oral Soln 20 GM/30 ML UDC GTUBE SCH (20:11)
[2019-06-29 20:18] LABS: VBG Ionized Calcium 1.07 mmol/L (1.15-1.35)
[2019-06-29 22:14] LABS: VBG Ionized Calcium 0.69 mmol/L (1.15-1.35)
[2019-06-30] MEDS: Insulin LISPRO 300 UNITS/3 ML VIAL SQ SCH ×7 (00:08→23:10)
[2019-06-30] MEDS: Vasopressin 40 UNIT in D5% in Water 100 ML IVC SCH ×2 (00:09→23:12)
[2019-06-30] MEDS: Artificial Tears SOLN 15 ML BOTTLE BOTH EYES SCH ×7 (00:09→23:10)
[2019-06-30] MEDS: Hydrocortisone Sodium Succ 100 MG/2 ML VIAL IVP SCH ×4 (00:09→23:10)
[2019-06-30] MEDS: D10% in Water 500 ML IVC SCH (00:09)
[2019-06-30] MEDS: EPINEPHrine 5 MG in D5% in Water 250 ML IVC SCH (00:09)
[2019-06-30] MEDS: Amiodarone Premix 360 MG/200 ML BAG IVC SCH ×3 (00:10→23:54)
[2019-06-30] MEDS: PrismaSATE BGK 4/2.5 5,000 ML CRRT SCH ×14 (00:25→22:06)
[2019-06-30 00:32] LABS: Albumin 3.1 g/dL (3.5-5.7); Bilirubin,Direct 1.3 mg/dL (0.0-0.2); Bilirubin,Indirect 0.8 mg/dL (0.0-1.0); Bilirubin,Total 2.1 mg/dL (0.3-1.0); Calcium 8.5 mg/dL (8.6-10.3); Globulin 3.2 g/dL (2.4-3.5); Magnesium 2.1 mg/dL (1.6-2.6); Phosphorous 4.7 mg/dL (2.7-4.5); Potassium 4.2 mEq/L (3.5-5.1); Total Protein 6.3 g/dL (6.4-8.9)
[2019-06-30] MEDS: *HR* Heparin 5,000 UNIT/ML VIAL CRRT PRN ×2 (01:51→22:34)
[2019-06-30] MEDS: Dexmedetomidine HCl 400 MCG/100 ML MLS IVC SCH ×3 (03:08→20:22)
[2019-06-30] MEDS: Ipratropium/Albuterol Neb 3 ML IH SCH ×4 (03:13→22:31)
[2019-06-30 04:12] LABS: ABG Base Excess 2 mEq/L (-2 to 3); ABG HCO3 28 mEq/L (21-27); ABG Oxygen Saturation 97 % (95-98); ABG PCO2 50 mmHg (35-45); ABG PH 7.36 pH Units (7.32-7.45); ABG PO2 100 mmHg (85-104); ABG TCO2 30 mEq/L (20-26); Blood Gas VT 500 cc
[2019-06-30] MEDS: Pantoprazole 40 MG VIAL IVP SCH (05:06)
[2019-06-30] MEDS: Piperacillin/Tazobactam 3.375 GM in 0.9 % Sodium Chloride Mini Bag 100 ML IVPB SCH ×2 (05:07→17:34)
[2019-06-30] MEDS: Norepinephrine 8 MG in 0.9 % Sodium Chloride 250 ML IVC SCH ×2 (05:11→19:00)
[2019-06-30 06:30] LABS: Hematocrit 32.5 % (37.5-50.1); Hemoglobin 10.8 g/dL (12.9-16.9); Mean Corpuscular HGB Conc 33.2 g/dL (31.6-35.5); Mean Corpuscular Hemoglobin 30.3 pg (28.0-33.3); Mean Corpuscular Volume 91.3 fL (83.0-100.0); Mean Platelet Volume 11.7 fL (9.4-12.4); Nucleated Red Blood Cells 0.1 /100 WBC (0); Platelet Count 134 K/mcL (140-400); Red Blood Count 3.56 M/mcL (4.19-5.50); Red Cell Distribution Width 16.4 % (11.5-14.5); White Blood Count 16.7 K/mcL (4.3-11.1)
[2019-06-30 06:42] LABS: Albumin 3.1 g/dL (3.5-5.7); Albumin/Globulin Ratio 0.9 (1.1-2.2); Bilirubin,Direct 1.5 mg/dL (0.0-0.2); Bilirubin,Indirect 0.4 mg/dL (0.0-1.0); Bilirubin,Total 1.9 mg/dL (0.3-1.0); Calcium 8.4 mg/dL (8.6-10.3); Globulin 3.3 g/dL (2.4-3.5); Magnesium 2.2 mg/dL (1.6-2.6); Phosphorous 4.4 mg/dL (2.7-4.5); Potassium 4.2 mEq/L (3.5-5.1); Total Protein 6.4 g/dL (6.4-8.9)
[2019-06-30 06:48] LABS: Monocytes # 0.7 K/mcL (0.0-1.3)
[2019-06-30 06:49] LABS: Anisocytosis 1+ (Not Present); Platelet Estimate Normal (Normal); Poikilocytosis 1+ (Not Present)
[2019-06-30 08:42] LABS: VBG Ionized Calcium 1.11 mmol/L (1.15-1.35)
[2019-06-30] MEDS: Thiamine (B-1) 100 MG in 0.9 % Sodium Chloride 50 ML IVPB SCH (08:46)
[2019-06-30] MEDS: Chlorhexidine Rinse 15 ML MOUTHWASH MM SCH ×2 (08:46→20:20)
[2019-06-30] MEDS: Calcium Chloride 4,000 MG in 0.9 % Sodium Chloride 1,000 ML CRRT SCH (08:47)
[2019-06-30] MEDS: Budesonide/Formoterol 160/4.5 1 PUFF INH IH SCH ×2 (09:31→22:31)
[2019-06-30 09:32] LABS: INR 2.1; Prothrombin Time 24.4 Seconds (9.4-12.1)
[2019-06-30 12:28] LABS: Albumin 3.1 g/dL (3.5-5.7); Albumin/Globulin Ratio 0.9 (1.1-2.2); Bilirubin,Direct 1.5 mg/dL (0.0-0.2); Bilirubin,Indirect 0.5 mg/dL (0.0-1.0); Calcium 8.3 mg/dL (8.6-10.3); Globulin 3.3 g/dL (2.4-3.5); Magnesium 2.2 mg/dL (1.6-2.6); Phosphorous 4.2 mg/dL (2.7-4.5); Potassium 4.4 mEq/L (3.5-5.1); Total Protein 6.4 g/dL (6.4-8.9)
[2019-06-30] MEDS ORDERED: Vancomycin 1,750 MG in 0.9 % Sodium Chloride 250 ML IVPB SCH (14:00)
[2019-06-30] MEDS ORDERED: *HR* Heparin 5,000 UNIT/ML VIAL ONE ×2 (14:04→22:21)
[2019-06-30] MEDS ORDERED: Vancomycin 1 EACH in 0.9 % Sodium Chloride 250 ML IVPB PRN (14:13)
[2019-06-30] MEDS ORDERED: *HR* Metoprolol 5 MG/5 ML VIAL IVP ONE ×2 (17:16)
[2019-06-30 18:29] LABS: Albumin/Globulin Ratio 0.9 (1.1-2.2); Bilirubin,Direct 1.4 mg/dL (0.0-0.2); Bilirubin,Indirect 0.7 mg/dL (0.0-1.0); Bilirubin,Total 2.1 mg/dL (0.3-1.0); Calcium 8.5 mg/dL (8.6-10.3); Globulin 3.3 g/dL (2.4-3.5); Magnesium 2.3 mg/dL (1.6-2.6); Potassium 4.8 mEq/L (3.5-5.1); Total Protein 6.3 g/dL (6.4-8.9)
[2019-06-30] MEDS: Lactulose Oral Soln 20 GM/30 ML UDC GTUBE SCH (20:20)
[2019-07-01] MEDS: PrismaSATE BGK 4/2.5 5,000 ML CRRT SCH ×12 (02:01→20:57)
[2019-07-01] MEDS: Ipratropium/Albuterol Neb 3 ML IH SCH ×4 (03:19→22:42)
[2019-07-01] MEDS: Insulin LISPRO 300 UNITS/3 ML VIAL SQ SCH ×5 (04:08→18:46)
[2019-07-01] MEDS: Artificial Tears SOLN 15 ML BOTTLE BOTH EYES SCH ×5 (04:08→18:46)
[2019-07-01 04:18] LABS: VBG Ionized Calcium 1.11 mmol/L (1.15-1.35)
[2019-07-01 04:18] LABS: Basophils % 0.1 %; Hematocrit 30.9 % (37.5-50.1); Hemoglobin 10.5 g/dL (12.9-16.9); Immature Granulocytes % 0.6 % (0-4); Lymphocytes # 0.4 K/mcL (0.6-4.6); Lymphocytes % 2.3 %; Mean Corpuscular Hemoglobin 29.9 pg (28.0-33.3); Monocytes # 0.9 K/mcL (0.0-1.3); Monocytes % 5.7 %; Neutrophils # 14.9 K/mcL (1.6-8.9); Nucleated Red Blood Cells 0.2 /100 WBC (0); Platelet Count 124 K/mcL (140-400); Red Blood Count 3.51 M/mcL (4.19-5.50); Red Cell Distribution Width 16.3 % (11.5-14.5); Segmented Neutrophils % 91.3 %; White Blood Count 16.3 K/mcL (4.3-11.1)
[2019-07-01 04:20] LABS: INR 1.5
[2019-07-01 04:23] LABS: Activated Partial Thrombo Time 36.1 Seconds (26.0-36.0)
[2019-07-01 04:24] LABS: ABG Base Excess 2 mEq/L (-2 to 3); ABG HCO3 28 mEq/L (21-27); ABG Oxygen Saturation 95 % (95-98); ABG PCO2 54 mmHg (35-45); ABG PH 7.33 pH Units (7.32-7.45); ABG PO2 81 mmHg (85-104); ABG TCO2 30 mEq/L (20-26); Blood Gas Modality ASSIST CONTROL; Blood Gas VT 500 cc
[2019-07-01 04:50] LABS: Albumin/Globulin Ratio 0.9 (1.1-2.2); Bilirubin,Direct 1.3 mg/dL (0.0-0.2); Bilirubin,Indirect 0.7 mg/dL (0.0-1.0); Calcium 8.4 mg/dL (8.6-10.3); Globulin 3.2 g/dL (2.4-3.5); Magnesium 2.4 mg/dL (1.6-2.6); Phosphorous 3.9 mg/dL (2.7-4.5); Potassium 4.7 mEq/L (3.5-5.1); Total Protein 6.2 g/dL (6.4-8.9)
[2019-07-01] MEDS: Pantoprazole 40 MG VIAL IVP SCH (05:19)
[2019-07-01] MEDS: Norepinephrine 8 MG in 0.9 % Sodium Chloride 250 ML IVC SCH (05:19)
[2019-07-01] MEDS: Piperacillin/Tazobactam 3.375 GM in 0.9 % Sodium Chloride Mini Bag 100 ML IVPB SCH ×3 (05:19→18:46)
[2019-07-01] MEDS: Dexmedetomidine HCl 400 MCG/100 ML MLS IVC SCH ×3 (05:20→20:17)
[2019-07-01] MEDS: Chlorhexidine Rinse 15 ML MOUTHWASH MM SCH ×2 (07:25→18:47)
[2019-07-01] MEDS: Hydrocortisone Sodium Succ 100 MG/2 ML VIAL IVP SCH ×3 (07:25→15:41)
[2019-07-01] MEDS ORDERED: Aminoglycoside Consult 1 EACH MC ONE (08:42)
[2019-07-01] MEDS: Thiamine (B-1) 100 MG in 0.9 % Sodium Chloride 50 ML IVPB SCH (08:56)
[2019-07-01] MEDS: Calcium Chloride 4,000 MG in 0.9 % Sodium Chloride 1,000 ML CRRT SCH (09:15)
[2019-07-01] MEDS: Budesonide/Formoterol 160/4.5 1 PUFF INH IH SCH ×2 (09:31→22:42)
[2019-07-01] MEDS ORDERED: *HR* Heparin 5,000 UNIT/ML VIAL IVP ONE (09:36)
[2019-07-01] MEDS ORDERED: *HR* Heparin 5,000 UNIT/ML VIAL IVP PRN ×2 (09:36)
[2019-07-01] MEDS: Heparin 25,000 UNIT/250 ML D5W 25,000 UNIT/250 ML IV.SOLN IVC SCH (10:13)
[2019-07-01] MEDS: Amiodarone Premix 360 MG/200 ML BAG IVC SCH (11:36)
[2019-07-01] MEDS: Lactulose Oral Soln 20 GM/30 ML UDC GTUBE SCH (18:47)
[2019-07-02] MEDS: Insulin LISPRO 300 UNITS/3 ML VIAL SQ SCH ×7 (00:09→23:52)
[2019-07-02] MEDS: Artificial Tears SOLN 15 ML BOTTLE BOTH EYES SCH ×7 (00:11→23:52)
[2019-07-02] MEDS: Hydrocortisone Sodium Succ 100 MG/2 ML VIAL IVP SCH ×5 (00:12→23:52)
[2019-07-02] MEDS: PrismaSATE BGK 4/2.5 5,000 ML CRRT SCH ×16 (00:12→22:09)
[2019-07-02] MEDS: Amiodarone Premix 360 MG/200 ML BAG IVC SCH ×2 (00:16→12:44)
[2019-07-02] MEDS: Dexmedetomidine HCl 400 MCG/100 ML MLS IVC SCH ×5 (00:41→22:41)
[2019-07-02] MEDS: Heparin 25,000 UNIT/250 ML D5W 25,000 UNIT/250 ML IV.SOLN IVC SCH ×2 (02:29→18:03)
[2019-07-02] MEDS: Piperacillin/Tazobactam 3.375 GM in 0.9 % Sodium Chloride Mini Bag 100 ML IVPB SCH ×3 (03:35→20:20)
[2019-07-02] MEDS: Ipratropium/Albuterol Neb 3 ML IH SCH ×4 (04:01→21:35)
[2019-07-02 05:24] LABS: ABG Base Excess 1 mEq/L (-2 to 3); ABG HCO3 27 mEq/L (21-27); ABG Oxygen Saturation 97 % (95-98); ABG PCO2 49 mmHg (35-45); ABG PH 7.35 pH Units (7.32-7.45); ABG PO2 93 mmHg (85-104); ABG TCO2 29 mEq/L (20-26); Blood Gas Modality ASSIST CONTROL; Blood Gas VT 550 cc
[2019-07-02] MEDS: Pantoprazole 40 MG VIAL IVP SCH (05:31)
[2019-07-02 05:43] LABS: Basophils % 0.1 %
[2019-07-02 05:45] LABS: Hematocrit 28.8 % (37.5-50.1); Hemoglobin 9.5 g/dL (12.9-16.9); Immature Granulocytes % 0.9 % (0-4); Immature Platelets 3.3 % (1.1-6.1); Lymphocytes # 0.3 K/mcL (0.6-4.6); Lymphocytes % 2.6 %; Mean Corpuscular Hemoglobin 30.2 pg (28.0-33.3); Mean Corpuscular Volume 91.4 fL (83.0-100.0); Mean Platelet Volume 11.9 fL (9.4-12.4); Monocytes # 0.7 K/mcL (0.0-1.3); Monocytes % 6.4 %; Neutrophils # 9.1 K/mcL (1.6-8.9); Nucleated Red Blood Cells 0.3 /100 WBC (0); Red Blood Count 3.15 M/mcL (4.19-5.50); Red Cell Distribution Width 16.7 % (11.5-14.5); White Blood Count 10.1 K/mcL (4.3-11.1)
[2019-07-02 06:08] LABS: Platelet Count 65 K/mcL (140-400)
[2019-07-02 06:11] LABS: Calcium 8.3 mg/dL (8.6-10.3); Potassium 4.4 mEq/L (3.5-5.1)
[2019-07-02] MEDS: Calcium Chloride 4,000 MG in 0.9 % Sodium Chloride 1,000 ML CRRT SCH (07:10)
[2019-07-02] MEDS: Chlorhexidine Rinse 15 ML MOUTHWASH MM SCH ×2 (07:29→20:20)
[2019-07-02] MEDS: Budesonide/Formoterol 160/4.5 1 PUFF INH IH SCH ×2 (09:54→21:35)
[2019-07-02 10:18] LABS: VBG Ionized Calcium 1.12 mmol/L (1.15-1.35)
[2019-07-02] MEDS: Sennosides/Docusate Sodium TABLET GTUBE SCH (20:20)
[2019-07-02] MEDS: Lactulose Oral Soln 20 GM/30 ML UDC GTUBE SCH (20:20)
[2019-07-03] MEDS: PrismaSATE BGK 4/2.5 5,000 ML CRRT SCH ×12 (01:11→16:46)
[2019-07-03] MEDS: Amiodarone Premix 360 MG/200 ML BAG IVC SCH ×2 (02:52→14:31)
[2019-07-03] MEDS: Dexmedetomidine HCl 400 MCG/100 ML MLS IVC SCH ×2 (02:52→07:06)
[2019-07-03] MEDS: Ipratropium/Albuterol Neb 3 ML IH SCH ×3 (03:40→15:31)
[2019-07-03] MEDS: Insulin LISPRO 300 UNITS/3 ML VIAL SQ SCH ×4 (03:44→15:43)
[2019-07-03] MEDS: Piperacillin/Tazobactam 3.375 GM in 0.9 % Sodium Chloride Mini Bag 100 ML IVPB SCH ×2 (03:44→12:30)
[2019-07-03] MEDS: Artificial Tears SOLN 15 ML BOTTLE BOTH EYES SCH ×2 (03:44→07:02)
[2019-07-03 04:07] LABS: Hemoglobin 9.8 g/dL (12.9-16.9); Lymphocytes % 3.6 %; Nucleated Red Blood Cells 0.3 /100 WBC (0)
[2019-07-03 04:08] LABS: Basophils % 0.1 %; Hematocrit 29.5 % (37.5-50.1); INR 1.5; Immature Granulocytes % 2.3 % (0-4); Immature Platelets 4.6 % (1.1-6.1); Lymphocytes # 0.3 K/mcL (0.6-4.6); Mean Corpuscular HGB Conc 33.2 g/dL (31.6-35.5); Mean Corpuscular Hemoglobin 29.5 pg (28.0-33.3); Mean Corpuscular Volume 88.9 fL (83.0-100.0); Mean Platelet Volume 12.1 fL (9.4-12.4); Monocytes # 0.5 K/mcL (0.0-1.3); Monocytes % 6.1 %; Neutrophils # 6.4 K/mcL (1.6-8.9); Prothrombin Time 16.8 Seconds (9.4-12.1); Red Blood Count 3.32 M/mcL (4.19-5.50); Red Cell Distribution Width 16.6 % (11.5-14.5); Segmented Neutrophils % 87.9 %; White Blood Count 7.3 K/mcL (4.3-11.1)
[2019-07-03 04:10] LABS: Platelet Count 59 K/mcL (140-400)
[2019-07-03 04:21] LABS: Magnesium 2.4 mg/dL (1.6-2.6); Phosphorous 2.7 mg/dL (2.7-4.5)
[2019-07-03 04:22] LABS: BUN/Creatinine Ratio 19 (6-26); Blood Urea Nitrogen 26 mg/dL (8-23); Calcium 8.4 mg/dL (8.6-10.3); Carbon Dioxide 26 mEq/L (23-29); Chloride 99 mEq/L (98-107); Glucose 144 mg/dL (70-105); Osmolality,Calculated 283 (280-300); Potassium 4.5 mEq/L (3.5-5.1); Sodium 133 mEq/L (136-145); eGFR For African Americans > 60 (> 60); eGFR For Non-African Americans 53 (> 60)
[2019-07-03 04:47] LABS: ABG Base Excess 3 mEq/L (-2 to 3); ABG HCO3 28 mEq/L (21-27); ABG Oxygen Saturation 98 % (95-98); ABG PCO2 45 mmHg (35-45); ABG PO2 107 mmHg (85-104); ABG TCO2 30 mEq/L (20-26); Blood Gas Modality AF; Blood Gas VT 550 cc
[2019-07-03] MEDS: Pantoprazole 40 MG VIAL IVP SCH (05:13)
[2019-07-03] MEDS: Hydrocortisone Sodium Succ 100 MG/2 ML VIAL IVP SCH (05:13)
[2019-07-03] MEDS: Chlorhexidine Rinse 15 ML MOUTHWASH MM SCH (07:02)
[2019-07-03] MEDS: Sennosides/Docusate Sodium TABLET GTUBE SCH (07:02)
[2019-07-03] MEDS: Calcium Chloride 4,000 MG in 0.9 % Sodium Chloride 1,000 ML CRRT SCH (07:03)
[2019-07-03] MEDS: Heparin 25,000 UNIT/250 ML D5W 25,000 UNIT/250 ML IV.SOLN IVC SCH (08:06)
[2019-07-03] MEDS: Budesonide/Formoterol 160/4.5 1 PUFF INH IH SCH (09:57)
[2019-07-03] MEDS ORDERED: Ondansetron 4 MG/2 ML VIAL IVP PRN (12:41)
[2019-07-03 18:01] VITALS: BP 114/57
[2019-07-03] MEDS: *HR* Heparin 5,000 UNIT/ML VIAL CRRT PRN (18:16)
[2019-07-03] MEDS ORDERED: Hydrocortisone Sodium Succ 100 MG/2 ML VIAL IVP SCH (21:00)
[2019-07-03] MEDS ORDERED: *HR* Etomidate 20 MG/10 ML AMPUL IVP ONE (21:14)
== END 2019-07-03 21:15 | disposition expired | DRG 870 ==
LOC: EMEROOARM 21:54 → 2NNU 21:54 → ICNU 06-28 02:30
PROVIDERS: ADMIT Family Medicine; ATTEND Family Medicine